=== PATIENT | female | born 1970 | race African-American/Black ===

== ENCOUNTER 2020-06-18 13:16 | Emergency (ER) | payer OTHER, SELFPAY ==
[2020-06-18] VITALS (22 sets, daily range): BP systolic 109–212; BP diastolic 81–171; PULSE 81–98; RESP 14–24; TEMP 36.4; O2SAT 95–100
--- NOTE | ~2020-06-18 | XR_ITS ---
EXAMINATION: XR chest 2V DATE: 06/18/2020 14:01 INDICATION: Chest pain. Dyspnea. TECHNIQUE: Frontal and lateral views of the chest were obtained. COMPARISON: None. FINDINGS: There is mild elevation of right hemidiaphragm. There is mild atelectasis at right lung bas e. Calcified bilateral lung nodules and calcified hilar and mediastinal lymph nodes are consistent wi th old granulomatous disease. No pleural effusion or pneumothorax. Cardiomegaly is noted. IMPRESSION: 1. Mild elevation of right hemidiaphragm with mild atelectasis at right lung base. 2. Cardiomegaly. Reviewed, dictated and finalized at location A. IMPRESSION: 1. Mild elevation of right hemidiaphragm with mild atelectasis at right lung ba se. 2. Cardiomegaly.
--- NOTE | 2020-06-18 13:36 | ECG_ITS ---
Measurements Intervals [place] Rate: 81 P: 65 [place]: 147 QRS: 3 QRSD: 97 T: 48 QT: 374 QTc: 436 Interpretive Statements SINUS RHYTHM POSSIBLE LEFT ATRIAL ENLARGEMENT POOR R WAVE PROGRESSION, ANTERIOR LEADS BORDERLINE T WAVE ABNORMALITY- ANTERIOR LEADS BASELINE WANDER- I, II BORDERLINE ECG Electronically Signed On 06-18-2020 16:32:32 CDT by Scar Palacios D.O.
[2020-06-18 13:47] LABS: Basophils Absolute Auto 0.1 K/mm3 (0.0-0.1); Basophils Percent Auto 0.8 % (0.2-1.2); Eosinophils Absolute Auto 0.2 K/mm3 (0-0.3); Eosinophils Percent Auto 1.9 % (0-4.4); Hematocrit 41.9 % (37.0-47.0); Immature Granulocyte Absolute 0.04 K/mm3 (0.00-0.031); Immature Granulocyte Percent A 0.4 % (0-0.5); Lymphocytes Absolute Auto 2.76 K/mm3 (0.9-3.2); Mean Corpuscular Hemoglobin 27.5 pg (26-34); Mean Corpuscular Volume 88.8 fl (80-100); Monocytes Absolute Auto 0.8 K/mm3 (0.1-0.6); Monocytes Percent Auto 8.8 % (2.6-8.5); Neutrophils Absolute Auto 5.1 K/mm3 (1.3-6.7); Neutrophils Percent Auto 57.1 % (45.5-73.1); Platelet Count Result 341 k/mm3 (150-375); Red Blood Count 4.72 M/mm3 (4.2-5.4); Red Cell Distribution Width 15.8 % (11.5-14.5); White Blood Count 8.9 K/mm3 (4.5-10.0)
--- NOTE | 2020-06-18 13:47 | ED.GENADULT ---
HPI - General Adult General Chief complaint: Shortness of Breath/Dyspnea Stated complaint: SOB Time Seen by Provider: 06/18/20 13:37 Source: patient History of Present Illness HPI narrative: Patient is a 50 y/o female complaining of severe SOB for 1 1/2 weeks. She states that exertion aggravates her SOB. She also has some midsternal chest pain. She has no fever or cough. Related Data Home Medications Medication Instructions Recorded Confirmed albuterol sulfate INHALATION 06/18/20 beclomethasone dipropionate [Qvar INHALATION 06/18/20 RediHaler] losartan-hydrochlorothiazide 25 - 100 tablet 06/18/20 Allergies Allergy/AdvReac Type Severity Reaction Status Date / Time No Known Allergies Allergy Verified 06/18/20 13:37 Review of Systems Constitutional: Constitutional: Denies chills, Denies fever(s), Denies headache(s) and Denies weakness Eyes: Eyes: Denies blurry vision ENT: Denies headache(s) and Denies neck pain Cardiovascular: Cardiovascular: Reports chest pain and Reports dyspnea Respiratory: Respiratory: Denies cough and Reports dyspnea Gastrointestinal: Gastrointestinal: Denies abdominal pain, Denies diarrhea, Denies nausea and Denies vomiting Genitourinary: Genitourinary: Denies hematuria and Denies dysuria Musculoskeletal: Musculoskeletal: Denies back pain and Denies neck pain Neurologic: Denies headache(s) and Denies weakness Exam Const: General: no acute distress and well developed Orientation/consciousness: oriented to person, oriented to place, oriented to time and patient oriented x3 HENMT: Head: normocephalic Ears: external ears normal General nose exam: Normal external nose present Eyes: General: appearance normal, both eyes and all related structures Conjunctivae: conjunctivae normal Neck: Neck: normal visual inspection and full ROM Chest: Chest palpation & inspection: normal inspection of the chest and no tenderness Resp: Effort & Inspection: normal respiratory effort Auscultation: clear to auscultation bilaterally Cardio: Rate: regular rate Rhythm: regular rhythm GI: GI Palp: No abdominal tenderness and Yes Soft to palpation Skin: General skin exam: normal color and turgor normal Neuro: General: oriented to person, oriented to place, oriented to time and patient oriented x3 Cognition (Neuro): normal cognition Extrem: General: normal to inspection, full ROM and no pedal edema Psych: Appearance: grossly normal Mental Status: mental status grossly normal Affect: normal affect Course Vital Signs Vital signs: Vital Signs Pulse Rate 81 06/18/20 13:32 Respiratory Rate 14 06/18/20 13:32 Pulse Oximetry 100 06/18/20 13:32 Temperature 36.4 C 06/18/20 14:00 Pulse Rate 83 06/18/20 17:47 Respiratory Rate 14 06/18/20 17:47 Blood Pressure 157/81 H 06/18/20 17:47 Pulse Oximetry 98 06/18/20 17:47 Medical Decision Making Vital Signs Vital Signs: Vital Signs Pulse Rate 81 06/18/20 13:32 Respiratory Rate 14 06/18/20 13:32 Pulse Oximetry 100 06/18/20 13:32 Temperature 36.4 C 06/18/20 14:00 Pulse Rate 83 06/18/20 17:47 Respiratory Rate 14 06/18/20 17:47 Blood Pressure 157/81 H 06/18/20 17:47 Pulse Oximetry 98 06/18/20 17:47 Lab Data Result diagrams: 06/18/20 13:39 06/18/20 13:39 Labs: Lab Results 06/18/20 06/18/20 06/18/20 Range/Units 13:39 13:39 13:39 WBC 8.9 (4.5-10.0) K/mm3 RBC 4.72 (4.2-5.4) M/mm3 Hgb 13.0 (12.0-15.0) g/dL Hct 41.9 (37.0-47.0) % MCV 88.8 (80-100) fl MCH 27.5 (26-34) pg MCHC 31.0 L (32-36) g/dl RDW 15.8 H (11.5-14.5) % Plt Count 341 (150-375) k/mm3 MPV 9.0 (7.4-10.4) fl Immature Gran % (Auto) 0.4 (0-0.5) % Neut % (Auto) 57.1 (45.5-73.1) % Lymph % (Auto) 31.0 (18.3-44.2) % Dillon % (Auto) 8.8 H (2.6-8.5) % Eos % (Auto) 1.9 (0-4.4) % Baso % (Auto) 0.8 (0.2-1.2) % Lymph #
[2020-06-18 13:58] LABS: Prothrombin Time 12.7 Seconds (11.1-14.7)
[2020-06-18 13:59] LABS: Partial Thromboplastin Time 25.8 SECONDS (22.3-36.8)
[2020-06-18 14:01] LABS: D Dimer 0.38 ug/mL (<0.48)
[2020-06-18 14:04] LABS: Anion Gap 6 mmol/L (8-16); Blood Urea Nitrogen 9 mg/dL (7-17); Calcium 9.9 mg/dL (8.4-10.2); Carbon Dioxide 29 mmol/L (22-30); Chloride 104 mmol/L (98-107); Estimated CRCL calculation 210 ml/min; Estimated Glomerular Filt Rate > 60; Glucose 94 mg/dL (65-105); Potassium 4.3 mmol/L (3.4-5.0); Sodium 139 mmol/L (137-145)
[2020-06-18 14:16] LABS: NT Pro B Type Natriuretic Pept 26 PG/ML (5-100); Troponin I < 0.012 ng/mL (0.000-0.034)
[2020-06-18] MEDS: amLODIPine BESYLATE 5 MG TABLET 10 MG PO (16:00)
[2020-06-18 17:11] LABS: Troponin I < 0.012 ng/mL (0.000-0.034)
== END 2020-06-18 18:22 | disposition home or self-care (01) ==
PROVIDERS: Emergency Provider Emergency Medicine; PCP Internal Medicine Infectious Disease
DX: R06.02 Shortness of breath (principal); I10 Essential (primary) hypertension; R07.9 Chest pain, unspecified
CPT/HCPCS: 36415; 71046; 80048; 83880; 84484; 85025; 85380; 85610; 85730; 93005; 99284; A9270

== ENCOUNTER 2024-12-18 12:01 | Inpatient (IN) | payer OTHER, SELFPAY ==
[2024-12-18] VITALS (20 sets, daily range): BP systolic 135–176; BP diastolic 72–114; PULSE 85–105; RESP 16–22; TEMP 36.4–36.6; O2SAT 78–99; BMI 74.7
--- NOTE | ~2024-12-18 | CT_ITS ---
EXAMINATION: CTA chest PE protocol DATE: 12/18/2024 23:10 INDICATION: hypoxia, elevated d dimer, hx PE TECHNIQUE: Computed tomography angiography (CTA) of the chest was performed with 100 mL Omnipaque-350 intravenous contrast timed to evaluate the pulmonary arteries. Coronal maximum intensity projection 3D-reconstructions were created by the technologist. The dose-length product (DLP) was 1227.07 mGy-cm . Automated exposure control and iterative reconstruction technique were employed. COMPARISON: X-ray chest, same date. FINDINGS: Lung parenchyma and airways: Bibasilar and dependent atelectasis. Patchy areas of groundglass opacity predominantly in the right lung, with less pronounced ground glass opacities in the left lung. Paten t airways Pleura: Unremarkable. Thoracic inlet, axillae and chest wall: Enlarged thyroid. Thoracic aorta: No significant dilation. No dissection. Mediastinum: Dilated central pulmonary arteries as can be seen with pulmonary arterial hypertension. Heart and pericardium: Cardiomegaly. Trace pericardial fluid. Coronary artery calcifications: Mild. Upper abdomen: No significant finding. Bones: No acute osseous finding. Pulmonary arteries: Study quality: Limited by quantum mottle but overall diagnostic. No pulmonary emb el detected. IMPRESSION: No CT evidence of acute pulmonary embolus. Bilateral groundglass opacities, worse in the right lung, may represent asymmetric edema or infection . Thyroid goiter. Reviewed, dictated and finalized at location K. INSPECTOR IMPRESSION: No CT evidence of acute pulmonary embolus. Bilateral groundglass opacities, worse in the right lung, may represent asymmet bogdan edema or infection. Thyroid goiter.
--- NOTE | ~2024-12-18 | XR_ITS ---
Portable chest x-ray Comparison: 12/18/2024 Clinical History: Pneumonia Findings: There is probable central pulmonary venous congestive change. Right upper lobe airspace di sease is significantly improved from prior exam. Cardiomediastinal silhouette is stable. Bones and s oft tissues are unremarkable. Impression: Central venous congestive change and probable minimal pulmonary edema. Significant improvement in rig ht upper lobe airspace disease from prior exam. Reviewed, dictated and finalized at location M. SACTIONAL ATTORNEY Impression: Central venous congestive change and probable minimal pulmonary edema. Signific ant improvement in right upper lobe airspace disease from prior exam.
--- NOTE | ~2024-12-18 | XR_ITS ---
EXAMINATION: XR chest 2V DATE: 12/18/2024 13:08 INDICATION: Chest pain and shortness of breath TECHNIQUE: frontal and lateral views of the chest were obtained. COMPARISON: Chest radiograph dated 06/18/2020 FINDINGS: Patchy airspace opacities wording throughout the right lung suspicious for pneumonia. Left lung remai ns clear. No pleural effusion or pneumothorax. Cardiomegaly. There are bridging osteophytes at multip le levels consistent with diffuse idiopathic skeletal hyperostosis (DISH). IMPRESSION: 1. Patchy airspace opacities throughout the right lung suspicious for pneumonia. 2. Cardiomegaly. Reviewed, dictated and finalized at location A. ECTOR SUBASSEMBLY IMPRESSION: 1. Patchy airspace opacities throughout the right lung suspicious for pneumonia . 2. Cardiomegaly.
--- NOTE | 2024-12-18 12:04 | ECG_ITS ---
Test Date: 2024-12-18 12:12:58 Measurements Intervals [place] Rate: 94 P: 61 [place]: 154 QRS: -9 QRSD: 92 T: 60 QT: 375 QTc: 471 Interpretive Statements SINUS RHYTHM BORDERLINE R WAVE PROGRESSION, ANTERIOR LEADS MODERATE T-WAVE ABNORMALITY, CONSIDER ANTERIOR ISCHEMIA ABNORMAL ECG No previous ECG available for comparison Electronically Signed On 12-18-2024 12:43:59 FINISH PAINTER by Scar Palacios D.O.
[2024-12-18 12:33] LABS: Basophils Absolute Auto 0.1 K/mm3 (0.0-0.1); Basophils Percent Auto 0.9 % (0.2-1.2); Eosinophils Percent Auto 0.3 % (0-4.4); Hematocrit 41.2 % (37.0-47.0); Hemoglobin 11.6 g/dL (12.0-15.0); Immature Granulocyte Absolute 0.14 K/mm3 (0.00-0.031); Immature Granulocyte Percent A 1.3 % (0-0.5); Lymphocytes Absolute Auto 2.36 K/mm3 (0.9-3.2); Lymphocytes Percent Auto 22.5 % (18.3-44.2); Mean Corpuscular HGB Conc 28.2 g/dl (32-36); Mean Corpuscular Hemoglobin 26.6 pg (26-34); Mean Corpuscular Volume 94.5 fl (80-100); Mean Platelet Volume 9.3 fl (7.4-10.4); Monocytes Percent Auto 9.1 % (2.6-8.5); Neutrophils Absolute Auto 6.9 K/mm3 (1.3-6.7); Neutrophils Percent Auto 65.9 % (45.5-73.1); Nucleated Red Blood Cells Perc 5.6 % (0.0-0.2); Platelet Count Result 356 k/mm3 (150-375); Red Blood Count 4.36 M/mm3 (4.2-5.4); Red Cell Distribution Width 17.2 % (11.5-14.5); White Blood Count 10.5 K/mm3 (4.5-10.0)
--- NOTE | 2024-12-18 12:38 | ED_ITS ---
HPI - General Adult General Chief complaint: Chest Pain Stated complaint: CP, blood in stool, SOB History of Present Illness HPI narrative: 54-year-old female present to the emergency department for evaluation for multiple complaints. Patient states that she has been having some increased shortness of breath, chest pain and has been having some blood in her stool, patient states this all started on . Patient does report a prior history of H pylori eye that was treated with antibiotics. Patient reports that she is not normally on oxygen patient is currently on 4 L of oxygen by nasal cannula. Related Data Home Medications ?Medication ?Instructions ?Recorded ?Confirmed ?Last Taken ?Type albuterol sulfate 90 mcg/actuation 3 inh inhalation Q8H PRN shortness 06/18/20 12/18/24 12/17/24 History aerosol inhaler of breath or wheezing Allergies Allergy/AdvReac Type Severity Reaction Status Date / Time No Known Allergies Allergy Verified 12/18/24 16:59 Review of Systems 2 Review of Systems: All systems reviewed & are unremarkable except as noted in HPI and below PMFSH Past Medical History Medical History (Updated 12/18/24 @ 20:28 by Yuko Michel PA-C) Pulmonary embolism H. pylori infection Chronic obstructive pulmonary disease Prediabetes Obstructive sleep apnea on CPAP Heart failure of unknown type Morbid obesity Surgical History Surgical History (Updated 12/18/24 @ 20:28 by Yuko Michel PA-C) History of eye surgery History of carpal tunnel release History of hysterectomy Social History Social History (Updated 12/18/24 @ 20:29 by Yuko Mcihel PA-C) Social History: Surrogate medical decision maker: Paulina Moulton (sibling) or her 2 children. Code status: Full code. Smoking packs per day: 0.25 Smoking cigarettes per day: 5.0 Years smoked: 25 Smoking pack-years: 6.25 Smoking status: Former smoker Tobacco type: cigarettes Alcohol intake: never Substance use: never Substance use type: does not use Do You Feel Safe in your Home?: No Lack of Transportation: No Lack of Food: Never True Current Housing: I Have Housing Concerned About Future Housing: No Difficulty Paying Gas/Electric Bills: No Difficulty Paying for Meds: No Currently Unemployed: No Education: High School Diploma/GED Difficulty w/ Childcare or Family Care: No Spiritual care concerns: No Exam 2 Narrative: APPEARANCE: Morbidly obese, short of breath HEAD: normocephalic, atraumatic. EYES: PERRLA/EOMI, conjunctivae clear. NOSE: Normal no drainage EARS:TMS clear with good light reflex. THROAT: Pharynx clear, no exudate. NECK: Supple. No adenopathy, no masses. RESPIRATORY: Airway patent, respirations nonlabored. Clear to auscultation bilaterally, no rales, rhonchi, wheezing. CARDIOVASCULAR: Regular rate and rhythm without murmurs rubs or gallops. ABDOMINAL: Soft, nontender, nondistended, normal bowel sounds MUSCULOSKELETAL: Moves all extremities. Strength/ROM intact, No edema, No calf tenderness. NEURO: Alert. Cranial nerves II through XII intact. Good gait. Good coordination SKIN: Warm, dry. Normal Color Course Vital Signs Vital signs: Vital Signs Pulse Oximetry 78 L 12/18/24 12:10 Oxygen Delivery Room Air 12/18/24 12:10 Temperature 97.6 F 12/18/24 20:00 Pulse Rate 92 12/18/24 20:21 Respiratory Rate 20 12/18/24 20:21 Blood Pressure 173/99 H 12/18/24 20:00 Pulse Oximetry 97 12/18/24 20:20 Oxygen Delivery Nasal Cannula 12/18/24 20:20 Oxygen Flow Rate 4 12/18/24 20:20 Medical Decision Making [facility] Narrative Medical decision making narrative: 54-year-old female present to the emergency department for evaluation for chest pain, shortness of breath and blood in her stool. Patient was Hemoccult positive on the digital rectal exam, stool is dark red and pasty. Patient was treated with a dose of famotidine and Protonix. GI was consulted. Patient does have a new O2 requirement but is saturating well on her 4 L in no distress. Chest x-ray was concerning for pneumonia. Patient was started on Rocephin and azithromycin IV. Case was discussed with hospitalist patient was accepted for admission. Family were updated on the results of the workup plan for admission. All questions and concerns were addressed. Differential Diagnosis Differential Diagnosis: COVID, RSV, influenza, pneumonia, upper GI bleed, lower GI bleed, anemia Vital Signs Vital Signs: Vital Signs Pulse Oximetry 78 L 12/18/24 12:10 Oxygen Delivery Room Air 12/18/24 12:10 Temperature 97.6 F 12/18/24 20:00 Pulse Rate 92 12/18/24 20:21 Respiratory Rate 20 12/18/24 20:21 Blood Pressure 173/99 H 12/18/24 20:00 Pulse Oximetry 97 12/18/24 20:20 Oxygen Delivery Nasal Cannula 12/18/24 20:20 Oxygen Flow Rate 4 12/18/24 20:20 Lab Data Lab results reviewed: Yes I reviewed the patient's lab results. 12/18/24 12:24 12/18/24 12:24 Labs: Lab Results 12/18/24 12/18/24 12/18/24 Range/Units 12:24 12:27 12:43 WBC 10.5 H (4.5-10.0) K/mm3 RBC 4.36 (4.2-5.4) M/mm3 Hgb 11.6 L (12.0-15.0) g/dL Hct 41.2 (37.0-47.0) % MCV 94.5 (80-100) fl MCH 26.6 (26-34) pg MCHC 28.2 L (32-36) g/dl RDW 17.2 H (11.5-14.5) % Plt Count 356 (150-375) k/mm3 MPV 9.3 (7.4-10.4) fl Immature Gran % (Auto) 1.3 H (0-0.5) % Neut % (Auto) 65.9 (45.5-73.1) % Lymph % (Auto) 22.5 (18.3-44.2) % Wilkinson % (Auto) 9.1 H (2.6-8.5) % Eos % (Auto) 0.3 (0-4.4) % Baso % (Auto) 0.9 (0.2-1.2) % Lymph # (Auto) 2.36 (0.9-3.2) K/mm3 Wilkinson # (Auto) 1.0 H (0.1-0.6) K/mm3 Eos # (Auto) 0.0 (0-0.3) K/mm3 Baso # (Auto) 0.1 (0.0-0.1) K/mm3 Abs Immat Gran (auto) 0.14 H (0.00-0.031) K/mm3 Absolute Neuts (auto) 6.9 H (1.3-6.7) K/mm3 Absolute Nucleated RBC 0.590 H (0.0-0.012) K/mm3 Nucleated RBC % 5.6 H (0.0-0.2) % Platelet Estimate Adequate (Adequate) Hypochromasia 2+ Stomatocytes 2+ Schistocytes None seen PT 13.3 (11.1-14.7) Seconds INR 1.0 APTT 25.7 (22.3-36.8) Seconds Methemoglobin (0-1.5) %THb Sodium 141 (137-145) mmol/L Potassium 4.4 (3.4-5.0) mmol/L Chloride 97 L (98-107) mmol/L Carbon Dioxide 39 H (22-30) mmol/L Anion Gap 5 (4-12) mmol/L BUN 18 H (7-17) mg/dL Creatinine 0.51 L (0.7-1.0) mg/dL Estim Creat Clear Calc 169 ml/min Estimated GFR > 60 (59 - ) Glucose 134 H (65-110) mg/dL Hemoglobin A1c Pending Calcium 10.2 (8.4-10.2) mg/dL Total Bilirubin 0.5 (0.2-1.3) mg/dL AST 45 H (14-36) U/L ALT 53 H (6-35) U/L Alkaline Phosphatase 110 (38-126) U/L Troponin I 0.032 (0.000-0.034) ng/mL Total Protein 8.0 (6.3-8.2) g/dL Albumin 4.1 (3.5-5.1) g/dL Lipase 25 (23-300) U/L Influenza A (RT-PCR) Negative (Negative) Influenza B (RT-PCR) Negative (Negative) RSV (RT-PCR) Negative (Negative) SARS-CoV-2 RNA (RT-PCR) Negative (Negative) Blood Type A Positive Antibody Screen Negative 12/18/24 Range/Units 13:18 WBC (4.5-10.0) K/mm3 RBC (4.2-5.4) M/mm3 Hgb (12.0-15.0) g/dL Hct (37.0-47.0) % MCV (80-100) fl MCH (26-34) pg MCHC (32-36) g/dl RDW (11.5-14.5) % Plt Count (150-375) k/mm3 MPV (7.4-10.4) fl Immature Gran % (Auto) (0-0.5) % Neut % (Auto) (45.5-73.1) % Lymph % (Auto) (18.3-44.2) % Wilkinson % (Auto) (2.6-8.5) % Eos % (Auto) (0-4.4) % Baso % (Auto) (0.2-1.2) % Lymph # (Auto) (0.9-3.2) K/mm3 Wilkinson # (Auto) (0.1-0.6) K/mm3 Eos # (Auto) (0-0.3) K/mm3 Baso # (Auto) (0.0-0.1) K/mm3 Abs Immat Gran (auto) (0.00-0.031) K/mm3 Absolute Neuts (auto) (1.3-6.7) K/mm3 Absolute Nucleated RBC (0.0-0.012) K/mm3 Nucleated RBC % (0.0-0.2) % Platelet Estimate (Adequate) Hypochromasia Stomatocytes Schistocytes PT (11.1-14.7) Seconds INR APTT (22.3-36.8) Seconds Methemoglobin 0.2 (0-1.5) %THb Sodium (137-145) mmol/L Potassium (3.4-5.0) mmol/L Chloride (98-107) mmol/L Carbon Dioxide (22-30) mmol/L Anion Gap (4-12) mmol/L BUN (7-17) mg/dL Creatinine (0.7-1.0) mg/dL Estim Creat Clear Calc ml/min Estimated GFR (59 - ) Glucose (65-110) mg/dL Hemoglobin A1c Calcium (8.4-10.2) mg/dL Total Bilirubin (0.2-1.3) mg/dL AST (14-36) U/L ALT (6-35) U/L Alkaline Phosphatase (38-126) U/L Troponin I (0.000-0.034) ng/mL Total Protein (6.3-8.2) g/dL Albumin (3.5-5.1) g/dL Lipase (23-300) U/L Influenza A (RT-PCR) (Negative) Influenza B (RT-PCR) (Negative) RSV (RT-PCR) (Negative) SARS-CoV-2 RNA (RT-PCR) (Negative) Blood Type Antibody Screen ABG Data ABG results: 12/18/24 13:18 Puncture Site Right radial ABG pH 7.364 ABG pCO2 59.0 H ABG pO2 64.1 L ABG PO2/FiO2 Ratio 1.78 ABG HCO3 32.9 H ABG O2 Saturation 91.2 L ABG O2 Content 15.5 L ABG Base Excess 6.0 A-a Gradient 124.1 Oxyhemoglobin 90.2 Carboxyhemoglobin 1.2 Reduced Hemoglobin 8.4 H Total Hemoglobin 12.2 O2 Delivery Device Nasal cannula O2 Liters/Min 4.0 FiO2 36 Imaging Data Radiologist's impression: Impressions Chest X-Ray 12/18/24 13:10 IMPRESSION: 1. Patchy airspace opacities throughout the right lung suspicious for pneumonia. 2. Cardiomegaly. Discharge Plan Discharge Clinical Impression: Chest pain, Pneumonia, GI bleed Patient Disposition: Still a Patient Condition: Serious
[2024-12-18 12:43] LABS: Prothrombin Time 13.3 Seconds (11.1-14.7)
[2024-12-18 12:44] LABS: Partial Thromboplastin Time 25.7 Seconds (22.3-36.8)
[2024-12-18 12:46] LABS: Alanine Aminotransferase 53 U/L (6-35); Albumin Level 4.1 g/dL (3.5-5.1); Alkaline Phosphatase 110 U/L (38-126); Anion Gap 5 mmol/L (4-12); Aspartate Amino Transferase 45 U/L (14-36); Bilirubin,Total 0.5 mg/dL (0.2-1.3); Blood Urea Nitrogen 18 mg/dL (7-17); Calcium 10.2 mg/dL (8.4-10.2); Carbon Dioxide 39 mmol/L (22-30); Chloride 97 mmol/L (98-107); Estimated CRCL calculation 169 ml/min; Estimated Glomerular Filt Rate > 60; Glucose 134 mg/dL (65-110); Lipase 25 U/L (23-300); Potassium 4.4 mmol/L (3.4-5.0); Sodium 141 mmol/L (137-145)
[2024-12-18 12:56] LABS: Troponin I 0.032 ng/mL (0.000-0.034)
[2024-12-18 12:57] LABS: Hypochromasia 2+; Platelet Estimate Adequate (Adequate)
[2024-12-18 12:59] LABS: Schistocytes None Seen; Stomatocytes 2+
--- NOTE | 2024-12-18 13:04 | PC.NURSE ---
Pt. to x-ray.
[2024-12-18 13:25] LABS: Influenza A QL RT-PCR Negative (Negative); Influenza B QL RT-PCR Negative (Negative); RSV RNA, RT-PCR Negative (Negative); SARS-CoV-2 RNA PCR Negative (Negative)
[2024-12-18 13:33] LABS: Alveolar/Arterial O2 Gradient 124.1 mmHg; Carboxyhemoglobin 1.2 % THb (0-2.0); Fractional Inspired Oxygen 36 %; HCO3 ABG 32.9 mEq/l (22.0-26.0); Methemoglobin ABG 0.2 %THb (0-1.5); Oxygen Content ABG 15.5 %vol (16.0-22.0); Oxygen Saturation ABG 91.2 % (95.0-100.0); Oxyhemoglobin 90.2 % THb (90.0-100.0); PO2 ABG 64.1 mmHg (80.0-100.0); PO2 FiO2 Ratio Arterial Blood 1.78 %; Reduced Hemoglobin 8.4 %THb (0-5.0); Total Hemoglobin 12.2 g/dL (12.0-18.0); pH ABG 7.364 (7.350-7.450)
[2024-12-18 13:35] LABS: Device NASAL CANNULA; Modified Allen's Test Pass; Site Drawn RIGHT RADIAL
--- NOTE | 2024-12-18 13:35 | P.HP_ITS ---
H&P: HPI History of Present Illness Date/Time: 12/18/24 13:35 Chief Complaint: Multiple complaints. Narrative: This is a very pleasant 54-year-old female with morbid obesity, chronic obstructive pulmonary disease, congestive heart failure, hypertension, obstructive sleep apnea, pulmonary embolism greater than 10 years ago, colon polyps, and H pylori infection who presented to the emergency department via EMS with multiple complaints. She has only been seen at this facility once or twice in the past and gets most of her care at [facility]. She has ongoing problems with constipation and on she felt the urge to have a bowel movement and when she went to the bathroom she had passed a pretty big amount of dark red/maroon blood admixed with clots. She had another similar bowel movement on Wednesday, yesterday, and today but Wednesday she did not have a bowel movement and did not passed any blood per rectum. She also reports nausea, mild epigastric discomfort, sinus congestion, sneezing, shortness of breath, and anterior, substernal chest discomfort which she has difficulties describing. She denies fever, sore throat, exertional chest pain, pleuritic pain, productive cough, vomiting, diarrhea, and dysuria. In the ED: Vital signs on arrival include an SpO2 of 70% on room air, temperature 97.8? F, blood pressure 169/114, pulse 93. Labs were significant for WBC count of 10.5, hemoglobin 11.6, carbon dioxide 39, BUN 18, creatinine 0.51, glucose 134, AST 45, ALT 53, troponin 0.032. She tested negative for influenza, RSV, and COVID. Chest x-ray shows patchy airspace opacities throughout the right lung suspicious for pneumonia and cardiomegaly. EKG showed sinus rhythm with borderline R-wave progression anterior leads and moderate T-wave abnormalities. She received azithromycin 500 mg, ceftriaxone 1 g, and pantoprazole 80 mg. She is being admitted in this setting for further treatment of suspected pneumonia and GI consultation as her stool was Hemoccult positive. Review of Systems Review of Systems: 12 systems were reviewed and are negativ e except for as per HPI. [facility] Past Medical History Medical History (Updated 12/18/24 @ 20:28 by Yuko Michel PA-C) Pulmonary embolism H. pylori infection Chronic obstructive pulmonary disease Prediabetes Obstructive sleep apnea on CPAP Heart failure of unknown type Morbid obesity Surgical History Surgical History (Updated 12/18/24 @ 20:28 by Yuko Michel PA-C) History of eye surgery History of carpal tunnel release History of hysterectomy Social History Social History (Updated 12/18/24 @ 20:29 by Yuko Michel PA-C) Social History: Surrogate medical decision maker: Paulina Moulton (sibling) or her 2 children. Code status: Full code. Smoking packs per day: 0.25 Smoking cigarettes per day: 5.0 Years smoked: 25 Smoking pack-years: 6.25 Smoking status: Former smoker Tobacco type: cigarettes Alcohol intake: never Substance use: never Substance use type: does not use Do You Feel Safe in your Home?: No Lack of Transportation: No Lack of Food: Never True Current Housing: I Have Housing Concerned About Future Housing: No Difficulty Paying Gas/Electric Bills: No Difficulty Paying for Meds: No Currently Unemployed: No Education: High School Diploma/GED Difficulty w/ Childcare or Family Care: No Spiritual care concerns: No Meds Home Medications and Allergies Home Medications ?Medication ?Instructions ?Recorded ?Confirmed ?Type albuterol sulfate 90 mcg/actuation 3 inh inhalation Q8H PRN shortness 06/18/20 12/18/24 History aerosol inhaler of breath or wheezing Allergies Allergy/AdvReac Type Severity Reaction Status Date / Time No Known Allergies Allergy Verified 12/18/24 16:59 Vital Signs Vital Signs - 24 hr 12/18/24 12:10 12/18/24 12:11 12/18/24 12:12 Temperature 97.8 F Pulse Rate 93 Respiratory Rate 20 Blood Pressure 169/114 H Pulse Oximetry 78 L 96 96 Oxygen Delivery Room Air Nasal Cannula Oxygen Flow Rate 4 6 12/18/24 12:18 Temperature Pulse Rate Respiratory Rate Blood Pressure Pulse Oximetry 98 Oxygen Delivery Nasal Cannula Oxygen Flow Rate 4 Exam Narrative: General: Mildly ill-appearing female sitting up in bed in no acute distress. Weight: 179.5 kg. BMI: 74.8. HEENT: PERRL, EOMI. Sclera anicteric. Oral mucosa moist. Crowded oropharynx. Neck: Supple. Exam limited due to neck circumference. No obvious JVD. Respiratory: Currently requiring 4 L nasal cannula to maintain her SpO2 in the mid to upper 90s. Respirations are nonlabored. Lung sounds are a bit coarse at the right base. Cardiovascular: Regular rate and rhythm with S1-S2. Gastrointestinal: Abdomen is soft, morbidly obese, nontender, and nondistended with positive bowel sounds. Skin: Warm and dry. No rash or lesions on limited exam. Extremities: No cyanosis, clubbing, or significant edema. Radial and pedal pulses intact. No palpable knots or cords. Negative Vera sign bilaterally. Neurological: Alert. Cranial nerves 2-12 are grossly intact. No gross focal deficits to casual conversation. Psychiatric: Pleasant and cooperative with normal mood and affect. Judgment and insight intact. She is in good spirits. H&P: Results Labs Labs: Short CBC 12/18/24 Range/Units 12:24 WBC 10.5 H (4.5-10.0) K/mm3 Hgb 11.6 L (12.0-15.0) g/dL Hct 41.2 (37.0-47.0) % Plt Count 356 (150-375) k/mm3 BMP 12/18/24 12:24 Sodium 141 Potassium 4.4 Chloride 97 L Carbon Dioxide 39 H BUN 18 H Creatinine 0.51 L Glucose 134 H Calcium 10.2 Cardiac Enzymes 12/18/24 Range/Units 12:24 Troponin I 0.032 (0.000-0.034) ng/mL Liver Function 12/18/24 Range/Units 12:24 Total Bilirubin 0.5 (0.2-1.3) mg/dL AST 45 H (14-36) U/L ALT 53 H (6-35) U/L Alkaline Phosphatase 110 (38-126) U/L Albumin 4.1 (3.5-5.1) g/dL Impressions Chest X-Ray 12/18/24 13:10 IMPRESSION: 1. Patchy airspace opacities throughout the right lung suspicious for pneumonia. 2. Cardiomegaly. Assessment and Plan Assessment and plan (1) Acute respiratory failure with hypoxia and hypercapnia: Code(s): J96.01 - Acute respiratory failure with hypoxia; J96.02 - Acute respiratory failure with hypercapnia Status: Acute (2) Pneumonia: Code(s): J18.9 - Pneumonia, unspecified organism Status: Acute (3) Chest pain: Code(s): R07.9 - Chest pain, unspecified Status: Acute (4) GI bleed: Code(s): K92.2 - Gastrointestinal hemorrhage, unspecified Status: Acute (5) Morbid obesity: Code(s): E66.01 - Morbid (severe) obesity due to excess calories Status: Acute (6) Heart failure of unknown type: Code(s): I50.9 - Heart failure, unspecified Status: Acute (7) Chronic obstructive pulmonary disease: Code(s): J44.9 - Chronic obstructive pulmonary disease, unspecified Status: Acute (8) Obstructive sleep apnea on CPAP: Code(s): G47.33 - Obstructive sleep apnea (adult) (pediatric) Status: Acute (9) Hypertension: Qualifiers: Hypertension type: unspecified Qualified Code(s): I10 - Essential (primary) hypertension Code(s): I10 - Essential (primary) hypertension Status: Inactive Plan The patient presented to the emergency department with multiple complaints including blood in stools, chest pain, cough, shortness of breath, and other symptoms as detailed in HPI. Labs, imaging, EKG, and all reports were personally reviewed. Initial troponin was negative and will be trended however her symptoms seem a bit atypical for cardiac pain. Given history of pulmonary edema and hypoxia, D-dimer has been ordered and if that is elevated a chest CTA will follow. ABG is concerning for possible chronic respiratory failure with both hypercapnia and hypoxia and she will need a home oxygen study prior to discharge. Chest x-ray shows findings of pneumonia on the right and she has been started on azithromycin and ceftriaxone. Attempt sputum for culture. Regarding the dark stools, this is likely due to either hemorrhoidal or diverticular bleeding. Records requested from prior colonoscopy which was reportedly 5 years ago or more. Hemoglobin and hematocrit will be monitored. GI consult for further recommendations. No evidence to suggest COPD exacerbation. She appears euvolemic on exam. CPAP will be provided for the patient to use while hospitalized. Blood pressures were reviewed and they have been running high. Continue to monitor closely for now and consider reinitiating antihypertensives as she is reportedly no longer taking them. Her home medications will be reviewed and resumed as appropriate. Findings and treatment plan were discussed with the patient and her daughter at bedside. Questions were solicited and answered to satisfaction. The patient's medical management will be taken over by the hospitalist team in a.m. Quality VTE Prophylaxis VTE prophylaxis: mechanical ordered If No VTE Prophylaxis Answer both mechanical and pharmacologic: Reason no pharmacologic proph: medical contraindication (hemoccult positive stool) The patient has been admitted under observation status. Hospitalist [facility] Advance Care Plan I have confirmed that the patient's Advanced Care Plan is present, code status is documented, or surrogate decision maker is listed in patient medical record.: Yes Medication Reconciliation I have utilized all available resources to obtain, update and review the patients current medications (includes all prescriptions, OTC, herbals, cannabis, and nutritional supplements).: Yes
--- NOTE | 2024-12-18 14:00 | PC.NURSE ---
This RN and Ingr[employer] geotechnician unable to collect cultures d/t pt. difficult vasculature. Per MD Quintero, if cultures have not been obtained by 1430 (30 minutes), start antibiotics without cultures.
[2024-12-18] MEDS: PANTOPRAZOLE SODIUM IV 40 MG VIAL 80 MG IV PUSH (14:06)
[2024-12-18] MEDS: FAMOTIDINE 20 MG/2 ML VIAL IV PUSH (14:06)
--- NOTE | 2024-12-18 14:15 | PC.NURSE ---
Clear liquid tray ordered for pt.
--- NOTE | 2024-12-18 14:15 | PC.NURSE ---
KIESHA Maki at bedside attempting to obtain cultures with ultrasound machine.
--- OUTSIDE RECORDS SUMMARY | 2024-12-18 14:45 | XMS_ITS | Patient Health Summary ---
Author Organization [facility] Address [address] [place] [address] Care Team Providers Care City Planning Aide Name Role Phone Dilia Yap MD Primary Care Provider Arnulfo Garcia MD Unavailable [phone] Note from [facility],non-owned Affiliates and Associated Physician Practices is amultiple site organization consisting of ambulatory clinics and hospital sitesin [place], [place], [place] and [place]. This disclosure is being madepursuant to the Care Everywhere program and may not contain all information available regarding this patient. Last updated 18.[facility] Allergies No known active allergies Medications * Be aware that medications may not be up to date on this document. Alwaysverify current medications with the patient. * albuterol HFA (PROVENTIL;VENTOLIN;PROAIR) 108 (90 BASE) MCG/ACT inhaler Inhale 2 Puffs by mouth every 6 hours as needed * beclomethasone dipropionate (QVAR) 40 MCG/ACT inhaler Inhale by mouth once daily * buPROPion (WELLBUTRIN) 75 MG tablet Take 1 tablet twice a day by oral route for 30 days. * fluconazole (DIFLUCAN) 150 MG tablet(Started 05/09/2018) * losartan - hydroCHLOROthiazide (HYZAAR) 50-12.5 MG tablet Take 1 tablet by mouth once daily * erythromycin (ROMYCIN) 5 MG/GM ophthalmic ointment(Started 07/25/2019) Instill into both eyes 4 times daily 2 refills remaining Active Problems Problem Noted Date Diagnosed Date Wound dehiscence, surgical 07/01/2018 Abnormal uterine bleeding (AUB) 06/23/2018 S/P hysterectomy 06/23/2018 Papilledema 04/07/2018 History of papilledema 04/07/2018 IIH (idiopathic intracranial hypertension) 01/24 Ptosis, bilateral 01/24/2018 Obesity (BMI 30-39.9) 01/24/2018 Optic atrophy of both eyes 01/24/2018 Absolute anemia 11/16/2017 Social History Tobacco Use Types Packs/Day Years Used Date Smoking Tobacco: Every Day Cigarettes Last attempted to quit: 11/01/2012 Smokeless Tobacco: Never Tobacco Cessation:Counseling Given: No Alcohol Use Standard Drinks/Week Comments Yes 0 (1 standard drink = 0.6 oz pure alcohol) socially maybe 3-4 times a year Sex and Gender Information Value Date Recorded Sex Assigned at Not on file Gender Identity Not on file Sexual Orientation Not on file Last Filed Vital Signs Vital Sign Reading Time Taken Comments Blood Pressure 157/90 07/25/2019 9:30 AM CDT Pulse 78 07/25/2019 9:30 AM CDT Temperature 36.9 C (98.4 F) 07/25/2019 9:21 AM CDT Respiratory Rate 20 07/25/2019 9:30 AM CDT Oxygen Saturation 98% 07/25/2019 9:30 AM CDT Inhaled Oxygen Concentration 21% 07/25/2019 6 :43 AM CDT Weight 150.7 kg (332 lb 3.2 oz) 07/25/2019 6:27 AM CDT Height 154.9 cm (5' 1 ) 07/25/2019 6:27 AM CDT Body Mass Index 62.77 07/25/2019 6:27 AM CDT Procedures * MN REPAIR BROW PTOSIS(Performed 07/25/2019) Performed for Ptosis of both eyelids * CULTURE ANAEROBE(Performed 07/05/2018) * CULTURE WOUND+GRAM STAIN(Performed 07/05/2018) * SLIDE SCAN HEMATOLOGY(Performed 07/01/2018) Performed for Draining postoperative wound, initial encounter * CBC W AUTO DIFFERENTIAL(Performed 07/01/2018) Performed for Draining postoperative wound, initial encounter * CARDIAC RHYTHM STRIP ORDER(Performed 06/28/2018) * APHERESIS/TRANSFUSION ORDER(Performed 06/28/2018) * CBC W AUTO DIFFERENTIAL(Performed 06/24/2018) Performed for Abnormal uterine bleeding (AUB), S/P hysterectomy * HOME CPAP/BIPAP FOR HOSP USE: NOCTURNAL 02(Performed 06/24/2018) * CBC W AUTO DIFFERENTIAL(Performed 06/23/2018) Performed for S/P hysterectomy * PREPARE RBC LEUKOREDUCED UNIT(Performed 06/23/2018) Performed for Abnormal uterine bleeding (AUB) * PATHOLOGY TISSUE EXAM (STL)(Performed 06/23/2018) Performed for Diagnosis unknown * TRANSFUSE RED BLOOD CELL LEUKOREDUCED UNIT(S)(Performed 06/23/2018) * ENDOTRACHEAL TUBE NOTE(Performed 06/23/2018) * TRANSFUSE RED BLOOD CELL LEUKOREDUCED UNIT(S)(Performed 06/23/2018) * HYSTERECTOMY ABDOMINAL WITH SALPINGO/OOPHORECTOMY(Performed 06/23/2018) Performed for Diagnosis unknown * HYSTERECTOMY VAGINAL (TVH)(Performed 06/23/2018) Performed for Diagnosis unknown * TYPE + SCREEN PANEL(Performed 06/23/2018) Performed for Papilledema * SLIDE SCAN HEMATOLOGY(Performed 06/23/2018) Performed for Preop examination * CBC W AUTO DIFFERENTIAL(Performed 06/23/2018) Performed for Preop examination * HOME CPAP/BIPAP FOR HOSP USE: NOCTURNAL 02(Performed 06/23/2018) * HCG URINE QUALITATIVE - POCT (IP) INTERFACED(Performed 06/23/2018) * HCG URINE QUAL POCT NOTIFICATION(Performed 06/23/2018) Performed for Papilledema * PREPARE RBC LEUKOREDUCED UNIT(Performed 06/23/2018) * BASIC METABOLIC PANEL (CALCIUM TOTAL)(Performed 06/21/2018) Performed for Pre-op testing * TYPE + SCREEN PANEL(Performed 06/21/2018) Performed for Pre-op testing * CBC W AUTO DIFFERENTIAL(Performed 06/21/2018) Performed for Pre-op testing * OPH COLOR FUNDUS PHOTOGRAPHY SLU(Performed 04/07/2018) Performed for Partial optic atrophy of both eyes * FL LUMBAR PUNCTURE(Performed 02/15/2018) Performed for IIH (idiopathic intracranial hypertension) * HCG URINE QUALITATIVE - POINT OF CARE(Performed 02/15/2018) * MRI BRAIN WWO CONTRAST(Performed 02/03/2018) * MRI ANGIO BRAIN ART WWO CONT(Performed 02/03/2018) * CBC W AUTO DIFFERENTIAL(Performed 01/26/2018) * COMPREHENSIVE METABOLIC PANEL(Performed 01/26/2018) * RBC MORPHOLOGY(Performed 01/26/2018) * FERRITIN(Performed 01/26/2018) * TRANSFERRIN(Performed 01/26/2018) * IRON BLOOD(Performed 01/26/2018) * CBC W AUTO DIFFERENTIAL(Performed 01/26/2018) * US PELVIS W TRANSVAG NON OB(Performed 12/30/2017) Performed for Uterine leiomyoma, unspecified location * CBC W AUTO DIFFERENTIAL(Performed 11/19/2017) * COPPER BLOOD(Performed 11/19/2017) * ZINC BLOOD(Performed 11/19/2017) * HEMOGLOBIN ELECTROPHORESIS(Performed 11/19/2017) * RBC MORPHOLOGY(Performed 11/19/2017) * CBC W AUTO DIFFERENTIAL(Performed 11/19/2017) * FERRITIN(Performed 11/19/2017) * TRANSFERRIN(Performed 11/19/2017) * FOLATE(Performed 11/19/2017) * VITAMIN B12(Performed 11/19/2017) * IRON BLOOD(Performed 11/19/2017) * COMPREHENSIVE METABOLIC PANEL(Performed 11/19/2017) * RETIC COUNT(Performed 11/19/2017) * PATHOLOGY TISSUE EXAM (STL)(Performed 03/26/2016) Performed for Upper abdominal pain, Nausea, Iron deficiency anemia secondary to inadequate dietary iron intake * HELICOBACTER PYLORI UREASE (STL)(Performed 03/26/2016) Performed for Upper abdominal pain, Nausea, Iron deficiency anemia secondary to inadequate dietary iron intake * COLONOSCOPY BIOPSY (ANY METHOD)(Performed 03/26/2016) Performed for Upper abdominal pain, Nausea, Iron deficiency anemia secondary to inadequate dietary iron intake * ESOPHAGOGASTRODUODENOSCOPY (EGD) BIOPSY(Performed 03/26/2016) Performed for Upper abdominal pain, Nausea, Iron deficiency anemia secondary to inadequate dietary iron intake * COLONOSCOPY SCREEN(Performed 03/26/2016) Performed for Upper abdominal pain, Nausea, Iron deficiency anemia secondary to inadequate dietary iron intake * ESOPHAGOGASTRODUODENOSCOPY (EGD) DIAGNOSTIC(Performed 03/26/2016) Performed for Upper abdominal pain, Nausea, Iron deficiency anemia secondary to inadequate dietary iron intake * EGD(Performed 03/26/2016) * ENDOSCOPY, COLON, DIAGNOSTIC(Performed 03/26/2016) * HCG URINE QUALITATIVE - POINT OF CARE(Performed 03/26/2016) * MRI PELVIS WO CONTRAST(Performed 08/02/2015) Performed for Intramural leiomyoma of uterus * GROSS + MICRO EXAM(Performed 02/29/2008) Results * (ABNORMAL) CULTURE WOUND+GRAM STAIN (07/05/2018 11:49 PM CDT) Culture Light Proteus mirabilis(A) LIZZIE 07/08/2018 8:10 AM CDT [facility] Culture Light normal skin cesia LIZZIE 07/08/2018 8:10 AM CDT [facility] Gram Stain Light White blood cells 07/08/2018 8:10 AM CDT [facility] Gram Stain Light Gram-positiv e cocci 07/08/2018 8:10 AM CDT [facility] Microbiology SPECIMEN FROM WOUND / Unknown Collection / Unknown 07/05/2018 11:49 PM CDT 07/05/2018 11:52 PM CDT Narrative Organism Antibiotic Method Susceptibility Proteus mirabilis Amikacin LIZZIE <=2 ug/mL: Susceptible Proteus mirabilis Ampicillin LIZZIE <=2 ug/mL: Susceptible Proteus mirabilis Ampicillin-sulbactam LIZZIE <=2 ug/mL: Susceptible Proteus mirabilis Cefepime LIZZIE <=1 ug/mL: Susceptible Proteus mirabilis Ceftriaxone LIZZIE <=1 ug/mL: Susceptible Proteus mirabilis Ciprofloxacin LIZZIE <=0.25 ug/mL: Susceptible Proteus mirabilis Gentamicin LIZZIE <=1 ug/mL: Susceptible Proteus mirabilis Meropenem LIZZIE <=0.25 ug/mL: Susceptible Proteus mirabilis Piperacillin-tazobactam LIZZIE <=4 ug/mL: Susceptible Proteus mirabilis Tobramycin LIZZIE <=1 ug/mL: Susceptible Proteus mirabilis Trimethoprim-sulfame thox azole LIZZIE <=20 ug/mL: Susceptible Comment: Automated methods are unable to differentiate between susceptible and intermediate results for cefazolin in Enterobacteriaceae from sources other than urine. Therefore, results are only reported when resistance is detected. If cefazolin susceptibility testing is needed but not reported, please call microbiology lab to request manual [phone]. Romy Tirado DO LAB - MICROBIOL OGY ORDERABLES [facility] [address] [place] [address], [facility] [phone] * (ABNORMAL) CULTURE ANAEROBE (07/05/2018 11:49 PM CDT) Pathologist [facility] Culture Moderate Prevotella bivia(A) LIZZIE 07/11/2018 3:01 PM CDT [facility] Comment:Beta-lactamase posit harelen Microbiology SPECIMEN FROM WOUND / Unknown Collection / Unknown 07/05/2018 11:49 PM CDT 07/05/2018 11:52 PM CDT Narrative [facility] - 07/11/2018 3:01 PM CDT Nushanika Stevensoh 07/06/2018 9:53 AM Romy Tirado DO LAB - MICROBIOL OGY ORDERABLES [facility] [address] [place] [address], [facility] [phone] * (ABNORMAL) SLIDE SCAN HEMATOLOGY (07/01/2018 2:21 PM CDT) Only the most recent of2 resultswithin the time period is included. Pathologist [facility] Platelet Estimation Normal Normal, Adequate platelets 07/01/2018 3:44 PM CDT [facility] Anisocytosis 1+(A) None 07/01/2018 3:44 PM CDT [facility] Hypochromia 2+(A) None 07/01/2018 3:44 PM CDT [facility] Polychromasia 1+(A) None 07/01/2018 3:44 PM CDT [facility] Target Cells Occasiona l(A) None 07/01/2018 3:44 PM CDT [facility] Tear Drop Cells 1+(A) None 8 3:44 PM CDT [facility] Blood BLOOD SPECIMEN / Unknown Lab Venipuncture / Unknown 07/01/2018 2:21 PM CDT 07/01/2018 2:47 PM CDT Don Arias MD LAB - HEMATOLOGY ORD ERABLES [facility] [address] [place] [address] * (ABNORMAL) CBC W AUTO DIFFERENTIAL (07/01/2018 2:21 PM CDT) Only the most recent of9 resultswithin the time period is included. WBC 10.9(H) 4.4 - 10.7 x10E9/L 07/01/2018 2:57 PM CDT [facility] WBC Corrected x10E9/L 07/01/2018 2:57 PM CDT [facility] RBC 3.67(L) 3.80 - 5.20 x10E12/L 07/01/2018 2:57 PM CDT [facility] Hemoglobin 7.4(L) 12.0 - 15.6 gm/dL 07/01/2018 2:57 PM CDT [facility] Hematocrit 26.7(L) 35.9 - 45.5 % 07/01/2018 2:57 PM CDT [facility] MCV 72.8(L) 80.7 - 98.3 fl 07/01/2018 2:57 PM CDT [facility] MCH 20.2(L) 26.7 - 34.0 pg 07/01/2018 2:57 PM CDT [facility] MCHC 27.7(L) 30.8 - 35.9 gm/dL 07/01/2018 2:57 PM CDT [facility] Platelet Count 434(H) 153 - 416 x10E9/L 07/01/2018 2:57 PM CDT [facility] RDW-CV 23.1(H) 12.1 - 14.9 % 07/01/2018 2:57 PM CDT [facility] MPV 8.7(L) 9.4 - 12.9 fl 07/01/2018 2:57 PM CDT [facility] Neutrophils % 69.7 44.0 - 73.0 % 07/01/2018 2:57 PM CDT [facility] Lymphocytes % 17.1(L) 20.0 - 43.0 % 07/01/2018 2:57 PM CDT [facility] Monocytes % 9.9 5.0 - 13.0 % 07/01/2018 2:57 PM CDT [facility] Eosinophils % 2.1 0.0 - 6.0 % 07/01/2018 2:57 PM CDT [facility] Basophils % 0.5 0.0 - 2.0 % 07/01/2018 2:57 PM CDT [facility] Immature Granulocytes 0.7 0 - 1 % 07/01/2018 2:57 PM CDT [facility] Neutrophil Absolute 7.57(H) 2.01 - 7.14 x10E9/L 07/01/2018 2:57 PM CDT [facility] Lymphocytes Absolute 1.85 1.07 - 3.94 x10E9/L 07/01/2018 2:57 PM CDT [facility] Monocytes Absolute 1.07 0.26 - 1.07 x10E9/L 07/01/2018 2:57 PM CDT [facility] Eosinophils Absolute 0.23 0 - 0.47 x10E9/L 07/01/2018 2:57 PM CDT [facility] Basophils Absolute 0.05 0 - 0.08 x10E9/L 07/01/2018 2:57 PM CDT [facility] Immature Granulocytes Absolute 0.08(H) 0.00 - 0.06 x10E9/L 07/01/2018 2:57 PM CDT [facility] nRBC Auto 0 /100 WBC 07/01/2018 2:57 PM CDT [facility] Blood BLOOD SPECIMEN / Unknown Lab Venipuncture / Unknown 07/01/2018 2:21 PM CDT 07/01/2018 2:47 PM CDT Don Arias MD LAB - HEMATOLOGY ORD ERABLES Performing Organization Address [facility]/State/[facility] Co de Phone Number [facility] [address] [phone] * CARDIAC RHYTHM STRIP ORDER (06/28/2018 10:42 AM CDT) Narrative 06/28/2018 10:42 AM CDT Ordered by an unspecified provider. Scanned Document CARDIAC SERVICES ORD ERABLES * APHERESIS/TRANSFUSION ORDER (06/28/2018 10:42 AM CDT) Narrative 06/28/2018 10:42 AM CDT Ordered by an unspecified provider. Scanned Document NURSING - VITAL SIGN S AND ASSESSMENT * PREPARE (CROSSMATCH) RBC UNIT(S), 2 Units (06/23/2018 3:00 PM CDT) Only the most recent of2 resultswithin the time period is included. Product Code [id number] [facility] Unit Donor # [id number] S [facility] ABO Donor Type A [facility] Rh Type Unit POS [facility] Unit Status Ret'd [facility] OD [facility] LAB ABO Rh Type Unit APOS [facility] Donor Unit Expiration Date [facility] Blood Type Barcode 6200 [facility] Product Code [id number] [facility] Unit Donor # [id number] S [facility] B[facility] B[facility] ABO Donor Type A [facility] Rh Type Unit POS [facility] Unit Status Ret'd [facility] OD [facility] LAB ABO Rh Type Unit APOS [facility] Donor Unit Expiration Date [facility] Blood Type Barcode [address]200 [facility] Blood Bank BLOOD SPECIMEN / Unknown 06/23/2018 3:00 PM CDT Yovana Cunningham MD LAB - BLOOD BANK ORD ERABLES [facility] [address] [phone] * GROSS + MICRO EXAM (STL) (06/23/2018 2:33 PM CDT) Only the most recent of2 resultswithin the time period is included. Case Report Surgical Pathology Report Case: [id number] Authorizing Provider: Yovana Cunningham MD Collected: 06/23/2018 02:33 PM Ordering Location: [facility] Received: 06/24/2018 05:32 AM Pathologist: Mindi Huddleston MD Specimens: A) - Cervix, cervix and uterine body B) - Uterus, UTERUS, LEFT TUBE AND OVARY 06/27/2018 3:11 PM CDT [facility] Final Diagnosis A. Cervix, abdominal hysterectomy: -- Acute and chronic cervicitis -- No evidence of dysplasia or malignancy B. 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 Specimen A, cervix and uterine body, consists of an un-oriented fragment of ectocervix measuring 2.5 x 2.5 cm attached to a lower uterine segment measuring 5 x 3.5 x 1.8 cm. The surgical margin of the cervix is inked in black. The specimen weighs 28 grams. The external surface is smooth, pink-samuel. The ectocervix is smooth, pink-samuel and glistening. No lesions are identified. Territory Sales Representative sections are submitted as A1 and A2. Specimen B, uterus, left tube, and left ovary, consists of a uterus attached to left ovary and left fallopian tube measuring 15 x 15 x 13 cm and weighing 800 grams. The external surface is smooth, pink-samuel. No lesions are identified. The uterine specimen seems to be comprised of entirely of uterust. No lower uterine segment and cervix are attached. The specimen is serially sectioned to show soft, pink-samuel tissue. Multiple leiomyoma ranging in greatest dimension from 1-4 cm are identified. No areas of necrosis or hemorrhage are seen. The ovary is serially sectioned to show soft pink-samuel tissue. A cyst measuring 4 x 1.5 x 1.5 cm is seen. It contains serous fluid. The fallopian tube is serially sectioned to show soft, pink-samuel tissue. No lesions are identified. Territory Sales Representative sections are submitted as follows: B1-B7 - endomyometrium, serosa, and leiomyoma. B8-B9 - ovary and fallopian tube. IA/kf IA/ns 06/27/2018 3:11 PM [facility] Microscopic Description Sections of the cervix show acute and chronic inflammation. There is no evidence of dysplasia or malignancy. Sections of the endometrium show proliferative phase endometrium. There is no evidence of hyperplasia, atypia, or malignancy. Sections of the myometrium show multiple leiomyomata and endometrial glands within the myometrium, consistent with adenomyosis. Sections of the serosa and left fallopian tube are unremarkable. Sections of the left ovary show a follicular cyst and increased stromal luteinized cells, consistent with stromal hyperthecosis. IA/GM/ns 06/27/2018 3:11 PM CDT [facility] Disclaimer All histochemical and/or immunohistochemical results are interpreted with controls that demonstrate appropriate staining reactions before reporting results. Note on use of immunocytochemistry reagents: This test was developed and its performance characteristic determined by [facility], Department of Laboratory Medicine. It has not been cleared or approved by the U.S. Food and Drug Administration (FDA). The FDA has determined that such clearance or approval is not necessary. The test is used for clinical purpose. It should not be regarded as investigational or for research. This laboratory is certified to perform high complexity testing. 06/27/2018 3:11 PM CDT [facility] Embedded Images 06/27/2018 3:11 PM CDT [facility] Pathology/Cytology PART OF UTERINE CERVIX / Unknown 06/23/2018 2:33 PM CDT 06/24/2018 5:32 AM CDT Miscellaneous samples (specimen) ENTIRE UTERUS / Unknown 06/23/2018 3:09 PM CDT 06/24/2018 5:32 AM CDT Yovana Cunningham MD LAB - PATHOLOGY/CYTO LOGY ORDERABLES Performing Organization Address City/State/[facility] Co de Phone Number [facility] [address] [place] [address] * TYPE + SCREEN PANEL (06/23/2018 10:25 AM CDT) Only the most recent of2 resultswithin the time period is included. ABO A 06/23/2018 11:09 AM CDT [facility] Rh Type Positive 06/23/2018 11:09 AM CDT [facility] Comment:History checked. Antibody Screen Negative 06/23/2018 11:09 AM CDT [facility] Blood Bank BLOOD SPECIMEN / Unknown Venipuncture / Unknown 06/23/2018 10:25 AM CDT 06/23/2018 10:27 AM CDT Nick Amezcua MD LAB - BLOOD BANK O DYLLAN Performing Organization Address [facility] Co de Phone Number [facility] [address] [phone] * HCG URINE QUALITATIVE - POCT (IP) INTERFACED (06/23/2018 10:08 AM CDT) HCG Qual Urine Negative Negative 06/23/2018 10:11 AM CDT [facility] Urine URINE / Unknown 06/23/2018 1 0:08 AM CDT 06/23/2018 10:11 AM CDT Yovana Cunningham MD LAB - POINT OF CARE ORDERABLES Performing Organization Address [facility] Co de Phone Number [facility] [address] [place] [address] * HCG URINE QUAL POCT NOTIFICATION (06/23/2018 10:00 AM CDT) Comment Notification Label Only - See Separate Report 06/23/2018 11:00 AM CDT [facility] Urine URINE / Unknown 06/23/2018 1 0:00 AM CDT 06/23/2018 10:00 AM CDT Nick Amezcua MD LAB - URINALYSIS O RDJOHN Performing Organization Address City/[facility] Co de Phone Number [facility] [address] [place] [address] * (ABNORMAL) BASIC METABOLIC PANEL (CALCIUM TOTAL) (06/21/2018 1:21 PM CDT) Glucose 91 74 - 106 mg/dL 06/21/2018 2:03 PM CDT [facility] Sodium 138 136 - 145 mmol/L 06/21/2018 2:03 PM CDT [facility] Potassium 3.8 3.5 - 5.1 mmol/L 06/21/2018 2:03 PM CDT [facility] Chloride 104 98 - 107 mmol/L 06/21/2018 2:03 PM CDT [facility] CO2 29 22 - 31 mmol/L 06/21/2018 2:03 PM CDT [facility] Calcium 9.8 8.5 - 10.1 mg/dL 06/21/2018 2:03 PM CDT [facility] Anion Gap 5(L) 8 - 16 mmol/L 06/21/2018 2:03 PM CDT [facility] BUN 9 7 - 21 mg/dL 06/21/2018 2:03 PM CDT [facility] Creatinine 0.64 0.50 - 1.30 mg/dL 06/21/2018 2:03 PM CDT [facility] eGFR by MDRD >60 >60 mL/min/1.7 3m2 06/21/2018 2:03 PM CDT [facility] eGFR by MDRD >60 >60 mL/min/1.7 3m2 06/21/2018 2:03 PM CDT [facility] Blood BLOOD SPECIMEN / Unknown Venipuncture / Unknown 06/21/2018 1:21 PM CDT 06/21/2018 1:27 PM CDT Nick Amezcua MD LAB - CHEMISTRY OR DERABLES Performing Organization Address City/State/[facility] Co de Phone Number [facility] [address] [phone] * OPH COLOR FUNDUS PHOTOGRAPHY SLU (04/07/2018 4:27 PM CDT) Anatomical Region Laterality Modality Other 04/07/2018 4:27 PM CDT Inés Reis MD OPHTHALMOLOGY SERVIC ES ORDERABLES * FL FLUORO LUMBAR PUNCT [[id number]] (02/15/2018 2:20 PM CDT) Anatomical Region Laterality Modality Spine Radiographic Fartun ging 02/15/2018 2:56 PM CDT Addenda Addendum by Nando Herndon MD on 02/17/2018 3:23 PM CDT ORIGINAL REPORT EXAMINATION: Diagnostic lumbar puncture (LP) under fluoroscopic guidance HISTORY: 48-year-old female with chronic headaches and a history of hypertension, concern for idiopathic intracranial hypertension. TECHNIQUE: The risks and benefits of the lumbar puncture including, but not limited to, infection, bleeding, seizure, epidural hematoma, post spinal headache, cerebrospinal fluid (CSF) leak requiring blood patch procedure, nausea, vomiting, irritation or damage to nerves causing pain or permanent injury were discussed with the patient. After alternatives were discussed and the opportunity to ask questions was provided, the patient acknowledged understanding, gave verbal and written consent, and wished to proceed. Attending physician: Dr. Valderrama was present for the naylor portions of this procedure. The L4-5 level was localized with fluoroscopy. The skin overlying this level was then sterilely prepped, draped, and infiltrated with 1% lidocaine for local anesthesia. Under intermittent fluoroscopic guidance, a 22 gauge 7 inch needle was inserted into the thecal sac at this level. Clear CSF was identified. No CSF was collected as no labs were ordered. The patient tolerated the procedure well. The patient was then transferred to the ocular care technician unit for further observation and at least 3 hours of bedrest. OPENING PRESSURE: 23 mm of Water FLUOROSCOPY TIME: 60 seconds IMPRESSION: 1. Successful lumbar puncture under fluoroscopic guidance at L4-5 with elevated intracranial pressures measuring 23 mm of Water. This report was approved by Vincent Campos on 02/15/2018 3:[address] NANDO Beckham have personally reviewed and interpreted this examination/study. This report was electronically signed by NANDO VALDERRAMA on 02/15/2018 3:25 PM . ADDENDUM #1 Addendum/impression: Correction is made to the opening pressure measurements as it should read 23 cm of water, not 23 mm of water. This report was approved by Vincent Campos on 02/17/2018 2:[address] NANDO Beckham have personally reviewed and interpreted this examination/study. This report was electronically signed by NANDO VALDERRAMA on 02/17/2018 3:20 PM . Impressions 02/15/2018 3:25 PM CDT IMPRESSION: 1. Successful lumbar puncture under fluoroscopic guidance at L4-5 with elevated intracranial pressures measuring 23 mm of Water. This report was approved by Vincent Campos on 02/15/2018 3:01 PM . I, Dr. NANDO VALDERRAMA have personally reviewed and interpreted this examination/study. This report was electronically signed by NANDO VALDERRAMA on 02/15/2018 3:25 PM . Narrative 02/15/2018 3:25 PM CDT EXAMINATION: Diagnostic lumbar puncture (LP) under fluoroscopic guidance HISTORY: 48-year-old female with chronic headaches and a history of hypertension, concern for idiopathic intracranial hypertension. TECHNIQUE: The risks and benefits of the lumbar puncture including, but not limited to, infection, bleeding, seizure, epidural hematoma, post spinal headache, cerebrospinal fluid (CSF) leak requiring blood patch procedure, nausea, vomiting, irritation or damage to nerves causing pain or permanent injury were discussed with the patient. After alternatives were discussed and the opportunity to ask questions was provided, the patient acknowledged understanding, gave verbal and written consent, and wished to proceed. Attending physician: Dr. Valderrama was present for the naylor portions of this procedure. The L4-5 level was localized with fluoroscopy. The skin overlying this level was then sterilely prepped, draped, and infiltrated with 1% lidocaine for local anesthesia. Under intermittent fluoroscopic guidance, a 22 gauge 7 inch needle was inserted into the thecal sac at this level. Clear CSF was identified. No CSF was collected as no labs were ordered. The patient tolerated the procedure well. The patient was then transferred to the ocular care technician unit for further observation and at least 3 hours of bedrest. OPENING PRESSURE: 23 mm of Water FLUOROSCOPY TIME: 60 seconds Procedure Note Nando Herndon MD - 02/15/2018 EXAMINATION: Diagnostic lumbar puncture (LP) under fluoroscopic guidance HISTORY: 48-year-old female with chronic headaches and a history of hypertension, concern for idiopathic intracranial hypertension. TECHNIQUE: The risks and benefits of the lumbar puncture including, but not limited to, infection, bleeding, seizure, epidural hematoma, post spinal headache, cerebrospinal fluid (CSF) leak requiring blood patch procedure, nausea, vomiting, irritation or damage to nerves causing pain or permanent injury were discussed with the patient. After alternatives were discussed and the opportunity to ask questions was provided, the patient acknowledged understanding, gave verbal and written consent, and wished to proceed. Attending physician: Dr. Valderrama was present for the naylor portions of this procedure. The L4-5 level was localized with fluoroscopy. The skin overlying this level was then sterilely prepped, draped, and infiltrated with 1% lidocaine for local anesthesia. Under intermittent fluoroscopicguidance, a 22 gauge 7 inch needle was inserted into the thecal sac at this level. Clear CSF was identified. No CSF was collected as no labs were ordered. The patient tolerated the procedure well. The patient was thentransferred to the ocular care technician unit for further observation and at least 3 hours of bedrest. OPENING PRESSURE: 23 mm of Water FLUOROSCOPY TIME: 60 seconds IMPRESSION: 1. Successful lumbar puncture under fluoroscopic guidance at L4-5 with elevated intracranial pressures measuring 23 mm of Water. This report was approved by Vincent Campos on 02/15/2018 3:01 PM . I, Dr. NANDO VALDERRAMA have personally reviewed and interpreted this examination/study. This report was electronically signed by NANDO VALDERRAMA on02/15/2018 3:25 PM . Inés Reis MD FLUOROSCOPY ORDERABL ES * HCG URINE QUALITATIVE - POINT OF CARE (02/15/2018 11:15 AM CDT) Only the most recent of2 resultswithin the time period is included. HCG Qual Urine Negative Negative [facility] P OCT TESTING QC Verified Yes Yes [facility] POCT TESTING Urine URINE / Unknown 02/15/2018 1 1:15 AM CDT Vincent Campos MD LAB - POINT OF CARE ORDERABLES [facility] POCT TESTING [address] [phone] * MRI BRAIN WWO CONTRAST (02/03/2018 7:27 AM CDT) Anatomical Region Laterality Modality Head Other Impressions 02/03/2018 5:42 PM CDT IMPRESSION: 1. Enlarged empty sella which may be seen in the setting of idiopathic intracranial hypertension. 2. No evidence of thrombosis or compression of the dural venous sinuses. 3. Limited angiographic examination secondary to motion does not demonstrate large aneurysm. There is suspected origin of the left posterior cerebral artery. This report was approved by Ramesh Lester M.D. on 02/03/2018 10:39 AM . I, Dr. ERLINDA MILLER have personally reviewed and interpreted this examination/study. This report was electronically signed by ERLINDA MILLER on 02/03/2018 5:42 PM . Narrative 02/03/2018 5:42 PM CDT EXAMINATION: 1. Magnetic resonance imaging (MRI) of the brain without and with contrast 2. Magnetic resonance angiography (MRA) and venography (MRV) of the head without and with contrast HISTORY: Concern for a neoplastic intracranial hypertension. TECHNIQUE: MRI of the brain was performed prior to and following the uneventful administration of 20 mL MultiHance intravenous gadolinium contrast according to standard protocol. MR arteriography of the head was performed without contrast utilizing time of flight technique. MRV of the head was performed without contrast utilizing phase contrast technique and utilizing contrast enhanced time-resolved technique. FINDINGS: No prior study is available for comparison at the time of this dictation. Brain: The examination is degraded by motion artifact. No evidence of acute or chronic hemorrhage is identified. No evidence of acute cerebral infarction is seen. The ventricles are of normal size, shape, and morphology. No mass effect or midline shift is seen. No enhancing lesions are identified. There is an enlarged and empty sella. The corpus callosum appears normal. The posterior fossa, brainstem, and craniocervical junction appear normal. The orbital contents, paranasal sinuses, and mastoids appear normal. Normal flow voids are demonstrated in the carotid arteries and basilar artery. The calvarium and visualized cervical spine appear normal. Angiographic findings: Evaluation of the posterior circulation is limited by motion artifact. The distal internal carotid arteries appear normal. The anterior and middle cerebral arteries appear normal. The distal vertebral arteries appear normal. The basilar artery and right posterior cerebral arteries appear normal. The proximal left posterior cerebral arteries not well evaluated. There may be a origin of the left posterior cerebral artery. No aneurysms, vascular occlusions, or intracranial stenoses are identified. Venographic findings: The dural sinuses appear normal without evidence of thrombosis. The internal cerebral veins, veins of Evelyne, and visible portions of the internal jugular veins appear normal without evidence of thrombosis. There is no compression of the dural venous sinuses. Procedure Note Erlinda Miller MD - 02/05/2018 EXAMINATION: 1. Magnetic resonance imaging (MRI) of the brain without and withcontrast 2. Magnetic resonance angiography (MRA) and venography (MRV) of the headwithout and with contrast HISTORY: Concern for a neoplastic intracranial hypertension. TECHNIQUE: MRI of the brain was performed prior to and following theuneventful administration of 20 mL MultiHance intravenous gadoliniumcontrast according to standard protocol. MR arteriography of the head wasperformed without contrast utilizing time of flight technique. MRV of the head was performed without contrastutilizing phase contrast technique and utilizing contrast enhancedtime-resolved technique. FINDINGS: No prior study is available for comparison at the time of thisdictation. Brain: The examination is degraded by motion artifact. No evidence of acute orchronic hemorrhage is identified. No evidence of acute cerebral infarctionis seen. The ventricles are of normal size, shape, and morphology. No masseffect or midline shift is seen. No enhancing lesions are identified. There is an enlarged and emptysella. The corpus callosum appears normal. The posterior fossa, brainstem,and craniocervical junction appear normal. The orbital contents, paranasal sinuses, and mastoids appear normal.Normal flow voids are demonstrated in the carotid arteries and basilarartery. The calvarium and visualized cervical spine appear normal. Angiographic findings: Evaluation of the posterior circulation is limited by motion artifact. The distal internal carotid arteries appear normal. The anterior andmiddle cerebral arteries appear normal. The distal vertebral arteriesappear normal. The basilar artery and right posterior cerebral arteriesappear normal. The proximal left posterior cerebral arteries not well evaluated. There may be a origin of theleft posterior cerebral artery. No aneurysms, vascular occlusions, orintracranial stenoses are identified. Venographic findings: The dural sinuses appear normal without evidence of thrombosis. Theinternal cerebral veins, veins of Evelyne, and visible portions of theinternal jugular veins appear normal without evidence of thrombosis. Thereis no compression of the dural venous sinuses. IMPRESSION IMPRESSION: 1. Enlarged empty sella which may be seen in the setting of idiopathicintracranial hypertension. 2. No evidence of thrombosis or compression of the dural venous sinuses. 3. Limited angiographic examination secondary to motion does notdemonstrate large aneurysm. There is suspected origin of the leftposterior cerebral artery. This report was approved by Ramesh Lester M.D. on 02/03/2018 10:[address] ERLINDA Beckham have personally reviewed and interpreted thisexamination/study. This report was electronically signed by ERLINDA MILLER on 02/03/2018 5:42 PM. Inés Reis MD MR ORDERABLES * MRI ANGIO BRAIN ART WWO CONT (02/03/2018 7:26 AM CDT) Anatomical Region Laterality Modality Head Other Impressions 02/03/2018 5:42 PM CDT IMPRESSION: 1. Enlarged empty sella which may be seen in the setting of idiopathic intracranial hypertension. 2. No evidence of thrombosis or compression of the dural venous sinuses. 3. Limited angiographic examination secondary to motion does not demonstrate large aneurysm. There is suspected origin of the left posterior cerebral artery. This report was approved by Ramesh Lester M.D. on 02/03/2018 10:[address] ERLINDA Beckham have personally reviewed and interpreted this examination/study. This report was electronically signed by ERLINDA MILLER on 02/03/2018 5:42 PM . Narrative 02/03/2018 5:42 PM CDT EXAMINATION: 1. Magnetic resonance imaging (MRI) of the brain without and with contrast 2. Magnetic resonance angiography (MRA) and venography (MRV) of the head without and with contrast HISTORY: Concern for a neoplastic intracranial hypertension. TECHNIQUE: MRI of the brain was performed prior to and following the uneventful administration of 20 mL MultiHance intravenous gadolinium contrast according to standard protocol. MR arteriography of the head was performed without contrast utilizing time of flight technique. MRV of the head was performed without contrast utilizing phase contrast technique and utilizing contrast enhanced time-resolved technique. FINDINGS: No prior study is available for comparison at the time of this dictation. Brain: The examination is degraded by motion artifact. No evidence of acute or chronic hemorrhage is identified. No evidence of acute cerebral infarction is seen. The ventricles are of normal size, shape, and morphology. No mass effect or midline shift is seen. No enhancing lesions are identified. There is an enlarged and empty sella. The corpus callosum appears normal. The posterior fossa, brainstem, and craniocervical junction appear normal. The orbital contents, paranasal sinuses, and mastoids appear normal. Normal flow voids are demonstrated in the carotid arteries and basilar artery. The calvarium and visualized cervical spine appear normal. Angiographic findings: Evaluation of the posterior circulation is limited by motion artifact. The distal internal carotid arteries appear normal. The anterior and middle cerebral arteries appear normal. The distal vertebral arteries appear normal. The basilar artery and right posterior cerebral arteries appear normal. The proximal left posterior cerebral arteries not well evaluated. There may be a origin of the left posterior cerebral artery. No aneurysms, vascular occlusions, or intracranial stenoses are identified. Venographic findings: The dural sinuses appear normal without evidence of thrombosis. The internal cerebral veins, veins of Evelyne, and visible portions of the internal jugular veins appear normal without evidence of thrombosis. There is no compression of the dural venous sinuses. Procedure Note Erlinda Miller MD - 02/05/2018 EXAMINATION: 1. Magnetic resonance imaging (MRI) of the brain without and withcontrast 2. Magnetic resonance angiography (MRA) and venography (MRV) of the headwithout and with contrast HISTORY: Concern for a neoplastic intracranial hypertension. TECHNIQUE: MRI of the brain was performed prior to and following theuneventful administration of 20 mL MultiHance intravenous gadoliniumcontrast according to standard protocol. MR arteriography of the head wasperformed without contrast utilizing time of flight technique. MRV of the head was performed without contrastutilizing phase contrast technique and utilizing contrast enhancedtime-resolved technique. FINDINGS: No prior study is available for comparison at the time of thisdictation. Brain: The examination is degraded by motion artifact. No evidence of acute orchronic hemorrhage is identified. No evidence of acute cerebral infarctionis seen. The ventricles are of normal size, shape, and morphology. No masseffect or midline shift is seen. No enhancing lesions are identified. There is an enlarged and emptysella. The corpus callosum appears normal. The posterior fossa, brainstem,and craniocervical junction appear normal. The orbital contents, paranasal sinuses, and mastoids appear normal.Normal flow voids are demonstrated in the carotid arteries and basilarartery. The calvarium and visualized cervical spine appear normal. Angiographic findings: Evaluation of the posterior circulation is limited by motion artifact. The distal internal carotid arteries appear normal. The anterior andmiddle cerebral arteries appear normal. The distal vertebral arteriesappear normal. The basilar artery and right posterior cerebral arteriesappear normal. The proximal left posterior cerebral arteries not well evaluated. There may be a origin of theleft posterior cerebral artery. No aneurysms, vascular occlusions, orintracranial stenoses are identified. Venographic findings: The dural sinuses appear normal without evidence of thrombosis. Theinternal cerebral veins, veins of Evelyne, and visible portions of theinternal jugular veins appear normal without evidence of thrombosis. Thereis no compression of the dural venous sinuses. IMPRESSION IMPRESSION: 1. Enlarged empty sella which may be seen in the setting of idiopathicintracranial hypertension. 2. No evidence of thrombosis or compression of the dural venous sinuses. 3. Limited angiographic examination secondary to motion does notdemonstrate large aneurysm. There is suspected origin of the leftposterior cerebral artery. This report was approved by Ramesh Lester M.D. on 02/03/2018 10:39 AM . I, Dr. ERLINDA MILLER have personally reviewed and interpreted thisexamination/study. This report was electronically signed by ERLINDA MILLER on 02/03/2018 5:42 PM. Inés Reis MD MR ORDERABLES * (ABNORMAL) RBC MORPHOLOGY (01/26/2018 9:52 AM CDT) Only the most recent of2 resultswithin the time period is included. Microcytes 3+(A) None [facility] Hypochromia 2+(A) None [facility] Ovalocytes 1+(A) None [facility] Tear Drop Cells 1+(A) None [facility] Blood specimen (specimen) BLOOD SPECIMEN / Unknown 01/26/2018 9:52 AM CDT 01/26/2018 10:02 AM CDT Jaspreet Medina MD LAB - HEMATOLOGY ORD ERABLES [address] [phone] * (ABNORMAL) COMPREHENSIVE METABOLIC PANEL (01/26/2018 9:52 AM CDT) Only the most recent of2 resultswithin the time period is included. BUN 6(L) 7 - 26 mg/dL [facility] Creatinine 0.5(L) 0.6 - 1.2 mg/dL [facility] Sodium 136 136 - 145 mmol/L [facility] Potassium 3.8 3.5 - 4.5 mmol/L [facility] Chloride 105 98 - 107 mmol/L [facility] CO2 24 22 - 29 mmol/L [facility] Glucose 86 70 - 115 mg/dL [facility] Calcium 10.1 8.4 - 10.2 mg/dL [facility] Protein Total 8.0 6.0 - 8.3 g/dL [facility] Albumin 3.4 3.4 - 5.0 g/dL [facility] Bilirubin Total 0.4 0.2 - 1.2 mg/dL [facility] Alkaline Phosphatase 89 40 - 150 Units/L [facility] ALT 14 0 - 55 Units/L [facility] AST 15 5 - 34 Units/L [facility] Anion Gap 11 8 - 18 [facility] BUN/Creatinine Ratio 12 7 - 23 [facility] Osmolality Calculated 279 270 - 300 mOsm/kg [facility] Albumin/Globulin Ratio 0.7(L) 1.1 - 2.3 [facility] eGFR >60 >60 mL/min/1.7 3 m2 [facility] Blood specimen (specimen) BLOOD SPECIMEN / Unknown 01/26/2018 9:52 AM CDT 01/26/2018 10:06 AM CDT Jaspreet Medina MD LAB - CHEMISTRY [facility] [address] [phone] * (ABNORMAL) TRANSFERRIN (01/26/2018 9:52 AM CDT) Only the most recent of2 resultswithin the time period is included. Transferrin 445(H) 174 - 382 mg/dL [facility] Transferrin Saturation % 2(L) 16 - 50 % [facility] Blood specimen (specimen) BLOOD SPECIMEN / Unknown 01/26/2018 9:52 AM CDT 01/26/2018 10:06 AM CDT Jaspreet Medina MD LAB - CHEMISTRY [facility] Performing Organization Address [facility] Co de Phone Number [address] [phone] * (ABNORMAL) IRON BLOOD (01/26/2018 9:52 AM CDT) Only the most recent of2 resultswithin the time period is included. Iron 13(L) 40 - 150 mcg/dL [facility] Blood specimen (specimen) BLOOD SPECIMEN / Unknown 01/26/2018 9:52 AM CDT 01/26/2018 10:06 AM CDT Jaspreet Medina MD LAB - CHEMISTRY [facility] Performing Organization Address [facility] [place] [address], [facility] [phone] * (ABNORMAL) FERRITIN (01/26/2018 9:52 AM CDT) Only the most recent of2 resultswithin the time period is included. Ferritin 1(L) 13 - 204 ng/mL [facility] Blood specimen (specimen) BLOOD SPECIMEN / Unknown 01/26/2018 9:52 AM CDT 01/26/2018 10:06 AM CDT Jaspreet Medina MD LAB - CHEMISTRY [facility] Performing Organization Address [facility] [place] [address], [facility] [phone] * US PELVIS WITH TRANSVAG NON OB (12/30/2017 10:11 AM [employer]) Anatomical Region Laterality Modality Pelvis Ultrasound 12/30/2017 10:1 8 AM [employer] Impressions 12/30/2017 10:24 AM [employer] 1. Enlarged multi fibroid uterus similar to 2015. 2. Normal endometrial thickness. Submucosal fibroids seen on the prior MRI are not clearly visualized on today's exam. 3. Unremarkable ovaries Narrative 12/30/2017 10:24 AM [employer] Ultrasound pelvis, transabdominal and transvaginal. DATE: 12/30/2017. INDICATION: Uterine fibroids and heavy menses. COMPARISON: Pelvic MRI from 08/02/2015 Findings: The uterus is enlarged measuring 15.1 x 11.1 x 11.2 cm and contains numerous fibroids. Fibroids are diffusely distributed throughout the parenchyma on the largest measuring 5.4 cm. Most fibroids appear intramural. The prior MRI demonstrated several submucosal fibroids which are not clearly identified on today's exam which is likely technical as fibroids produce a suboptimal sonographic window for visualizing the endometrium. The endometrium is technically difficult to visualize but the visualized portions of are normal in size measuring 2 to 3 mm. The right ovary measures 3.1 x 1.7 x 3.2 cm and is unremarkable. The left ovary measures 3.7 x 3.1 x 2.6 cm and is unremarkable. No free fluid. Procedure Note Julia Blackman MD - 12/30/2017 Ultrasound pelvis, transabdominal and transvaginal. DATE: 12/30/2017. INDICATION: Uterine fibroids and heavy menses. COMPARISON: Pelvic MRI from 08/02/2015 Findings: The uterus is enlarged measuring 15.1 x 11.1 x 11.2 cm and contains numerous fibroids. Fibroids are diffusely distributed throughout the parenchyma on the largest measuring 5.4 cm. Most fibroids appear intramural. The prior MRI demonstrated several submucosal fibroids which are not clearly identified on today's exam which is likely technical as fibroids produce a suboptimal sonographic window for visualizing the endometrium. The endometrium is technically difficult to visualize but the visualized portions of are normal in size measuring 2 to 3 mm. The right ovary measures 3.1 x 1.7 x 3.2 cm and is unremarkable. The left ovary measures 3.7 x 3.1 x 2.6 cm and is unremarkable. No free fluid. IMPRESSION 1. Enlarged multi fibroid uterus similar to 2015. 2. Normal endometrial thickness. Submucosal fibroids seen on the prior MRI are not clearly visualized on today's exam. 3. Unremarkable ovaries Moni Artis MD US ORDERABLES * ZINC BLOOD (11/19/2017 9:58 AM [employer]) Zinc Blood 76 56 - 134 ug/dL [facility] ([facility]) Comment:Detection Limit = 5 Blood specimen (specimen) BLOOD SPECIMEN / Unknown 11/19/2017 9:58 AM [employer]ILY [employer] 11/19/2017 10:27 AM [employer]ILY TE[employer]ER Narrative [facility] ([facility]) - 11/23/2017 1:06 AM [employer]ILY TE[employer]ER Performed at: [facility] [id number] Workers Compensation Manager: Chip Mott MD, Phone: [phone] Jaspreet Medina MD LAB - CHEMISTRY [facility] Performing Organization Address [facility]/ZIP Co de Phone Number [facility] ([facility]) [address] [place] [phone] [facility] * HEMOGLOBIN ELECTROPHORESIS (11/19/2017 9:58 AM MARRIAGE AND FAMILY TEACHER) Pathologist [facility] Interpretation Hemoglobin Pattern Normal Pattern Normal Pattern [facility] Comment: Hemoglobin (Hb) capillary electrophoresis shows two Hb bands with electrophoretic mobilities corresponding to HbA and HbA2. No abnormal hemoglobins detected. One or two gene deletion alpha thalassemia cannot be excluded since these conditions are not associated with abnormal findings on routine hemoglobin electrophoresis and except for mild microcytosis, are generally not associated with other hematologic abnormalities. José Miguel Segovia MD *The electrophoresis pattern and the interpretation have been reviewed and verified by the teaching physician. Hemoglobin A 98.0 97.1 - 99.1 % [facility] Hemoglobin A2 2.0 0.9 - 2.9 % [facility] Blood specimen (specimen) 11/19/2017 9:58 AM MARRIAGE AND FAMILY TEACHER 11/19/2017 10:11 AM MARRIAGE AND FAMILY TEACHER Jaspreet Medina MD LAB - CHEMISTRY BRANDON SMITH Performing Organization Address City/[facility]/ZIP Co de Phone Number [address] [phone] * (ABNORMAL) COPPER BLOOD (11/19/2017 9:58 AM MARRIAGE AND FAMILY TEACHER) Copper 167(H) 72 - 166 ug/dL [facility] ([facility]) Comment:Detection Limit = 5 Blood specimen (specimen) BLOOD SPECIMEN / Unknown 11/19/2017 9:58 AM MARRIAGE AND FAMILY TEACHER 11/19/2017 10:27 AM MARRIAGE AND FAMILY TEACHER Narrative [facility] ([facility]) - 11/23/2017 5:10 AM MARRIAGE AND FAMILY TEACHER Performed at: - Lab[address] [id number] Workers Compensation Manager: Chip Mott MD, Phone: [phone] Jaspreet Medina MD LAB - CHEMISTRY ORDRangel SMITH Performing Organization Address City/[facility]/ZIP Co de Phone Number [facility] ([facility]) [address] [phone] * RETIC COUNT (11/19/2017 9:58 AM MARRIAGE AND FAMILY TEACHER) Reticulocyte % 2.0 0.4 - 2.5 % [facility] Reticulocyte Absolute 0.09 0.02 - 0.13 10 6/uL [facility] Blood specimen (specimen) BLOOD SPECIMEN / Unknown 11/19/2017 9:58 AM MARRIAGE AND FAMILY TEACHER 11/19/2017 10:11 AM MARRIAGE AND FAMILY TEACHER Jaspreet Medina MD LAB - HEMATOLOGY ORD ERABLES Performing Organization Address [facility]/ZIP Co de Phone Number [address] [phone] * FOLATE (11/19/2017 9:58 AM MARRIAGE AND FAMILY TEACHER) Folate 7.4 7.0 - 31.4 ng/mL [facility] Blood specimen (specimen) BLOOD SPECIMEN / Unknown 11/19/2017 9:58 AM MARRIAGE AND FAMILY TEACHER 11/19/2017 10:11 AM MARRIAGE AND FAMILY TEACHER Jaspreet Medina MD LAB - CHEMISTRY ORDE SARAH Performing Organization Address City/[facility]/ZIP Co de Phone Number [address] [phone] * VITAMIN B12 (11/19/2017 9:58 AM MARRIAGE AND FAMILY TEACHER) Vitamin B12 404 213 - 816 pg/mL [facility] Blood specimen (specimen) BLOOD SPECIMEN / Unknown 11/19/2017 9:58 AM MARRIAGE AND FAMILY TEACHER 11/19/2017 10:11 AM MARRIAGE AND FAMILY TEACHER Jaspreet Medina MD LAB - CHEMISTRY BRANDON SMITH [address] [phone] * (ABNORMAL) HELICOBACTER PYLORI UREASE (STL) (03/26/2016 6:57 AM CDT) Helicobacter pylori Urease Initial Positive( A) Negative 03/26/2016 2:14 PM CDT [facility] Helicobacter pylori Urease Final Positive( A) Negative 03/26/2016 2:14 PM CDT [facility] Microbiology GASTRIC BIOPSY SPECIMEN / Unknown Collection / Unknown 03/26/2016 6:57 AM CDT 03/26/2016 2:13 PM CDT Dar Timmons MD LAB - MICROBIOLOGY ORDERABLES [facility] [address] [place] [address] * EGD (03/26/2016 6:39 AM CDT) Report Endoscopy POC _ Patient Name: Gabrielleaya Christopher Procedure Date: 03/26/2016 6:39 AM Date of : 1970 Admit Type: Outpatient Age: 46 Gender: Female Attending MD: Dar Timmons MD _ Procedure: Upper GI endoscopy Indications: Generalized abdominal pain Providers: Dar Timmons MD (Doctor), Sara Breaux RN, Tyrone Lopez, Rand Tacker Referring MD: Dilia Hawthorne MD (Referring MD) Medicines: Midazolam 5 mg IV, Meperidine 75 mg IV Complications: No immediate complications. _ Procedure: After obtaining informed consent, the endoscope was passed under direct vision. Throughout the procedure, the patient's blood pressure, pulse, and oxygen saturations were monitored continuously. The Colonoscope was introduced through the mouth, and advanced to the third part of duodenum. The upper GI endoscopy was accomplished with ease. The patient tolerated the procedure well. Impression: - Normal esophagus. - Non-bleeding erosive gastropathy. Biopsied. Not a cause of anemia. - Normal examined duodenum. Findings: The examined esophagus was normal. SC Jx at 40 cm. A single localized, 2 mm non-bleeding erosion was found in the gastric antrum. There were no stigmata of recent bleeding. Biopsies were taken with a cold forceps for Helicobacter pylori testing using CLOtest. The examined duodenum was normal. The cardia and gastric fundus were normal on retroflexion. _ Recommendation: - Discharge patient to home. - Resume previous diet. - Continue present medications. - Return to my office in 2 weeks. Procedure Code(s): --- Professional --- 21349, Esophagogastrodu odenoscopy, flexible, transoral; with biopsy, single or multiple --- Technical --- 72060, Esophagogastrodu odenoscopy, flexible, transoral; with biopsy, single or multiple Diagnosis Code(s): --- Professional --- R10.84, Generalized abdominal pain K31.9, Disease of stomach and duodenum, unspecified --- Technical --- R10.84, Generalized abdominal pain K31.9, Disease of stomach and duodenum, unspecified CPT copyright 2015 [employer]. All rights reserved. The codes documented in this report are preliminary and upon electromechanical equipment assembler review may be revised to meet current compliance requirements. Dar Timmons MD 03/26/2016 7:17:11 AM Number of Addenda: 0 Note Initiated On: 03/26/2016 6:39 AM [facility] 03/26/2016 6:39 AM CDT Dar Timmons MD GI PROCEDURE ORDERA [facility] Organization Address City/State/ZIP Co de Phone Number [facility] * ENDOSCOPY, COLON, DIAGNOSTIC (03/26/2016 6:39 AM CDT) Report Endoscopy POC _ Patient Name: Luis White Procedure Date: 03/26/2016 6:39 AM Date of : 1970 Admit Type: Outpatient Age: 46 Gender: Female Attending MD: Dar Timmons MD _ Procedure: Colonoscopy Indications: Generalized abdominal pain, Iron deficiency anemia secondary to chronic blood loss Providers: Dar Timmons MD (Doctor), Sara Breaux RN, Tyrone Lopez, Rand Tacker Referring MD: Dilia Hawthorne MD (Referring MD) Medicines: None Complications: No immediate complications. _ Procedure: After I obtained informed consent, the scope was passed under direct vision. Throughout the procedure, the patient's blood pressure, pulse, and oxygen saturations were monitored continuously. The Colonoscope was introduced through the anus and advanced to the cecum, identified by appendiceal orifice, cecal strap and ileocecal valve. The colonoscopy was performed with ease. The patient tolerated the procedure well. The quality of the bowel preparation was excellent. Impression: - Diverticulosis in the sigmoid colon. - Two 5 mm polyps in the rectum. Biopsied. Findings: Cecum, ascending colon, transverse colon, descending colon normal. A few medium-mouthed diverticula were found in the sigmoid colon. Two sessile polyps were found in the rectum. The polyps were 5 mm in size. These were biopsied (removed) with a cold forceps for histology. _ Recommendation: - Colon polyps: Await pathology results. If adenoma repeat colon 5 years otherwise screening colon 10 years. - Abdominal pain, nausea: unlikely from gastritis and not improved with Bentyl and omeprazole. Follow-up biopsies and re-assess in office. - Diverticulosis: observe. - Anemia: pt states she got anemia labs at [facility] a week ago but we don't have these results. We will get them. - Discharge patient to home (ambulatory). - Resume previous diet. - Continue present medications. - Return to my office in 2 weeks. Procedure Code(s): --- Professional --- 00972, Colonoscopy, flexible; with biopsy, single or multiple --- Technical --- 57502, Colonoscopy, flexible; with biopsy, single or multiple Diagnosis Code(s): --- Professional --- K62.1, Rectal polyp R10.84, Generalized abdominal pain D50.0, Iron deficiency anemia secondary to blood loss (chronic) K57.30, Diverticulosis of large intestine without perforation or abscess without bleeding --- Technical --- K62.1, Rectal polyp R10.84, Generalized abdominal pain D50.0, Iron deficiency anemia secondary to blood loss (chronic) K57.30, Diverticulosis of large intestine without perforation or abscess without bleeding CPT copyright 2015 [employer]. All rights reserved. The codes documented in this report are preliminary and upon electromechanical equipment assembler review may be revised to meet current compliance requirements. ___ Dar Timmons MD 03/26/2016 7:24:09 AM Number of Addenda: 0 Note Initiated On: 03/26/2016 6:39 AM [facility] 03/26/2016 6:39 AM CDT Dar Timmons MD GI PROCEDURE ORDERA DOLLY [facility] * MRI PELVIS NON CONTRAST (08/02/2015 12:29 PM CDT) Anatomical Region Laterality Modality Pelvis Magnetic Resonan ce Angiography 08/02/2015 1:10 PM CDT Impressions 08/02/2015 1:18 PM CDT Multiple uterine fibroids and 2 submucosal fibroids as described above. Narrative 08/02/2015 1:18 PM CDT Examination: MRI of the pelvis without contrast History: Uterine fibroids Findings: MRI of the pelvis was performed without intravenous contrast. No comparison MRI is available. The urinary bladder appears unremarkable and is partially decompressed. No free pelvic fluid is noted. Several colonic diverticula are present. There is a small fat-containing hernia of the lower abdominal wall. There is a small likely physiologic left adnexal cyst measuring approximately 2.2 cm. There are multiple uterine T2 hypointense masses likely representing fibroids. For reference, there is a fibroid which measures approximately 4.6 x 3.6 x 4.1 cm in the right uterus near the fundus. Anterior and adjacent to this lesion there is a 3.3 x 2.8 x 4.1 cm fibroid. There are multiple fibroids in the posterior and left aspect of the uterus as well. There is a submucosal fibroid measuring 1.3 x 1.9 x 1.1 cm along the posterior aspect of the endometrial canal. Slightly inferiorly there is another submucosal fibroid measuring 1.4 x 1.4 x 1.2 cm. There may be a small nabothian cyst on the left within the cervix. Sagittal images demonstrate disc desiccation at L4-5. Procedure Note Juan Pablo Segura MD - 08/02/2015 Examination: MRI of the pelvis without contrast History: Uterine fibroids Findings: MRI of the pelvis was performed without intravenous contrast. No comparison MRI is available. The urinary bladder appears unremarkable and is partially decompressed. No free pelvic fluid is noted. Several colonic diverticula are present. There is a small fat-containing hernia of the lower abdominal wall. There is a small likely physiologic left adnexal cyst measuring approximately 2.2 cm. There are multiple uterine T2 hypointense masses likely representing fibroids. For reference, there is a fibroid which measures approximately 4.6 x 3.6 x 4.1 cm in the right uterus near the fundus. Anterior and adjacent to this lesion there is a 3.3 x 2.8 x 4.1 cm fibroid. There are multiple fibroids in the posterior and left aspect of the uterus as well. There is a submucosal fibroid measuring 1.3 x 1.9 x 1.1 cm along the posterior aspect of the endometrial canal. Slightly inferiorly there is another submucosal fibroid measuring 1.4 x 1.4 x 1.2 cm. There may be a small nabothian cyst on the left within the cervix. Sagittal images demonstrate disc desiccation at L4-5. IMPRESSION Multiple uterine fibroids and 2 submucosal fibroids as described above. Estefani Brown METALLOGRAPHER-CONFIGURATOR MR ORDERABLE S * GROSS + MICRO EXAM (02/29/2008 7:15 AM CDT) Result CASE NUMBER [id number] Comment: ORDERING PHYSICIAN NABEEL MENDOZA SPECIMEN TYPE Prod of Conception Date 02/29/2008 Physician Autumn Mullen Gross Description The specimen is received in Formalin labeled with the patient's name, Luis White, and products of conception. It consists of a 7 x 6 x 5 cm aggregate of congested hemorrhage dark red samuel tissue mixed with blood clot and mucous. No embryonic tissue is seen on gross examination. A pharmaceutical service representative portion of the specimen is submitted in cassettes A and B. LW diaz Microscopic Exam Sections show fragments of inflamed and hemorrhagic decidual tissue. No parts or chorionic villi are seen. MC/na Diagnosis I. Uterine contents, curettage -- Decidual tissue -- No chorionic villi or parts seen MC/na University Professor na Pathologist Michael Awan M.D. [place]. 03/01/2008 1359 <1> CPT code 03383 MISCELLANEOUS SAMPLES / Unknown 02/29/2008 7:15 AM CDT 02/29/2008 10:42 AM CDT Historical Provider LAB - PATHOLOGY/C YTOLOGY ORDERABLES Care Teams City Planning Aide Relationship Specialty Start Date End Date Dilia Yap MD PCP - General Internal Medicine 06/12/15 Arnulfo Garcia MD [facility] [place] [address] [place] [address] Plastic and Reconstructive Surgery 06/20/19
--- OUTSIDE RECORDS SUMMARY | 2024-12-18 14:45 | XMS_ITS | Clinical Summary ---
Author Organization [facility] Address [address] [address] Care Team Providers Care Barrel Charrer Helper Name Role Phone Dilia Yap MD Primary Care Provider Arnulfo Garcia MD Unavailable [phone] Source Comments [facility],non-owned Affiliates and Associated Physician Practices is amultiple site organization consisting of ambulatory clinics and hospital sitesin [place], [place], [place] and [place]. This disclosure is being madepursuant to the Care Everywhere program and may not contain all information available regarding this patient. Last updated 18.[facility] Allergies No known active allergies Medications * Be aware that medications may not be up to date on this document. Alwaysverify current medications with the patient. Medication Sig Dispensed Refills Start Date End Date Status albuterol HFA (PROVENTIL;VENTOLIN;PROAIR ) 108 (90 BASE) MCG/ACT inhaler Inhale 2 Puffs by mouth every 6 hours as needed Active beclomethasone dipropionate (QVAR) 40 MCG/ACT inhaler Inhale by mouth once daily Active buPROPion (WELLBUTRIN) 75 MG tablet Take 1 tablet twice a day by oral route for 30 days. Active fluconazole (DIFLUCAN) 150 MG tablet 05/09/2018 Active losartan - hydroCHLOROthiazide (HYZAAR) 50-12.5 MG tablet Take 1 tablet by mouth once daily Active erythromycin (ROMYCIN) 5 MG/GM ophthalmic ointment Instill into both eyes 4 times daily 3.5 g 2 07/25/2019 Active Active Problems Patient Care Coordination No te Formatting of this note migh t be different from the original. [facility] [place] Problem Noted Date Diagnosed Date Wound dehiscence, surgical 07/01/2018 Abnormal uterine bleeding (AUB) 06/23/2018 S/P hysterectomy 06/23/2018 Papilledema 04/07/2018 History of papilledema 04/07/2018 IIH (idiopathic intracranial hypertension) 01/24 Ptosis, bilateral 01/24/2018 Obesity (BMI 30-39.9) 01/24/2018 Optic atrophy of both eyes 01/24/2018 Absolute anemia 11/16/2017 Family History Medical History Relation Name Comments Diabetes Father Stroke Mother Diabetes Sister Relation Name Status Comments Father Mother Sister Social History Tobacco Use Types Packs/Day Years [...] Mass Index 62.77 07/25/2019 6:27 AM CDT Plan of Treatment Health Maintenance Due Date Last Done Comments COLOGUARD (AGES 45-75) - COL ON CA SCREENING 1970 CT COLONOGRAPHY - COLON CA SCREENING 1970 FIT - COLON CA SCREENING 1970 FLEX SIG - COLON CA SCREENING 1970 LIPID TESTING 1970 MAMMOGRAM 1970 HIV SCREENING 02/11/1987 HEPATITIS C SCREENING 02/07/1990 DTAP/TDAP/TD VACCINES (1 - Tdap) 02/11/1991 HEPATITIS B VACCINE (1 of 3 - 19+ 3-dose series) 02/11/1991 PNEUMOCOCCAL VACCINE 50+ (1 of 2 - PCV) 02/11/1991 PNEUMOCOCCAL VACCINE (1 of 2 - PCV) 02/11/1991 SCREENING FOR DIABETES 06/21/2021 8, 01/26/2018, 11/19/2017 ZOSTER VACCINE (1 of 2) 02/11/2022 COVID-19 VACCINE (1 - 2023-2 5 season) 2024 INFLUENZA VACCINE (#1) 2024 DEPRESSION SCREENING 11/01/2024 COLON MONITORING 03/26/2026 03/26/2016, 03/26/2016, 03/26/2016 COLONOSCOPY - COLON CA SCREENING 03/26/2026 03/26/2016, 03/26/2016, 03/26/2016 Colorectal Cancer Screening 03/26/2026 HIB VACCINE Aged Out No longer eligi ble based on patient's age to complete this topic HPV VACCINE Aged Out No longer eligi ble based on patient's age to complete this topic MENINGOCOCCAL (Group B) VACCINE Aged Out No longer eligible b ased on patient's age to complete this topic MENINGOCOCCAL VACCINE Aged Out No jose d melany eligible based on patient's age to complete this topic Procedures Procedure Name Priority Date/Time Associated Diagnosis Comments BASIC METABOLIC PANEL (CALCIUM TOTAL) STAT 06/21/2018 1:21 PM CDT Pre-op testing ENDOSCOPY, COLON, DIAGNOSTIC Routine 03/26/2016 6:39 AM CDT from Last 3 Months or Most Recently Relevant to Health Maintenance Results * (ABNORMAL) BASIC METABOLIC PANEL (CALCIUM TOTAL) (06/21/2018 1:21 PM CDT) [facility] Glucose 91 74 - 106 mg/dL 06/21/2018 2:03 PM CDT [facility] Sodium 138 136 - 145 mmol/L 06/21/2018 2:03 PM CDT [facility] Potassium 3.8 3.5 - 5.1 mmol/L 06/21/2018 2:03 PM CDT [facility] Chloride 104 98 - 107 mmol/L 06/21/2018 2:03 PM CDT [facility] CO2 29 22 - 31 mmol/L 06/21/2018 2:03 PM CDT [facility] Calcium 9.8 8.5 - 10.1 mg/dL 06/21/2018 2:03 PM CDT [facility] Anion Gap 5(L) 8 - 16 mmol/L 06/21/2018 2:03 PM CDT [facility] BUN 9 7 - 21 mg/dL 06/21/2018 2:03 PM CDT [facility] Creatinine 0.64 0.50 - 1.30 mg/dL 06/21/2018 2:03 PM CDT [facility] eGFR by MDRD >60 >60 mL/min/1.7 3m2 06/21/2018 2:03 PM CDT [facility] eGFR by MDRD >60 >60 mL/min/1.7 3m2 06/21/2018 2:03 PM CDT [facility] Blood BLOOD SPECIMEN / Unknown Venipuncture / Unknown 06/21/2018 1:21 PM CDT 06/21/2018 1:27 PM CDT Nick Amezcua MD LAB - CHEMISTRY OR DERABLES Performing Organization Address City/State/[facility] Co de Phone Number [facility] [address] [phone] * ENDOSCOPY, COLON, DIAGNOSTIC (03/26/2016 6:39 AM CDT) Report Endoscopy POC _ Patient Name: Luis Christopher Procedure Date: 03/26/2016 6:39 AM Date of : 1970 Admit Type: Outpatient Age: 46 Gender: Female Attending MD: Dar Timmons MD _ Procedure: Colonoscopy Indications: Generalized abdominal pain, Iron deficiency anemia secondary to chronic blood loss Providers: Dar Timmons MD (Doctor), Sara Breaux, RN, Tyrone Lopez, Metal Handler Referring MD: Dilia Hawthorne MD (Referring MD) [...] pt states she got anemia labs at [facility] a week ago but we don't have these results. We will get them. - Discharge patient to home (ambulatory). - Resume previous diet. - Continue present medications. - Return to my office in 2 weeks. Procedure Code(s): --- Professional --- 40348, Colonoscopy, flexible; with biopsy, single or multiple --- Technical --- 31909, Colonoscopy, flexible; with biopsy, single or multiple [...] or abscess without bleeding CPT copyright 2015 [employer]. All rights reserved. The codes documented in this report are preliminary and upon coder operator review may be revised to meet current compliance requirements. ___ Dar Timmons MD 03/26/2016 7:24:09 AM Number of Addenda: 0 Note Initiated On: 03/26/2016 6:39 AM [facility] 03/26/2016 6:39 AM CDT Dar Timmons MD GI PROCEDURE ORDERA BLES [facility] from Last 3 Months or Most Recently Relevant to Health Maintenance Advance Directives * Full Code (Latest Code Status on File) Date Activated Date Inactivated Comments 07/01/2018 1:11 PM 07/03/2018 6:53 PM * Full Code Date Activated Date Inactivated Comments 06/23/2018 6:34 PM 06/26/2018 5:04 PM Care Teams Barrel Charrer Helper Relationship Specialty Start Date End Date Dilia Yap MD PCP - General Internal Medicine 06/12/15 Arnulfo Garcia MD [address] [place] [id number] Plastic and Reconstructive Surgery 06/20/19
--- OUTSIDE RECORDS SUMMARY | 2024-12-18 14:45 | XMS_ITS | Data Portability ---
Author Organization [facility] Serge STEVENSON Address [address] [place] [address] Care Team Providers Care Primary Care Provider Name Role Phone HILLARY BUSH [employer] Of [employer] Assessment Encounter Date Assessment Date Assessment LastModified by Organization Details LastModified Time 10/19/2023 10/19/2023 Detailed discussion, I am concerned that she may not continue to be compliant with her Metformin as she is of the opinion that it is the cause of her weight gain. Upon further review, even though the Meloxicam was just started 6 days ago, it can cause fluid retention. I will have her continue her Metformin and hold the Meloxicam while we add on Ozempic. oajao Not available 10/19/2023 13:58:55 Plan of Treatment Reminders Order Date Submit Date Provider Last Modified By Organization Details Last Modified Time Details Appointments None recorded. Lab measles + mumps + rubella virus IgG panel, QN, serum or plasma 2023 024 [facility], [address] [place] [address], [address], [place], [address], 4 11:15:03 drug screen, urine 2023 024 JAYSON TRAM, [address] [place] [address], [address], [place], [address], 4 17:09:53 aspartate aminotransf erase/supriya ne aminotransf erase, ratio, serum or plasma (OBS) 2022 023 JAYSON LEBRON, [address] [place] [address], [address], [place], [address], 3 11:13:52 potassium, serum or plasma 2022 023 JAYSON DIANA, [address], [address], [place], [address], 07:13:51 creatinine, serum or plasma 2022 023 [facility], [address], [address], [place], [address], 11:13:51 TSH + free T4, serum 2022 023 JAYSON UGALDERP, [address], [address], [place], [address], 15:09:31 uric acid, serum or plasma 2022 023 JAYSON DIANA, [address], [address], [place], [address], 3 15:09:34 CBC w/ auto diff 2022 023 JAYSON DIANA, [address], [address], [place], [address], 3 15:09:36 urinalysis, dipstick 2022 023 JAYSON UGALDERP, [address], [address], [place], [address], 3 15:09:35 lipid panel, serum 2022 023 JAYSON DIANA, [address], [address], [place], [address], 3 15:09:32 CMP, serum or plasma 2022 023 WILSON [facility], [address], [address], [place], [address], 3 15:09:33 HbA1c (hemoglobin A1c), blood 2022 023 WILSON [facility], [address], [address], [place], [address], 3 15:09:34 Referral orthopedic surgeon referral - OA of the R. knee 2022 023 [facility], [address], [place], [address], 3 00:35:43 sleep medicine referral - BAL on CPAP 2022 023 leonard Alegre MD, [address] [place], [address], 4 13:58:31 cardiologis t referral - HTN, pulmonary HTN? 2022 023 [facility], [address], [place], [address], 3 12:53:49 diabetic ophthalmolo gy referral 2022 023 leonard [facility], [address], [place], [address], 4 21:55:14 Procedures None recorded. Surgeries None recorded. Imaging XR, knee - R. knee pain 2022 023 [facility] ([facility]), [address] [place], [address], 3 12:47:30 MAMMO, screening, bilateral 2022 023 shahnaz [email or web address] [facility] ([facility]), [address], [place], [address], 4 11:43:32 Medication Orders Trulicity 1.5 mg/0.5 mL subcutaneou s pen injector 2023 024 [facility], [address] [place], [address], 4 11:09:21 Trulicity 0.75 mg/0.5 mL subcutaneou s pen injector 2023 024 [facility], [address] [place] [address], [address], 4 11:09:40 Ozempic 0.25 mg or 0.5 mg (2 mg/1.5 mL) subcutaneou s pen injector 2022 023 [facility], [address] [place] [address], [address], 4 15:30:21 atorvastati n 20 mg tablet 2022 023 [facility], [address] [place] [address], [address], 3 11:13:16 metformin ER 500 mg tablet,exte nded release 24 hr 2022 023 [facility], [address] [place] [address], [address], 3 11:24:14 terbinafine HCl 1 % topical cream 2022 023 [facility], [address] [place] [address], [address], 3 12:26:29 Tylenol Arthritis Pain 650 mg tablet,exte nded release 2022 [facility], [address] [place] [address], [address], 12:26:57 losartan 50 mg-hydrochl orothiazide 12.5 mg tablet 2022 [facility], [address] [place] [address], [address], 13:56:27 albuterol sulfate HFA 90 mcg/actuati on aerosol inhaler 2022 [facility], [address] [place] [address], [address], 12:19:00 albuterol sulfate 2.5 mg/3 mL (0.083 %) solution for nebulizatio n 2022 [facility], [address] [place] [address], [address], 12:18:59 Patient TargetsNo targets recorded. Patient Instructions Encounter Date Encounter Id Patient Instructions Last Modified By Organization Details Last Modified Time 08/06/2023 [id number] athlete's foot: care instructions oajao Not available 08/06/2023 12:26:22 sleep apnea: car e instructions oajao Not available 08/06/2023 12:19:47 body mass index: care instructions oajao Not available 08/06/2023 12:30:58 learning about healthy weight oajao Not available 08/06/2023 12:30:58 influenza (flu) vaccine: care instructions oajao Not available 08/06/2023 11:56:10 tetanus and diphtheria booster: care instructions oajao Not available 08/06/2023 11:56:10 learning about breast cancer screening oajao Not available 08/06/2023 12:00:48 type 2 diabetes: care instructions oajao Not available 08/06/2023 12:01:31 Labs Restart Losartan/HCTZ, side effects were discussed Tylenol PRN MMG Xray Sleep medicine Ophthalmology Cardiology Follow up in 3 weeks (30 minutes) oajao Not available 08/06/2023 12:27:28 Detailed visit oajao Not available 1 14:02:02 08/27/2023 [id number] knee arthritis: care instructions oajao Not available 08/27/2023 11:21:02 type 2 diabetes: care instructions oajao Not available 08/27/2023 11:11:19 Start Metformin Orthopedics Restart Atorvastatin Labs in 4 weeks Ophthalmology as referred Follow up in 5 -6 weeks oajao Not available 08/27/2023 11:19:01 10/19/2023 [id number] Correction Hold Meloxicam Continue Metformin Start Ozempic Follow up in 5 weeks oajao Not available 10/19/2023 13:53:53 12/30/2023 [id number] type 2 diabetes: care instructions oajao Not available 12/30/2023 16:04:50 Start Trulicity Follow up in 4 weeks oajao Not available 12/30/2023 19:09:06 01/31/2024 [id number] learning about tuberculosis (TB) oajao Not available 01/31/2024 11:03:27 Trulicity 1.5 mg weekly Labs Ophthalmology (Scheduled) Follow up in 4 weeks oajao Not available 01/31/2024 11:03:03 Reason for Referral Diabetic Ophthalmology Refer ral for Type 2 diabetes mellitus without complication Referring Physician: Dilia Yap, Internal Medicine, Encounter Date: 08/06/2023 Sleep Medicine Referral for Sleep apnea BAL on CPAP Referring Physician: Dilia Yap Internal Medicine, Encounter Date: 08/06/2023 [employer] Of [employer] Referral for Be nign hypertension HTN, pulmonary HTN? HTN, pulmonary HTN? Referring Physician: Dilia Yap, Internal Medicine, Encounter Date: 08/06/2023 Orthopedic Surgeon Referral for Osteoarthritis of knee OA of the R. knee OA of the R. knee Referring Physician: Dilia Yap, Internal Medicine, Encounter Date: 08/27/2023 Results Created Date Observation Date Name Description Value Unit Range Abnormal Flag Note LastModifiedBy Organization Detail LastModifiedTime 08/20/2008/21/2023 LIPID PANEL cholesterol, total 177 mg/dL 100-19 9 Not Available [address], [address], 08/21/2023 15:09:32 08/20/2008/21/2023 LIPID PANEL triglyceride s 129 mg/dL 0-149 Not Available [address], [address], 08/21/2023 15:09:32 08/20/2008/21/2023 LIPID PANEL HDL cholesterol 67 mg/dL >39 Not Available [address], [address], 08/21/2023 15:09:32 08/20/2008/21/2023 LIPID PANEL VLDL cholesterol diane 22 mg/dL 5-40 Not Available [address], [address], 08/21/2023 15:09:32 08/20/20 23 08/21/2023 LIPID PANEL LDL chol calc (nih) 88 mg/dL 0-99 Not Available [address], [address], 08/21/2023 15:09:32 08/20/2008/21/2023 COMP. METAB OLIC PANEL (14) glucose 112 mg/dL 70-99 above high normal Not Available [address], [address], 08/21/2023 15:09:33 08/20/20 23 08/21/2023 COMP. METAB OLIC PANEL (14) BUN 9 mg/dL 6-24 Not Available [address], [address], 08/21/2023 15:09:33 08/20/20 23 08/21/2023 COMP. METAB OLIC PANEL (14) creatinine 0.61 mg/dL 0.57-1 .00 Not Available [address], [address], 08/21/2023 15:09:33 08/20/20 23 08/21/2023 COMP. METAB OLIC PANEL (14) eGFR 108 mL/mi n/1.7 3 >59 Not Available [address], [address], 08/21/2023 15:09:33 08/20/20 23 08/21/2023 COMP. METAB OLIC PANEL (14) BUN/creatini ne ratio 15 9-23 Not Available [address], [address], 08/21/2023 15:09:33 08/20/20 23 08/21/2023 COMP. METAB OLIC PANEL (14) sodium 140 mmol/ L 134-14 4 Not Available [address], [address], 08/21/2023 15:09:33 08/20/20 23 08/21/2023 COMP. METAB OLIC PANEL (14) potassium 4.5 mmol/ L 3.5-5. 2 Not Available [address], [address], 08/21/2023 15:09:33 08/20/20 23 08/21/2023 COMP. METAB OLIC PANEL (14) chloride 100 mmol/ L 96-106 Not Available [address], [address], 08/21/2023 15:09:33 08/20/20 23 08/21/2023 COMP. METAB OLIC PANEL (14) carbon dioxide, total 15 mmol/ L 20-29 below low normal Not Available [address], [address], 08/21/2023 15:09:33 08/20/20 23 08/21/2023 COMP. METAB OLIC PANEL (14) calcium 10.6 mg/dL 8.7-10 .2 above high normal Not Available [address], [address], 08/21/2023 15:09:33 08/20/20 23 08/21/2023 COMP. METAB OLIC PANEL (14) protein, total 8.2 g/dL 6.0-8. 5 Not Available [address], [address], 08/21/2023 15:09:33 08/20/20 23 08/21/2023 COMP. METAB OLIC PANEL (14) albumin 4.5 g/dL 3.8-4. 9 Not Available [address], [address], 08/21/2023 15:09:33 08/20/20 23 08/21/2023 COMP. METAB OLIC PANEL (14) globulin, total 3.7 g/dL 1.5-4. 5 Not Available [address], [address], 08/21/2023 15:09:33 08/20/20 23 08/21/2023 COMP. METAB OLIC PANEL (14) A/G ratio 1.2 1.2-2. 2 Not Available [address], [address], 08/21/2023 15:09:33 08/20/20 23 08/21/2023 COMP. METAB OLIC PANEL (14) bilirubin, total 0.3 mg/dL 0.0-1. 2 Not Available [address], [address], 08/21/2023 15:09:33 08/20/20 23 08/21/2023 COMP. METAB OLIC PANEL (14) alkaline phosphatase 108 IU/L 44-121 Not Available [address], [address], 08/21/2023 15:09:33 08/20/20 23 08/21/2023 COMP. METAB OLIC PANEL (14) AST (SGOT) 22 IU/L 0-40 Not Available [address], [address], 08/21/2023 15:09:33 08/20/20 23 08/21/2023 COMP. METAB OLIC PANEL (14) ALT (SGPT) 24 IU/L 0-32 Not Available [address], [address], 08/21/2023 15:09:33 08/20/2008/21/2023 URINA LYSIS , ROUTI NE specific gravity 1.023 1.005- 1.030 Not Available [address], [address], 08/21/2023 15:09:35 08/20/2008/21/2023 URINA LYSIS , ROUTI NE pH 6.0 5.0-7. 5 Not Available [address], [address], 08/21/2023 15:09:35 08/20/2008/21/2023 URINA LYSIS , ROUTI NE urine-color YELLOW yellow Not Available [address], [address], 08/21/2023 15:09:35 08/20/2023 0808/21/2023 URINA LYSIS , ROUTI NE appearance CLEAR clear Not Available [facility] & [address], [address], 08/21/2023 15:09:35 08/20/2008/21/2023 URINA LYSIS , ROUTI NE WBC esterase NEGATI VE negati ve Not Available [address], [address], 08/21/2023 15:09:35 08/20/2008/21/2023 URINA LYSIS , ROUTI NE protein TRACE negati ve/tra ce Not Available [address], [address], 08/21/2023 15:09:35 08/20/2008/21/2023 URINA LYSIS , ROUTI NE glucose NEGATI VE negati ve Not Available [address], [address], 08/21/2023 15:09:35 08/20/2008/21/2023 URINA LYSIS , ROUTI NE ketones NEGATI VE negati ve Not Available [address], [address], 08/21/2023 15:09:35 08/20/2008/21/2023 URINA LYSIS , ROUTI NE occult blood NEGATI VE negati ve Not Available [address], [address], 08/21/2023 15:09:35 08/20/2008/21/2023 URINA LYSIS , ROUTI NE bilirubin NEGATI VE negati ve Not Available [address], [address], 08/21/2023 15:09:35 08/20/2008/21/2023 URINA LYSIS , ROUTI NE urobilinogen ,semi-qn 0.2 mg/dL 0.2-1. 0 Not Available [address], [address], 08/21/2023 15:09:35 08/20/20 23 08/21/2023 URINA LYSIS , ROUTI NE nitrite, urine NEGATI VE negati ve Not Available [address], [address], 08/21/2023 15:09:35 08/20/2008/21/2023 URINA LYSIS , ROUTI NE microscopic examination COMMEN T Micro scopi c not indic ated and not perfo rmed. Not Available [address], [address], 08/21/2023 15:09:35 08/20/20 23 08/21/2023 CBC WITH DIFFE RENTI AL/PL ATELE T WBC - x10e3 /uL [facility] was unabl e to colle ct suffi cient speci men to perfo rm the follo wing test( s), and is provi ding the patie nt with re-co llect ion instr uctio ns. Not Available [address], [address], 08/21/2023 15:09:36 08/20/20 23 08/21/2023 CBC WITH DIFFE RENTI AL/PL ATELE T RBC - Test not perfo rmed Not Available [address], [address], 08/21/2023 15:09:36 08/20/20 23 08/21/2023 CBC WITH DIFFE RENTI AL/PL ATELE T hemoglobin - Test not perfo rmed Not Available [address], [address], 08/21/2023 15:09:36 08/20/20 23 08/21/2023 CBC WITH DIFFE RENTI AL/PL ATELE T hematocrit - Test not perfo rmed Not Available [address], [address], 08/21/2023 15:09:36 08/20/20 23 08/21/2023 CBC WITH DIFFE RENTI AL/PL ATELE T platelets - Test not perfo rmed Not Available [address], [address], 08/21/2023 15:09:36 08/20/2008/21/2023 CBC WITH DIFFE RENTI AL/PL ATELE T neutrophils - Test not perfo rmed Not Available [address], [address], 08/21/2023 15:09:36 08/20/20 23 08/21/2023 CBC WITH DIFFE RENTI AL/PL ATELE T lymphs - Test not perfo rmed Not Available [address], [address], 08/21/2023 15:09:36 08/20/20 23 08/21/2023 CBC WITH DIFFE RENTI AL/PL ATELE T monocytes - Test not perfo rmed Not Available [address], [address], 08/21/2023 15:09:36 08/20/20 23 08/21/2023 CBC WITH DIFFE RENTI AL/PL ATELE T eos - Test not perfo rmed Not Available [address], [address], 08/21/2023 15:09:36 08/20/20 23 08/21/2023 CBC WITH DIFFE RENTI AL/PL ATELE T lymphs (absolute) - Test not perfo rmed Not Available [facility] [place] & [address], [address], 08/21/2023 15:09:36 08/20/2008/21/2023 CBC WITH DIFFE RENTI AL/PL ATELE T eos (absolute) - Test not perfo rmed Not Available [address], [address], 08/21/2023 15:09:36 08/20/2008/21/2023 CBC WITH DIFFE RENTI AL/PL ATELE T baso (absolute) - Test not perfo rmed Not Available [address], [address], 08/21/2023 15:09:36 08/20/2008/21/2023 HEMOG LOBIN A1C hemoglobin A1C 6.7 % 4.8-5. 6 above high normal Predi abete s: 5.7 - 6.4 Diabe ralph: >6.4 Glyce khai contr ol for adult s with diabe ralph: <7.0 Not Available [address], [address], 08/21/2023 15:09:34 08/20/20 23 08/21/2023 URIC ACID uric acid 5.2 mg/dL 3.0-7. 2 Thera peuti c targe t for gout patie nts: <6.0 Not Available [facility] [place] & [address], [address], 08/21/2023 15:09:34 08/20/2008/21/2023 DIABE RALPH PATIE NT EDUCA TION pdf . Not Available [facility] & [address], [address], 08/21/2023 15:09:33 08/20/20 23 08/21/2023 TSH+F REE T4 TSH 1.890 uIU/m L 0.450- 4.500 Not Available [address], [address], 08/21/2023 15:09:31 08/20/20 23 08/21/2023 TSH+F REE T4 T4,free(dire ct) 1.15 NG/dL 0.82-1 .77 Not Available [address], [address], 08/21/2023 15:09:31 08/20/20 23 08/21/2023 SPECI MEN STATU S REPOR T specimen status report TNP [facility] was unabl e to colle ct suffi cient speci men to perfo rm the follo wing test( s), and is provi ding the patie nt with re-co llect ion instr uctio ns. TEST: [id number] CBC With Diffe renti al/Pl atele t Not Available [address], [address], 08/21/2023 15:09:31 10/13/20 23 10/14/2023 POTAS SIUM potassium 4.8 mmol/ L 3.5-5. 2 Not Available [facility] ([facility]) [address] [place], [address], 10/14/2023 07:13:51 10/13/2010/14/2023 CREAT ININE creatinine 0.69 mg/dL 0.57-1 .00 Not Available [facility] ([facility]) [address] [place], [address], 10/14/2023 11:13:51 10/13/20 23 10/14/2023 CREAT ININE eGFR 105 mL/mi n/1.7 3 >59 Not Available [facility] ([facility]) [address] [place], [address], 10/14/2023 11:13:51 10/13/20 23 10/14/2023 ALT+A ST AST (SGOT) 21 IU/L 0-40 Not Available [facility] ([facility]) [address] [place], [address], 10/14/2023 11:13:52 10/13/20 23 10/14/2023 ALT+A ST ALT (SGPT) 19 IU/L 0-32 Not Available [facility] ([facility]) [address] [place], [address], 10/14/2023 11:13:52 12/30/19 24 12/31/2023 DRUG PROFI LE,UR ,9 DRUGS ,BUND amphetamines , urine NEGATI VE NG/mL cutoff =1000 Amphe tamin e test inclu jessenia Amphe tamin e and Metha mphet amine . Not Available [facility] ([facility]) [address] [place], [address], 12/31/2023 17:09:53 12/30/19 24 12/31/2023 DRUG PROFI LE,UR ,9 DRUGS ,BUND barbiturate NEGATI VE NG/mL cutoff =300 Not Available [facility] ([facility]) [address] [place], [address], 12/31/2023 17:09:53 12/30/19 24 12/31/2023 DRUG PROFI LE,UR ,9 DRUGS ,BUND benzodiazepi mendez NEGATI VE NG/mL cutoff =300 Not Available [facility] ([facility]) [address] [place], [address], 12/31/2023 17:09:53 12/30/19 24 12/31/2023 DRUG PROFI LE,UR ,9 DRUGS ,BUND cannabinoid NEGATI VE NG/mL cutoff =50 Not Available [facility] ([facility]) [address] [place], [address], 12/31/2023 17:09:53 12/30/19 24 12/31/2023 DRUG PROFI LE,UR ,9 DRUGS ,BUND cocaine (metab.) NEGATI VE NG/mL cutoff =300 Not Available [facility] ([facility]) [address] [place], [address], 12/31/2023 17:09:53 12/30/19 24 12/31/2023 DRUG PROFI LE,UR ,9 DRUGS ,BUND opiates NEGATI VE NG/mL cutoff =300 Opiat e test inclu jessenia Codei ne and Morph ine only. Not Available [facility] ([facility]) [address] [place], [address], 12/31/2023 17:09:53 12/30/19 24 12/31/2023 DRUG PROFI LE,UR ,9 DRUGS ,BUND phencyclidin e NEGATI VE NG/mL cutoff =25 Not Available [facility] ([facility]) [address] [place], [address], 12/31/2023 17:09:53 12/30/19 24 12/31/2023 DRUG PROFI LE,UR ,9 DRUGS ,BUND methadone screen, urine NEGATI VE NG/mL cutoff =300 Not Available [facility] ([facility]) [address] [place], [address], 12/31/2023 17:09:53 12/30/19 24 12/31/2023 DRUG PROFI LE,UR ,9 DRUGS ,BUND propoxyphene , urine NEGATI VE NG/mL cutoff =300 Not Available [facility] ([facility]) [address] [place], [address], 12/31/2023 17:09:53 01/31/20 24 02/01/2024 MEASL ES/MU MPS/R UBELL A IMMUN ITY rubella antibodies, IgG 1.97 index immune >0.99 Non-i mmune <0.90 Equiv ocal 0.90 - 0.99 Immun e >0.99 Not Available [facility] ([facility]) [address] [facility], [place], [address], 02/01/2024 11:15:03 01/31/20 24 02/01/2024 MEASL ES/MU MPS/R UBELL A IMMUN ITY measles antibodies, IgG >300.0 AU/mL immune >16.4 Negat harleen <13.5 Equiv ocal 13.5 - 16.4 Posit harleen >16.4 Prese nce of antib odies to Rubeo la is presu mptiv e evide nce of immun ity excep t when acute infec tion is suspe cted. Not Available [facility] ([facility]) [address] [facility], [place], [address], 02/01/2024 11:15:03 01/31/20 24 02/01/2024 MEASL ES/MU MPS/R UBELL A IMMUN ITY mumps abs, IgG 32.2 AU/mL immune >10.9 Negat harleen <9.0 Equiv ocal 9.0 - 10.9 Posit harleen >10.9 A posit harleen resul t gener ally indic ates past expos ure to Mumps virus or previ ous vacci natio n. Not Available [facility] ([facility]) [address] [facility], [place], [address], 02/01/2024 11:15:03 08/20/20 23 08/20/2023 XR, knee No observ ation record ed. [facility] [address], [place], [address], 09/09/2023 12:45:22 12/18/19 25 12/18/2024 XR, chest No observ ation record ed. [facility] [address], [place], [address], 12/18/2024 14:20:13 Result Notes None recorded. Problems Name Problem SNOMED Code Status Onset Date Resolution Date Notes Provider Name and Address Organization Details Recorded Time Family history of Atherosclero sis 660076085 Active 2017 Not Available [facility] 3 05:25:41 Ex-smoker 4223739 Active 2017 Not Available [facility] 3 05:25:42 Pre-surgery evaluation Active 2017 Not Available [facility] 3 05:25:41 History of total hysterectomy 817651783 Active 2018 Not Available [facility] 3 05:25:42 Body mass index 30+ - obesity 241124628 Active 2018 Not Available [facility] 3 05:25:41 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 Not Available [facility] 3 05:25:42 Primary hyperparathy roidism 54879137 Active 2019 Not Available [facility] 3 05:25:42 Type 2 diabetes mellitus without complication 778890163 Active 2020 Not Available [facility] 3 05:25:42 Immunization advised 990656575 Active 2020 Not Available [facility] 3 05:25:42 SARS-CoV-2 mRNA vaccine declined 9159091443 Active 2022 Not Available [facility] 3 05:25:41 Impaired fasting glycemia 507339378 Active Not Available [facility] 3 05:25:42 Pulmonary hypertension 03740069 Active Not Available [facility] 3 05:25:42 Congestive heart failure 46807174 Active Not Available [facility] 3 05:25:42 Morbid obesity 518712039 Active Not Available [facility] 3 05:25:41 Infective gastritis 067939619 Active Not Available [facility] 3 05:25:41 Chalazion 3824717 Active Not Available [facility] 3 05:25:41 Pulmonary embolism 92131063 Active Not Available [facility] 3 05:25:42 Ankle pain 963732869 Active Not Available [facility] 3 05:25:41 Neuropathy 297785326 Active Not Available [facility] 3 05:25:42 Uterine leiomyoma 07630853 Active Not Available [facility] 3 05:25:42 Grief finding 602828785 Active Not Available [facility] 3 05:25:41 Dyspnea 150596844 Active Not Available [facility] 3 05:25:41 Anemia 036282256 Active Not Available [facility] 3 05:25:42 Influenza 6586959 Active Not Available [facility] 3 05:25:42 Carpal tunnel syndrome 42331522 Active Not Available [facility] 3 05:25:42 Obesity 896954200 Active Not Available [facility] 3 05:25:42 Abdominal pain 68002356 Active Not Available [facility] 3 05:25:41 Benign hypertension 12161346 Active Not Available [facility] 3 05:25:41 Helicobacter -associated gastritis 51984113 Active Not Available [facility] 3 05:25:42 Asthma 206192601 Active Not Available [facility] 3 05:25:41 Sleep apnea 53913590 Active Not Available [facility] 3 05:25:42 Menorrhagia 426205729 Active Not Available [facility] 3 05:25:42 Bacterial vaginosis 416371502 Active Not Available [facility] 3 05:25:42 Problem Notes None recorded. Procedures Surgical History Date Name Laterality Status Provider Name and Address Organization Details Recorded Time 2022 Diabetic Foot Exam completed Dilia Yap MD Attn: Goran hallman,[address] [place], [address], [facility] 3 12:25:01 2017 Total hysterectomy completed Susanna Giraldo [place] - [facility] 9 14:03:47 2015 esophagogastroduodenoscopy completed Dolores Wade MD Attn: Goran hallman,[address] [place], [address], [facility] - [facility] 1 12:15:51 2015 colonoscopy completed Dilia Yap MD Attn: Goran hallman,[address] [facility], [place], [address], [place] - [facility] 1 12:16:27 2013 Endometrial Biopsy completed Alec Murray [place] - [facility] 4 11:27:25 2013 Date of Last Pap Smear completed Bianca Bustamante [place] - [facility] 6 11:48:23 Carpal tunnel surgery completed Eduardo Yap MD Attn: Goran hallman,[address] [facility], [place], [address], [place] - [facility] 0 09:48:00 repair of eyelid completed Dilia Yap MD Attn: Goran hallman,[address] [facility], [place], [address], [facility] - [facility] 0 09:48:28 Imaging Results Imaging Date Name Status LastModified by Organiz ation Details LastModified Time 08/20/2023 XR, knee completed [facility] [address] [place], [address], 09/09/2023 12:45:22 12/18/2024 XR, chest active [facility] [address], [address], 12/18/2024 14:20:13 Procedure Notes None recorded. Medical Equipment None Reported. Allergies Allergen ID Allergen Name Allergen Category Reaction Reaction Severity Criticality Documentation Date Start Date Code Code System Note Provider Name and Address Organization Details Recorded Time [id number] No known allergy (situatio n) Not available Not available Not available Not available 08/27/2023 [id number] SNOMED Not Available Not Available Not Available No known drug allergies Medications Name Sig Start Date Stop Date Status Note LastModified by Organization Details LastModified Time 8hr arthritis 650mg er tab TAKE 2 TABLETS BY MOUTH EVERY 8 HOURS NEEDED FOR 14 DAYS active Not Available Not Available No t Available Prescript ion - New 08/20 completed Prescrip tion for treatmen t of H-pylori called to Charissa (pharmac ist) at [facility]. Not Available Not Available Not Available losartan 50 mg tablet 06/12 completed Not Available Not Available Not Available celecoxib 200 mg capsule TAKE 1 CAPSULE BY MOUTH ONCE DAILY active Not Available Not Available No t Available amoxicill in 500 mg capsule TAKE 1 CAPSULE BY MOUTH EVERY 8 HOURS UNTIL GONE active Dentist Not Available Not Available No t Available furosemid e 40 mg tablet TAKE ONE TABLET BY MOUTH ONCE DAILY 08/20 completed Not Available Not Available Not Available terbinafi ne HCl 1 % topical cream APPLY TO THE AFFECTED AND SURROUND ING AREAS OF SKIN BY TOPICAL ROUTE BID for 4 weeks 2022 active Not Available Not Available Not Avai lable bupropion HCl SR 150 mg tablet,12 hr sustained -release Take 1 tablet twice a day by oral route as directed for 30 days. 06/12 completed Not Available Not Available Not Available atorvasta tin 20 mg tablet TAKE 1 TABLET BY MOUTH ONCE DAILY active Not Available Not Available No t Available clindamyc in HCl 300 mg capsule 07/05 completed Not Available Not Available Not Available albuterol sulfate 2.5 mg/3 mL (0.083 %) solution for nebulizat ion USE 1 VIAL IN NEBULIZE R EVERY 8 HOURS NEEDED FOR SHORTNES S OF BREATH active Not Available Not Available No t Available Venofer 100 mg iron/5 mL intraveno us solution 08/20 completed Not Available Not Available Not Available Vitamin C 500 mg tablet Take 1 tablet every 12 hours by oral route. 10/21 completed Not Available Not Available Not Available fluconazo le 150 mg tablet TAKE 1 TABLET BY MOUTH ONCE DAILY AT THE ONSET OF VAGINAL CANDIDAS IS 08/06 completed Not Available Not Available Not Available clarithro mycin 500 mg tablet TAKE 1 TABLET BY MOUTH TWICE DAILY FOR 7 DAYS 04/17 completed Not Available Not Available Not Available hydrocodo ne 5 mg-acetam inophen 325 mg tablet 06/03 completed Not Available Not Available Not Available meloxicam 15 mg tablet completed Not Available Not Available Not Available sucralfat e 1 gram tablet 08/20 completed Not Available Not Available Not Available naltrexon e 50 mg tablet TAKE 1/2 (ONE-LIAM F) TABLET BY MOUTH ONCE DAILY 07/12 completed Not Available Not Available Not Available metronida zole 0.75 % (37.5 mg/5 gram) vaginal gel Insert 1 applicat orful every day by vaginal route for 5 days. 08/20 completed Not Available Not Available Not Available Tubersol 5 tub. unit/0.1 mL intraderm al injection solution Inject 0.1 mL every day by intrader mal route as directed for 1 day. 01/30 completed Not Available Not Available Not Available phentermi ne 15 mg capsule Take 1 capsule every day by oral route with meals for 30 days. 07/05 completed Not Available Not Available Not Available topiramat e 25 mg tablet TAKE 1 TABLET BY MOUTH ONCE DAILY WITH MEALS FOR 30 DAYS active Not Available Not Available No t Available acetamino phen 300 mg-codein e 15 mg tablet Take 1 tablet every 8 hours by oral route as needed for 5 days. 07/05 completed Not Available Not Available Not Available metronida zole 500 mg tablet TAKE 1 TABLET BY MOUTH TWICE DAILY FOR 14 DAYS 07/24 completed Not Available Not Available Not Available acetamino phen 300 mg-codein e 30 mg tablet 08/17 completed Not Available Not Available Not Available ciproflox acin 500 mg tablet 07/05 completed Not Available Not Available Not Available tramadol 50 mg tablet Take 2 tablets every 12 hours by oral route for 30 days. 08/20 completed Not Available Not Available Not Available triamcino lone acetonide 0.1 % topical cream 07/05 completed Not Available Not Available Not Available amoxicill in 500 mg tablet Take 2 tablets every 12 hours by oral route as directed for 14 days. 03/21 completed Not Available Not Available Not Available carvedilo l 3.125 mg tablet TAKE ONE TABLET BY MOUTH TWICE DAILY 08/20 completed Not Available Not Available Not Available acetamino phen ER 650 mg tablet,ex tended release TAKE 2 TABLETS BY MOUTH EVERY 8 HOURS NEEDED FOR 14 DAYS active Not Available Not Available No t Available neomycin- bacitraci n-polymyx n 3.5 mg-400 unit-10,0 00 unit/gram eye oint APPLY A SMALL AMOUNT INTO THE CONJUNCT IVAL SAC(S) IN AFFECTED EYE(S) BY OPHTHALM IC ROUTE EVERY 12 HOURS 03/21 completed Not Available Not Available Not Available losartan 100 mg-hydroc hlorothia zide 25 mg tablet TAKE 1 2 (ONE HALF) TABLET BY MOUTH ONCE DAILY 08/27 completed On Losartan /HCTZ 50/12.5 Not Available Not Available Not Available oxycodone -acetamin ophen 5 mg-325 mg tablet 06/12 completed Not Available Not Available Not Available clindamyc in 1 % topical gel APPLY THIN LAYER TOPICALL Y TO AFFECTED TOES TWICE DAILY 07/24 completed Not Available Not Available Not Available DOK 100 mg capsule Take 1 capsule twice a day by oral route. 06/12 completed Not Available Not Available Not Available Recycled Hydro [employer] Ultra Test strips USE 1 STRIP TO CHECK GLUCOSE ONCE DAILY active Not Available Not Available No t Available amlodipin e 10 mg tablet One po daily 08/06 completed Not Available Not Available Not Available hydrocodo ne 7.5 mg-acetam inophen 325 mg tablet 01/05 completed Not Available Not Available Not Available erythromy miquel 5 mg/gram (0.5 %) eye ointment 08/17 completed Not Available Not Available Not Available ferrous sulfate 325 mg (65 mg iron) tablet TAKE ONE TABLET BY MOUTH TID 10/21 completed Not Available Not Available Not Available ranitidin e 150 mg tablet 08/20 completed Not Available Not Available Not Available Qvar 40 mcg/actua tion Metered Aerosol oral inhaler INHALE ONE PUFF TWICE DAILY DIRECTED 06/12 completed Not Available Not Available Not Available losartan 25 mg tablet Take 1 tablet every day by oral route for 90 days. 08/20 completed Not Available Not Available Not Available bupropion HCl 75 mg tablet Take 1 tablet by mouth twice daily 07/05 completed Not Available Not Available Not Available hydrochlo rothiazid e 12.5 mg capsule 06/12 completed Not Available Not Available Not Available omeprazol e 20 mg capsule,d elayed release TAKE 1 CAPSULE BY MOUTH TWICE DAILY FOR 14 DAYS 07/24 completed Not Available Not Available Not Available hydrochlo rothiazid e 25 mg tablet Take 0.5 tablet(s ) every day by oral route as directed for 90 days. 12/30 completed Not Available Not Available Not Available ibuprofen 600 mg tablet 08/06 completed Not Available Not Available Not Available polyethyl kenneth glycol 3350 17 gram/dose oral powder 06/12 completed Not Available Not Available Not Available levofloxa miquel 500 mg tablet TAKE ONE TABLET BY MOUTH TWICE DAILY FOR 5 DAYS 08/20 completed Not Available Not Available Not Available albuterol sulfate HFA 90 mcg/actua tion aerosol inhaler INHALE 2 PUFFS BY MOUTH EVERY 4 TO 6 HOURS NEEDED FOR SHORTNES S OF BREATH active Not Available Not Available No t Available losartan 50 mg-hydroc hlorothia zide 12.5 mg tablet TAKE 1 TABLET BY MOUTH ONCE DAILY DIRECTED active Not Available Not Available No t Available ketoconaz ole 2 % topical cream APPLY TOPICALL Y TO THE AFFECTED AREA BETWEEN TOES TWICE DAILY 08/06 completed Not Available Not Available Not Available losartan 100 mg tablet TAKE 1 2 (ONE HALF) TABLET BY MOUTH ONCE DAILY DIRECTED FOR 90 DAYS 12/30 completed Not Available Not Available Not Available diltiazem 60 mg tablet TAKE ONE TABLET BY MOUTH TWICE DAILY 08/20 completed Not Available Not Available Not Available metformin ER 500 mg tablet,ex tended release 24 hr TAKE 1 TABLET BY MOUTH ONCE DAILY DIRECTED active Not Available Not Available No t Available dicyclomi ne 10 mg capsule 08/20 completed Not Available Not Available Not Available metoclopr amide 10 mg tablet 08/20 completed Not Available Not Available Not Available amoxicill in 875 mg-potass ium clavulana te 125 mg tablet 10/21 completed Not Available Not Available Not Available amoxicill in 500 mg-potass ium clavulana te 125 mg tablet 08/06 completed Not Available Not Available Not Available erythromy miquel with ethanol 2 % topical gel APPLY IN BETWEEN THE AFFECTED TOES TWICE DAILY 08/06 completed Not Available Not Available Not Available Asmanex Twisthale r 220 mcg/actua tion(60 doses) breath activated inhalr Inhale 1 puff twice a day by inhalati on route as directed for 90 days. 02/25 completed Not Available Not Available Not Available Symbicort 160 mcg-4.5 mcg/actua tion HFA aerosol inhaler INHALE 2 PUFFS BY MOUTH TWICE DAILY DIRECTED 08/06 completed Not Available Not Available Not Available Symbicort 80 mcg-4.5 mcg/actua tion HFA aerosol inhaler Inhale two puffs BID 04/10 completed Not Available Not Available Not Available omeprazol e 20 mg tablet,de layed release Take 1 tablet twice a day by oral route for 7 days. 2014 active Not Available Not Available Not Avai lable Asmanex Twisthale r 110 mcg/actua tion(30 doses) breath activated inhalr INHALE 1 PUFFS BY MOUTH TWICE DAILY DIRECTED FOR 30 DAYS 02/25 completed Not Available Not Available Not Available cholecalc iferol (vitamin D3) 50 mcg (2,000 unit) tablet TAKE 1 TABLET BY MOUTH ONCE DAILY AROUND THE CLOCK 08/06 completed Not Available Not Available Not Available Flovent Diskus 100 mcg/actua tion powder for inhalatio n INHALE 1 PUFF BY MOUTH TWICE DAILY DIRECTED FOR 30 DAYS 04/17 completed Not Available Not Available Not Available Vitamin D3 50 mcg (2,000 unit) capsule Take 1 capsule by mouth once daily 07/24 completed Not Available Not Available Not Available Aerospan 80 mcg/actua tion HFA aerosol inhaler 2 puffs inhaled twice a day 03/21 completed Not Available Not Available Not Available doxycycli ne hyclate 150 mg tablet 07/24 completed Not Available Not Available Not Available Trulicity 1.5 mg/0.5 mL subcutane ous pen injector INJECT 1.5 MG UNDER THE SKIN EVERY WEEK active Not Available Not Available No t Available Trulicity 0.75 mg/0.5 mL subcutane ous pen injector INJECT 0.75 MG SUBCUTAN EOUSLY EVERY WEEK DIRECTED 01/30 completed Increase d to 1.5 mg Not Available Not Available Not Available Qvar RediHaler 40 mcg/actua tion HFA breath activated aerosol INHALE 1 PUFF TWICE DAILY 07/05 completed Not Available Not Available Not Available Ozempic 0.25 mg or 0.5 mg (2 mg/1.5 mL) subcutane ous pen injector completed Not Available Not Available Not Available OneTouch Ultra Blue Test Strip 08/06 completed Not Available Not Available Not Available OneTouch Ultra2 Meter 08/06 completed Not Available Not Available Not Available OneTouch Delica Plus Lancet 33 gauge USE 1 TO CHECK GLUCOSE ONCE DAILY active Not Available Not Available No t Available Ozempic 0.25 mg or 0.5 mg (2 mg/3 mL) subcutane ous pen injector Inject by subcutan eous route for 56 days. completed Not Available Not Available Not Available Vitals Date Recorded Body weight Body mass index (BMI) Body height Oxygen saturation Oxygen saturation in Arterial blood by Pulse oximetry Heart rate Respiratory rate Systolic blood pressure Diastolic blood pressure Provider Name and Address Organization Details Last Updated DateTime 3 799472. 57 g 72.1 kg/m2 154.94 cm 97 % 97 % 78 /min 20 /min 146 mm[Hg] 96 mm[Hg] Gwendolyn Steven [place] - [facility] 3 11:55:18 Date Recorded Body height Body mass index (BMI) Body weight Respiratory rate Heart rate Oxygen saturation Oxygen saturation in Arterial blood by Pulse oximetry Systolic blood pressure Diastolic blood pressure Provider Name and Address Organization Details Last Updated DateTime 3 154.94 cm 71.4 kg/m2 064718. 92 g 20 /min 82 /min 98 % 98 % 130 mm[Hg] 84 mm[Hg] Gwendolyn Steven [place] - [facility] 3 10:51:08 Date Recorded Body height Body mass index (BMI) Body weight Heart rate Oxygen saturation Oxygen saturation in Arterial blood by Pulse oximetry Systolic blood pressure Diastolic blood pressure Provider Name and Address Organization Details Last Updated DateTime 3 154.94 cm 74.4 kg/m2 570496. 39 g 82 /min 99 % 99 % 146 mm[Hg] 80 mm[Hg] Gwendolyn Steven [place] - [facility] 3 13:03:12 Date Recorded Body height Body mass index (BMI) Body weight Heart rate Oxygen saturation Oxygen saturation in Arterial blood by Pulse oximetry Respiratory rate Body temperature Systolic blood pressure Diastolic blood pressure Provider Name and Address Organization Details Last Updated DateTime 4 154.94 cm 74.1 kg/m2 312726. 21 g 80 /min 97 % 97 % 18 /min 98.3 [degF] 140 mm[Hg] 80 mm[Hg] Gwendolyn Steven [place] - [facility] 4 15:33:41 Date Recorded Body height Body mass index (BMI) Body weight Heart rate Oxygen saturation Oxygen saturation in Arterial blood by Pulse oximetry Respiratory rate Systolic blood pressure Diastolic blood pressure Provider Name and Address Organization Details Last Updated DateTime 4 154.94 cm 73.7 kg/m2 820098. 46 g 88 /min 97 % 97 % 2 /min 134 mm[Hg] 80 mm[Hg] Gwendolyn Steven [place] - [facility] 4 09:59:34 Social History Question Answer Notes LastModified by Organizat ion Details LastModified Time Tobacco Smoking Status Former Smoker Stopped 2019 Dilia Yap MD Attn: Accounting,[address] [place], [address], [facility] - [facility] 08/06/2023 12:07:23 Do You Have An Advance Directive? Yes Information not available 10/24/2014 What Is Your Level Of Alcohol Consumption? Occasional Information not available 10/24/2014 How Many Years Have You Consumed Alcohol? 21 Information not available 08/06/2023 Are You Blind Or Do You Have Difficulty Seeing? No Information not available 12/23/2020 Is Blood Transfusion Acceptable In An Emergency? Yes Information not available 10/24/2014 What Is Your Level Of Caffeine Consumption? Heavy Information not available 10/24/2014 How Much Tobacco Do You Chew? None Information not available 10/24/2014 Have You Been To An Area Known To Be High Risk For COVID-19? Yes Information not available 02/13/2021 Are You Currently Employed? No Information not available 10/24/2014 Are You Deaf Or Do You Have Serious Difficulty Hearing? No Information not available 12/23/2020 What Type Of Diet Are You Following? REGULAR Information not available 10/24/2014 Do You Or Have You Ever Used E-cigarettes Or Vape? Never Used Electronic Cigarettes Information not available 06/12/2019 Education 11 Information no t available 10/24/2014 Are There Any Guns Present In Your Home? No Information not available 12/23/2020 Live Alone Or With Others? With Others Information not available 10/24/2014 What Was The Date Of Your Most Recent Tobacco Screening? 01/31/2024 Information not available 01/31/2024 How Many Children Do You Have? 2 Information not available 10/24/2014 What Is Your Current Pack Years? 20-29packyears Information not available 08/06/2023 Performs Monthly Self-breast Exam? No Information not available 10/24/2014 Do You Use Protection During Sex? No Information not available 10/24/2014 What Is Your Relationship Status? Single Information not available 10/24/2014 Do You Use Your Seat Belt Or Car Seat Routinely? Yes Information not available 12/23/2020 Seat Belts Used Routinely Yes Information not available 10/24/2014 Are You Sexually Active? Yes Information not available 10/24/2014 Do You Have Smoke And Carbon Monoxide Detectors In Your Home? Yes Information not available 12/23/2020 At What Age Did You Start Smoking Tobacco? 28 Information not available 10/24/2014 Do You Or Have You Ever Used Smokeless Tobacco? Never Used Smokeless Tobacco Information not available 06/12/2019 How Much Tobacco Do You Smoke? No Information not available 10/24/2014 General Stress Level High Information not available 10/24/2014 Do You Use Any Illicit Or Recreational Drugs? No Information not available 08/06/2023 Do You Use Sunscreen Routinely? No Information not available 10/24/2014 Has Tobacco Cessation Counseling Been Provided? Yes Information not available 08/06/2023 On What Date Was Tobacco Cessation Counseling Provided? 08/06/2023 Information not available 08/06/2023 How Many Years Have You Smoked Tobacco? 18 Information not available 10/24/2014 Do You Or Have You Ever Used Any Other Forms Of Tobacco Or Nicotine? No Information not available 08/06/2023 Sex: Unknown Functional Status Question Answer Note LastModified by Organizat ion Details LastModified Time Are you able to care for yourself? Yes Information not available 12/23/2020 What is your exercise level? Occasional Information not available 10/24/2014 Mental Status None recorded. Family History Relationship Description Onset Age of this Age Resolved Age Notes LastModified by Organization Details LastModified Time Mother History of hypertension 62 STROKE [email or web address] Not available 12:39:42 Father Myocardial infarction 63 [email or web address] Not available 04/16 12:39:42 Son History of hypertension [email or web address] Not available 12:39:42 Medical History Condition Response Heart Problems N Other Y High Blood Pressure Y Breast Cancer N Thyroid Problems N Kidney or Bladder Problems N Lung Disease N Depression N Blood Clots N GI Problems Y Acne N Eating Disorder N Breast Problem N Anemia Y Anesthesia Complications N Headaches/Migraines N Anxiety Disorder N Ovarian Cancer N Diabetes N Muscle, Joint, or Bone Problems N Obesity Y Blood Transfusions N Arthritis N Seizures/Epilepsy N Polyps N Infertility N Acid Reflux (GERD) N Cancer N Stroke N Abuse/Domestic Violence N Asthma N Endometriosis N Sleep Apnea Y High Cholesterol N GERD/Reflux Y Hepatitis N Heart Disease Y Fibromyalgia N Pre-Eclampsia N Hypertension N Osteoporosis N Kidney Disease N Gynecological History Statement/Question Response Abnormal Pap N Flow Heavy Date of LMP STIs/STDs N HPV Vaccine N Duration of Flow (days) 5 Age at Menarche 14 Current Control Method None Age at First Child 23 Frequency of Cycle (Q days) 28 Sexually Active? Y Menses Monthly Y Date of Last Pap Smear 10/24/2014 Sexual Problems? N LMP Approximate Desired Control Method Unknown Obstetrics History GPAL:G 9 P 2 0 7 2 Type Value Multiple Births 0 Full Term 2 Induced 0 Spontaneous 7 Premature 0 Living 2 Ectopics 0 Total 9 Immunizations Vaccine Type Date Status Note Provider Nam e and Address Organization Details Recorded Time Influenza, split virus, quadrivalent, preservative 0 completed Not Available [facility] 08/24/2023 05:25:43 Influenza, split virus, quadrivalent, preservative 7 completed Not Available [facility] 11/18/2019 02:42:30 Influenza, split virus, trivalent, preservative 5 completed Not Available [facility] 11/18/2019 02:43:08 pneumococcal polysaccharide PPV23 5 completed Not Available [facility] 11/18/2019 02:29:46 Influenza, split virus, quadrivalent, preservative 9 completed Not Available [facility] 11/18/2019 02:38:14 Tdap 3 completed Dilia Yap MD Attn: Accounting,[address] [place], [address], [facility] - [facility] 08/06/2023 13:56:27 Influenza, split virus, quadrivalent, PF 3 completed Dilia Yap MD Attn: Accounting,[address] [place], [address], [facility] - [facility] 08/06/2023 13:56:27 Influenza, split virus, trivalent, preservative 5 completed Not Available [facility] 11/18/2019 02:40:54 Tdap 3 completed Not Available [facility] 08/24/2023 05:25:43 Past Encounters Encounter ID Performer Location Encounter Start Date Encounter Closed Date Diagnosis/Indication Diagnosis SNOMED-CT Code Diagnosis ICD10 Code Diagnosis Note [id number] KIESHA Mejia (ASSESSOR) [address] [place] [phone] 10/24/2014 09:52:37 10/24/2014 11:51:15 Gynecologic examination 36185129 History of abnormal uterine bleeding [id number] January KEIRA Gibson (Adult Med) [address] [place] [address] 01/15/2015 11:56:49 01/15/2015 13:14:05 Impaired fasting glycemia [id number] Pulmonary hypertension 28447120 She has an admission with respirator y failure that required intubation in 01/2014, she is now off oxygen and follows up with the pulmonolog ist, Dr. Johnson Congestive heart failure 27704399 She needs an appointmen t with the cardiologi st, Flu vaccine and Pneumovax today Morbid obesity 211637955 She asked about gastric bypass and I think she is an ideal candidate, she has gained another 16lbs since her last visit 06/27/2014. She has tried a no carbohydra te diet, I have suggested that although she has decreased her intake of carbonated beverages, she really should discontinu e this I will also have her seen by a marine extension agent as well Infective gastritis [id number] This appears recurrent, she was previously treated 06/27/2014, her H pylori breath test is once again positive, I will treat her again. She has a history of Cholelithi asis on US 05/25/2014, however her previous HIDA scan done 06/06/2014 was normal. There is also a previous history of Choledocho lithiasis for which an ERCP was attempted at [facility] in April 2009 Chalazion [id number] Conser vati ve Pulmonary embolism [id number] Prior history of a PE in a setting of a previous Ankle pain 019207680 General ex amination of patient 472347395 MMG as previously ordered by Dr. Murray, with regards to her applicatio n for disability and the denials, I have explained to her that my only role is to send her records. Neuropathy [id number] Res ults of UE NCS needed [id number] Grey (ASSESSOR) [address] [place] [phone] 02/27/2015 09:53:25 02/27/2015 12:07:29 [id number] Grey (ASSESSOR) [address] [place] [phone] 04/01/2015 14:29:59 04/01/2015 17:28:47 History of abnormal uterine bleeding [id number] Uterine leiomyoma 56013971 Morbid obesity 001935214 Congestive heart failure 13892973 Pulmonary embolism 01411575 Pulmonary hypertension 59204761 [id number] Grey (Adult Med) [address] [place] [phone] 05/07/2015 11:34:58 05/07/2015 12:44:17 Pulmonary embolism 39685156 Prior history of a PE in a setting of a previous Infective gastritis 760797401 This is recurrent, she was previously treated 06/27/2014, her H pylori breath test was positive, I tried to treat her on the last visit. She has a history of Cholelithi asis on US, 05/25/2014, however her previous HIDA scan done 06/06/2014 was normal. There is also a previous history of Choledocho lithiasis for which an ERCP was attempted at [facility] in April 2009 She states that she never received the scripts on her last visit, I will rewrite them again. Hand written script for sequential therapy Congestive heart failure [id number] She follows up with the cardiologi st, Dr. Mazariegos Uterine leiomyoma 12095394 A hysterecto my is planned Pulmonary hypertension 03355681 She has an admission with respirator y failure that required intubation in 01/2014, she is now off oxygen and follows up with the pulmonolog ist, Dr. 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 I have suggested that although she has decreased her intake of carbonated beverages, she really should discontinu e this I will also have her seen by a marine extension agent as well. She states that she has completed the referral form and her daughter brought it back, we will check with the referral nurse. 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 She has a history of Cholelithi asis on US, 05/25/2014, however her previous HIDA scan done 06/06/2014 was normal. There is also a previous history of Choledocho lithiasis for which an ERCP was attempted at [facility] in April 2009 She states that she never received the scripts on her last visit, I will rewrite them again. Hand written script for sequential therapy Arnulfo [id number] Conser vati ve management has failed Screening mammography [id number] Director Business Travel evaluation was done, it appears that a AURELIANO is planned Dyspnea 216120185 Impaired f asting glycemia 314036847 Labs as previously ordered [id number] MD Grey Bell (Adult Med) [address] [place] [address] 08/29/2015 09:33:32 08/29/2015 13:00:50 Anemia 551796953 D64.9 Infective gastritis 2356 60228 A09 This is recurrent, she was previously treated 06/27/2014, her H pylori breath test was positive, I tried to treat her on the last visit. She has a history of Cholelithi asis on US, 05/25/2014, however her previous HIDA scan done 06/06/2014 was normal. 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 Menstrual Date Menses Monthly On Bcp Conception Prior Menses Frequency Hcg Plus Date Menarche Onset Age Delivery Information Delivery Date Delivery Type Labor Anesthesia Weeks Gestation Incision Type Labor Labor Length Hrs Delivered By Post Complications Tubal Sterilization Discharge Date Comments 1 None Discharge Information Feeding Method Contraceptive Method Maternal HG B and HCT Levels Ob Episode Information Episode Created Date Number of Fetuses Patient Bloodtype Patient rh Status Prepregnancy Weight lbs Domestic Partner Domestic Partner Phone Father Name World Language Teacher Status 08/20/20 17 1 CLOSED Fetus Data First Name Last Name Admitted to NICU Weight (g) Sex Living Outcome Pediatric Complications Fetus ID Race Codes Race Delivery Type 3231.84 3 M Full Term [id number] Vaginal Walker Calculation Initial Walker Date Initial Exam Date Initial Exam Provider Initial Ultrasound Date Last Menstrual Period Date Ultra Sound Weeks Gestation 0 Eighteen To Twenty Week Walker Update Ultra Sound Date Fundal Height At Umbil Quickening Date Ultra Sound Latest Weeks Gestation Final Walker Confirmed By Final Walker Confirmed Date Final Walker Date Ultra Sound Latest Days Gestation 0 0 Menstrual History Last Menstrual Date Menses Monthly On Bcp Conception Prior Menses Frequency Hcg Plus Date Menarche Onset Age Delivery Information Delivery Date Delivery Type Labor Anesthesia Weeks Gestation Incision Type Labor Labor Length Hrs Delivered By Post Complications Tubal Sterilization Discharge Date Comments 4 None 42 Discharge Information Feeding Method Contraceptive Method Maternal HG B and HCT Levels
--- OUTSIDE RECORDS SUMMARY | 2024-12-18 14:45 | XMS_ITS | Data Portability ---
Author Organization [place] [facility], Main Office Address [address] [place] [address] Care Team Providers Care Web Production Assistant Name Role Phone DILIA LEMUS Primary Care Provider [phone] DILIA LEMUS Referring Provider Assessment Encounter Date Assessment Date Assessment LastModified by Organization Details LastModified Time 10/13/2023 10/13/2023 53-year-old femshanna suárez presents for evaluation of her right knee. She reports no acute injury, but says it started about a year ago and has been getting progressively worse. It is worse with activities and walking, she can only walk minimal distances before her knee bothers her. She has been taking Tylenol Arthritis, but otherwise has not had any treatment. Review of systems per patient questionnaire. She does have a history of CHF, COPD, and BMI 71.2. Physical exam: Antalgic gait favoring the right side. She has truncal obesity and less soft tissue envelope around the knee. Range of motion 0-130, pain at terminal flexion. She does have crepitus with range of motion. Stable ligaments. X-rays of the knee were reviewed, demonstrating [id number] arthritis with large osteophytes, all 3 compartments She has knee osteoarthritis. We will begin with a course of conservative management including meloxicam and physical therapy. She can also use Voltaren gel. We discussed that she is not a surgical candidate given her weight in addition to her other comorbidities, and that she should follow-up with her PCP to figure out a plan for weight loss. She may follow up in 2-3 months after a course of treatment. At that point, we may consider a cortisone injection. She is in agreement with the plan. Not available 10/14/2023 00:29:38 11/30/2023 11/30/2023 Assessment: Very severe OSAHS, AHI = 134 Plan: The following were reviewed and explained to the patient: primary care/referral note PFT 09/12/20 nl FEV1/FVC, FEV1 0.96 L (45%), BD 30 mL = 3%, TLC 3.26 L (73%), RV 1.98 L (128%), DLCO 44%, DLCO/VA 91% [facility] split night sleep study 05/20/14 AHI = 134, ResMed medium AirFit N10 nasal mask @ 16 cmH2O [facility] titration sleep study 05/03/18 sleep onset = 4.5 minutes, REM onset = 70 minutes, Respironics medium DreamWear nasal mask @ 16 cmH2O PAP compliance downloaded and interpreted x 20 minutes. Data reviewed and explained to the patient. Average apnea/hypopnea index (AHI) is 5.8. Patient used PAP > 4 hours 100% of the time. PAP is set at 12-20 cmH2O. PAP will be reset at 13-19 cmH2O. Oxygen supplementation: none Patient is benefiting from PAP therapy. Encouraged patient to maintain PAP use more than 70% of the time. Statement of PAP use and benefits will be sent to the home care store. Educated the patient on problems and solutions associated with positive airway pressure (PAP) use. Difficulty tolerating pressure, mask leaks, intolerance of interface, nasal congestion, claustrophobic response, dry mouth, and unintentional mask removal during sleep were covered. Patient's mask leaks air. We will ensure the mask is situated properly. Patient can wear protective eye covering during sleep, and the mask can be resized. Dry mouth is a normal occurrence for people who just start out on PAP therapy because they are not used to air blowing in to the throat to hold open. Dry mouth is exacerbated for people who wear nasal PAP mask and whose jaw drops open during sleep. Not only does this create a much less efficient therapy because of leakage, it also causes dry mouth. There are a couple solutions to help prevent this type of problem. A simple solution would be to wear a chinstrap which essentially holds the jaw in place. A second solution would be a switch to a full face mask which covers both the nose and mouth. Although this is another easy solution, using a full face mask for some could seem claustrophobic or confining. There is no silver bullet solution as no single mask is right for everybody. Sometimes it takes a bit of experimentation to find a PAP mask which best meets the patient's needs as well as fits comfortably. Another tactic is to use a humidifier on your PAP machine. Most new PAP machines have integrated humidifiers. Humidification is naylor when dealing with symptoms of dry mouth because the humidifier can supply both warm and room temperate air. Even a small amount of humidity in the airflow will help nasal passages to stay hydrated. If a person is using both a full face mask and a PAP machine with a heated humidifier and is still experiencing dry mouth, an ill-fitted PAP mask might be causing the problem. Leakage can be caused by a mask that is to large or small, the wrong style mask, the cushion is degraded or simply because the mask's straps aren't adjusted correctly. If leakage occurs, dry air from the room can leak in while humidification escapes. The result is reduced humidification within the circuit and resulting in dry throat and mouth. Finally, beyond factors involving the PAP machine and mask, dry mouth can also be caused or worsened by dehydration. The general recommendation to during eight 8 oz. glasses of water a day might be too little for many people. When people drink large amounts of coffee or other caffeine beverages, or sweat a lot during the day, making sure to rehydrate is an important part of PAP therapy. Provided the patient with a list of local home care stores where positive airway pressure (PAP) units, accoutrement, and services are available. Home care store selection is based on patient's insurance carrier. Patient will setup an appointment with [facility] for supplies and pressure adjustments. A major predictor of success with use of PAP is follow-up with both the respiratory supplier and the treating physician. The respiratory supplier optimally will follow-up within two weeks after starting use while the treating physician optimally will follow-up within 90 days after starting therapy to assess adherence and effectiveness of treatment. The download results can show the treating physician information about adherence to treatment, residual AHI while on treatment and presence of large mask leakage. This information is especially helpful if the patient has residual sleepiness despite treatment. General information on sleep disordered breathing, evaluation of sleep disordered breathing, treatment with PAP therapy, and living with PAP therapy were covered. We discussed with the patient the impact of weight on: Sleep disordered breathing DM Hypertension CHF Right knee OA We discussed with the patient the benefit of PAP therapy on: Sleep disordered breathing DM Hypertension CHF Educated the patient on sleep hygiene measures. Relaxing rituals to rest easy, understanding foods with positive and negative impact on sleep, creating a peaceful sleep environment, timing of exercise, using herbal sleep aids, and practicing sleep-friendly meditation were covered. To determine how much sleep is needed, the patient will assess where she falls on the spectrum, examine what lifestyle factors such as work schedules and stress are affecting the quality and quantity of sleep. In general, adults need 7-9 hours of sleep. Educated the patient regarding foods that promote sleep. These include but are not limited to cherries, bananas, toast, oatmeal, and warm milk. Educated the patient regarding foods and drinks to avoid before bedtime. These include but are not limited to aged cheese, chocolate, spicy foods, tomato-based sauces, soy, ginseng tea and processed meat. Advocated influenza vaccination annually and pneumonia vaccination KASI. Advocated weight loss through diet and exercise. Patient's ideal body weight according to height and gender is up to 115 lbs. Encouraged patient to adjust caloric intake to maintain/achieve ideal body weight, emphasizing on fruits, vegetables, whole grains, and fat-free or low-fat products. These include lean meats, poultry, fish, beans, eggs, and nuts and foods that are low in saturated fats, trans-fats, cholesterol, salt (sodium), and glycemic index. Stressed the importance of regular exercise up to the patient's capacity limits. In this case, we recommend regular (4 x a week or more) walking or other light activity. Patient to monitor BP daily and bring records to PCP for further management. Follow-up: 1 year, November 2024 [email or web address] Not available 11/30/2023 12:49:48 01/12/2024 01/12/2024 53-year-old jennifer suárez presents for follow-up of her right knee. She has guyk-ft-kolp osteoarthritis, with a BMI of 74. She has seen her primary care doctor and is working on weight loss with injections. She has been taking meloxicam which is helping, but she wants something else. We ordered physical therapy for her but she has not started that because nobody contact her to schedule. She currently reports 10/10 pain. She is tenderness palpation mediolateral joint line. Antalgic gait. BMI of 74.1 We discussed that she needs to continue working on weight loss. We will continue conservative management. We will switch her to Celebrex and reorder her physical therapy. She also inquired about a cortisone injection, and we proceeded with that today. She tolerated well. We will leave follow up open ended, she may call with any questions or concerns. . We discussed that we can repeat the cortisone injections every few months, but the ultimate treatment would be a knee replacement, which she would need to lose a significant amount weight to be eligible for. Not available 01/12/2024 12:19:36 12/11/2024 12/11/2024 Assessment: Very severe OSAHS, AHI = 134 Plan: The following were reviewed and explained to the patient: PFT 09/12/20 nl FEV1/FVC, FEV1 0.96 L (45%), BD 30 mL = 3%, TLC 3.26 L (73%), RV 1.98 L (128%), DLCO 44%, DLCO/VA 91% [facility] split night sleep study 05/20/14 AHI = 134, ResMed medium AirFit N10 nasal mask @ 16 cmH2O [facility] titration sleep study 05/03/18 sleep onset = 4.5 minutes, REM onset = 70 minutes, Respironics medium DreamWear nasal mask @ 16 cmH2O PAP compliance downloaded and interpreted x 20 minutes. Data reviewed and explained to the patient. Average apnea/hypopnea index (AHI) is 4.5. Patient used PAP > 4 hours 100% of the time. PAP is set at 13-19 cmH2O. PAP will be reset at 14-18 cmH2O. Oxygen supplementation: none Keep ramp start at Keep ramp duration at Keep EPR transit clerk. Keep humidifier level at Keep tube temperature at Patient is benefiting from PAP therapy. Encouraged patient to maintain PAP use more than 70% of the time. Statement of PAP use and benefits will be sent to the home care store. New ResMed Air Sense 11 auto set unit with heated humidifier, supplies and [id number]-haps full face mask @ 14-18 cmH2O ordered. Further adjustment will be based on clinical response. Educated the patient on problems and solutions associated with positive airway pressure (PAP) use. Difficulty tolerating pressure, mask leaks, intolerance of interface, nasal congestion, claustrophobic response, dry mouth, and unintentional mask removal during sleep were covered. Patient's mask leaks air. We will ensure the mask is situated properly. Patient can wear protective eye covering during sleep, and the mask can be resized. Dry mouth is a normal occurrence for people who just start out on PAP therapy because they are not used to air blowing in to the throat to hold open. Dry mouth is exacerbated for people who wear nasal PAP mask and whose jaw drops open during sleep. Not only does this create a much less efficient therapy because of leakage, it also causes dry mouth. There are a couple solutions to help prevent this type of problem. A simple solution would be to wear a chinstrap which essentially holds the jaw in place. A second solution would be a switch to a full face mask which covers both the nose and mouth. Although this is another easy solution, using a full face mask for some could seem claustrophobic or confining. There is no silver bullet solution as no single mask is right for everybody. Sometimes it takes a bit of experimentation to find a PAP mask which best meets the patient's needs as well as fits comfortably. Another tactic is to use a humidifier on your PAP machine. Most new PAP machines have integrated humidifiers. Humidification is naylor when dealing with symptoms of dry mouth because the humidifier can supply both warm and room temperate air. Even a small amount of humidity in the airflow will help nasal passages to stay hydrated. If a person is using both a full face mask and a PAP machine with a heated humidifier and is still experiencing dry mouth, an ill-fitted PAP mask might be causing the problem. Leakage can be caused by a mask that is to large or small, the wrong style mask, the cushion is degraded or simply because the mask's straps aren't adjusted correctly. If leakage occurs, dry air from the room can leak in while humidification escapes. The result is reduced humidification within the circuit and resulting in dry throat and mouth. Finally, beyond factors involving the PAP machine and mask, dry mouth can also be caused or worsened by dehydration. The general recommendation to during eight 8 oz. glasses of water a day might be too little for many people. When people drink large amounts of coffee or other caffeine beverages, or sweat a lot during the day, making sure to rehydrate is an important part of PAP therapy. Provided the patient with a list of local home care stores where positive airway pressure (PAP) units, accoutrement, and services are available. Home care store selection is based on patient's insurance carrier. Patient will setup an appointment with [facility] for supplies and pressure adjustments. A major predictor of success with use of PAP is follow-up with both the respiratory supplier and the treating physician. The respiratory supplier optimally will follow-up within two weeks after starting use while the treating physician optimally will follow-up within 90 days after starting therapy to assess adherence and effectiveness of treatment. The download results can show the treating physician information about adherence to treatment, residual AHI while on treatment and presence of large mask leakage. This information is especially helpful if the patient has residual sleepiness despite treatment. General information on sleep disordered breathing, evaluation of sleep disordered breathing, treatment with PAP therapy, and living with PAP therapy were covered. We discussed with the patient the impact of weight on: Sleep disordered breathing DM Hypertension CHF Right knee OA We discussed with the patient the benefit of PAP therapy on: Sleep disordered breathing DM Hypertension CHF Educated the patient on sleep hygiene measures. Relaxing rituals to rest easy, understanding foods with positive and negative impact on sleep, creating a peaceful sleep environment, timing of exercise, using herbal sleep aids, and practicing sleep-friendly meditation were covered. To determine how much sleep is needed, the patient will assess where she falls on the spectrum, examine what lifestyle factors such as work schedules and stress are affecting the quality and quantity of sleep. In general, adults need 7-9 hours of sleep. Educated the patient regarding foods that promote sleep. These include but are not limited to cherries, bananas, toast, oatmeal, and warm milk. Educated the patient regarding foods and drinks to avoid before bedtime. These include but are not limited to aged cheese, chocolate, spicy foods, tomato-based sauces, soy, ginseng tea and processed meat. Advocated influenza vaccination annually and pneumonia vaccination KASI. Advocated weight loss through diet and exercise. Patient's ideal body weight according to height and gender is up to 115 lbs. Encouraged patient to adjust caloric intake to maintain/achieve ideal body weight, emphasizing on fruits, vegetables, whole grains, and fat-free or low-fat products. These include lean meats, poultry, fish, beans, eggs, and nuts and foods that are low in saturated fats, trans-fats, cholesterol, salt (sodium), and glycemic index. Stressed the importance of regular exercise up to the patient's capacity limits. In this case, we recommend regular (4 x a week or more) walking or other light activity. Patient to monitor BP daily and bring records to PCP for further management. Follow-up: 3 months, March 2025 [facility] Not available 12/11/2024 12:37:01 Plan of Treatment Reminders Order Date Submit Date Provider Last Modified By Organization Details Last Modified Time Details Appointments Any 30 2024 11:00A Jane Alegre MD Not available Not available Not available Lab None recorded. Referral physical therapist referral - [facility] [address] [facility] [place], [address] [place] [address], [id number], 01/12/2024 16:24:42 physical therapist referral - [facility] [address] [facility] [place], [address] [place] [address], [id number], 10/13/2023 21:03:12 Procedures injection /aspirati on joint/bur sa (PROC) - in office procedure , administe red by provider 2023 024 [email or web address] In-Office Order, Internal Use Only DO Not Attach Compendium DO Not Attach Compendium, Do Not Delete/merge, [id number] 01/12/2024 12:05:58 Surgeries None recorded. Imaging None recorded. Medication Orders Celebrex 200 mg capsule 2023 024 [facility], [address] [place], [address], 12/11/2024 12:22:21 Kenalog 10 mg/mL suspensio n for injection 2023 024 [email or web address] [facility], [address] [place], [address], 11/07/2024 16:27:46 Marcaine (PF) 0.5 % (5 mg/mL) injection solution [address] [facility] [address] [facility], [address] [place] [address], [id number], 11/07/2024 16:27:49 Mobic 15 mg tablet [address] [facility] [address] [facility], [address] [place] [address], [id number], 11/07/2024 16:28:03 Patient TargetsNo targets recorded. Patient InstructionsNo instructions recorded. Reason for Referral Physical Therapist Referral for Pain of left knee joint [facility] Referring Physician: Jorge Nolasco, Orthopedic Surgery, Encounter Date: 10/13/2023 Physical Therapist Referral for Pain of right knee joint [facility] Referring Physician: Jorge Nolasco, Orthopedic Surgery, Encounter Date: 01/12/2024 Results Created Date Observation Date Name Description Value Unit Range Abnormal Flag Note LastModifiedBy Organization Detail LastModifiedTime 07/01/20 21 05/03/2018 CPAP titra tion study * No observ ation record ed. [id number] Not Available 12/30/2022 02:46:47 02/13/20 22 09/12/2020 compl ete PFT w/ post [facility] hodil ator leanna metry * No observ ation record ed. [id number] [facility] ([facility] [address] [place], [address], 12/30/2022 02:46:47 08/30/20 23 08/20/2023 XR, knee, 3 view No observ ation record ed. [email or web address] Not Available 08/03 12:24:39 12/07/19 24 05/20/2014 polys omnog mane, split night No observ ation record ed. BARCODE Not Available 2023 14:28:15 Result Notes None recorded. 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 457885292 Active 2019 Not Available [facility] 3 02:39:48 Body mass index 40+ - severely obese 047531132 Active 2017 Not Available [facility] 3 02:39:48 Chronic heart failure 93880783 Active 2017 Not Available [facility] 3 02:39:48 Pulmonary embolism 06507765 Active 2017 Not Available [facility] 3 02:39:49 Obstructive sleep apnea syndrome 52701058 Active 2017 Not Available [facility] 3 02:39:49 Notes:Medical History: Early REM onset Obesity with very severe OSAHS, AHI = 134, 05/20/14, on autoCPAP c/o [employer] T2DM Hypertension EF 60% CHF Left P.E. 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 Procedures Surgical History Date Name Laterality Status Provider Name and Address Organization Details Recorded Time 01/12/20 24 Ortho - Cortisone Injection completed Jorge Nolasco MD [address] [place] [address], [id number], [employer] 01/12/2024 12:19:48 Hysterectomy completed GUNJAN Stevens [employer] 10/13/2023 11:56:18 Carpal tunnel completed GUNJAN Stevens [employer] 10/13/2023 11:56:32 strabismus surgery completed Koki Garcia MA [employer] 11/30/2023 12:06:29 Imaging Results Imaging Date Name Status LastModified by Organization Details LastModified Time 09/12/2020 complete PFT w/ post bronchodilator spirometry* completed [id number] [facility] (Imaging) [address], [place], [address], 12/30/2022 02:46:47 05/03/2018 CPAP titration study* completed [id number] Information not available 12/30/2022 02:46:47 08/20/2023 XR, knee, 3 view completed [email or web address] Informa tion not available 08/30/2023 12:24:39 05/20/2014 polysomnogram, split night completed [facility] Information not available 12/07/2023 14:28:15 Procedure Notes None recorded. Medical Equipment None Reported. Allergies No known drug allergies Medications Name Sig Start Date Stop Date Status Note LastModified by Organization Details LastModified Time 8hr arthritis 650mg er tab TAKE 2 TABLETS BY MOUTH EVERY 8 HOURS NEEDED FOR 14 DAYS 11/30 completed Not Available Not Available Not Available losartan 50 mg tablet 12/20 completed Not Available Not Available Not Available celecoxib 200 mg capsule TAKE 1 CAPSULE BY MOUTH ONCE DAILY 12/11 completed Not Available Not Available Not Available amoxicillin 500 mg capsule 11/07 completed Not Available Not Available Not Available furosemide 40 mg tablet 03/29 completed Not Available Not Available Not Available terbinafine HCl 1 % topical cream APPLY TO THE AFFECTED AND SURROUNDI NG AREAS OF SKIN TWICE DAILY 01/10 completed Not Available Not Available Not Available bupropion HCl SR 150 mg tablet,12 hr sustained-r elease 01/10 completed Not Available Not Available Not Available fluticasone 250 mcg-salmete rol 50 mcg/dose blistr powdr for inhalation INHALE 1 PUFF TWICE DAILY DIRECTED 09/06 completed Not Available Not Available Not Available atorvastati n 20 mg tablet TAKE 1 TABLET BY MOUTH ONCE DAILY 09/06 completed Not Available Not Available Not Available clindamycin HCl 300 mg capsule Take 1 capsule every 8 hours by oral route with meals for 7 days. active Not Available Not Available No t Available albuterol sulfate 2.5 mg/3 mL (0.083 %) solution for nebulizatio n USE 1 VIAL IN NEBULIZER EVERY 8 HOURS NEEDED FOR SHORTNESS OF BREATH active Not Available Not Available No t Available Venofer 100 mg iron/5 mL intravenous solution 03/29 completed Not Available Not Available Not Available fluconazole 150 mg tablet TAKE 1 TABLET X1DOSE MAY TAKE ADDITONAL DOSE IN 7 DAYS IF STILL HAVING SYMPTOMS 12/04 completed Not Available Not Available Not Available clarithromy miquel 500 mg tablet TAKE 1 TABLET BY MOUTH TWICE DAILY FOR 7 DAYS 03/19 completed Not Available Not Available Not Available hydrocodone 5 mg-acetamin ophen 325 mg tablet 03/29 completed Not Available Not Available Not Available meloxicam 15 mg tablet Take 1 tablet every day by oral route. 11/07 completed Not Available Not Available Not Available naltrexone 50 mg tablet 01/10 completed Not Available Not Available Not Available topiramate 25 mg tablet TAKE 1 TABLET BY MOUTH ONCE DAILY WITH MEALS FOR 30 DAYS active Not Available Not Available No t Available acetaminoph en 300 mg-codeine 15 mg tablet 01/10 completed Not Available Not Available Not Available metronidazo le 500 mg tablet TAKE 1 TABLET BY MOUTH TWICE DAILY 09/06 completed Not Available Not Available Not Available acetaminoph en 300 mg-codeine 30 mg tablet 01/10 completed Not Available Not Available Not Available ciprofloxac in 500 mg tablet Take 1 tablet every 12 hours by oral route with meals for 7 days. active Not Available Not Available No t Available triamcinolo ne acetonide 0.1 % topical cream apply to right 4th interspac e daily active Not Available Not Available No t Available carvedilol 3.125 mg tablet 03/29 completed Not Available Not Available Not Available acetaminoph en ER 650 mg tablet,exte nded release TAKE 2 TABLETS BY MOUTH EVERY 8 HOURS NEEDED FOR 14 DAYS 11/07 completed Not Available Not Available Not Available neomycin-ba citracin-po lymyxn 3.5 mg-400 unit-10,000 unit/gram eye oint 03/29 completed Not Available Not Available Not Available losartan 100 mg-hydrochl orothiazide 25 mg tablet TAKE 1 2 (ONE HALF) TABLET BY MOUTH ONCE DAILY 09/06 completed Not Available Not Available Not Available oxycodone-a cetaminophe n 5 mg-325 mg tablet TK 1 T PO Q 4 H PRN P. 12/20 completed Not Available Not Available Not Available clindamycin 1 % topical gel APPLY THIN LAYER TOPICALLY TO AFFECTED TOES TWICE DAILY 09/06 completed Not Available Not Available Not Available DOK 100 mg capsule 12/20 completed Not Available Not Available Not Available OneTouch Ultra Test strips USE 1 STRIP TO CHECK GLUCOSE ONCE DAILY 11/07 completed Not Available Not Available Not Available Kenalog 10 mg/mL suspension for injection IN OFFICE 11/07 completed [facility] [place]: [phone] Not Available Not Available Not Available amlodipine 10 mg tablet TAKE 1 TABLET BY MOUTH ONCE DAILY 09/06 completed Not Available Not Available Not Available hydrocodone 7.5 mg-acetamin ophen 325 mg tablet 03/29 completed Not Available Not Available Not Available erythromyci n 5 mg/gram (0.5 %) eye ointment active Not Available Not Available Not Available ferrous sulfate 325 mg (65 mg iron) tablet 03/29 completed Not Available Not Available Not Available Qvar 40 mcg/actuati on Metered Aerosol oral inhaler 01/10 completed Not Available Not Available Not Available losartan 25 mg tablet 03/29 completed Not Available Not Available Not Available bupropion HCl 75 mg tablet TAKE 1 TABLET BY MOUTH TWICE DAILY active Not Available Not Available No t Available hydrochloro thiazide 12.5 mg capsule 12/20 completed Not Available Not Available Not Available omeprazole 20 mg capsule,del ayed release TAKE 1 CAPSULE BY MOUTH EVERY 12 HOURS FOR 7 DAYS 09/06 completed Not Available Not Available Not Available hydrochloro thiazide 25 mg tablet TAKE 1 2 (ONE HALF) TABLET BY MOUTH ONCE DAILY DIRECTED 09/06 completed Not Available Not Available Not Available ibuprofen 600 mg tablet 01/10 completed Not Available Not Available Not Available polyethylen e glycol 3350 17 gram/dose oral powder 12/20 completed Not Available Not Available Not Available albuterol sulfate HFA 90 mcg/actuati on aerosol inhaler INHALE 2 PUFFS BY MOUTH EVERY 4 TO 6 HOURS NEEDED FOR SHORTNESS OF BREATH 12/11 completed Not Available Not Available Not Available losartan 50 mg-hydrochl orothiazide 12.5 mg tablet TAKE 1 TABLET BY MOUTH ONCE DAILY DIRECTED FOR 90 DAYS 12/11 completed Not Available Not Available Not Available ketoconazol e 2 % topical cream APPLY TO THE Affected area in between toes BY TOPICAL ROUTE twice DAILY 09/06 completed Not Available Not Available Not Available losartan 100 mg tablet TAKE 1 2 (ONE HALF) TABLET BY MOUTH ONCE DAILY DIRECTED FOR 90 DAYS active Not Available Not Available No t Available diltiazem 60 mg tablet 03/29 completed Not Available Not Available Not Available metformin ER 500 mg tablet,exte nded release 24 hr TAKE 1 TABLET BY MOUTH ONCE DAILY DIRECTED 12/11 completed Not Available Not Available Not Available doxycycline hyclate 100 mg tablet TAKE 1 TABLET BY MOUTH TWICE DAILY FOR 7 DAYS 12/04 completed Not Available Not Available Not Available dicyclomine 10 mg capsule 03/29 completed Not Available Not Available Not Available amoxicillin 875 mg-potassiu m clavulanate 125 mg tablet 03/29 completed Not Available Not Available Not Available erythromyci n with ethanol 2 % topical gel APPLY IN BETWEEN THE AFFECTED TOES TWICE DAILY 09/06 completed Not Available Not Available Not Available Marcaine (PF) 0.5 % (5 mg/mL) injection solution IN OFFICE 11/07 completed Not Available Not Available Not Available Asmanex Twisthaler 220 mcg/actuati on(60 doses) breath activated inhalr 12/13 completed Not Available Not Available Not Available Symbicort 160 mcg-4.5 mcg/actuati on HFA aerosol inhaler INHALE 2 PUFFS BY MOUTH TWICE DAILY DIRECTED 09/06 completed Not Available Not Available Not Available Symbicort 80 mcg-4.5 mcg/actuati on HFA aerosol inhaler 03/29 completed Not Available Not Available Not Available cholecalcif cori (vitamin D3) 50 mcg (2,000 unit) capsule TAKE 1 CAPSULE BY MOUTH ONCE DAILY 09/06 completed Not Available Not Available Not Available Vitamin D3 50 mcg (2,000 unit) tablet TAKE 1 TABLET BY MOUTH ONCE DAILY AROUND THE CLOCK 09/06 completed Not Available Not Available Not Available Flovent Diskus 100 mcg/actuati on powder for inhalation INHALE 1 PUFF BY MOUTH TWICE DAILY DIRECTED FOR 30 DAYS 09/06 completed Not Available Not Available Not Available Naftin 2 % topical gel apply in between toes daily 09/06 completed Not Available Not Available Not Available doxycycline hyclate 150 mg tablet 09/06 completed Not Available Not Available Not Available Trulicity 1.5 mg/0.5 mL subcutaneou s pen injector INJECT 1.5 MG UNDER THE SKIN EVERY WEEK 12/11 completed Not Available Not Available Not Available Trulicity 0.75 mg/0.5 mL subcutaneou s pen injector INJECT 0.75 MG SUBCUTANE OUSLY EVERY WEEK DIRECTED 12/04 completed Not Available Not Available Not Available Qvar RediHaler 40 mcg/actuati on HFA breath activated aerosol INHALE 1 PUFF TWICE DAILY active Not Available Not Available No t Available [employer] Ultra Blue Test Strip 09/06 completed Not Available Not Available Not Available OneTouch Ultra2 Meter 09/06 completed Not Available Not Available Not Available OneTouch Delica Plus Lancet 33 gauge USE 1 TO CHECK GLUCOSE ONCE DAILY 09/06 completed Not Available Not Available Not Available Vitals Date Recorded Body height Body mass index (BMI) Body weight Provider Name and Address Organization Details Last Updated DateTime 10/13/2023 154.94 cm 71.2 kg/m2 264488.32 g GUNJAN Stevens [facility] [employer] 10/13/2023 11:54:09 Date Recorded Body height Body mass index (BMI) Body weight Body temperature Heart rate Systolic blood pressure Diastolic blood pressure Provider Name and Address Organization Details Last Updated DateTime 154.94 cm 74.6 kg/m2 373301. 99 g 97.6 [degF] 73 /min 138 mm[Hg] 86 mm[Hg] Koki Garcia MA [facility] [employer] [facility] 4 12:10:35 Date Recorded Oxygen saturation Oxygen saturation in Arterial blood by Pulse oximetry Heart rate Respiratory rate Provider Name and Address Organization Details Last Updated DateTime 11/30/2023 95 % 95 % 73 /min 15 /min Sharath Alegre MD [address] [place] [address], [place], [address], [facility] [employer] 12:13:10 Date Recorded Body height Body mass index (BMI) Body weight Pain severity - 0-10 verbal numeric rating [Score] - Reported Provider Name and Address Organization Details Last Updated DateTime 01/12/2024 154.94 cm 74.1 kg/m2 677850.21 g [address] [employer] 01/12/2024 11:03:57 Date Recorded Body height Body mass index (BMI) Body weight Body temperature Heart rate Systolic blood pressure Diastolic blood pressure Provider Name and Address Organization Details Last Updated DateTime 154.94 cm 73.7 kg/m2 251316. 02 g 98.1 [degF] 81 /min 136 mm[Hg] 88 mm[Hg] Koki Garcia MA [employer] 12:26:26 Date Recorded Oxygen saturation Oxygen saturation in Arterial blood by Pulse oximetry Heart rate Respiratory rate Provider Name and Address Organization Details Last Updated DateTime 12/11/2024 96 % 96 % 81 /min 15 /min Sharath Alegre MD [address] [facility], [facility] [address], [place], [address], [employer] 12:25:27 Social History Question Answer Notes LastModified by Organizat ion Details LastModified Time Tobacco Smoking Status Former Smoker quit 2019 Not Available [facility] 12/30/2022 02:33:48 What Is Your Level Of Alcohol Consumption? Occasional [id number] Information not available 12/30/2022 What Is Your Level Of Caffeine Consumption? Moderate Information not available 12/11/2024 How Much Tobacco Do You Chew? None [id number] Information not available 12/30/2022 In The 14 Days Before Symptom Onset, Have You Had Close Contact With A Laboratory-confir med COVID-19 While That Case Was Ill? No [id number] Information not available 12/30/2022 In The 14 Days Before Symptom Onset, Have You Had Close Contact With A Person Who Is Under Investigation For COVID-19 While That Person Was Ill? No [id number] Information not available 12/30/2022 Are You Currently Employed? Yes Information not available 11/30/2023 What Type Of Diet Are You Following? REGULAR Information not available 11/30/2023 Which Illicit Or Recreational Drugs Have You Used? None [id number] Information not available 12/30/2022 Do You Or Have You Ever Used E-cigarettes Or Vape? Never Used Electronic Cigarettes [id number] Information not available 12/30/2022 Do You Have An Electrostatic Air Filter? 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 No Information not available 11/30/2023 Do You Have Moisture Problems In Your Home? No Information not available 11/30/2023 What Was The Date Of Your Most Recent Tobacco Screening? 12/11/2024 Information not available 12/11/2024 Do You Have Any Pets? No Information not available 11/30/2023 Do You Use Your Seat Belt Or Car Seat Routinely? Yes Information not available 11/30/2023 Do You Have Smoke And Carbon Monoxide Detectors In Your Home? Yes Information not available 11/30/2023 At What Age Did You Start Smoking Tobacco? 21 [id number] Information not available 12/30/2022 Are You Passively Exposed To Smoke? No Information no t available 11/30/2023 Do You Or Have You Ever Used Smokeless Tobacco? Never Used Smokeless Tobacco [id number] Information not available 12/30/2022 How Much Tobacco Do You Smoke? No Information not available 12/11/2024 Do You Feel Stressed (tense, Restless, Nervous, Or Anxious, Or Unable To Sleep At Night)? [id number] Information not available 11/30/2023 Do You Use Any Illicit Or Recreational Drugs? No Information not available 12/11/2024 Do You Use Sunscreen Routinely? No Information not available 11/30/2023 How Many Years Have You Smoked Tobacco? 30 [id number] Information not available 12/30/2022 Have You Recently Traveled Abroad? No Information not available 11/30/2023 Do You Have Any Dietary Restrictions? No Information not available 11/30/2023 Sex: Unknown Functional Status Question Answer Note LastModified by Organization D etails LastModified Time What is your exercise level? None Information not available 11/30/2023 Mental Status None recorded. Family History Relationship Description Onset Age of this Age Resolved Age Notes LastModified by Organization Details LastModified Time Mother Family history of stroke [email or web address] Not available 2022 11:55:05 Sister Hypertensive disorder [email or web address] Not available 2022 11:55:20 Notes:plastic anemia Medical History Condition Response MRSA N SLEEP APNEA Y ALLERGIES/HAYFEVER N LUNG DISEASE/DISORDER N INSOMNIA N RADIATION / CHEMOTHERAPY N COPD Y HIGH CHOLESTEROL / HYPERLIPIDEMIA Y HYPERTHYROIDISM N BLOOD DISEASES N EAR OR HEARING PROBLEMS N HYPOTHYROIDISM N DEPRESSION (INCLUDING POST ) N HAVE YOU BEEN HOSPITALIZED OR SEEN IN [facility] ER IN THE PAST YEAR ? Y STROKE/TIA N ULCERS N OBESITY Y ANEURYSM N HISTORY WITH COMPLICATIONS WITH ANESTHES IA ? N ARTHRITIS Y NO SIGNIFICANT PAST MEDICAL HISTORY N USE OF BLOOD THINNERS N DIABETES, TYPE Y PARATHYROID DISEASE N ENT N SEASONAL ALLERGIES N HEARTBURN / REFLUX N BLOOD CLOTS Y HEPATITIS / LIVER DISEASE N SLEEP DISORDER N HEADACHES/MIGRAINES N SEIZURES/EPILEPSY N CHF N PACEMAKER N DIZZINESS Y HEART DISEASE/HEART PROBLEMS N AIDS/HIV N FRACTURES N HYPERTENSION Y CANCER: SPECIFY N [place]'S N BLOOD TRANSFUSION Y ANESTHESIA COMPLICATIONS N ANEMIA/BLOOD DISORDER Y CHRONIC EAR INFECTIONS N TUBERCULOSIS N Gynecological HistoryNo gynecological history recorded. Obstetrics History GPAL:G 0 P 0 0 0 0 Past Encounters Encounter ID Performer Location Encounter Start Date Encounter Closed Date Diagnosis/Indication Diagnosis SNOMED-CT Code Diagnosis ICD10 Code Diagnosis Note [id number] [facility] [place] [address] [place] [address] 2021 00:00:00 2021 16:17:07 [id number] [facility] [place] [address] [place] [address] 03/11/2021 00:00:00 03/11/2021 15:00:00 [id number] [facility] [place] [address] [place] [address] 03/19/2021 00:00:00 03/19/2021 12:26:15 [id number] [facility] [place] [address] [place] [address] 04/23/2021 00:00:00 04/28/2021 07:14:43 [id number] [facility] [place] [address] [place] [address] 05/22/2021 00:00:00 05/22/2021 15:47:21 [id number] [facility] [place] [address] [place] [address] 07/21/2021 00:00:00 07/22/2021 10:36:13 [id number] Jorge Nolasco MD [facility] [place] [address] [place] [address] 10/13/2023 11:37:34 10/13/2023 12:10:52 Pain of left knee joint 8945018017 42855 M25.458 [id number] Sharath Alegre MD [facility] [address] [address] 11/30/2023 10:52:13 12/02/2023 15:23:19 Obstructive sleep apnea syndrome 48684225 G47.33 [id number] Jorge Nolasco MD [facility] [place] [address] [place] [address] 01/12/2024 11:01:20 01/12/2024 12:31:56 Pain of right knee joint 2540559245 96551 M25.737 [id number] [facility] [address] [address] 12/11/2024 11:54:48 12/11/2024 13:54:43 Obstructive sleep apnea syndrome 12957868 G47.33 Health Concerns Section Related Observation LastModified by Organization Detai ls LastModified Time None Recorded Concern Status LastModified by Organization Details LastModified Time None Recorded Advance Directives Directive None Recorded Payers Encounter Date Sequence Insurance Name Policy Number Policy Steele Covered Member ID Steele Member ID Guarantor Name 10/13/2023 1 [facility] (MEDICAID HMO) [id number] Luis Zheng Christopher [id number] [facility] Marce Christopher 11/30/2023 1 [facility] (MEDICAID HMO) [id number] Luis L Christopher [id number] Luis L Christopher 01/12/2024 1 [facility] (MEDICAID HMO) [id number] Luis L Christopher [id number] Luis L Christopher 12/11/2024 1 [facility] (MEDICAID HMO) [id number] Luis L Christopher [id number] Luis L Christopher Notes Date Note Type Note Provider Name and Address Organization Details Recorded Time 11/30/2023 text/html Primary care/Ref erring provider: Dilia Lemus MD At home since 05/22/21, the patient uses a [employer] AirSense 10 autoset unit with heated humidification. The patient does not need the ramp to start low and go up slowly on the pressure anymore. There is some xerostomia in a.m. There is no hose/mask condensation with water. The patient wears a [employer] [id number]-[id number] full face mask without chin strap. There is no claustrophobia, no nostril/nose bridge irritation, no facial rash, no facial numbness, no nosebleeding. The patient feels more refreshed upon waking and daytime alertness is improved. Energy levels are sustained for the remainder of the day. At home, the patient sleeps from 11 pm to 7 am and wakes up without an alarm. Snoring: heavy, since . Snorting: no Choking: no Coughing: yes Gasping: yes Gagging: yes Sighing: yes Witnessed apnea: yes Twitching or jerking of leg(s), arm(s), body, head: no Teeth grinding: no Teeth clenching: no Sleeptalking: yes Sleepwalking: no Sleep crying: no Bedwetting: no Tongue/lip/gum/cheek biting: no Sleeping with open mouth: yes Sleep paralysis: no Hypnagogic hallucinations: no Hypnopompic hallucinations: no Vivid dreams: no Difficulty with sleep onset: no Difficulty with sleep maintenance: yes Sleep interruptions: nocturia x 5 Patient wakes up with: fatigue, xerostomia, headaches Daytime cataplexy: no Morning hypersomnolence: no Afternoon hypersomnolence: no Caffeine sources in diet: soda 3 cans per day, chocolate 1 candy bar per season Associated medical and psychiatric conditions: Congestive heart failure: yes Coronary artery disease: no Myocardial infarction: no Hypertension: yes Stroke: no Bronchial asthma: no Chronic obstructive pulmonary disease: no Depression: no Bipolar disorder: no Anxiety: no Panic disorder: no Posttraumatic stress disorder: no Attention deficit and hyperactivity disorder: no Obsessive Compulsive disorder: no Schizophrenia: no Schizoaffective disorder: no Personality disorder: no Chronic analgesic use: no Chronic sedative/hypnotic use: no EPWORTH SLEEPINESS SCALE (ESS) CHANCE OF DOZING SCORE 0 = would never doze 1 = slight chance of dozing 2 = moderate chance of dozing 3 = high chance of dozing SITUATION AND CHANCE OF DOZING Sitting and reading - 0 Watching television - 0 Sitting inactive in a public place (e.g. a theater or meeting) - 0 As a passenger in a car for an hour without a break - 0 Lying down to rest in the afternoon when circumstances permit - 1 Sitting and talking to someone - 0 Sitting quietly after lunch without alcohol - 0 In a car, while stopped for a few minutes in the traffic - 0 TOTAL SCORE 1 Subjectively, patient has a slight chance of dozing. Sharath Alegre MD [address] [place] [address], [phone], [facility] [employer] 11/30/2023 12:49:57 12/11/2024 text/html Primary care/Ref erring provider: Dilia Lemus MD CC: My CPAP broke in 08/2024. At home since 11/30/23, the patient uses a [employer]Med AirSense 10 autoset unit with heated humidification. The patient does not need the ramp to start low and go up slowly on the pressure anymore. There is some xerostomia in a.m. There is no hose/mask condensation with water.The patient wears a [employer] cogr-[id number]-rmab full face mask without chin strap. There is no claustrophobia, no nostril/nose bridge irritation, no facial rash, no facial numbness, no nosebleeding. CPAP stopped working late August,. The patient feels less refreshed upon waking and daytime alertness is not as improved. Energy levels are sustained for the remainder of the day. At home, the patient sleeps from 11 pm to 7 am and wakes up without an alarm. Snoring: heavy, since .Snorting: noChoking: noCoughing: yesGasping: yesGagging: yesSighing: yesWitnessed apnea: yesTwitching or jerking of leg(s), arm(s), body, head: noTeeth grinding: noTeeth clenching: noSleeptalking: yesSleepwalking: noSleep crying: noBedwetting: noTongue/lip/gum/cheek biting: noSleeping with open mouth: yesSleep paralysis: noHypnagogic hallucinations: noHypnopompic hallucinations: noVivid dreams: noDifficulty with sleep onset: noDifficulty with sleep maintenance: yesSleep interruptions: nocturia x 5Patient wakes up with: fatigue, xerostomia, headachesDaytime cataplexy: noMorning hypersomnolence: noAfternoon hypersomnolence: noCaffeine sources in diet: soda 3 cans per day, chocolate 1 candy bar per season Associated medical and psychiatric conditions:Congestive heart failure: yesCoronary artery disease: noMyocardial infarction: noHypertension: yesStroke: noBronchial asthma: noChronic obstructive pulmonary disease: noDepression: noBipolar disorder: noAnxiety: noPanic disorder: noPosttraumatic stress disorder: noAttention deficit and hyperactivity disorder: noObsessive Compulsive disorder: noSchizophrenia: noSchizoaffective disorder: noPersonality disorder: noChronic analgesic use: noChronic sedative/hypnotic use: no EPWORTH SLEEPINESS SCALE (ESS) CHANCE OF DOZING SCORE0 = would never doze1 = slight chance of dozing2 = moderate chance of dozing3 = high chance of dozing SITUATION AND CHANCE OF DOZINGSitting and reading - 3Watching television - 3Sitting inactive in a public place (e.g. a theater or meeting) - 3As a passenger in a car for an hour without a break - 1Lying down to rest in the afternoon when circumstances permit - 3Sitting and talking to someone - 1Sitting quietly after lunch without alcohol - 3In a car, while stopped for a few minutes in the traffic - 3TOTAL SCORE 20Subjectively, patient has a high chance of dozing. Sharath Alegre MD [address] [place] [address], [place], [address], [facility] 12/11/2024 12:37:07 OBGyn Episode No OBEpisode recorded.
--- OUTSIDE RECORDS SUMMARY | 2024-12-18 14:45 | XMS_ITS | Referral Summary ---
Author Organization [facility] Address [address] [place] [address] Care Team Providers Care Vocational Nurse Name Role Phone Dilia Yap MD Primary Care Provider Arnulfo Garcia MD Unavailable [phone] Source Comments [facility],non-owned Affiliates and Associated Physician Practices is amultiple site organization consisting of ambulatory clinics and hospital sitesin [place], [place], [place] and [place]. This disclosure is being madepursuant to the Care Everywhere program and may not contain all information available regarding this patient. Last updated 18.[facility] Allergies No known active allergies Medications * [...] migh t be different from the original. [facility] 12/2017 Problem Noted Date Diagnosed Date Wound [...] Mass Index 62.77 07/25/2019 6:27 AM CDT Functional Status Functional Status Response Date of Assess ment Is person deaf or have serious hearing difficult y? No 07/25/2019 Is person blind or have serious difficulty seein g? No 07/25/2019 Does person have serious dif ficulty walking/climbing stairs? No 07/25/2019 Does person have difficulty dressing/bathing? No 07/25/2019 Does person have difficulty doing errands alone? No 07/25/2019 Cognitive Status Response Date of Assessm ent Does person have difficulty concentrating/remembering/making decisions? No 07/25/2019 Plan of Treatment Not on file Procedures Procedure Name Priority Date/Time Associated Diagnosis Comments BASIC METABOLIC PANEL (CALCIUM TOTAL) STAT 06/21/2018 1:21 PM CDT Pre-op testing ENDOSCOPY, COLON, DIAGNOSTIC Routine 03/26/2016 6:39 AM CDT from Last 3 Months or Most Recently Relevant to Health Maintenance Results * (ABNORMAL) BASIC METABOLIC PANEL (CALCIUM TOTAL) (06/21/2018 1:21 PM CDT) Glucose 91 74 - 106 mg/dL 06/21/2018 2:03 PM CDT [facility] Sodium 138 136 - 145 mmol/L 06/21/2018 2:03 PM CDT [facility] Potassium 3.8 3.5 - 5.1 mmol/L 06/21/2018 2:03 PM CDT [facility] Chloride 104 98 - 107 mmol/L 06/21/2018 2:03 PM CDT [facility] CO2 29 22 - 31 mmol/L 06/21/2018 2:03 PM CDT [facility] Calcium 9.8 8.5 - 10.1 mg/dL 06/21/2018 2:03 PM CDT [facility] Anion Gap 5(L) 8 - 16 mmol/L 06/21/2018 2:03 PM CDT [facility] BUN 9 7 - 21 mg/dL 06/21/2018 2:03 PM CDT [facility] Creatinine 0.64 0.50 - 1.30 mg/dL 06/21/2018 2:03 PM CDT [facility] eGFR by MDRD >60 >60 mL/min/1.7 3m2 06/21/2018 2:03 PM CDT [facility] eGFR by MDRD >60 >60 mL/min/1.7 3m2 06/21/2018 2:03 PM CDT [facility] Blood BLOOD SPECIMEN / Unknown Venipuncture / Unknown 06/21/2018 1:21 PM CDT 06/21/2018 1:27 PM CDT Nick Amezcua MD LAB - CHEMISTRY OR DERABLES [facility] [address] [place] [address] * ENDOSCOPY, COLON, DIAGNOSTIC (03/26/2016 6:39 AM CDT) Report Endoscopy POC _ Patient Name: Luis Wolfeage Procedure Date: 03/26/2016 6:39 AM Date of : 1970 Admit Type: Outpatient Age: 46 Gender: Female Attending MD: Dar Timmons MD _ Procedure: Colonoscopy Indications: Generalized abdominal pain, Iron deficiency anemia secondary to chronic blood loss Providers: Dar Timmons MD (Doctor), Sara Breaux, RN, Tyrone Lopez, Welder Apprentice Arc Referring MD: Dilia Hawthorne MD (Referring MD) [...] pt states she got anemia labs at [facility] a week ago but we don't have these results. We will get them. - Discharge patient to home (ambulatory). - Resume previous diet. - Continue present medications. - Return to my office in 2 weeks. Procedure Code(s): --- Professional --- 75313, Colonoscopy, flexible; with biopsy, single or multiple --- Technical --- 64173, Colonoscopy, flexible; with biopsy, single or multiple [...] or abscess without bleeding CPT copyright 2015 [employer]. All rights reserved. The codes documented in this report are preliminary and upon executive communications manager review may be revised to meet current compliance requirements. ___ Dar Timmons MD 03/26/2016 7:24:09 AM Number of Addenda: 0 Note Initiated On: 03/26/2016 6:39 AM [facility] 03/26/2016 6:39 AM CDT Dar Timmons MD GI PROCEDURE ORDERA BLES [facility] from Last 3 Months or Most Recently Relevant to Health Maintenance Advance Directives * Full Code (Latest Code Status on File) Date Activated Date Inactivated Comments 07/01/2018 1:11 PM 07/03/2018 6:53 PM * Full Code Date Activated Date Inactivated Comments 06/23/2018 6:34 PM 06/26/2018 5:04 PM Care Teams Vocational Nurse Relationship Specialty Start Date End Date Dilia Yap MD PCP - General Internal Medicine 06/12/15 Arnulfo Garcia MD [id number] [facility] [address] [place] [address] Plastic and Reconstructive Surgery 06/20/19
[2024-12-18] MEDS: ALBUTEROL SULFATE NEB 2.5 MG/3 ML INH INHALATION ×2 (15:31→20:10)
[2024-12-18 15:48] LABS: Troponin I 0.034 ng/mL (0.000-0.034)
--- NOTE | 2024-12-18 15:52 | PC.NURSE ---
Lost IV access. KIESHA Maki to bedside to attempt ultrasound IV placement. Unable to start antibiotic until we regain IV access. Hospitalist and GI MD at bedside speaking with pt.
--- NOTE | 2024-12-18 16:17 | PC.NURSE ---
Report called to IMU. Pt. will go to IMU once new IV is placed.
--- NOTE | 2024-12-18 16:54 | P.CONGI_ITS ---
Assessment and Plan Assessment and plan (1) GI bleed: Code(s): K92.2 - Gastrointestinal hemorrhage, unspecified Status: Acute Assessment and Plan: This patient presents with decompensated COPD and CHF, likely secondary to community-acquired pneumonia. A low-grade, non-hemodynamically significant GI bleed, likely of lower origin, is also noted. The patient reports a history of colonic polyps discovered during a colonoscopy at [facility] approximately five years ago. While a colonoscopy is warranted to further evaluate the GI bleed, it is not currently urgent. Due to the patient's respiratory instability and morbid obesity, she is not a candidate for deep sedation at this time. Once her cardiopulmonary status is stabilized, the colonoscopy can be scheduled. Even with stabilization, colonoscopy may require endotracheal intubation due to the anticipated risk of severe ventilatory and oxygenation complications. Plan - Continue current management - Suggest cardiac evaluation (Echocardiogram) - Will continue to follow GI Consult Note Consult date/time: 12/18/24 16:54 HPI: Luis White is a 54 year old female with COPD, HTN, CHF who presented to the emergency department via EMS with multiple complaints. Her symptoms started last and include left lower quadrant discomfort associated with the passage of marroon stools once or twice daily, not associated with hematemesis, pre syncopal symptoms or tachycardia. There is radiographic evidence of right sided pneumonia and is currently being admitted for the treatment of pneumonia and the evaluation of this possible GI bleeding. A rectal exam performed by ER MD corroborated presence of gross blood. Review of Systems 2 Review of Systems: All systems reviewed & are unremarkable except as noted in HPI and below PMFSH Past Medical History Medical History (Updated 12/18/24 @ 14:44 by Yuko Michel PA-C) Morbid obesity Meds Home Medications and Allergies Home Medications ?Medication ?Instructions ?Recorded ?Confirmed ?Type albuterol sulfate 90 mcg/actuation 3 inh inhalation Q8H PRN shortness 06/18/20 12/18/24 History aerosol inhaler of breath or wheezing Allergies Allergy/AdvReac Type Severity Reaction Status Date / Time No Known Allergies Allergy Verified 12/18/24 16:59 Vital Signs Vital Signs - 24 hr 12/18/24 12:10 12/18/24 12:11 12/18/24 12:12 Temperature 97.8 F Pulse Rate 93 Respiratory Rate 20 Blood Pressure 169/114 H Pulse Oximetry 78 L 96 96 Oxygen Delivery Room Air Nasal Cannula Oxygen Flow Rate 4 6 12/18/24 12:18 12/18/24 13:30 12/18/24 15:34 Temperature Pulse Rate 85 Respiratory Rate 16 Blood Pressure 135/72 Pulse Oximetry 98 95 92 Oxygen Delivery Nasal Cannula Nasal Cannula Oxygen Flow Rate 4 4 12/18/24 15:34 12/18/24 15:38 12/18/24 16:00 Temperature Pulse Rate 88 93 87 Respiratory Rate 20 20 18 Blood Pressure 176/92 H Pulse Oximetry 99 Oxygen Delivery Oxygen Flow Rate 12/18/24 16:25 Temperature Pulse Rate Respiratory Rate Blood Pressure Pulse Oximetry 93 Oxygen Delivery Nasal Cannula Oxygen Flow Rate 4 Exam 2 Narrative: Morbidly obese, moderately distressed, with an O2 nasal cannula. Abdomen: Difficult to assess due to extreme morbid obesity. Rectal exam: Deferred. Results Labs 12/18/24 12:24 12/18/24 12:24 Labs: Short CBC 12/18/24 Range/Units 12:24 WBC 10.5 H (4.5-10.0) K/mm3 Hgb 11.6 L (12.0-15.0) g/dL Hct 41.2 (37.0-47.0) % Plt Count 356 (150-375) k/mm3 BMP 12/18/24 12:24 Sodium 141 Potassium 4.4 Chloride 97 L Carbon Dioxide 39 H BUN 18 H Creatinine 0.51 L Glucose 134 H Calcium 10.2 Cardiac Enzymes 12/18/24 12/18/24 Range/Units 12:24 15:20 Troponin I 0.032 0.034 (0.000-0.034) ng/mL Liver Function 12/18/24 Range/Units 12:24 Total Bilirubin 0.5 (0.2-1.3) mg/dL AST 45 H (14-36) U/L ALT 53 H (6-35) U/L Alkaline Phosphatase 110 (38-126) U/L Albumin 4.1 (3.5-5.1) g/dL
--- NOTE | 2024-12-18 16:57 | ADMGEN ---
This patient, Luis White, was admitted to IMU Room 202-. Patient/family oriented to hospital policies and general routines including ID bracelet, bed and alarms, visiting hours, pain management, procedures, bathroom and other care routines, personal items, smoking policy, room service/diet, and visiting hours. Information on how to activate the Rapid Response Team has been discussed. Patient/Family are encouraged to report perceived risks to care and to ask questions if they do not understand what they are told or what they should do.
[2024-12-18] MEDS: AZITHROMYCIN 500 MG/NS 250 ML 500 MG/250 ML BAG 250 MG IVPB (17:04)
--- OUTSIDE RECORDS SUMMARY | 2024-12-18 18:20 | XMS_ITS | Clinical Summary ---
Author Organization [facility] Address [address] [address] Care Team Providers Care Back Strip Machine Operator Name Role Phone Dilia Yap MD Primary Care Provider Arnulfo Garcia MD Unavailable [phone] Source Comments [facility],non-owned Affiliates and Associated Physician Practices is amultiple site organization consisting of ambulatory clinics and hospital sitesin [place], [place], [place] and [place]. This disclosure is being madepursuant to the Care Everywhere program and may not contain all information available regarding this patient. Last updated 18.[facility] Allergies No known active allergies Medications [...] migh t be different from the original. [facility] 12/2017 Problem Noted Date Diagnosed Date Wound [...] PANEL (CALCIUM TOTAL) (06/21/2018 1:21 PM CDT) [facility] Glucose 91 74 - 106 mg/dL 06/21/2018 2:03 PM CDT [facility] Sodium 138 136 - 145 mmol/L 06/21/2018 2:03 PM CDT [facility] Potassium 3.8 3.5 - 5.1 mmol/L 06/21/2018 2:03 PM CDT [facility] Chloride 104 98 - 107 mmol/L 06/21/2018 2:03 PM CDT [facility] CO2 29 22 - 31 mmol/L 06/21/2018 2:03 PM CDT [facility] Calcium 9.8 8.5 - 10.1 mg/dL 06/21/2018 2:03 PM CDT [facility] Anion Gap 5(L) 8 - 16 mmol/L 06/21/2018 2:03 PM CDT [facility] BUN 9 7 - 21 mg/dL 06/21/2018 2:03 PM CDT [facility] Creatinine 0.64 0.50 - 1.30 mg/dL 06/21/2018 2:03 PM CDT [facility] eGFR by MDRD >60 >60 mL/min/1.7 3m2 06/21/2018 2:03 PM CDT [facility] eGFR by MDRD >60 >60 mL/min/1.7 3m2 06/21/2018 2:03 PM CDT [facility] Blood BLOOD SPECIMEN / Unknown Venipuncture / Unknown 06/21/2018 1:21 PM CDT 06/21/2018 1:27 PM CDT Nick Amezcua MD LAB - CHEMISTRY OR DERABLES Performing Organization Address City/State/[facility] Co de Phone Number [facility] [address] [phone] * ENDOSCOPY, COLON, DIAGNOSTIC (03/26/2016 6:39 AM CDT) Report Endoscopy POC _ Patient Name: Luis Christopher Procedure Date: 03/26/2016 6:39 AM Date of : 1970 Admit Type: Outpatient Age: 46 Gender: Female Attending MD: Dar Timmons MD _ Procedure: Colonoscopy Indications: Generalized abdominal pain, Iron deficiency anemia secondary to chronic blood loss Providers: Dar Timmons MD (Doctor), Sara Breaux, RN, Tyrone Lopez, Superintendent Meter Tests Referring MD: Dilia Hawthorne MD (Referring MD) [...] pt states she got anemia labs at [facility] a week ago but we don't have these results. We will get them. - Discharge patient to home (ambulatory). - Resume previous diet. - Continue present medications. - Return to my office in 2 weeks. Procedure Code(s): --- Professional --- 99491, Colonoscopy, flexible; with biopsy, single or multiple --- Technical --- 28918, Colonoscopy, flexible; with biopsy, single or multiple [...] or abscess without bleeding CPT copyright 2015 [employer]. All rights reserved. The codes documented in this report are preliminary and upon assembly stock supervisor review may be revised to meet current compliance requirements. ___ Dar Timmons MD 03/26/2016 7:24:09 AM Number of Addenda: 0 Note Initiated On: 03/26/2016 6:39 AM [facility] 03/26/2016 6:39 AM CDT Dar Timmons MD GI PROCEDURE ORDERA BLES [facility] from Last 3 Months or Most Recently Relevant to Health Maintenance Advance Directives * Full Code (Latest Code Status on File) Date Activated Date Inactivated Comments 07/01/2018 1:11 PM 07/03/2018 6:53 PM * Full Code Date Activated Date Inactivated Comments 06/23/2018 6:34 PM 06/26/2018 5:04 PM Care Teams Back Strip Machine Operator Relationship Specialty Start Date End Date Dilia Yap MD PCP - General Internal Medicine 06/12/15 Arnulfo Garcia MD [address] [place] [id number] Plastic and Reconstructive Surgery 06/20/19
--- OUTSIDE RECORDS SUMMARY | 2024-12-18 18:20 | XMS_ITS | Referral Summary ---
Author Organization [facility] Address [address] [place] [address] Care Team Providers Care Sock Ironer Name Role Phone Dilia Yap MD Primary Care Provider Arnulfo Garcia MD Unavailable Source Comments [facility],non-owned Affiliates and Associated Physician Practices is amultiple site organization consisting of ambulatory clinics and hospital sitesin [place], [place], [place] and [place]. This disclosure is being madepursuant to the Care Everywhere program and may not contain all information available regarding this patient. Last updated 18.[facility] Allergies No known active allergies Medications * [...] migh t be different from the original. [facility] 12/2017 Problem Noted Date Diagnosed Date [...] - 106 mg/dL 06/21/2018 2:[address] [facility] Sodium 138 136 - 145 mmol/L 06/21/2018 2:[address] [facility] Potassium 3.8 3.5 - 5.1 mmol/L 06/21/2018 2:[address] [facility] Chloride 104 98 - 107 mmol/L 06/21/2018 2:[address] [facility] CO2 29 22 - 31 mmol/L 06/21/2018 2:[address] [facility] Calcium 9.8 8.5 - 10.1 mg/dL 06/21/2018 2:[address] [facility] Anion Gap 5(L) 8 - 16 mmol/L 06/21/2018 2:[address] [facility] BUN 9 7 - 21 mg/dL 06/21/2018 2:[address] [facility] Creatinine 0.64 0.50 - 1.30 mg/dL 06/21/2018 2:[address] [facility] eGFR by MDRD >60 >60 mL/min/1.7 3m2 06/21/2018 2:[address] [facility] eGFR by MDRD >60 >60 mL/min/1.7 3m2 06/21/2018 2:[address] [facility] Blood BLOOD SPECIMEN / Unknown Venipuncture / Unknown 06/21/2018 1:21 PM CDT 06/21/2018 1:27 PM CDT Nick Amezcua MD LAB - CHEMISTRY OR DERABLES [facility] [address] [place] [address] * ENDOSCOPY, COLON, DIAGNOSTIC (03/26/2016 6:39 AM CDT) Report Endoscopy POC _ Patient Name: Luis Wolfeage Procedure Date: 03/26/2016 6:39 AM Date of : 1970 Admit Type: Outpatient Age: 46 Gender: Female Attending MD: Dar Timmons MD _ Procedure: Colonoscopy Indications: Generalized abdominal pain, Iron deficiency anemia secondary to chronic blood loss Providers: Dar Timmons MD (Doctor), Sara Breaux, RN, Tyrone Lopez, Video Game Programmer Referring MD: Dilia Hawthorne MD (Referring MD) [...] pt states she got anemia labs at [facility] a week ago but we don't have these results. We will get them. - Discharge patient to home (ambulatory). - Resume previous diet. - Continue present medications. - Return to my office in 2 weeks. Procedure Code(s): --- Professional --- 49008, Colonoscopy, flexible; with biopsy, single or multiple --- Technical --- 76023, Colonoscopy, flexible; with biopsy, single or multiple [...] or abscess without bleeding CPT copyright 2015 [employer]. All rights reserved. The codes documented in this report are preliminary and upon soldering machine setter review may be revised to meet current compliance requirements. ___ Dar Timmons MD 03/26/2016 7:24:09 AM Number of Addenda: 0 Note Initiated On: 03/26/2016 6:[address] [facility] 03/26/2016 6:39 AM CDT Dar Timmons MD GI PROCEDURE ORDERA BLES [facility] from Last 3 Months or Most Recently Relevant to Health Maintenance Advance Directives * Full Code (Latest Code Status on File) Date Activated Date Inactivated Comments 07/01/2018 1:11 PM 07/03/2018 6:53 PM * Full Code Date Activated Date Inactivated Comments 06/23/2018 6:34 PM 06/26/2018 5:04 PM Care Teams Sock Ironer Relationship Specialty Start Date End Date Dilia Yap MD PCP - General Internal Medicine 06/12/15 Arnulfo Garcia MD [address] [place] [address] Plastic and Reconstructive Surgery 06/20/19
--- OUTSIDE RECORDS SUMMARY | 2024-12-18 18:20 | XMS_ITS | Patient Health Summary ---
Author Organization [facility] Address [address] [place] [address] Care Team Providers Care Residential Property Consultant Name Role Phone Dilia Yap MD Primary Care Provider Arnulfo Garcia MD Unavailable [phone] Note from [facility],non-owned Affiliates and Associated Physician Practices is amultiple site organization consisting of ambulatory clinics and hospital sitesin [place], [place], [place] and [place]. This disclosure is being madepursuant to the Care Everywhere program and may not contain all information available regarding this patient. Last updated 18.[facility] Allergies No known active allergies [...] 62.77 07/25/2019 6:27 AM CDT Procedures * [place] REPAIR BROW PTOSIS(Performed 07/25/2019) Performed for Ptosis [...] Proteus mirabilis(A) LIZZIE 07/08/2018 8:10 AM CDT [facility] Culture Light normal skin cesia LIZZIE 07/08/2018 8:10 AM CDT [facility] Gram Stain Light White blood cells 07/08/2018 8:10 AM CDT [facility] Gram Stain Light Gram-positiv e cocci 07/08/2018 8:10 AM CDT [facility] Microbiology SPECIMEN FROM WOUND / Unknown [...] please call microbiology lab to request manual [phone]. Romy Tirado DO LAB - MICROBIOL OGY ORDERABLES [facility] [address] [place] [address], [facility] [phone] * (ABNORMAL) CULTURE ANAEROBE (07/05/2018 11:49 PM CDT) Pathologist [facility] Culture Moderate Prevotella bivia(A) LIZZIE 07/11/2018 3:01 PM CDT [facility] Comment:Beta-lactamase posit harleen Microbiology SPECIMEN FROM WOUND / Unknown Collection / Unknown 07/05/2018 11:49 PM CDT 07/05/2018 11:52 PM CDT Narrative [facility] - 07/11/2018 3:01 PM CDT Nushanika Stevensoh 07/06/2018 9:53 AM Romy Tirado DO LAB - MICROBIOL OGY ORDERABLES [facility] [address] [place] [address], [facility] [phone] * (ABNORMAL) SLIDE SCAN HEMATOLOGY (07/01/2018 2:21 PM CDT) Only the most recent of2 resultswithin the time period is included. Pathologist [facility] Platelet Estimation Normal Normal, Adequate platelets 07/01/2018 3:44 PM CDT [facility] Anisocytosis 1+(A) None 07/01/2018 3:44 PM CDT [facility] Hypochromia 2+(A) None 07/01/2018 3:44 PM CDT [facility] Polychromasia 1+(A) None 07/01/2018 3:44 PM CDT [facility] Target Cells Occasiona l(A) None 07/01/2018 3:44 PM CDT [facility] Tear Drop Cells 1+(A) None 8 3:44 PM CDT [facility] Blood BLOOD SPECIMEN / Unknown Lab Venipuncture / Unknown 07/01/2018 2:21 PM CDT 07/01/2018 2:47 PM CDT Don Arias MD LAB - HEMATOLOGY ORD ERABLES [facility] [address] [place] [address] * (ABNORMAL) CBC W AUTO DIFFERENTIAL (07/01/2018 2:21 PM CDT) Only the most recent of9 resultswithin the time period is included. WBC 10.9(H) 4.4 - 10.7 x10E9/L 07/01/2018 2:57 PM CDT [facility] WBC Corrected x10E9/L 07/01/2018 2:57 PM CDT [facility] RBC 3.67(L) 3.80 - 5.20 x10E12/L 07/01/2018 2:57 PM CDT [facility] Hemoglobin 7.4(L) 12.0 - 15.6 gm/dL 07/01/2018 2:57 PM CDT [facility] Hematocrit 26.7(L) 35.9 - 45.5 % 07/01/2018 2:57 PM CDT [facility] MCV 72.8(L) 80.7 - 98.3 fl 07/01/2018 2:57 PM CDT [facility] MCH 20.2(L) 26.7 - 34.0 pg 07/01/2018 2:57 PM CDT [facility] MCHC 27.7(L) 30.8 - 35.9 gm/dL 07/01/2018 2:57 PM CDT [facility] Platelet Count 434(H) 153 - 416 x10E9/L 07/01/2018 2:57 PM CDT [facility] RDW-CV 23.1(H) 12.1 - 14.9 % 07/01/2018 2:57 PM CDT [facility] MPV 8.7(L) 9.4 - 12.9 fl 07/01/2018 2:57 PM CDT [facility] Neutrophils % 69.7 44.0 - 73.0 % 07/01/2018 2:57 PM CDT [facility] Lymphocytes % 17.1(L) 20.0 - 43.0 % 07/01/2018 2:57 PM CDT [facility] Monocytes % 9.9 5.0 - 13.0 % 07/01/2018 2:57 PM CDT [facility] Eosinophils % 2.1 0.0 - 6.0 % 07/01/2018 2:57 PM CDT [facility] Basophils % 0.5 0.0 - 2.0 % 07/01/2018 2:57 PM CDT [facility] Immature Granulocytes 0.7 0 - 1 % 07/01/2018 2:57 PM CDT [facility] Neutrophil Absolute 7.57(H) 2.01 - 7.14 x10E9/L 07/01/2018 2:57 PM CDT [facility] Lymphocytes Absolute 1.85 1.07 - 3.94 x10E9/L 07/01/2018 2:57 PM CDT [facility] Monocytes Absolute 1.07 0.26 - 1.07 x10E9/L 07/01/2018 2:57 PM CDT [facility] Eosinophils Absolute 0.23 0 - 0.47 x10E9/L 07/01/2018 2:57 PM CDT [facility] Basophils Absolute 0.05 0 - 0.08 x10E9/L 07/01/2018 2:57 PM CDT [facility] Immature Granulocytes Absolute 0.08(H) 0.00 - 0.06 x10E9/L 07/01/2018 2:57 PM CDT [facility] nRBC Auto 0 /100 WBC 07/01/2018 2:57 PM CDT [facility] Blood BLOOD SPECIMEN / Unknown Lab Venipuncture / Unknown 07/01/2018 2:21 PM CDT 07/01/2018 2:47 PM CDT Don Arias MD LAB - HEMATOLOGY ORD ERABLES Performing Organization Address [facility]/State/[facility] Co de Phone Number [facility] [address] [phone] * CARDIAC RHYTHM STRIP ORDER (06/28/2018 10:42 [...] the time period is included. Product Code [id number] [facility] Unit Donor # [id number] S [facility] ABO Donor Type A [facility] Rh Type Unit POS [facility] Unit Status Ret'd [facility] B[facility] OD [facility] LAB ABO Rh Type Unit APOS [facility] Donor Unit Expiration Date [facility] Blood Type Barcode 6200 [facility] Product Code [id number] [facility] Unit Donor # [id number] S [facility] B[facility] B[facility] ABO Donor Type A [facility] Rh Type Unit POS [facility] Unit Status Ret'd [facility] OD [facility]ANK LAB ABO Rh Type Unit APOS [facility] Donor Unit Expiration Date [facility] Blood Type Barcode 6200 [facility] Blood Bank BLOOD SPECIMEN / Unknown 06/23/2018 3:00 PM CDT Yovana Cunningham MD LAB - BLOOD BANK ORD ERABLES [facility] [address] [phone] * GROSS + MICRO EXAM (STL) (06/23/2018 2:33 PM CDT) Only the most recent of2 resultswithin the time period is included. Case Report Surgical Pathology Report Case: [id number] Authorizing Provider: Yovana Cunningham MD Collected: 06/23/2018 02:33 PM Ordering Location: [facility] Received: 06/24/2018 05:32 AM Pathologist: Mindi Huddleston MD Specimens: A) - Cervix, cervix and uterine body B) - Uterus, UTERUS, LEFT TUBE AND OVARY 06/27/2018 3:11 PM CDT [facility] Final Diagnosis A. Cervix, [...] no pathologic diagnosis IA/LESTER/dejan 06/27/2018 3:11 PM [facility] Gross Description The specimen is received [...] pink-samuel and glistening. No lesions are identified. Repairer Cylinder Heads sections are submitted as A1 and A2. [...] soft, pink-samuel tissue. No lesions are identified. Repairer Cylinder Heads sections are submitted as follows: B1-B7 - endomyometrium, serosa, and leiomyoma. B8-B9 - ovary and fallopian tube. IA/kf IA/ns 06/27/2018 3:11 PM [facility] Microscopic Description Sections of the cervix [...] stromal hyperthecosis. IA/GM/ns 06/27/2018 3:11 PM CDT [facility] Disclaimer All histochemical and/or immunohistochemical results are interpreted with controls that demonstrate appropriate staining reactions before reporting results. Note on use of immunocytochemistry reagents: This test was developed and its performance characteristic determined by [facility], Department of Laboratory Medicine. It has not been cleared or approved by the U.S. Food and Drug Administration (FDA). The FDA has determined that such clearance or approval is not necessary. The test is used for clinical purpose. It should not be regarded as investigational or for research. This laboratory is certified to perform high complexity testing. 06/27/2018 3:11 PM CDT [facility] Embedded Images 06/27/2018 3:11 PM CDT [facility] Pathology/Cytology PART OF UTERINE CERVIX / Unknown 06/23/2018 2:33 PM CDT 06/24/2018 5:32 AM CDT Miscellaneous samples (specimen) ENTIRE UTERUS / Unknown 06/23/2018 3:09 PM CDT 06/24/2018 5:32 AM CDT Yovana Cunningham MD LAB - PATHOLOGY/CYTO LOGY ORDERABLES Performing Organization Address City/State/[facility] Co de Phone Number [facility] [address] [place] [address] * TYPE + SCREEN PANEL (06/23/2018 10:25 AM CDT) Only the most recent of2 resultswithin the time period is included. ABO A 06/23/2018 11:09 AM CDT [facility] Rh Type Positive 06/23/2018 11:09 AM CDT [facility] Comment:History checked. Antibody Screen Negative 06/23/2018 11:09 AM CDT [facility] Blood Bank BLOOD SPECIMEN / Unknown Venipuncture / Unknown 06/23/2018 10:25 AM CDT 06/23/2018 10:27 AM CDT Nick Amezcua MD LAB - BLOOD BANK O DYLLAN Performing Organization Address [facility] Co de Phone Number [facility] [address] [phone] * HCG URINE QUALITATIVE - POCT (IP) INTERFACED (06/23/2018 10:08 AM CDT) HCG Qual Urine Negative Negative 06/23/2018 10:11 AM CDT [facility] Urine URINE / Unknown 06/23/2018 1 0:08 AM CDT 06/23/2018 10:11 AM CDT Yovana Cunningham MD LAB - POINT OF CARE ORDERABLES Performing Organization Address [facility] Co de Phone Number [facility] [address] [place] [address] * HCG URINE QUAL POCT NOTIFICATION (06/23/2018 10:00 AM CDT) Comment Notification Label Only - See Separate Report 06/23/2018 11:00 AM CDT [facility] Urine URINE / Unknown 06/23/2018 1 0:00 AM CDT 06/23/2018 10:00 AM CDT Nick Amezcua MD LAB - URINALYSIS O RDOJHN Performing Organization Address City/[facility] Co de Phone Number [facility] [address] [place] [address] * (ABNORMAL) BASIC METABOLIC PANEL (CALCIUM TOTAL) (06/21/2018 1:21 PM CDT) Glucose 91 74 - 106 mg/dL 06/21/2018 2:03 PM CDT [facility] Sodium 138 136 - 145 mmol/L 06/21/2018 2:03 PM CDT [facility] Potassium 3.8 3.5 - 5.1 mmol/L 06/21/2018 2:03 PM CDT [facility] Chloride 104 98 - 107 mmol/L 06/21/2018 2:03 PM CDT [facility] CO2 29 22 - 31 mmol/L 06/21/2018 2:03 PM CDT [facility] Calcium 9.8 8.5 - 10.1 mg/dL 06/21/2018 2:03 PM CDT [facility] Anion Gap 5(L) 8 - 16 mmol/L 06/21/2018 2:03 PM CDT [facility] BUN 9 7 - 21 mg/dL 06/21/2018 2:03 PM CDT [facility] Creatinine 0.64 0.50 - 1.30 mg/dL 06/21/2018 2:03 PM CDT [facility] eGFR by MDRD >60 >60 mL/min/1.7 3m2 06/21/2018 2:03 PM CDT [facility] eGFR by MDRD >60 >60 mL/min/1.7 3m2 06/21/2018 2:03 PM CDT [facility] Blood BLOOD SPECIMEN / Unknown Venipuncture / Unknown 06/21/2018 1:21 PM CDT 06/21/2018 1:27 PM CDT Nick Amezcua MD LAB - CHEMISTRY OR DERABLES Performing Organization Address City/State/[facility] Co de Phone Number [facility] [address] [phone] * OPH COLOR FUNDUS PHOTOGRAPHY SLU (04/07/2018 4:27 PM CDT) Anatomical Region Laterality Modality Other 04/07/2018 4:27 PM CDT Inés Reis MD OPHTHALMOLOGY SERVIC ES ORDERABLES * FL FLUORO LUMBAR PUNCT [[id number]] (02/15/2018 2:20 PM CDT) Anatomical Region Laterality [...] The patient was then transferred to the housekeeper child care unit for further observation and at least [...] The patient was then transferred to the housekeeper child care unit for further observation and at least [...] well. The patient was thentransferred to the housekeeper child care unit for further observation and at least 3 hours of bedrest. OPENING PRESSURE: 23 mm of Water FLUOROSCOPY TIME: 60 seconds IMPRESSION: 1. Successful lumbar puncture under fluoroscopic guidance at L4-5 with elevated intracranial pressures measuring 23 mm of Water. This report was approved by Vincent Campos on 02/15/2018 3:01 PM . I, Dr. NANOD VALDERRAMA have personally reviewed and interpreted this [...] MD LAB - POINT OF CARE ORDERABLES [facility] POCT TESTING [address] [phone] * MRI BRAIN WWO CONTRAST (02/03/2018 7:27 [...] the dural venous sinuses. Procedure Note Erlinda Milelr MD - 02/05/2018 EXAMINATION: 1. Magnetic resonance [...] time period is included. Microcytes 3+(A) None [facility] Hypochromia 2+(A) None [facility] Ovalocytes 1+(A) None [facility] Tear Drop Cells 1+(A) None [facility] Blood specimen (specimen) BLOOD SPECIMEN / Unknown 01/26/2018 9:52 AM CDT 01/26/2018 10:02 AM CDT Jaspreet Medina MD LAB - HEMATOLOGY ORD ERABLES [address] [phone] * (ABNORMAL) COMPREHENSIVE METABOLIC PANEL (01/26/2018 9:52 AM CDT) Only the most recent of2 resultswithin the time period is included. BUN 6(L) 7 - 26 mg/dL [facility] Creatinine 0.5(L) 0.6 - 1.2 mg/dL [facility] Sodium 136 136 - 145 mmol/L [facility] Potassium 3.8 3.5 - 4.5 mmol/L [facility] Chloride 105 98 - 107 mmol/L [facility] CO2 24 22 - 29 mmol/L [facility] Glucose 86 70 - 115 mg/dL [facility] Calcium 10.1 8.4 - 10.2 mg/dL [facility] Protein Total 8.0 6.0 - 8.3 g/dL [facility] Albumin 3.4 3.4 - 5.0 g/dL [facility] Bilirubin Total 0.4 0.2 - 1.2 mg/dL [facility] Alkaline Phosphatase 89 40 - 150 Units/L [facility] ALT 14 0 - 55 Units/L [facility] AST 15 5 - 34 Units/L [facility] Anion Gap 11 8 - 18 [facility] BUN/Creatinine Ratio 12 7 - 23 [facility] Osmolality Calculated 279 270 - 300 mOsm/kg [facility] Albumin/Globulin Ratio 0.7(L) 1.1 - 2.3 [facility] eGFR >60 >60 mL/min/1.7 3 m2 [facility] Blood specimen (specimen) BLOOD SPECIMEN / Unknown 01/26/2018 9:52 AM CDT 01/26/2018 10:06 AM CDT Jaspreet Medina MD LAB - CHEMISTRY [facility] [address] [phone] * (ABNORMAL) TRANSFERRIN (01/26/2018 9:52 AM CDT) Only the most recent of2 resultswithin the time period is included. Transferrin 445(H) 174 - 382 mg/dL [facility] Transferrin Saturation % 2(L) 16 - 50 % [facility] Blood specimen (specimen) BLOOD SPECIMEN / Unknown 01/26/2018 9:52 AM CDT 01/26/2018 10:06 AM CDT Jaspreet Medina MD LAB - CHEMISTRY [facility] Performing Organization Address [facility] Co de Phone Number [address] [phone] * (ABNORMAL) IRON BLOOD (01/26/2018 9:52 AM CDT) Only the most recent of2 resultswithin the time period is included. Iron 13(L) 40 - 150 mcg/dL [facility] Blood specimen (specimen) BLOOD SPECIMEN / Unknown 01/26/2018 9:52 AM CDT 01/26/2018 10:06 AM CDT Jaspreet Medina MD LAB - CHEMISTRY [facility] Performing Organization Address [facility] [place] [address], [facility] [phone] * (ABNORMAL) FERRITIN (01/26/2018 9:52 AM CDT) Only the most recent of2 resultswithin the time period is included. Ferritin 1(L) 13 - 204 ng/mL [facility] Blood specimen (specimen) BLOOD SPECIMEN / Unknown 01/26/2018 9:52 AM CDT 01/26/2018 10:06 AM CDT Jaspreet Medina MD LAB - CHEMISTRY [facility] SM[facility] Performing Organization Address [facility] [place] [address], [facility] [phone] * US PELVIS WITH TRANSVAG NON OB (12/30/2017 10:11 AM [facility]) Anatomical Region Laterality Modality Pelvis Ultrasound 12/30/2017 10:1 8 AM [facility] Impressions 12/30/2017 10:24 AM [facility] 1. Enlarged multi fibroid uterus similar to 2015. 2. Normal endometrial thickness. Submucosal fibroids seen on the prior MRI are not clearly visualized on today's exam. 3. Unremarkable ovaries Narrative 12/30/2017 10:24 AM [facility] Ultrasound pelvis, transabdominal and transvaginal. DATE: 12/30/2017. [...] ORDERABLES * ZINC BLOOD (11/19/2017 9:58 AM [facility]) Zinc Blood 76 56 - 134 ug/dL [facility] ([facility]) Comment:Detection Limit = 5 Blood specimen (specimen) BLOOD SPECIMEN / Unknown 11/19/2017 9:58 AM [facility] 11/19/2017 10:27 AM [facility] Narrative [facility] ([facility]) - 11/23/2017 1:06 AM [facility] I[facility] Performed at: Lab[address] [id number] Receptionist Scheduler: Chip Mott MD, Phone: [phone] Jaspreet Medina MD LAB - CHEMISTRY [facility] Performing Organization Address [facility]/ZIP Co de Phone Number [facility] ([facility]) [address] [place] [phone] * HEMOGLOBIN ELECTROPHORESIS (11/19/2017 9:58 AM [facility]) Pathologist [facility] Interpretation Hemoglobin Pattern Normal Pattern Normal Pattern [facility] Comment: Hemoglobin (Hb) capillary electrophoresis shows two [...] Hemoglobin A 98.0 97.1 - 99.1 % [facility] Hemoglobin A2 2.0 0.9 - 2.9 % [facility] Blood specimen (specimen) 11/19/2017 9:58 AM [facility] 11/19/2017 10:11 AM [facility] ICT Jaspreet Medina MD LAB - CHEMISTRY [facility] Performing Organization Address City/[facility]/ZIP Co de Phone Number [address] [phone] * (ABNORMAL) COPPER BLOOD (11/19/2017 9:58 AM [facility] OF I[facility]) Copper 167(H) 72 - 166 ug/dL [facility] ([facility]) Comment:Detection Limit = 5 Blood specimen (specimen) BLOOD SPECIMEN / Unknown 11/19/2017 9:58 AM [facility] 11/19/2017 10:27 AM [facility] Narrative [facility] ([facility]) - 11/23/2017 5:10 AM [facility] OF ICT Performed at: - [facility] [id number] Receptionist Scheduler: Chip Mott MD, Phone: [phone] Jaspreet Medina MD LAB - CHEMISTRY ORDRangel SMITH Performing Organization Address City/[facility]/ZIP Co de Phone Number [facility] ([facility]) [address] [phone] * RETIC COUNT (11/19/2017 9:58 AM [facility] I[facility]) Reticulocyte % 2.0 0.4 - 2.5 % [facility] Reticulocyte Absolute 0.09 0.02 - 0.13 10 6/uL [facility] Blood specimen (specimen) BLOOD SPECIMEN / Unknown 11/19/2017 9:58 AM [facility] 11/19/2017 10:11 AM [facility] I[facility] Jaspreet Medina MD LAB - HEMATOLOGY ORD ERABLES Performing Organization Address [facility]/ZIP Co de Phone Number [address] [phone] * FOLATE (11/19/2017 9:58 AM [facility] I[facility]) Folate 7.4 7.0 - 31.4 ng/mL [facility] Blood specimen (specimen) BLOOD SPECIMEN / Unknown 11/19/2017 9:58 AM [facility] 11/19/2017 10:11 AM HEAD OF ICT Jaspreet Medina MD LAB - CHEMISTRY ORDE SARAH Performing Organization Address City/[facility]/ZIP Co de Phone Number [address] [phone] * VITAMIN B12 (11/19/2017 9:58 AM HEAD [facility] I[facility]) Vitamin B12 404 213 - 816 pg/mL [facility] Blood specimen (specimen) BLOOD SPECIMEN / Unknown 11/19/2017 9:58 AM [facility] 11/19/2017 10:11 AM [facility] ICT Jaspreet Medina MD LAB - CHEMISTRY [facility] [address] [phone] * (ABNORMAL) HELICOBACTER PYLORI UREASE (STL) (03/26/2016 6:57 AM CDT) Helicobacter pylori Urease Initial Positive( A) Negative 03/26/2016 2:14 PM CDT [facility] Helicobacter pylori Urease Final Positive( A) Negative 03/26/2016 2:14 PM CDT [facility] Microbiology GASTRIC BIOPSY SPECIMEN / Unknown Collection / Unknown 03/26/2016 6:57 AM CDT 03/26/2016 2:13 PM CDT Dar Timmons MD LAB - MICROBIOLOGY ORDERABLES [facility] [address] [place] [address] * EGD (03/26/2016 6:39 AM CDT) Report Endoscopy POC _ Patient Name: Gabrielleaya Christopher Procedure Date: 03/26/2016 6:39 AM Date of : 1970 Admit Type: Outpatient Age: 46 Gender: Female Attending MD: Dar Timmons MD _ Procedure: Upper GI endoscopy Indications: Generalized abdominal pain Providers: Dar Timmons MD (Doctor), Sara Breaux RN, Tyrone Lopez, Pockets And Pieces Necktie Operator Referring MD: Dliia Hawthorne MD (Referring MD) Medicines: Midazolam 5 [...] 2 weeks. Procedure Code(s): --- Professional --- 85934, Esophagogastrodu odenoscopy, flexible, transoral; with biopsy, single or multiple --- Technical --- 73688, Esophagogastrodu odenoscopy, flexible, transoral; with biopsy, single or multiple Diagnosis Code(s): --- Professional --- R10.84, Generalized abdominal pain K31.9, Disease of stomach and duodenum, unspecified --- Technical --- R10.84, Generalized abdominal pain K31.9, Disease of stomach and duodenum, unspecified CPT copyright 2015 [employer]. All rights reserved. The codes documented in this report are preliminary and upon singeing torch operator review may be revised to meet current compliance requirements. Dar Timmons MD 03/26/2016 7:17:11 AM Number of Addenda: 0 Note Initiated On: 03/26/2016 6:39 AM [facility] 03/26/2016 6:39 AM CDT Dar Timmons MD GI PROCEDURE ORDERA [facility] Organization Address City/State/ZIP Co de Phone Number [facility] * ENDOSCOPY, COLON, DIAGNOSTIC [...] MD (Doctor), Sara Breaux RN, Tyrone Lopez, Pockets And Pieces Necktie Operator Referring MD: Dilia Hawthorne MD (Referring MD) [...] 2 weeks. Procedure Code(s): --- Professional --- 76763, Colonoscopy, flexible; with biopsy, single or multiple --- Technical --- 98726, Colonoscopy, flexible; with biopsy, single or multiple [...] or abscess without bleeding CPT copyright 2015 [employer]. All rights reserved. The codes documented in this report are preliminary and upon singeing torch operator review may be revised to meet current compliance requirements. ___ Dar Timmons MD 03/26/2016 7:24:09 AM Number of Addenda: 0 Note Initiated On: 03/26/2016 6:39 AM [facility] 03/26/2016 6:39 AM CDT Dar Timmons MD GI PROCEDURE ORDERA DOLLY [facility] * MRI PELVIS NON [...] submucosal fibroids as described above. Estefani Brown STRUCTURAL FITTER-CREDIT RISK ANALYTICS MANAGER MR ORDERABLE S * GROSS + MICRO [...] tissue is seen on gross examination. A screening representative portion of the specimen is submitted in cassettes A and B. LW diaz Microscopic Exam Sections show fragments of inflamed and hemorrhagic decidual tissue. No parts or chorionic villi are seen. MC/na Diagnosis I. Uterine contents, curettage -- Decidual tissue -- No chorionic villi or parts seen MC/na Newspaper Correspondent na Pathologist Michael Awan M.D. [place]. 03/01/2008 1359 <1> CPT code 83755 MISCELLANEOUS SAMPLES / Unknown 02/29/2008 7:15 AM CDT 02/29/2008 10:42 AM CDT Historical Provider LAB - PATHOLOGY/C YTOLOGY ORDERABLES Care Teams Residential Property Consultant Relationship Specialty Start Date End Date Dilia Yap MD PCP - General Internal Medicine 06/12/15 Arnulfo Garcia MD [facility] [place] [address] Plastic and Reconstructive Surgery 06/20/19
[2024-12-18 18:42] LABS: Troponin I 0.024 ng/mL (0.000-0.034)
[2024-12-18 18:55] LABS: D Dimer 0.87 ug/mL (<0.48)
[2024-12-18 18:57] LABS: Cholesterol 161 mg/dL (0-200); HDL Direct 56 mg/dL; Triglycerides 134 mg/dL (<150)
[2024-12-18 19:08] LABS: LDL Cholesterol Direct 67 mg/dL
[2024-12-18] MEDS: guaiFENesin 12 HR 600 MG TABCR 1200 MG PO (21:00)
[2024-12-18 21:16] LABS: Glucose Point of Care 134 mg/dl (65-105)
[2024-12-18 21:21] LABS: Fractional Inspired Oxygen 44 %; HCO3 VBG 37.7 mEq/l (24.0-30.0); PO2 VBG 47.5 mmHg (35.0-45.0); pH VBG 7.279 (7.300-7.400)
[2024-12-18 21:22] LABS: Device NASAL CANNULA; PCO2 VBG 82.3 mmHg (42.0-48.0)
[2024-12-18 21:30] LABS: Hemoglobin A1C 7.1 % (<5.7)
[2024-12-18 21:31] LABS: Hematocrit 38.7 % (37.0-47.0); Hemoglobin 11.1 g/dL (12.0-15.0)
[2024-12-18 23:23] LABS: MRSA (PCR) NOT DETECTED (NOT DETECTE)
[2024-12-18 23:30] LABS: Fractional Inspired Oxygen 36 %; PO2 VBG 63.1 mmHg (35.0-45.0); pH VBG 7.301 (7.300-7.400)
[2024-12-18 23:32] LABS: Device NON-INVASIVE VENT; Non-Invasive Expiratory Pressure 6 CMH2O; Non-Invasive Inspiratory Pressure 14 CMH2O; Non-Invasive Vent Rate 22 /MIN; PCO2 VBG 76.8 mmHg (42.0-48.0)
[2024-12-19] VITALS (26 sets, daily range): BP systolic 118–154; BP diastolic 73–93; PULSE 24–103; RESP 13–85; TEMP 36.4–37.2; O2SAT 92–100
[2024-12-19] MEDS: ALBUTEROL SULFATE NEB 2.5 MG/3 ML INH INHALATION ×4 (02:45→19:49)
[2024-12-19 04:56] LABS: Fractional Inspired Oxygen 36 %; HCO3 VBG 39.2 mEq/l (24.0-30.0); pH VBG 7.258 (7.300-7.400)
[2024-12-19 04:59] LABS: Device NON-INVASIVE VENT; Non-Invasive Expiratory Pressure 10 CMH2O; Non-Invasive Inspiratory Pressure 22 CMH2O; Non-Invasive Vent Rate 4 /MIN; PCO2 VBG 89.7 mmHg (42.0-48.0)
[2024-12-19 05:20] LABS: Basophils Absolute Auto 0.1 K/mm3 (0.0-0.1); Eosinophils Absolute Auto 0.1 K/mm3 (0-0.3); Eosinophils Percent Auto 1.4 % (0-4.4); Hematocrit 39.1 % (37.0-47.0); Immature Granulocyte Absolute 0.14 K/mm3 (0.00-0.031); Immature Granulocyte Percent A 1.6 % (0-0.5); Lymphocytes Absolute Auto 2.22 K/mm3 (0.9-3.2); Lymphocytes Percent Auto 25.7 % (18.3-44.2); Mean Corpuscular HGB Conc 28.1 g/dl (32-36); Mean Corpuscular Hemoglobin 26.8 pg (26-34); Mean Corpuscular Volume 95.1 fl (80-100); Mean Platelet Volume 9.2 fl (7.4-10.4); Monocytes Absolute Auto 0.8 K/mm3 (0.1-0.6); Monocytes Percent Auto 8.7 % (2.6-8.5); Neutrophils Absolute Auto 5.3 K/mm3 (1.3-6.7); Neutrophils Percent Auto 61.6 % (45.5-73.1); Nucleated Red Blood Cells Perc 3.5 % (0.0-0.2); Platelet Count Result 313 k/mm3 (150-375); Red Blood Count 4.11 M/mm3 (4.2-5.4); Red Cell Distribution Width 17.2 % (11.5-14.5); White Blood Count 8.6 K/mm3 (4.5-10.0)
[2024-12-19 05:38] LABS: Alanine Aminotransferase 55 U/L (6-35); Albumin Level 3.7 g/dL (3.5-5.1); Alkaline Phosphatase 106 U/L (38-126); Anion Gap 5 mmol/L (4-12); Aspartate Amino Transferase 37 U/L (14-36); Bilirubin,Total 0.8 mg/dL (0.2-1.3); Blood Urea Nitrogen 14 mg/dL (7-17); Calcium 9.8 mg/dL (8.4-10.2); Carbon Dioxide 39 mmol/L (22-30); Chloride 96 mmol/L (98-107); Estimated CRCL calculation 171 ml/min; Estimated Glomerular Filt Rate > 60; Glucose 140 mg/dL (65-110); NT Pro B Type Natriuretic Pept 1550 pg/mL (19.9-100); Potassium 4.6 mmol/L (3.4-5.0); Sodium 140 mmol/L (137-145)
[2024-12-19 06:26] LABS: Anisocytosis 1+; Platelet Estimate Adequate (Adequate)
[2024-12-19 06:27] LABS: Hypochromasia 1+; Schistocytes None Seen; Stomatocytes 1+
--- NOTE | 2024-12-19 06:34 | PCRCNOTE ---
Patient anxious and did not want RT drawing arterial blood gas on 12/18/24 at 2030. NAKUL Michel put VBG order in.
--- NOTE | 2024-12-19 06:36 | PM.EVENT ---
Event Note Event Note Event Note: 12/19/2024 at 05:30 Respiratory therapy came to discuss patient's VBG results. Patient is morbidly obese with BMI of 74 and is supposed be on CPAP at home. She did not know her home settings. She had some code chronic hypercarbic respiratory failure on initial ABG. She refused any further ABGs but did agree to be ABGs. VBG is have subsequently been obtained. Despite changes in BiPAP settings throughout the night patient was seeming more somnolent and repeat the ABGs demonstrate pH of 7.258 pCO2 of 89 and PO2 of 28. The patient's settings at that time were 22/10 without a backup rate. Respiratory therapy had made adjustments in for the most part the [place] [id number] while awake but when she would fall asleep was only pulling tidal volumes of 250-350. Patient was trialed on AVAPS as well. However was not pulling adequate tidal volumes on AVAPS either. I went down to evaluate the patient patient did not have much in the way of air movement. The patient was initially somnolent and we had difficulty awaking the patient. After the patient was awake she did answer all orientation questions appropriately. I did discuss her respiratory status and the risks and benefits of intubation with the patient. Patient adamantly refused intubation still is a full code. We made additional changes of the patient's BiPAP changing her settings to 26/12 and increasing her backup rate to 18. Pulmonology is consulted. Will await further recommendations. 35 minute spent in critical care activities Due to a high probability of clinically significant, life threatening deterioration, the patient required my highest level of preparedness to intervene emergently and I personally spent this critical care time directly and personally managing the patient. This critical care time included obtaining a history; examining the patient; pulse oximetry; ordering and review of studies; arranging urgent treatment with development of a management plan; evaluation of patient's response to treatment; frequent reassessment; and discussions with other providers. It was exclusive of separately billable procedures and treating other patients and teaching time. Please see Assessment and Plan section and the rest of the note for further information on patient assessment and treatment.
--- NOTE | 2024-12-19 07:33 | PC.NURSE ---
Briseyda (sister) [phone] Dalia (daughter) [phone] Paola (Aunt) [phone] Paulina (sister) [phone]
[2024-12-19 07:48] LABS: Alveolar/Arterial O2 Gradient 61.7 mmHg; Base Excess ABG 7.3 mEq/l (+/-2.0); Fractional Inspired Oxygen 32 %; HCO3 ABG 34.6 mEq/l (22.0-26.0); Oxygen Content ABG 15.6 %vol (16.0-22.0); Oxygen Saturation ABG 96.5 % (95.0-100.0); Oxyhemoglobin 96.4 % THb (90.0-100.0); PO2 ABG 92.1 mmHg (80.0-100.0); PO2 FiO2 Ratio Arterial Blood 2.88 %; Total Hemoglobin 11.4 g/dL (12.0-18.0); pH ABG 7.354 (7.350-7.450)
[2024-12-19 07:49] LABS: Glucose Point of Care 122 mg/dl (65-105)
[2024-12-19 07:52] LABS: Device BIPAP; Modified Allen's Test Pass; PCO2 ABG 63.6 mmHg (35.0-45.0); Site Drawn LEFT RADIAL
[2024-12-19 07:53] LABS: Expiratory Pressure 12 cmH2O; Inspiratory Pressure 26 cmH2O
--- NOTE | 2024-12-19 09:39 | WPDGIPROGNO ---
Progress Note: A&P Assessment and Plan (1) GI bleed: Code(s): K92.2 - Gastrointestinal hemorrhage, unspecified Status: Acute Assessment and Plan: The patient's primary concern at this time is severe respiratory distress from pneumonia + COPD exacerbation and possible contribution of CHF. Apparently GI bleeding appears to have resolved spontaneously, but obtaining records from her relatively recent prior colonoscopy is important. If those records document diverticulosis without other significant lesions, (or only small polyps), another colonoscopy may not be necessary, as most diverticular bleeds are self-limiting. A cardiology consultation is also critical to assess her current ejection fraction. Given her unstable respiratory status, plans for a colonoscopy are deferred for now. We will continue to monitor her condition. Plan - Plese obtain record from previous colonoscopy - Cardiology consult Time Spent With Patient Time with patient: 15 - 25 minutes Subjective Date/time seen: 12/19/24 09:39 Interval history: The patient is suffering at decompensation from a respiratory standpoint. She is currently on CPAP machine and experiencing shortness of breath. She states she had no further GI bleeding episodes. Exam Narrative: Unable to cooperate with abdominal examination due to current use of CPAP mask and sitting upright. Objective Data Vital Signs Vital Signs: Vital Signs - 24 hr 12/18/24 12:10 12/18/24 12:11 12/18/24 12:12 Temperature 97.8 F Pulse Rate 93 Respiratory Rate 20 Blood Pressure 169/114 H Pulse Oximetry 78 L 96 96 Oxygen Delivery Room Air Nasal Cannula Oxygen Flow Rate 4 6 Fraction of Inspired Oxygen 12/18/24 12:18 12/18/24 13:30 12/18/24 15:34 Temperature Pulse Rate 85 Respiratory Rate 16 Blood Pressure 135/72 Pulse Oximetry 98 95 92 Oxygen Delivery Nasal Cannula Nasal Cannula Oxygen Flow Rate 4 4 Fraction of Inspired Oxygen 12/18/24 15:34 12/18/24 15:38 12/18/24 16:00 Temperature Pulse Rate 88 93 87 Respiratory Rate 20 20 18 Blood Pressure 176/92 H Pulse Oximetry 99 Oxygen Delivery Oxygen Flow Rate Fraction of Inspired Oxygen 12/18/24 16:25 12/18/24 16:30 12/18/24 16:36 Temperature Pulse Rate 97 Respiratory Rate Blood Pressure Pulse Oximetry 93 93 Oxygen Delivery Nasal Cannula Nasal Cannula Oxygen Flow Rate 4 4 Fraction of Inspired Oxygen 12/18/24 18:00 12/18/24 20:00 12/18/24 20:00 Temperature 97.6 F Pulse Rate 105 H 87 Respiratory Rate 18 Blood Pressure 173/99 H Pulse Oximetry 93 95 Oxygen Delivery Nasal Cannula Oxygen Flow Rate 4 Fraction of Inspired Oxygen 12/18/24 20:00 12/18/24 20:11 12/18/24 20:20 Temperature Pulse Rate 95 92 Respiratory Rate 20 Blood Pressure Pulse Oximetry 97 Oxygen Delivery Nasal Cannula Oxygen Flow Rate 4 Fraction of Inspired Oxygen 12/18/24 20:21 12/18/24 21:31 12/18/24 22:00 Temperature Pulse Rate 92 88 87 Respiratory Rate 20 22 H Blood Pressure Pulse Oximetry 96 Oxygen Delivery BiPAP Oxygen Flow Rate Fraction of Inspired Oxygen 12/18/24 23:00 12/18/24 23:40 12/19/24 00:00 Temperature 97.5 F L Pulse Rate 89 24 L Respiratory Rate 22 H 22 H 85 H Blood Pressure 154/93 H Pulse Oximetry 95 95 97 Oxygen Delivery BiPAP BiPAP Oxygen Flow Rate Fraction of Inspired Oxygen 12/19/24 00:00 12/19/24 00:00 12/19/24 01:00 Temperature Pulse Rate 90 Respiratory Rate 16 Blood Pressure Pulse Oximetry 97 94 Oxygen Delivery BiPAP BiPAP Oxygen Flow Rate Fraction of Inspired Oxygen 36 12/19/24 02:00 12/19/24 02:28 12/19/24 02:30 Temperature Pulse Rate 84 84 Respiratory Rate 13 20 Blood Pressure Pulse Oximetry 92 Oxygen Delivery BiPAP Oxygen Flow Rate Fraction of Inspired Oxygen 12/19/24 02:40 12/19/24 03:30 12/19/24 04:00 Temperature Pulse Rate 84 Respiratory Rate 20 Blood Pressure Pulse Oximetry 97 95 Oxygen Delivery BiPAP BiPAP Oxygen Flow Rate Fraction of Inspired Oxygen 36 12/19/24 04:00 12/19/24 04:00 12/19/24 06:00 Temperature 97.6 F Pulse Rate 103 H 78 76 Respiratory Rate 20 Blood Pressure 147/87 H Pulse Oximetry 99 Oxygen Delivery Oxygen Flow Rate Fraction of Inspired Oxygen 12/19/24 06:14 12/19/24 07:45 12/19/24 07:45 Temperature Pulse Rate 77 Respiratory Rate 18 22 H 22 H Blood Pressure Pulse Oximetry 95 92 92 Oxygen Delivery BiPAP BiPAP BiPAP Oxygen Flow Rate Fraction of Inspired Oxygen 32 12/19/24 07:45 12/19/24 08:00 12/19/24 08:07 Temperature 98.5 F Pulse Rate 77 69 Respiratory Rate 22 H 18 Blood Pressure 150/73 H Pulse Oximetry 100 Oxygen Delivery BiPAP Oxygen Flow Rate Fraction of Inspired Oxygen Intake/Output Intake/Output: Intake & Output 12/16/24 12/17/24 12/18/24 12/19/24 23:59 23:59 23:59 23:59 Intake Total 600 640 Output Total 500 250 Balance 100 390 Meds/Results Medications: Active Medications Generic Name Dose Route Start Last Admin Trade Name Freq PRN Reason Stop Dose Admin Acetaminophen 650 mg 12/18/24 20:36 Acetaminophen 325 Mg Tablet PO Q6H PRN Mild Pain (1-3) or Fever Albuterol 2.5 mg 12/18/24 14:00 12/19/24 07:42 Albuterol Sulfate Neb 2.5 Mg/3 Ml Inh INHALATION 2.5 mg Q6HRT ELIAS Administration Dextrose 12.5 gm 12/18/24 20:36 Dextrose 50% 25 Gm/50 Ml Syringe IV PUSH PRN PRN Hypoglycemia Protocol Glucagon 1 mg 12/18/24 20:36 Glucagon For Inj 1 Mg Vial IM PRN PRN Hypoglycemia Protocol Glucose 15 gm 12/18/24 20:36 Glucose Oral Gel 15 Gm Of Glucse In 37.5 Gm Tube PO PRN PRN Hypoglycemia Protocol Guaifenesin 1,200 mg 12/18/24 21:00 12/18/24 21:00 Guaifenesin 12 Hr 600 Mg Tabcr PO 1,200 mg Q12HR ELIAS Administration Ceftriaxone Sodium 1 gm in 50 mls @ 100 mls/hr 12/19/24 12:00 Rocephin 1 Gm/Ns 50 Ml IVPB Q24H ELIAS Azithromycin 500 mg in 250 mls @ 250 mls/hr 12/19/24 17:00 Zithromax IVPB Q24H ELIAS Dextrose 1,000 mls @ 100 mls/hr 12/18/24 20:36 Dextrose 5% 1,000 Ml IVPB PRN PRN Hypoglycemia Protocol Insulin Aspart 3 - 6 units 12/19/24 08:00 Insulin Aspart (*Bkc) 100 Units/Ml SUB-Q TIDWM ELIAS Protocol Insulin Aspart 1 - 3 units 12/18/24 21:00 12/18/24 21:20 Insulin Aspart (*Bkc) 100 Units/Ml SUB-Q Not Given HS [facility] Protocol Perflutren Lipid Microsphere 0 ml 12/18/24 20:36 Perflutren Lipid Microspheres 1.5 Ml Vial Diluted To 10 Ml Total Volume IV PUSH 12/21/24 20:37 ONCE PRN adequate visualization Protocol Radiology Results: ITS Impressions Chest X-Ray 12/18/24 13:10 IMPRESSION: 1. Patchy airspace opacities throughout the right lung suspicious for pneumonia. 2. Cardiomegaly. Chest CTA 12/18/24 23:11 IMPRESSION: No CT evidence of acute pulmonary embolus. Bilateral groundglass opacities, worse in the right lung, may represent asymmetric edema or infection. Thyroid goiter. Labs Labs: Laboratory Results - last 24 hr 12/18/24 12/18/24 12/18/24 12:24 12:27 12:43 WBC 10.5 H RBC 4.36 Hgb 11.6 L Hct 41.2 MCV 94.5 MCH 26.6 MCHC 28.2 L RDW 17.2 H Plt Count 356 MPV 9.3 Immature Gran % (Auto) 1.3 H Neut % (Auto) 65.9 Lymph % (Auto) 22.5 Wirt % (Auto) 9.1 H Eos % (Auto) 0.3 Baso % (Auto) 0.9 Lymph # (Auto) 2.36 Wirt # (Auto) 1.0 H Eos # (Auto) 0.0 Baso # (Auto) 0.1 Abs Immat Gran (auto) 0.14 H Absolute Neuts (auto) 6.9 H Absolute Nucleated RBC 0.590 H Nucleated RBC % 5.6 H Platelet Estimate Adequate Hypochromasia 2+ Anisocytosis Stomatocytes 2+ Schistocytes None seen PT 13.3 INR 1.0 APTT 25.7 D-Dimer Puncture Site ABG pH ABG pCO2 ABG pO2 ABG PO2/FiO2 Ratio ABG HCO3 ABG O2 Saturation ABG O2 Content ABG Base Excess VBG pH VBG pCO2 VBG pO2 VBG HCO3 A-a Gradient Oxyhemoglobin Carboxyhemoglobin Methemoglobin Reduced Hemoglobin Total Hemoglobin O2 Delivery Device O2 Liters/Min Vent Rate FiO2 Expiratory Pressure Inspiratory Pressure Sodium 141 Potassium 4.4 Chloride 97 L Carbon Dioxide 39 H Anion Gap 5 BUN 18 H Creatinine 0.51 L Estim Creat Clear Calc 169 Estimated GFR > 60 Glucose 134 H POC Capillary Glucose Hemoglobin A1c 7.1 H Calcium 10.2 Magnesium Total Bilirubin 0.5 AST 45 H ALT 53 H Alkaline Phosphatase 110 Troponin I 0.032 NT-Pro-B Natriuret Pep Total Protein 8.0 Albumin 4.1 Triglycerides Cholesterol LDL Cholesterol Direct HDL Direct Lipase 25 Nasal MRSA (PCR) Influenza A (RT-PCR) Negative Influenza B (RT-PCR) Negative RSV (RT-PCR) Negative SARS-CoV-2 RNA (RT-PCR) Negative Blood Type A Positive Antibody Screen Negative 12/18/24 12/18/24 12/18/24 13:18 15:20 18:09 WBC RBC Hgb Hct MCV MCH MCHC RDW Plt Count MPV Immature Gran % (Auto) Neut % (Auto) Lymph % (Auto) Wirt % (Auto) Eos % (Auto) Baso % (Auto) Lymph # (Auto) Wirt # (Auto) Eos # (Auto) Baso # (Auto) Abs Immat Gran (auto) Absolute Neuts (auto) Absolute Nucleated RBC Nucleated RBC % Platelet Estimate Hypochromasia Anisocytosis Stomatocytes Schistocytes PT INR APTT D-Dimer 0.87 H Puncture Site Right radial ABG pH 7.364 ABG pCO2 59.0 H ABG pO2 64.1 L ABG PO2/FiO2 Ratio 1.78 ABG HCO3 32.9 H ABG O2 Saturation 91.2 L ABG O2 Content 15.5 L ABG Base Excess 6.0 VBG pH VBG pCO2 VBG pO2 VBG HCO3 A-a Gradient 124.1 Oxyhemoglobin 90.2 Carboxyhemoglobin 1.2 Methemoglobin 0.2 Reduced Hemoglobin 8.4 H Total Hemoglobin 12.2 O2 Delivery Device Nasal cannula O2 Liters/Min 4.0 Vent Rate FiO2 36 Expiratory Pressure Inspiratory Pressure Sodium Potassium Chloride Carbon Dioxide Anion Gap BUN Creatinine Estim Creat Clear Calc Estimated GFR Glucose POC Capillary Glucose Hemoglobin A1c Calcium Magnesium Total Bilirubin AST ALT Alkaline Phosphatase Troponin I 0.034 0.024 D NT-Pro-B Natriuret Pep Total Protein Albumin Triglycerides 134 Cholesterol 161 LDL Cholesterol Direct 67 HDL Direct 56 Lipase Nasal MRSA (PCR) Influenza A (RT-PCR) Influenza B (RT-PCR) RSV (RT-PCR) SARS-CoV-2 RNA (RT-PCR) Blood Type Antibody Screen 12/18/24 12/18/24 12/18/24 21:11 21:16 21:17 WBC RBC Hgb 11.1 L Hct 38.7 MCV MCH MCHC RDW Plt Count MPV Immature Gran % (Auto) Neut % (Auto) Lymph % (Auto) Wirt % (Auto) Eos % (Auto) Baso % (Auto) Lymph # (Auto) Wirt # (Auto) Eos # (Auto) Baso # (Auto) Abs Immat Gran (auto) Absolute Neuts (auto) Absolute Nucleated RBC Nucleated RBC % Platelet Estimate Hypochromasia Anisocytosis Stomatocytes Schistocytes PT INR APTT D-Dimer Puncture Site ABG pH ABG pCO2 ABG pO2 ABG PO2/FiO2 Ratio ABG HCO3 ABG O2 Saturation ABG O2 Content ABG Base Excess VBG pH 7.279 L VBG pCO2 82.3 H* VBG pO2 47.5 H VBG HCO3 37.7 H A-a Gradient Oxyhemoglobin Carboxyhemoglobin Methemoglobin Reduced Hemoglobin Total Hemoglobin O2 Delivery Device Nasal cannula O2 Liters/Min 6.0 Vent Rate FiO2 44 Expiratory Pressure Inspiratory Pressure Sodium Potassium Chloride Carbon Dioxide Anion Gap BUN Creatinine Estim Creat Clear Calc Estimated GFR Glucose POC Capillary Glucose 134 H Hemoglobin A1c Calcium Magnesium Total Bilirubin AST ALT Alkaline Phosphatase Troponin I NT-Pro-B Natriuret Pep Total Protein Albumin Triglycerides Cholesterol LDL Cholesterol Direct HDL Direct Lipase Nasal MRSA (PCR) Influenza A (RT-PCR) Influenza B (RT-PCR) RSV (RT-PCR) SARS-CoV-2 RNA (RT-PCR) Blood Type Antibody Screen 12/18/24 12/18/24 12/19/24 21:44 23:22 04:44 WBC 8.6 RBC 4.11 L Hgb 11.0 L Hct 39.1 MCV 95.1 MCH 26.8 MCHC 28.1 L RDW 17.2 H Plt Count 313 MPV 9.2 Immature Gran % (Auto) 1.6 H Neut % (Auto) 61.6 Lymph % (Auto) 25.7 Wirt % (Auto) 8.7 H Eos % (Auto) 1.4 Baso % (Auto) 1.0 Lymph # (Auto) 2.22 Wirt # (Auto) 0.8 H Eos # (Auto) 0.1 Baso # (Auto) 0.1 Abs Immat Gran (auto) 0.14 H Absolute Neuts (auto) 5.3 Absolute Nucleated RBC 0.300 H Nucleated RBC % 3.5 H Platelet Estimate Adequate Hypochromasia 1+ Anisocytosis 1+ Stomatocytes 1+ Schistocytes None seen PT INR APTT D-Dimer Puncture Site ABG pH ABG pCO2 ABG pO2 ABG PO2/FiO2 Ratio ABG HCO3 ABG O2 Saturation ABG O2 Content ABG Base Excess VBG pH 7.301 VBG pCO2 76.8 H* VBG pO2 63.1 H VBG HCO3 37.0 H A-a Gradient Oxyhemoglobin Carboxyhemoglobin Methemoglobin Reduced Hemoglobin Total Hemoglobin O2 Delivery Device Non-invasive vent O2 Liters/Min Not Reportable Vent Rate 22 FiO2 36 Expiratory Pressure 6 Inspiratory Pressure 14 Sodium 140 Potassium 4.6 Chloride 96 L Carbon Dioxide 39 H Anion Gap 5 BUN 14 Creatinine 0.51 L Estim Creat Clear Calc 171 Estimated GFR > 60 Glucose 140 H POC Capillary Glucose Hemoglobin A1c Calcium 9.8 Magnesium 2.0 Total Bilirubin 0.8 AST 37 H ALT 55 H Alkaline Phosphatase 106 Troponin I NT-Pro-B Natriuret Pep 1550 H Total Protein 8.0 Albumin 3.7 Triglycerides Cholesterol LDL Cholesterol Direct HDL Direct Lipase Nasal MRSA (PCR) Not detected Influenza A (RT-PCR) Influenza B (RT-PCR) RSV (RT-PCR) SARS-CoV-2 RNA (RT-PCR) Blood Type Antibody Screen 12/19/24 12/19/24 12/19/24 04:52 07:36 07:42 WBC RBC Hgb Hct MCV MCH MCHC RDW Plt Count MPV Immature Gran % (Auto) Neut % (Auto) Lymph % (Auto) Wirt % (Auto) Eos % (Auto) Baso % (Auto) Lymph # (Auto) Wirt # (Auto) Eos # (Auto) Baso # (Auto) Abs Immat Gran (auto) Absolute Neuts (auto) Absolute Nucleated RBC Nucleated RBC % Platelet Estimate Hypochromasia Anisocytosis Stomatocytes Schistocytes PT INR APTT D-Dimer Puncture Site Left radial ABG pH 7.354 ABG pCO2 63.6 H* ABG pO2 92.1 ABG PO2/FiO2 Ratio 2.88 ABG HCO3 34.6 H ABG O2 Saturation 96.5 ABG O2 Content 15.6 L ABG Base Excess 7.3 VBG pH 7.258 L VBG pCO2 89.7 H* VBG pO2 28.0 L VBG HCO3 39.2 H A-a Gradient 61.7 Oxyhemoglobin 96.4 Carboxyhemoglobin Methemoglobin Reduced Hemoglobin Total Hemoglobin 11.4 L O2 Delivery Device Non-invasive vent Bipap O2 Liters/Min Not Reportable Not Reportable Vent Rate 4 FiO2 36 32 Expiratory Pressure 10 12 Inspiratory Pressure 22 26 Sodium Potassium Chloride Carbon Dioxide Anion Gap BUN Creatinine Estim Creat Clear Calc Estimated GFR Glucose POC Capillary Glucose 122 H Hemoglobin A1c Calcium Magnesium Total Bilirubin AST ALT Alkaline Phosphatase Troponin I NT-Pro-B Natriuret Pep Total Protein Albumin Triglycerides Cholesterol LDL Cholesterol Direct HDL Direct Lipase Nasal MRSA (PCR) Influenza A (RT-PCR) Influenza B (RT-PCR) RSV (RT-PCR) SARS-CoV-2 RNA (RT-PCR) Blood Type Antibody Screen
--- NOTE | 2024-12-19 09:59 | ECG_ITS ---
Test Date: 2024-12-19 10:10:15 Measurements Intervals [place] Rate: 74 P: 68 [place]: 142 QRS: -11 QRSD: 107 T: 34 QT: 428 QTc: 477 Interpretive Statements SINUS RHYTHM DELAYED PRECORDIAL R/S TRANSITION MODERATE T-WAVE ABNORMALITY, CONSIDER ANTERIOR ISCHEMIA ABNORMAL ECG Compared to ECG 12/18/2024 12:12:58 No significant changes Electronically Signed On 12-19-2024 10:37:27 [employer]OVE [employer] by Scar Palacios D.O.
[2024-12-19] MEDS: guaiFENesin 12 HR 600 MG TABCR 1200 MG PO ×2 (10:21→20:19)
[2024-12-19] MEDS: PERFLUTREN LIPID MICROSPHERES 1.5 ML VIAL DILUTED TO 10 ML TOTAL VOLUME IV PUSH (10:45)
--- OUTSIDE RECORDS SUMMARY | 2024-12-19 10:47 | XMS_ITS | Clinical Summary ---
Author Organization [facility] Address [address] [address] Care Team Providers Care Pit Worker Power Shovel Name Role Phone Dilia Yap MD Primary Care Provider Arnulfo Garcia MD Unavailable [phone] Source Comments [facility],non-owned Affiliates and Associated Physician Practices is amultiple site organization consisting of ambulatory clinics and hospital sitesin [place], [place], [place] and [place]. This disclosure is being madepursuant to the Care Everywhere program and may not contain all information available regarding this patient. Last updated 18.[facility] Allergies No known active allergies Medications * [...] migh t be different from the original. [facility] 12/2017 Problem Noted Date Diagnosed Date Wound [...] PANEL (CALCIUM TOTAL) (06/21/2018 1:21 PM CDT) [facility] Glucose 91 74 - 106 mg/dL 06/21/2018 2:03 PM CDT [facility] Sodium 138 136 - 145 mmol/L 06/21/2018 2:03 PM CDT [facility] Potassium 3.8 3.5 - 5.1 mmol/L 06/21/2018 2:03 PM CDT [facility] Chloride 104 98 - 107 mmol/L 06/21/2018 2:03 PM CDT [facility] CO2 29 22 - 31 mmol/L 06/21/2018 2:03 PM CDT [facility] Calcium 9.8 8.5 - 10.1 mg/dL 06/21/2018 2:03 PM CDT [facility] Anion Gap 5(L) 8 - 16 mmol/L 06/21/2018 2:03 PM CDT [facility] BUN 9 7 - 21 mg/dL 06/21/2018 2:03 PM CDT [facility] Creatinine 0.64 0.50 - 1.30 mg/dL 06/21/2018 2:03 PM CDT [facility] eGFR by MDRD >60 >60 mL/min/1.7 3m2 06/21/2018 2:03 PM CDT [facility] eGFR by MDRD >60 >60 mL/min/1.7 3m2 06/21/2018 2:03 PM CDT [facility] Blood BLOOD SPECIMEN / Unknown Venipuncture / Unknown 06/21/2018 1:21 PM CDT 06/21/2018 1:27 PM CDT Nick Amezcua MD LAB - CHEMISTRY OR DERABLES Performing Organization Address City/State/[facility] Co de Phone Number [facility] [address] [phone] * ENDOSCOPY, COLON, DIAGNOSTIC (03/26/2016 6:39 AM CDT) Report Endoscopy POC _ Patient Name: Luis Christopher Procedure Date: 03/26/2016 6:39 AM Date of : 1970 Admit Type: Outpatient Age: 46 Gender: Female Attending MD: Dar Timmons MD _ Procedure: Colonoscopy Indications: Generalized abdominal pain, Iron deficiency anemia secondary to chronic blood loss Providers: Dar Timmons MD (Doctor), Sara Breaux, RN, Tyrone Lopez, Tape Coater Referring MD: Dilia Hawthorne MD (Referring MD) [...] pt states she got anemia labs at [facility] a week ago but we don't have these results. We will get them. - Discharge patient to home (ambulatory). - Resume previous diet. - Continue present medications. - Return to my office in 2 weeks. Procedure Code(s): --- Professional --- 96154, Colonoscopy, flexible; with biopsy, single or multiple --- Technical --- 05766, Colonoscopy, flexible; with biopsy, single or multiple [...] or abscess without bleeding CPT copyright 2015 [employer]. All rights reserved. The codes documented in this report are preliminary and upon manager advanced review may be revised to meet current compliance requirements. ___ Dar Timmons MD 03/26/2016 7:24:09 AM Number of Addenda: 0 Note Initiated On: 03/26/2016 6:39 AM [facility] 03/26/2016 6:39 AM CDT Dar Timmons MD GI PROCEDURE ORDERA BLES [facility] from Last 3 Months or Most Recently Relevant to Health Maintenance Advance Directives * Full Code (Latest Code Status on File) Date Activated Date Inactivated Comments 07/01/2018 1:11 PM 07/03/2018 6:53 PM * Full Code Date Activated Date Inactivated Comments 06/23/2018 6:34 PM 06/26/2018 5:04 PM Care Teams Pit Worker Power Shovel Relationship Specialty Start Date End Date Dilia Yap MD PCP - General Internal Medicine 06/12/15 Arnulfo Garcia MD [address] [place] [id number] Plastic and Reconstructive Surgery 06/20/19
--- OUTSIDE RECORDS SUMMARY | 2024-12-19 10:47 | XMS_ITS | Referral Summary ---
Author Organization [facility] Address [address] [place] [address] Care Team Providers Care Hide And Skin Fleshing Machine Operator Name Role Phone Dilia Yap MD Primary Care Provider Arnulfo Garcia MD Unavailable [phone] Source Comments [facility],non-owned Affiliates and Associated Physician Practices is amultiple site organization consisting of ambulatory clinics and hospital sitesin [place], [place], [place] and [place]. This disclosure is being madepursuant to the Care Everywhere program and may not contain all information available regarding this patient. Last updated 18.[facility] Allergies No known active allergies Medications [...] migh t be different from the original. [facility] 12/2017 Problem Noted Date Diagnosed Date [...] - 106 mg/dL 06/21/2018 2:03 PM CDT [facility] Sodium 138 136 - 145 mmol/L 06/21/2018 2:03 PM CDT [facility] Potassium 3.8 3.5 - 5.1 mmol/L 06/21/2018 2:03 PM CDT [facility] Chloride 104 98 - 107 mmol/L 06/21/2018 2:03 PM CDT [facility] CO2 29 22 - 31 mmol/L 06/21/2018 2:03 PM CDT [facility] Calcium 9.8 8.5 - 10.1 mg/dL 06/21/2018 2:03 PM CDT [facility] Anion Gap 5(L) 8 - 16 mmol/L 06/21/2018 2:03 PM CDT [facility] BUN 9 7 - 21 mg/dL 06/21/2018 2:03 PM CDT [facility] Creatinine 0.64 0.50 - 1.30 mg/dL 06/21/2018 2:03 PM CDT [facility] eGFR by MDRD >60 >60 mL/min/1.7 3m2 06/21/2018 2:03 PM CDT [facility] eGFR by MDRD >60 >60 mL/min/1.7 3m2 06/21/2018 2:03 PM CDT [facility] Blood BLOOD SPECIMEN / Unknown Venipuncture / Unknown 06/21/2018 1:21 PM CDT 06/21/2018 1:27 PM CDT Nick Amezcua MD LAB - CHEMISTRY OR DERABLES [facility] [address] [place] [address] * ENDOSCOPY, COLON, DIAGNOSTIC (03/26/2016 6:39 AM CDT) Report Endoscopy POC _ Patient Name: Luis Wolfeage Procedure Date: 03/26/2016 6:39 AM Date of : 1970 Admit Type: Outpatient Age: 46 Gender: Female Attending MD: Dar Timmons MD _ Procedure: Colonoscopy Indications: Generalized abdominal pain, Iron deficiency anemia secondary to chronic blood loss Providers: Dar Timmons MD (Doctor), Sara Breaux, RN, Tyrone Lopez, Cotton Feeder Referring MD: Dilia Hawthorne MD (Referring MD) [...] pt states she got anemia labs at [facility] a week ago but we don't have these results. We will get them. - Discharge patient to home (ambulatory). - Resume previous diet. - Continue present medications. - Return to my office in 2 weeks. Procedure Code(s): --- Professional --- 38580, Colonoscopy, flexible; with biopsy, single or multiple --- Technical --- 99254, Colonoscopy, flexible; with biopsy, single or multiple [...] or abscess without bleeding CPT copyright 2015 [employer]. All rights reserved. The codes documented in this report are preliminary and upon it web development consultant review may be revised to meet current compliance requirements. ___ Dar Timmons MD 03/26/2016 7:24:09 AM Number of Addenda: 0 Note Initiated On: 03/26/2016 6:39 AM [facility] 03/26/2016 6:39 AM CDT Dar Timmons MD GI PROCEDURE ORDERA BLES [facility] from Last 3 Months or Most Recently Relevant to Health Maintenance Advance Directives * Full Code (Latest Code Status on File) Date Activated Date Inactivated Comments 07/01/2018 1:11 PM 07/03/2018 6:53 PM * Full Code Date Activated Date Inactivated Comments 06/23/2018 6:34 PM 06/26/2018 5:04 PM Care Teams Hide And Skin Fleshing Machine Operator Relationship Specialty Start Date End Date Dilia Yap MD PCP - General Internal Medicine 06/12/15 Arnulfo Garcia MD [address] [place] [address] Plastic and Reconstructive Surgery 06/20/19
--- OUTSIDE RECORDS SUMMARY | 2024-12-19 10:47 | XMS_ITS | Patient Health Summary ---
Author Organization [facility] Address [address] [place] [address] Care Team Providers Care Store Sales Consultant Name Role Phone Dilia Yap MD Primary Care Provider Arnulfo Garcia MD Unavailable Note from [facility],non-owned Affiliates and Associated Physician Practices is amultiple site organization consisting of ambulatory clinics and hospital sitesin [place], [place], [place] and [place]. This disclosure is being madepursuant to the Care Everywhere program and may not contain all information available regarding this patient. Last updated 18.[facility] Allergies No known active allergies Medications * [...] 62.77 07/25/2019 6:27 AM CDT Procedures * AK REPAIR BROW PTOSIS(Performed 07/25/2019) Performed for Ptosis [...] Proteus mirabilis(A) LIZZIE 07/08/2018 8:10 AM CDT [facility] MICROBIOLOGY Culture Light normal skin cesia LIZZIE 07/08/2018 8:10 AM CDT [facility] MICROBIOLOGY Gram Stain Light White blood cells 07/08/2018 8:10 AM CDT [facility] MICROBIOLOGY Gram Stain Light Gram-positiv e cocci 07/08/2018 8:10 AM CDT [facility] MICROBIOLOGY Microbiology SPECIMEN FROM WOUND / [...] please call microbiology lab to request manual [phone]. Romy Tirado DO LAB - MICROBIOL OGY ORDERABLES [facility] MICROBIOLOGY [address] [place] [address], [facility] [phone] * (ABNORMAL) CULTURE ANAEROBE (07/05/2018 11:49 PM CDT) Pathologist [facility] Culture Moderate Prevotella bivia(A) LIZZIE 07/11/2018 3:01 PM CDT [facility] MICROBIOLOGY Comment:Beta-lactamase posit harleen Microbiology SPECIMEN FROM WOUND / Unknown Collection / Unknown 07/05/2018 11:49 PM CDT 07/05/2018 11:52 PM CDT Narrative [facility] MICROBIOLOGY - 07/11/2018 3:01 PM CDT Nushanika Stevensoh 07/06/2018 9:53 AM Romy Tirado DO LAB - MICROBIOL OGY ORDERABLES [facility] MICROBIOLOGY [address] [place] [address], [facility] [phone] * (ABNORMAL) SLIDE SCAN HEMATOLOGY (07/01/2018 2:21 PM CDT) Only the most recent of2 resultswithin the time period is included. Pathologist [facility] Platelet Estimation Normal Normal, Adequate platelets 07/01/2018 3:44 PM CDT [facility] Anisocytosis 1+(A) None 07/01/2018 3:44 PM CDT [facility] Hypochromia 2+(A) None 07/01/2018 3:44 PM CDT [facility] Polychromasia 1+(A) None 07/01/2018 3:44 PM CDT [facility] Target Cells Occasiona l(A) None 07/01/2018 3:44 PM CDT [facility] Tear Drop Cells 1+(A) None 8 3:44 PM CDT [facility] Blood BLOOD SPECIMEN / Unknown Lab Venipuncture / Unknown 07/01/2018 2:21 PM CDT 07/01/2018 2:47 PM CDT Don Arias MD LAB - HEMATOLOGY ORD ERABLES [facility] [address] [place] [address] * (ABNORMAL) CBC W AUTO DIFFERENTIAL (07/01/2018 2:21 PM CDT) Only the most recent of9 resultswithin the time period is included. WBC 10.9(H) 4.4 - 10.7 x10E9/L 07/01/2018 2:57 PM CDT [facility] WBC Corrected x10E9/L 07/01/2018 2:57 PM CDT [facility] RBC 3.67(L) 3.80 - 5.20 x10E12/L 07/01/2018 2:57 PM CDT [facility] Hemoglobin 7.4(L) 12.0 - 15.6 gm/dL 07/01/2018 2:57 PM CDT [facility] Hematocrit 26.7(L) 35.9 - 45.5 % 07/01/2018 2:57 PM CDT [facility] MCV 72.8(L) 80.7 - 98.3 fl 07/01/2018 2:57 PM CDT [facility] MCH 20.2(L) 26.7 - 34.0 pg 07/01/2018 2:57 PM CDT [facility] MCHC 27.7(L) 30.8 - 35.9 gm/dL 07/01/2018 2:57 PM CDT [facility] Platelet Count 434(H) 153 - 416 x10E9/L 07/01/2018 2:57 PM CDT [facility] RDW-CV 23.1(H) 12.1 - 14.9 % 07/01/2018 2:57 PM CDT [facility] MPV 8.7(L) 9.4 - 12.9 fl 07/01/2018 2:57 PM CDT [facility] Neutrophils % 69.7 44.0 - 73.0 % 07/01/2018 2:57 PM CDT [facility] Lymphocytes % 17.1(L) 20.0 - 43.0 % 07/01/2018 2:57 PM CDT [facility] Monocytes % 9.9 5.0 - 13.0 % 07/01/2018 2:57 PM CDT [facility] Eosinophils % 2.1 0.0 - 6.0 % 07/01/2018 2:57 PM CDT [facility] Basophils % 0.5 0.0 - 2.0 % 07/01/2018 2:57 PM CDT [facility] Immature Granulocytes 0.7 0 - 1 % 07/01/2018 2:57 PM CDT [facility] Neutrophil Absolute 7.57(H) 2.01 - 7.14 x10E9/L 07/01/2018 2:57 PM CDT [facility] Lymphocytes Absolute 1.85 1.07 - 3.94 x10E9/L 07/01/2018 2:57 PM CDT [facility] Monocytes Absolute 1.07 0.26 - 1.07 x10E9/L 07/01/2018 2:57 PM CDT [facility] Eosinophils Absolute 0.23 0 - 0.47 x10E9/L 07/01/2018 2:57 PM CDT [facility] Basophils Absolute 0.05 0 - 0.08 x10E9/L 07/01/2018 2:57 PM CDT [facility] Immature Granulocytes Absolute 0.08(H) 0.00 - 0.06 x10E9/L 07/01/2018 2:57 PM CDT [facility] nRBC Auto 0 /100 WBC 07/01/2018 2:57 PM CDT [facility] Blood BLOOD SPECIMEN / Unknown Lab Venipuncture / Unknown 07/01/2018 2:21 PM CDT 07/01/2018 2:47 PM CDT Don Arias MD LAB - HEMATOLOGY ORD ERABLES Performing Organization Address [facility]/State/[facility] Co de Phone Number [facility] [address] [phone] * CARDIAC RHYTHM STRIP ORDER (06/28/2018 10:42 [...] the time period is included. Product Code [id number] [facility] Unit Donor # [id number] S [facility] BLOOD [facility] LAB ABO Donor Type A [facility] Rh Type Unit POS [facility] Unit Status Ret'd [facility] BLO OD BANK LAB ABO Rh Type Unit APOS [facility] Donor Unit Expiration Date [facility] Blood Type Barcode 6200 [facility] Product Code [id number] [facility] LAB Unit Donor # [id number] S [facility] BLOOD BANK LAB ABO Donor Type A [facility] Rh Type Unit POS [facility] Unit Status Ret'd [facility] BLO OD BANK LAB ABO Rh Type Unit APOS [facility] Donor Unit Expiration Date [facility] Blood Type Barcode 6200 [facility] Blood Bank BLOOD SPECIMEN / Unknown 06/23/2018 3:00 PM CDT Yovana Cunningham MD LAB - BLOOD BANK ORD ERABLES [facility] [address] [phone] * GROSS + MICRO EXAM (STL) (06/23/2018 2:33 PM CDT) Only the most recent of2 resultswithin the time period is included. Case Report Surgical Pathology Report Case: [id number] Authorizing Provider: Yovana Cunningham MD Collected: 06/23/2018 02:33 PM Ordering Location: [facility] Received: 06/24/2018 05:32 AM Pathologist: Mindi Huddleston MD Specimens: A) - Cervix, cervix and uterine body B) - Uterus, UTERUS, LEFT TUBE AND OVARY 06/27/2018 3:11 PM CDT [facility] Final Diagnosis A. Cervix, [...] no pathologic diagnosis IA/LESTER/dejan 06/27/2018 3:11 PM [facility] Gross Description The specimen is [...] pink-samuel and glistening. No lesions are identified. [employer] sections are submitted as A1 and A2. [...] soft, pink-samuel tissue. No lesions are identified. Pre [employer] Special Education Teacher sections are submitted as follows: B1-B7 - endomyometrium, serosa, and leiomyoma. B8-B9 - ovary and fallopian tube. IA/kf IA/ns 06/27/2018 3:11 PM [facility] Microscopic Description Sections of the [...] stromal hyperthecosis. IA/GM/ns 06/27/2018 3:11 PM CDT [facility] Disclaimer All histochemical and/or immunohistochemical results are interpreted with controls that demonstrate appropriate staining reactions before reporting results. Note on use of immunocytochemistry reagents: This test was developed and its performance characteristic determined by [facility], Department of Laboratory Medicine. It has not been cleared or approved by the U.S. Food and Drug Administration (FDA). The FDA has determined that such clearance or approval is not necessary. The test is used for clinical purpose. It should not be regarded as investigational or for research. This laboratory is certified to perform high complexity testing. 06/27/2018 3:11 PM CDT [facility] Embedded Images 06/27/2018 3:11 PM CDT [facility] Pathology/Cytology PART OF UTERINE CERVIX / Unknown 06/23/2018 2:33 PM CDT 06/24/2018 5:32 AM CDT Miscellaneous samples (specimen) ENTIRE UTERUS / Unknown 06/23/2018 3:09 PM CDT 06/24/2018 5:32 AM CDT Yovana Cunningham MD LAB - PATHOLOGY/CYTO LOGY ORDERABLES Performing Organization Address City/State/[facility] Co de Phone Number [facility] [address] [place] [address] * TYPE + SCREEN PANEL (06/23/2018 10:25 AM CDT) Only the most recent of2 resultswithin the time period is included. ABO A 06/23/2018 11:09 AM CDT [facility] Rh Type Positive 06/23/2018 11:09 AM CDT [facility] Comment:History checked. Antibody Screen Negative 06/23/2018 11:09 AM CDT [facility] Blood Bank BLOOD SPECIMEN / Unknown Venipuncture / Unknown 06/23/2018 10:25 AM CDT 06/23/2018 10:27 AM CDT Nick Amezcua MD LAB - BLOOD BANK O DYLLAN Performing Organization Address [facility] Co de Phone Number [facility] [address] [phone] * HCG URINE QUALITATIVE - POCT (IP) INTERFACED (06/23/2018 10:08 AM CDT) HCG Qual Urine Negative Negative 06/23/2018 10:11 AM CDT [facility] Urine URINE / Unknown 06/23/2018 1 0:08 AM CDT 06/23/2018 10:11 AM CDT Yovana Cunningham MD LAB - POINT OF CARE ORDERABLES Performing Organization Address [facility] Co de Phone Number [facility] [address] [place] [address] * HCG URINE QUAL POCT NOTIFICATION (06/23/2018 10:00 AM CDT) Comment Notification Label Only - See Separate Report 06/23/2018 11:00 AM CDT [facility] Urine URINE / Unknown 06/23/2018 1 0:00 AM CDT 06/23/2018 10:00 AM CDT Nick Amezcua MD LAB - URINALYSIS O RDJOHN Performing Organization Address City/[facility] Co de Phone Number [facility] [address] [place] [address] * (ABNORMAL) BASIC METABOLIC PANEL (CALCIUM TOTAL) (06/21/2018 1:21 PM CDT) Glucose 91 74 - 106 mg/dL 06/21/2018 2:03 PM CDT [facility] Sodium 138 136 - 145 mmol/L 06/21/2018 2:03 PM CDT [facility] Potassium 3.8 3.5 - 5.1 mmol/L 06/21/2018 2:03 PM CDT [facility] Chloride 104 98 - 107 mmol/L 06/21/2018 2:03 PM CDT [facility] CO2 29 22 - 31 mmol/L 06/21/2018 2:03 PM CDT [facility] Calcium 9.8 8.5 - 10.1 mg/dL 06/21/2018 2:03 PM CDT [facility] Anion Gap 5(L) 8 - 16 mmol/L 06/21/2018 2:03 PM CDT [facility] BUN 9 7 - 21 mg/dL 06/21/2018 2:03 PM CDT [facility] Creatinine 0.64 0.50 - 1.30 mg/dL 06/21/2018 2:03 PM CDT [facility] eGFR by MDRD >60 >60 mL/min/1.7 3m2 06/21/2018 2:03 PM CDT [facility] eGFR by MDRD >60 >60 mL/min/1.7 3m2 06/21/2018 2:03 PM CDT [facility] Blood BLOOD SPECIMEN / Unknown Venipuncture / Unknown 06/21/2018 1:21 PM CDT 06/21/2018 1:27 PM CDT Nick Amezcua MD LAB - CHEMISTRY OR DERABLES Performing Organization Address City/State/[facility] Co de Phone Number [facility] [address] [phone] * OPH COLOR FUNDUS PHOTOGRAPHY SLU (04/07/2018 4:27 PM CDT) Anatomical Region Laterality Modality Other 04/07/2018 4:27 PM CDT Inés Reis MD OPHTHALMOLOGY SERVIC ES ORDERABLES * FL FLUORO LUMBAR PUNCT [[id number]] (02/15/2018 2:20 PM CDT) Anatomical Region Laterality [...] The patient was then transferred to the healthcare representative unit for further observation and at least [...] The patient was then transferred to the healthcare representative unit for further observation and at least [...] well. The patient was thentransferred to the healthcare representative unit for further observation and at least [...] LAB - POINT OF CARE ORDERABLES [facility] POCT TESTING [address] [phone] * MRI BRAIN WWO CONTRAST (02/03/2018 7:27 [...] time period is included. Microcytes 3+(A) None [facility] Hypochromia 2+(A) None [facility] Ovalocytes 1+(A) None [facility] Tear Drop Cells 1+(A) None [facility] Blood specimen (specimen) BLOOD SPECIMEN / Unknown 01/26/2018 9:52 AM CDT 01/26/2018 10:02 AM CDT Jaspreet Medina MD LAB - HEMATOLOGY ORD ERABLES [address] [phone] * (ABNORMAL) COMPREHENSIVE METABOLIC PANEL (01/26/2018 9:52 AM CDT) Only the most recent of2 resultswithin the time period is included. BUN 6(L) 7 - 26 mg/dL [facility] Creatinine 0.5(L) 0.6 - 1.2 mg/dL [facility] Sodium 136 136 - 145 mmol/L [facility] Potassium 3.8 3.5 - 4.5 mmol/L [facility] Chloride 105 98 - 107 mmol/L [facility] CO2 24 22 - 29 mmol/L [facility] Glucose 86 70 - 115 mg/dL [facility] Calcium 10.1 8.4 - 10.2 mg/dL [facility] Protein Total 8.0 6.0 - 8.3 g/dL [facility] Albumin 3.4 3.4 - 5.0 g/dL [facility] Bilirubin Total 0.4 0.2 - 1.2 mg/dL [facility] Alkaline Phosphatase 89 40 - 150 Units/L [facility] ALT 14 0 - 55 Units/L [facility] AST 15 5 - 34 Units/L [facility] Anion Gap 11 8 - 18 [facility] BUN/Creatinine Ratio 12 7 - 23 [facility] Osmolality Calculated 279 270 - 300 mOsm/kg [facility] Albumin/Globulin Ratio 0.7(L) 1.1 - 2.3 [facility] eGFR >60 >60 mL/min/1.7 3 m2 [facility] Blood specimen (specimen) BLOOD SPECIMEN / Unknown 01/26/2018 9:52 AM CDT 01/26/2018 10:06 AM CDT Jaspreet Medina MD LAB - CHEMISTRY BRANDON SM[facility] [address] [phone] * (ABNORMAL) TRANSFERRIN (01/26/2018 9:52 AM CDT) Only the most recent of2 resultswithin the time period is included. Transferrin 445(H) 174 - 382 mg/dL [facility] Transferrin Saturation % 2(L) 16 - 50 % [facility] Blood specimen (specimen) BLOOD SPECIMEN / Unknown 01/26/2018 9:52 AM CDT 01/26/2018 10:06 AM CDT Jaspreet Medina MD LAB - CHEMISTRY BR[facility]ON SMITH Performing Organization Address [facility] Co de Phone Number [address] [phone] * (ABNORMAL) IRON BLOOD (01/26/2018 9:52 AM CDT) Only the most recent of2 resultswithin the time period is included. Iron 13(L) 40 - 150 mcg/dL [facility] Blood specimen (specimen) BLOOD SPECIMEN / Unknown 01/26/2018 9:52 AM CDT 01/26/2018 10:06 AM CDT Jaspreet Medina MD LAB - CHEMISTRY BRANDON SMITH Performing Organization Address [facility] [place] [address], [facility] [phone] * (ABNORMAL) FERRITIN (01/26/2018 9:52 AM CDT) Only the most recent of2 resultswithin the time period is included. Ferritin 1(L) 13 - 204 ng/mL [facility] Blood specimen (specimen) BLOOD SPECIMEN / Unknown 01/26/2018 9:52 AM CDT 01/26/2018 10:06 AM CDT Jaspreet Medina MD LAB - CHEMISTRY BRANDON SMITH Performing Organization Address [facility] [place] [address], [facility] [phone] * US PELVIS WITH TRANSVAG NON OB (12/30/2017 10:11 AM CHIEF LENDING OFFICER) Anatomical Region Laterality Modality Pelvis Ultrasound 12/30/2017 10:1 8 AM CHIEF LENDING OFFICER Impressions 12/30/2017 10:24 AM CHIEF LENDING OFFICER 1. Enlarged multi fibroid uterus similar to 2015. 2. Normal endometrial thickness. Submucosal fibroids seen on the prior MRI are not clearly visualized on today's exam. 3. Unremarkable ovaries Narrative 12/30/2017 10:24 AM CHIEF LENDING OFFICER Ultrasound pelvis, transabdominal and transvaginal. DATE: 12/30/2017. [...] ORDERABLES * ZINC BLOOD (11/19/2017 9:58 AM CHIEF LENDING OFFICER) Zinc Blood 76 56 - 134 ug/dL [facility] ([facility]) Comment:Detection Limit = 5 Blood specimen (specimen) BLOOD SPECIMEN / Unknown 11/19/2017 9:58 AM CHIEF LENDING OFFICER 11/19/2017 10:27 AM CHIEF LENDING OFFICER Narrative [facility] ([facility]) - 11/23/2017 1:06 AM CHIEF LENDING OFFICER Performed at: Lab[address] [id number] Livestock Farmworker: Chip Mott MD, Phone: [phone] Jaspreet Medina MD LAB - CHEMISTRY BRANDON SMITH Performing Organization Address [facility]/ZIP Co de Phone Number [facility] ([facility]) [address] [place] [address] * HEMOGLOBIN ELECTROPHORESIS (11/19/2017 9:58 AM CHIEF LENDING OFFICER) Pathologist [facility] Interpretation Hemoglobin Pattern Normal Pattern Normal Pattern [facility] Comment: Hemoglobin (Hb) capillary electrophoresis shows [...] A 98.0 97.1 - 99.1 % [facility] Hemoglobin A2 2.0 0.9 - 2.9 % [facility] Blood specimen (specimen) 11/19/2017 9:58 AM CHIEF LENDING OFFICER 11/19/2017 10:11 AM CHIEF LENDING OFFICER Jaspreet Medina MD LAB - CHEMISTRY BRANDON SMITH Performing Organization Address City/[facility]/ZIP Co de Phone Number [address] [phone] * (ABNORMAL) COPPER BLOOD (11/19/2017 9:58 AM CHIEF LENDING OFFICER) Copper 167(H) 72 - 166 ug/dL [facility] ([facility]) Comment:Detection Limit = 5 Blood specimen (specimen) BLOOD SPECIMEN / Unknown 11/19/2017 9:58 AM CHIEF LENDING OFFICER 11/19/2017 10:27 AM CHIEF LENDING OFFICER Narrative [facility] ([facility]) - 11/23/2017 5:10 AM CHIEF LENDING OFFICER Performed at: - [address] [id number] Livestock Farmworker: Chip Mott MD, Phone: [phone] Jaspreet Medina MD LAB - CHEMISTRY ORDRangel SMITH Performing Organization Address City/[facility]/ZIP Co de Phone Number [facility] ([facility]) [address] [phone] * RETIC COUNT (11/19/2017 9:58 AM CHIEF LENDING OFFICER) Reticulocyte % 2.0 0.4 - 2.5 % [facility] Reticulocyte Absolute 0.09 0.02 - 0.13 10 6/uL [facility] Blood specimen (specimen) BLOOD SPECIMEN / Unknown 11/19/2017 9:58 AM CHIEF LENDING OFFICER 11/19/2017 10:11 AM CHIEF LENDING OFFICER Jaspreet Medina MD LAB - HEMATOLOGY ORD ERABLES Performing Organization Address [facility]/ZIP Co de Phone Number [address] [phone] * FOLATE (11/19/2017 9:58 AM CHIEF LENDING OFFICER) Folate 7.4 7.0 - 31.4 ng/mL [facility] Blood specimen (specimen) BLOOD SPECIMEN / Unknown 11/19/2017 9:58 AM CHIEF LENDING OFFICER 11/19/2017 10:11 AM CHIEF LENDING OFFICER Jaspreet Medina MD LAB - CHEMISTRY ORDE SARAH Performing Organization Address City/[facility]/ZIP Co de Phone Number [address] [phone] * VITAMIN B12 (11/19/2017 9:58 AM CHIEF LENDING OFFICER) Vitamin B12 404 213 - 816 pg/mL [facility] Blood specimen (specimen) BLOOD SPECIMEN / Unknown 11/19/2017 9:58 AM CHIEF LENDING OFFICER 11/19/2017 10:11 AM CHIEF LENDING OFFICER Jaspreet Medina MD LAB - CHEMISTRY BR[facility]ON SMITH [address] [phone] * (ABNORMAL) HELICOBACTER PYLORI UREASE (STL) (03/26/2016 6:57 AM CDT) Helicobacter pylori Urease Initial Positive( A) Negative 03/26/2016 2:14 PM CDT [facility] Helicobacter pylori Urease Final Positive( A) Negative 03/26/2016 2:14 PM CDT [facility] Microbiology GASTRIC BIOPSY SPECIMEN / Unknown Collection / Unknown 03/26/2016 6:57 AM CDT 03/26/2016 2:13 PM CDT Dar Timmons MD LAB - MICROBIOLOGY ORDERABLES [facility] [address] [place] [address] * EGD (03/26/2016 6:39 AM CDT) Report Endoscopy POC _ Patient Name: Gabrielleaya Christopher Procedure Date: 03/26/2016 6:39 AM Date of : 1970 Admit Type: Outpatient Age: 46 Gender: Female Attending MD: Dar Timmons MD _ Procedure: Upper GI endoscopy Indications: Generalized abdominal pain Providers: Dar Timmons MD (Doctor), Sara Breaux RN, Tyrone Lopez, Project Management Advisor Referring MD: Dilia Hawthorne MD (Referring MD) [...] 2 weeks. Procedure Code(s): --- Professional --- 27348, Esophagogastrodu odenoscopy, flexible, transoral; with biopsy, single or multiple --- Technical --- 68281, Esophagogastrodu odenoscopy, flexible, transoral; with biopsy, single or multiple Diagnosis Code(s): --- Professional --- R10.84, Generalized abdominal pain K31.9, Disease of stomach and duodenum, unspecified --- Technical --- R10.84, Generalized abdominal pain K31.9, Disease of stomach and duodenum, unspecified CPT copyright 2015 [employer]. All rights reserved. The codes documented in this report are preliminary and upon terrazzo layer helper review may be revised to meet current compliance requirements. Dar Timmons MD 03/26/2016 7:17:11 AM Number of Addenda: 0 Note Initiated On: 03/26/2016 6:39 AM [facility] ENDOSCOPY 03/26/2016 6:39 AM CDT Dar Timmons MD GI PROCEDURE ORDERA [facility] Organization Address City/State/ZIP Co de Phone Number [facility] ENDOSCOPY * ENDOSCOPY, COLON, DIAGNOSTIC [...] MD (Doctor), Sara Breaux RN, Tyrone Lopez, Project Management Advisor Referring MD: Dilia Hawthorne MD (Referring MD) [...] pt states she got anemia labs at [facility] a week ago but we don't have these results. We will get them. - Discharge patient to home (ambulatory). - Resume previous diet. - Continue present medications. - Return to my office in 2 weeks. Procedure Code(s): --- Professional --- 13631, Colonoscopy, flexible; with biopsy, single or multiple --- Technical --- 77881, Colonoscopy, flexible; with biopsy, single or multiple [...] or abscess without bleeding CPT copyright 2015 [employer]. All rights reserved. The codes documented in this report are preliminary and upon terrazzo layer helper review may be revised to meet current compliance requirements. ___ Dar Timmons MD 03/26/2016 7:24:09 AM Number of Addenda: 0 Note Initiated On: 03/26/2016 6:39 AM [facility] 03/26/2016 6:39 AM CDT Dar Timmons MD GI PROCEDURE ORDERA [facility] ENDOSCOPY * MRI PELVIS NON [...] submucosal fibroids as described above. Estefani Brown WEB CONSULTANT-SENIOR DATA QUALITY ANALYST MR ORDERABLE S * GROSS + MICRO EXAM (02/29/2008 7:15 AM CDT) Result CASE NUMBER [id number] Comment: ORDERING PHYSICIAN NAEBEL MENDOZA SPECIMEN TYPE Prod of Conception Date 02/29/2008 Physician Autumn Mullen Gross Description The specimen is received in Formalin labeled with the patient's name, Luis White, and products of conception. It consists of a 7 x 6 x 5 cm aggregate of congested hemorrhage dark red samuel tissue mixed with blood clot and mucous. No embryonic tissue is seen on gross examination. A desk representative portion of the specimen is submitted in cassettes A and B. LW diaz Microscopic Exam Sections show fragments of inflamed and hemorrhagic decidual tissue. No parts or chorionic villi are seen. MC/na Diagnosis I. Uterine contents, curettage -- Decidual tissue -- No chorionic villi or parts seen MC/na Sterile Supply Technician na Pathologist Michael Awan M.D. [place]. 03/01/2008 1359 <1> CPT code 83331 MISCELLANEOUS SAMPLES / Unknown 02/29/2008 7:15 AM CDT 02/29/2008 10:42 AM CDT Historical Provider LAB - PATHOLOGY/C YTOLOGY ORDERABLES Care Teams Store Sales Consultant Relationship Specialty Start Date End Date Dilia Yap MD PCP - General Internal Medicine 06/12/[address] MD [facility] [facility] [place] [address] Plastic and Reconstructive Surgery 06/20/19
[2024-12-19 10:49] LABS: Troponin I < 0.012 ng/mL (0.000-0.034)
--- NOTE | 2024-12-19 10:57 | P.CONCA_ITS ---
Assessment and Plan Assessment and plan (1) Chest pain: Code(s): R07.9 - Chest pain, unspecified Status: Acute Assessment and Plan: Atypical chest pain which resolved with positional change. EKG was obtained which did not show any acute ischemic changes. Troponin level was sampled and is negative. Will follow-up on results of echocardiogram; if normal systolic function and no evidence of wall motion abnormalities, do not anticipate any further cardiac workup in this regard. (2) Heart failure of unknown type: Code(s): I50.9 - Heart failure, unspecified Status: Acute Assessment and Plan: Difficult to assess her volume status because of her body habitus. Will follow- up on results of echocardiogram and adjust medical therapy as indicated. (3) GI bleed: Code(s): K92.2 - Gastrointestinal hemorrhage, unspecified Status: Acute Assessment and Plan: GI consult, no current plans for colonoscopy. (4) Acute respiratory failure with hypoxia and hypercapnia: Code(s): J96.01 - Acute respiratory failure with hypoxia; J96.02 - Acute respiratory failure with hypercapnia Status: Acute Assessment and Plan: On BiPAP. Management per hospitalist. History of Present Illness History of Present Illness Consult date/time: 12/19/24 10:57 Requesting physician: Noemi Rogers MD Consult reason: chest pain Reason For Visit: Chest Pain, pneumonia, GI Bleed Narrative: Luis White is a 54 year old female with history of congestive heart failure (follows at [facility]), chronic obstructive pulmonary disease, obstructive sleep apnea, and morbid obesity with a BMI of 75. This is a patient who presented to the hospital with complaints of constipation and melenic stools, nausea, epigastric discomfort. Cardiology is consulted because of chest pain. While the patient was having an echocardiogram performed she developed sharp, substernal chest pain. She rates the pain at a 10/10 in intensity. She was lying down to have echocardiogram performed and when she was sat up the pain resolved. Patient states she is unable to lay flat at home, therefore she has never experienced this pain prior. At the time of my evaluation she is free from any chest discomfort. Review of Systems 2 Review of Systems: All systems reviewed & are unremarkable except as noted in HPI and below PMFSH Past Medical History Medical History Pulmonary embolism H. pylori infection Chronic obstructive pulmonary disease Prediabetes Obstructive sleep apnea on CPAP Heart failure of unknown type Morbid obesity Surgical History Surgical History History of eye surgery History of carpal tunnel release History of hysterectomy Social History Social History Social History: Surrogate medical decision maker: Paulina Moulton (sibling) or her 2 children. Code status: Full code. Smoking packs per day: 0.25 Smoking cigarettes per day: 5.0 Years smoked: 25 Smoking pack-years: 6.25 Smoking status: Former smoker Tobacco type: cigarettes Alcohol intake: never Substance use: never Substance use type: does not use Do You Feel Safe in your Home?: No Lack of Transportation: No Lack of Food: Never True Current Housing: I Have Housing Concerned About Future Housing: No Difficulty Paying Gas/Electric Bills: No Difficulty Paying for Meds: No Currently Unemployed: No Education: High School Diploma/GED Difficulty w/ Childcare or Family Care: No Spiritual care concerns: No Meds Home Medications and Allergies Home Medications ?Medication ?Instructions ?Recorded ?Confirmed ?Type albuterol sulfate 90 mcg/actuation 3 inh inhalation Q8H PRN shortness 06/18/20 12/18/24 History aerosol inhaler of breath or wheezing Allergies Allergy/AdvReac Type Severity Reaction Status Date / Time No Known Allergies Allergy Verified 12/18/24 16:59 Vital Signs Vital Signs - 24 hr 12/18/24 12:10 12/18/24 12:11 12/18/24 12:12 Temperature 36.6 C Pulse Rate 93 Respiratory Rate 20 Blood Pressure 169/114 H Pulse Oximetry 78 L 96 96 Oxygen Delivery Room Air Nasal Cannula Oxygen Flow Rate 4 6 Fraction of Inspired Oxygen 12/18/24 12:18 12/18/24 13:30 12/18/24 15:34 Temperature Pulse Rate 85 Respiratory Rate 16 Blood Pressure 135/72 Pulse Oximetry 98 95 92 Oxygen Delivery Nasal Cannula Nasal Cannula Oxygen Flow Rate 4 4 Fraction of Inspired Oxygen 12/18/24 15:34 12/18/24 15:38 12/18/24 16:00 Temperature Pulse Rate 88 93 87 Respiratory Rate 20 20 18 Blood Pressure 176/92 H Pulse Oximetry 99 Oxygen Delivery Oxygen Flow Rate Fraction of Inspired Oxygen 12/18/24 16:25 12/18/24 16:30 12/18/24 16:36 Temperature Pulse Rate 97 Respiratory Rate Blood Pressure Pulse Oximetry 93 93 Oxygen Delivery Nasal Cannula Nasal Cannula Oxygen Flow Rate 4 4 Fraction of Inspired Oxygen 12/18/24 18:00 12/18/24 20:00 12/18/24 20:00 Temperature 36.4 C Pulse Rate 105 H 87 Respiratory Rate 18 Blood Pressure 173/99 H Pulse Oximetry 93 95 Oxygen Delivery Nasal Cannula Oxygen Flow Rate 4 Fraction of Inspired Oxygen 12/18/24 20:00 12/18/24 20:11 12/18/24 20:20 Temperature Pulse Rate 95 92 Respiratory Rate 20 Blood Pressure Pulse Oximetry 97 Oxygen Delivery Nasal Cannula Oxygen Flow Rate 4 Fraction of Inspired Oxygen 12/18/24 20:21 12/18/24 21:31 12/18/24 22:00 Temperature Pulse Rate 92 88 87 Respiratory Rate 20 22 H Blood Pressure Pulse Oximetry 96 Oxygen Delivery BiPAP Oxygen Flow Rate Fraction of Inspired Oxygen 12/18/24 23:00 12/18/24 23:40 12/19/24 00:00 Temperature 36.4 C L Pulse Rate 89 24 L Respiratory Rate 22 H 22 H 85 H Blood Pressure 154/93 H Pulse Oximetry 95 95 97 Oxygen Delivery BiPAP BiPAP Oxygen Flow Rate Fraction of Inspired Oxygen 12/19/24 00:00 12/19/24 00:00 12/19/24 01:00 Temperature Pulse Rate 90 Respiratory Rate 16 Blood Pressure Pulse Oximetry 97 94 Oxygen Delivery BiPAP BiPAP Oxygen Flow Rate Fraction of Inspired Oxygen 36 12/19/24 02:00 12/19/24 02:28 12/19/24 02:30 Temperature Pulse Rate 84 84 Respiratory Rate 13 20 Blood Pressure Pulse Oximetry 92 Oxygen Delivery BiPAP Oxygen Flow Rate Fraction of Inspired Oxygen 12/19/24 02:40 12/19/24 03:30 12/19/24 04:00 Temperature Pulse Rate 84 Respiratory Rate 20 Blood Pressure Pulse Oximetry 97 95 Oxygen Delivery BiPAP BiPAP Oxygen Flow Rate Fraction of Inspired Oxygen 36 12/19/24 04:00 12/19/24 04:00 12/19/24 06:00 Temperature 36.4 C Pulse Rate 103 H 78 76 Respiratory Rate 20 Blood Pressure 147/87 H Pulse Oximetry 99 Oxygen Delivery Oxygen Flow Rate Fraction of Inspired Oxygen 12/19/24 06:14 12/19/24 07:45 12/19/24 07:45 Temperature Pulse Rate 77 Respiratory Rate 18 22 H 22 H Blood Pressure Pulse Oximetry 95 92 92 Oxygen Delivery BiPAP BiPAP BiPAP Oxygen Flow Rate Fraction of Inspired Oxygen 32 12/19/24 07:45 12/19/24 08:00 12/19/24 08:07 Temperature 36.9 C Pulse Rate 77 69 Respiratory Rate 22 H 18 Blood Pressure 150/73 H Pulse Oximetry 100 Oxygen Delivery BiPAP Oxygen Flow Rate Fraction of Inspired Oxygen Exam 2 Const: General: comfortable, no acute distress, alert and awake O rientation/consciousness: patient oriented x3 Other: Morbidly obese HENMT: Head: normal to inspection Eyes: General: appearance normal, both eyes and all related structures P upils: Equal, round and reactive pupils present Neck: Neck: normal visual inspection and supple Carotids: normal carotid upstroke Resp: Effort & Inspection: abnormal respiratory effort (on BipAP) A uscultation: diminished lung sounds Cardio: Rate: regular rate Rhythm: regular rhythm Heart sounds: S1 normal heart sound present and S2 normal heart sound present GI: Auscultation: normal bowel sounds Skin: General skin exam: normal color Neuro: General: patient oriented x3 Cranial nerves: Yes Equal, round and reactive pupils present Extrem: General: normal to inspection Psych: Appearance: grossly normal Mental Status: mental status grossly normal Results Labs and Meds 12/19/24 04:44 12/19/24 04:44 Lab results: Cardiac Enzymes 12/18/24 12/18/24 12/18/24 Range/Units 12:24 15:20 18:09 AST 45 H (14-36) U/L Troponin I 0.032 0.034 0.024 D (0.000-0.034) ng/mL 12/19/24 12/19/24 Range/Units 04:44 10:15 AST 37 H (14-36) U/L Troponin I < 0.012 (0.000-0.034) ng/mL Coagulation 12/18/24 Range/Units 12:24 PT 13.3 (11.1-14.7) Seconds APTT 25.7 (22.3-36.8) Seconds Lipids 12/18/24 Range/Units 18:09 Triglycerides 134 (<150) mg/dL Cholesterol 161 (0-200) mg/dL CBC 12/18/24 12/18/24 12/19/24 Range/Units 12:24 21:16 04:44 WBC 10.5 H 8.6 (4.5-10.0) K/mm3 RBC 4.36 4.11 L (4.2-5.4) M/mm3 Hgb 11.6 L 11.1 L 11.0 L (12.0-15.0) g/dL Hct 41.2 38.7 39.1 (37.0-47.0) % Plt Count 356 313 (150-375) k/mm3 Lymph # (Auto) 2.36 2.22 (0.9-3.2) K/mm3 [place] # (Auto) 1.0 H 0.8 H (0.1-0.6) K/mm3 Eos # (Auto) 0.0 0.1 (0-0.3) K/mm3 Baso # (Auto) 0.1 0.1 (0.0-0.1) K/mm3 Comprehensive Metabolic Panel 12/18/24 12/19/24 Range/Units 12:24 04:44 Sodium 141 140 (137-145) mmol/L Potassium 4.4 4.6 (3.4-5.0) mmol/L Chloride 97 L 96 L (98-107) mmol/L Carbon Dioxide 39 H 39 H (22-30) mmol/L BUN 18 H 14 (7-17) mg/dL Creatinine 0.51 L 0.51 L (0.7-1.0) mg/dL Glucose 134 H 140 H (65-110) mg/dL Calcium 10.2 9.8 (8.4-10.2) mg/dL AST 45 H 37 H (14-36) U/L ALT 53 H 55 H (6-35) U/L Alkaline Phosphatase 110 106 (38-126) U/L Total Protein 8.0 8.0 (6.3-8.2) g/dL Albumin 4.1 3.7 (3.5-5.1) g/dL Intake and Output 12/18/24 12/19/24 12/19/24 23:59 07:59 15:59 Intake Total 600 640 Output Total 500 250 Balance 100 390 Intake: Oral 600 640 Output: Urine 500 250 Other: # Unmeasured Voids 2 Number of Bowel Movements Today 1 Patient Weight 12/19/24 23:59 Weight 179.8 kg
--- NOTE | 2024-12-19 11:30 | P.CONPL_ITS ---
Assessment and Plan Assessment and plan (1) Pneumonia: Code(s): J18.9 - Pneumonia, unspecified organism Status: Acute (2) Acute respiratory failure with hypoxia and hypercapnia: Code(s): J96.01 - Acute respiratory failure with hypoxia; J96.02 - Acute respiratory failure with hypercapnia Status: Acute Assessment and Plan: This 54-year-old female with morbid obesity and obstructive sleep apnea, who uses CPAP at home, presented with a recent upper respiratory infection and melanotic stools. Upon admission, diagnostic testing revealed bilateral pneumonia, and during her hospitalization, she was diagnosed with acute on chronic hypercapnic respiratory failure, for which she has been receiving BiPAP support. This morning's arterial blood gases indicated improvement in her hypercapnic respiratory failure. Given that the patient was fully awake, alert, and cooperative, BiPAP pressures were adjusted, with follow-up arterial blood gases planned. The current antibiotic regimen for community-acquired pneumonia is appropriate. It is noteworthy that the patient reported symptoms of an upper respiratory infection more than a week ago, and she has tested negative for all viruses, including a negative MRSA PCR. Plan: Continue the current antibiotic regimen. Repeat arterial blood gases this afternoon. The patient cannot receive DVT prophylaxis due to the GI bleed; I recommend using SCDs on the lower extremities. I will continue to follow the patient along with you. (3) Obstructive sleep apnea on CPAP: Code(s): G47.33 - Obstructive sleep apnea (adult) (pediatric) Status: Acute (4) Chronic obstructive pulmonary disease: Code(s): J44.9 - Chronic obstructive pulmonary disease, unspecified Status: Acute (5) Heart failure of unknown type: Code(s): I50.9 - Heart failure, unspecified Status: Acute (6) Morbid obesity: Code(s): E66.01 - Morbid (severe) obesity due to excess calories Status: Acute (7) GI bleed: Code(s): K92.2 - Gastrointestinal hemorrhage, unspecified Status: Acute History of Present Illness History of Present Illness Consult date: 12/19/24 Chief complaint: Chest Pain, pneumonia, GI Bleed Narrative: This 54-year-old female with history of morbid obesity, obstructive sleep apnea on CPAP congestive heart failure hypertension and remote pulmonary embolism presented to the emergency room complaining of a melanotic stools. She also complained of nausea mild epigastric discomfort and shortness of breath and some substernal chest discomfort. She had no fever chills pleuritic pain cough vomiting or diarrhea. A chest x-ray in the emergency room showed bilateral pulmonary infiltrates consistent with a possible pneumonia. In addition he was found to have a a Hemoccult positive. The patient was hospitalized for further workup and treatment. She was started on ceftriaxone and Zithromax for community-acquired pneumonia. While in the hospital she was found to be somnolent and arterial blood gases showed acute on chronic hypercapnic respiratory acidosis. The patient was placed on BiPAP support with arterial blood gases this morning showing significant improvement. Currently the patient is fully awake while receiving BiPAP support upon questioning she stated that approximately 1 week ago had symptoms suggestive of upper respiratory infection with runny nose and coughing. She has a history of COPD and has been using nebulized short-acting bronchodilator at home approximately every other day. She receives care for lung disease at [facility]. She has had history of sleep apnea with the last sleep study done many years ago. The patient stated she uses CPAP at night and sleeps well on CPAP. She has no morning somnolence. She mentioned that she uses a CPAP pressure with a range of 13-20 cm. Review of Systems 2 Review of Systems: All systems reviewed & are unremarkable except as noted in HPI and below (HPI and below) PMFSH Past Medical History Medical History Pulmonary embolism H. pylori infection Chronic obstructive pulmonary disease Prediabetes Obstructive sleep apnea on CPAP Heart failure of unknown type Morbid obesity Surgical History Surgical History History of eye surgery History of carpal tunnel release History of hysterectomy Social History Social History Social History: Surrogate medical decision maker: Paulina Moulton (sibling) or her 2 children. Code status: Full code. Smoking packs per day: 0.25 Smoking cigarettes per day: 5.0 Years smoked: 25 Smoking pack-years: 6.25 Smoking status: Former smoker Tobacco type: cigarettes Alcohol intake: never Substance use: never Substance use type: does not use Do You Feel Safe in your Home?: No Lack of Transportation: No Lack of Food: Never True Current Housing: I Have Housing Concerned About Future Housing: No Difficulty Paying Gas/Electric Bills: No Difficulty Paying for Meds: No Currently Unemployed: No Education: High School Diploma/GED Difficulty w/ Childcare or Family Care: No Spiritual care concerns: No Meds Home Medications and Allergies Home Medications ?Medication ?Instructions ?Recorded ?Confirmed ?Type albuterol sulfate 90 mcg/actuation 3 inh inhalation Q8H PRN shortness 06/18/20 12/18/24 History aerosol inhaler of breath or wheezing Allergies Allergy/AdvReac Type Severity Reaction Status Date / Time No Known Allergies Allergy Verified 12/18/24 16:59 Vital Signs Vital Signs - 24 hr 12/18/24 12:10 12/18/24 12:11 12/18/24 12:12 Temperature 36.6 C Pulse Rate 93 Respiratory Rate 20 Blood Pressure 169/114 H Pulse Oximetry 78 L 96 96 Oxygen Delivery Room Air Nasal Cannula Oxygen Flow Rate 4 6 Fraction of Inspired Oxygen 12/18/24 12:18 12/18/24 13:30 12/18/24 15:34 Temperature Pulse Rate 85 Respiratory Rate 16 Blood Pressure 135/72 Pulse Oximetry 98 95 92 Oxygen Delivery Nasal Cannula Nasal Cannula Oxygen Flow Rate 4 4 Fraction of Inspired Oxygen 12/18/24 15:34 12/18/24 15:38 12/18/24 16:00 Temperature Pulse Rate 88 93 87 Respiratory Rate 20 20 18 Blood Pressure 176/92 H Pulse Oximetry 99 Oxygen Delivery Oxygen Flow Rate Fraction of Inspired Oxygen 12/18/24 16:25 12/18/24 16:30 12/18/24 16:36 Temperature Pulse Rate 97 Respiratory Rate Blood Pressure Pulse Oximetry 93 93 Oxygen Delivery Nasal Cannula Nasal Cannula Oxygen Flow Rate 4 4 Fraction of Inspired Oxygen 12/18/24 18:00 12/18/24 20:00 12/18/24 20:00 Temperature 36.4 C Pulse Rate 105 H 87 Respiratory Rate 18 Blood Pressure 173/99 H Pulse Oximetry 93 95 Oxygen Delivery Nasal Cannula Oxygen Flow Rate 4 Fraction of Inspired Oxygen 12/18/24 20:00 12/18/24 20:11 12/18/24 20:20 Temperature Pulse Rate 95 92 Respiratory Rate 20 Blood Pressure Pulse Oximetry 97 Oxygen Delivery Nasal Cannula Oxygen Flow Rate 4 Fraction of Inspired Oxygen 12/18/24 20:21 12/18/24 21:31 12/18/24 22:00 Temperature Pulse Rate 92 88 87 Respiratory Rate 20 22 H Blood Pressure Pulse Oximetry 96 Oxygen Delivery BiPAP Oxygen Flow Rate Fraction of Inspired Oxygen 12/18/24 23:00 12/18/24 23:40 12/19/24 00:00 Temperature 36.4 C L Pulse Rate 89 24 L Respiratory Rate 22 H 22 H 85 H Blood Pressure 154/93 H Pulse Oximetry 95 95 97 Oxygen Delivery BiPAP BiPAP Oxygen Flow Rate Fraction of Inspired Oxygen 12/19/24 00:00 12/19/24 00:00 12/19/24 01:00 Temperature Pulse Rate 90 Respiratory Rate 16 Blood Pressure Pulse Oximetry 97 94 Oxygen Delivery BiPAP BiPAP Oxygen Flow Rate Fraction of Inspired Oxygen 36 12/19/24 02:00 12/19/24 02:28 12/19/24 02:30 Temperature Pulse Rate 84 84 Respiratory Rate 13 20 Blood Pressure Pulse Oximetry 92 Oxygen Delivery BiPAP Oxygen Flow Rate Fraction of Inspired Oxygen 12/19/24 02:40 12/19/24 03:30 12/19/24 04:00 Temperature Pulse Rate 84 Respiratory Rate 20 Blood Pressure Pulse Oximetry 97 95 Oxygen Delivery BiPAP BiPAP Oxygen Flow Rate Fraction of Inspired Oxygen 36 12/19/24 04:00 12/19/24 04:00 12/19/24 06:00 Temperature 36.4 C Pulse Rate 103 H 78 76 Respiratory Rate 20 Blood Pressure 147/87 H Pulse Oximetry 99 Oxygen Delivery Oxygen Flow Rate Fraction of Inspired Oxygen 12/19/24 06:14 12/19/24 07:45 12/19/24 07:45 Temperature Pulse Rate 77 Respiratory Rate 18 22 H 22 H Blood Pressure Pulse Oximetry 95 92 92 Oxygen Delivery BiPAP BiPAP BiPAP Oxygen Flow Rate Fraction of Inspired Oxygen 32 12/19/24 07:45 12/19/24 08:00 12/19/24 08:07 Temperature 36.9 C Pulse Rate 77 69 Respiratory Rate 22 H 18 Blood Pressure 150/73 H Pulse Oximetry 100 Oxygen Delivery BiPAP Oxygen Flow Rate Fraction of Inspired Oxygen 12/19/24 11:16 Temperature Pulse Rate Respiratory Rate 21 H Blood Pressure Pulse Oximetry 100 Oxygen Delivery BiPAP Oxygen Flow Rate Fraction of Inspired Oxygen Exam 2 Narrative: GENERAL APPEARANCE: Well developed, morbidly obese alert and cooperative, and appears to be in in mild respiratory distress while on BiPAP support SKIN: Inspection of the skin reveals no rashes, ulcerations or petechiae. HEENT: Sclerae anicteric and conjunctivae pink and moist. Extraocular movements were intact and pupils were equal. NECK: Supple. There was no thyroid enlargement, and no tenderness, or masses were felt. LUNGS: Clear breath sounds anteriorly no wheezing CARDIAC: Distant heart sounds ABDOMEN: Soft and nontender.There was no organomegaly. LYMPH NODES: No lymphadenopathy was appreciated in the neck. EXTREMITIES: No clubbing or edema. NEUROLOGIC: Alert and oriented x 3. Normal affect. Results Laboratory Findings 12/19/24 04:44 12/19/24 04:44 ABG, PT/INR, D-dimer: ABG ABG pH 7.354 (7.350-7.450) 12/19/24 07:36 ABG pCO2 63.6 mmHg (35.0-45.0) H* 12/19/24 07:36 ABG pO2 92.1 mmHg (80.0-100.0) 12/19/24 07:36 ABG O2 Saturation 96.5 % (95.0-100.0) 12/19/24 07:36 PT/INR, D-dimer PT 13.3 Seconds (11.1-14.7) 12/18/24 12:24 INR 1.0 12/18/24 12:24 D-Dimer 0.87 ug/mL (<0.48) H 12/18/24 18:09 Abnormal lab findings: Abnormal Labs 12/18/24 12/18/24 12/18/24 12:24 13:18 18:09 WBC 10.5 H RBC Hgb 11.6 L MCHC 28.2 L RDW 17.2 H Immature Gran % (Auto) 1.3 H [place]att % (Auto) 9.1 H [place] # (Auto) 1.0 H Abs Immat Gran (auto) 0.14 H Absolute Neuts (auto) 6.9 H Absolute Nucleated RBC 0.590 H Nucleated RBC % 5.6 H D-Dimer 0.87 H ABG pCO2 59.0 H ABG pO2 64.1 L ABG HCO3 32.9 H ABG O2 Saturation 91.2 L ABG O2 Content 15.5 L VBG pH VBG pCO2 VBG pO2 VBG HCO3 Reduced Hemoglobin 8.4 H Total Hemoglobin Chloride 97 L Carbon Dioxide 39 H BUN 18 H Creatinine 0.51 L Glucose 134 H POC Capillary Glucose Hemoglobin A1c 7.1 H AST 45 H ALT 53 H NT-Pro-B Natriuret Pep 12/18/24 12/18/24 12/18/24 21:11 21:16 21:17 WBC RBC Hgb 11.1 L MCHC RDW Immature Gran % (Auto) [place] % (Auto) [place] # (Auto) Abs Immat Gran (auto) Absolute Neuts (auto) Absolute Nucleated RBC Nucleated RBC % D-Dimer ABG pCO2 ABG pO2 ABG HCO3 ABG O2 Saturation ABG O2 Content VBG pH 7.279 L VBG pCO2 82.3 H* VBG pO2 47.5 H VBG HCO3 37.7 H Reduced Hemoglobin Total Hemoglobin Chloride Carbon Dioxide BUN Creatinine Glucose POC Capillary Glucose 134 H Hemoglobin A1c AST ALT NT-Pro-B Natriuret Pep 12/18/24 12/19/24 12/19/24 23:22 04:44 04:52 WBC RBC 4.11 L Hgb 11.0 L MCHC 28.1 L RDW 17.2 H Immature Gran % (Auto) 1.6 H Piatt % (Auto) 8.7 H [place] # (Auto) 0.8 H Abs Immat Gran (auto) 0.14 H Absolute Neuts (auto) Absolute Nucleated RBC 0.300 H Nucleated RBC % 3.5 H D-Dimer ABG pCO2 ABG pO2 ABG HCO3 ABG O2 Saturation ABG O2 Content VBG pH 7.258 L VBG pCO2 76.8 H* 89.7 H* VBG pO2 63.1 H 28.0 L VBG HCO3 37.0 H 39.2 H Reduced Hemoglobin Total Hemoglobin Chloride 96 L Carbon Dioxide 39 H BUN Creatinine 0.51 L Glucose 140 H POC Capillary Glucose Hemoglobin A1c AST 37 H ALT 55 H NT-Pro-B Natriuret Pep 1550 H 12/19/24 12/19/24 07:36 07:42 WBC RBC Hgb MCHC RDW Immature Gran % (Auto) [place] % (Auto) [place] # (Auto) Abs Immat Gran (auto) Absolute Neuts (auto) Absolute Nucleated RBC Nucleated RBC % D-Dimer ABG pCO2 63.6 H* ABG pO2 ABG HCO3 34.6 H ABG O2 Saturation ABG O2 Content 15.6 L VBG pH VBG pCO2 VBG pO2 VBG HCO3 Reduced Hemoglobin Total Hemoglobin 11.4 L Chloride Carbon Dioxide BUN Creatinine Glucose POC Capillary Glucose 122 H Hemoglobin A1c AST ALT NT-Pro-B Natriuret Pep
[2024-12-19 12:06] LABS: Glucose Point of Care 114 mg/dl (65-105)
--- NOTE | 2024-12-19 12:57 | IVDEFINITY ---
Prior to administration of IV Definity the patient was educated on the risks and benefits of the imaging enhancing agent including potential adverse side effects. The patient verbalized understanding. Allergies were verified. No exclusion criteria were identified and at least one of the following inclusion criteria were met: 1) physician request, 2) patient technically difficult to image (per the [place] [employer] guidelines of two or more segments not discernable within the apical view), or 3) questionable left ventricular function. ?
--- NOTE | 2024-12-19 15:46 | PC.NURSE ---
At approximately 1000am this RN recieved a call from the body technician stating that the patient and family would like to see me. This RN entered the patients room to find her in distress stating that she is having chest pain . The patient was lying back at an approximate 30 degree angle, on her left side. She described the pain as a shooting pain in the middle of her chest. The electrical power station technician said that she was moaning during the testing procedure, and that she asked her if she was in pain and that she initially responded I am ok . She then continued to moan out and the electrical power station technician asked her again Are you sure that you are ok, is there something hurting or something I can do for you ? The floor technician stated that the patient then said I am having chest pain . This RN got current vital signs, called the MD and reported symptoms. The patient requested to sit up higher in the bed and as soon as she sat up she said that the Pain is gone . Orders received by the MD to get EKG, and Troponin levels STAT. Both of these interventions were completed and the EKG was taken to the MD to be read. Cardiology was consulted at this time.
[2024-12-19 16:16] LABS: Glucose Point of Care 95 mg/dl (65-105)
--- NOTE | 2024-12-19 16:38 | PM.IMPN ---
Progress Note: A&P Assessment and Plan (1) Acute respiratory failure with hypoxia and hypercapnia: Code(s): J96.01 - Acute respiratory failure with hypoxia; J96.02 - Acute respiratory failure with hypercapnia Status: Acute (2) Pneumonia: Code(s): J18.9 - Pneumonia, unspecified organism Status: Acute (3) Chest pain: Code(s): R07.9 - Chest pain, unspecified Status: Acute (4) GI bleed: Code(s): K92.2 - Gastrointestinal hemorrhage, unspecified Status: Acute (5) Morbid obesity: Code(s): E66.01 - Morbid (severe) obesity due to excess calories Status: Acute (6) Heart failure of unknown type: Code(s): I50.9 - Heart failure, unspecified Status: Acute (7) Chronic obstructive pulmonary disease: Code(s): J44.9 - Chronic obstructive pulmonary disease, unspecified Status: Acute (8) Obstructive sleep apnea on CPAP: Code(s): G47.33 - Obstructive sleep apnea (adult) (pediatric) Status: Acute (9) Hypertension: Qualifiers: Hypertension type: unspecified Qualified Code(s): I10 - Essential (primary) hypertension Code(s): I10 - Essential (primary) hypertension Status: Inactive Plan Pneumonia CT chest showed bilateral groundglass opacities Blood culture, MRSA negative Rocephin and Azithromycin monitor Acute hypoxemic hypercapnic resp failure OHS, BAL and pneumonia Continue BiPAP Pulmonology following titrate BiPAP OHS continue BiPAP and monitor Chest pain no Acute changes on EKG ECHo and troponin, pending cardiology noted no further workup if ECHO is normal Gi bleed patient presented with blood in stool Gi following and awaiting stabilization of resp status for endoscopy CHF continue recs per cardiology HTn titrate home meds with clinical course hx of PE more than [address] negative for PE DVT prophylaxis on SCDs, no Ac due to Gi bleed Subjective Date/time seen: 12/19/24 16:38 Interval history: Complained of chest pain this morning cardiology was consulted currently on BiPAP Review of Systems Review of Systems: 12 systems were reviewed and are negative except for as per HPI. Exam Narrative: General: Mildly ill-appearing female sitting up in bed in no acute distress. Weight: 179.5 kg. BMI: 74.8. HEENT: PERRL, EOMI. Sclera anicteric. Oral mucosa moist. Crowded oropharynx. Neck: Supple. Exam limited due to neck circumference. No obvious JVD. Respiratory: Currently requiring 4 L nasal cannula to maintain her SpO2 in the mid to upper 90s. Respirations are nonlabored. Lung sounds are a bit coarse at the right base. Cardiovascular: Regular rate and rhythm with S1-S2. Gastrointestinal: Abdomen is soft, morbidly obese, nontender, and nondistended with positive bowel sounds. Skin: Warm and dry. No rash or lesions on limited exam. Extremities: No cyanosis, clubbing, or significant edema. Radial and pedal pulses intact. No palpable knots or cords. Negative Vera sign bilaterally. Neurological: Alert. Cranial nerves 2-12 are grossly intact. No gross focal deficits to casual conversation. Psychiatric: Pleasant and cooperative with normal mood and affect. Judgment and insight intact. She is in good spirits. Objective Data Vital Signs Vital Signs: Vital Signs - 24 hr 12/18/24 18:00 12/18/24 20:00 12/18/24 20:00 Temperature 97.6 F Pulse Rate 105 H 87 Respiratory Rate 18 Blood Pressure 173/99 H Pulse Oximetry 93 95 Oxygen Delivery Nasal Cannula Oxygen Flow Rate 4 Fraction of Inspired Oxygen 12/18/24 20:00 12/18/24 20:11 12/18/24 20:20 Temperature Pulse Rate 95 92 Respiratory Rate 20 Blood Pressure Pulse Oximetry 97 Oxygen Delivery Nasal Cannula Oxygen Flow Rate 4 Fraction of Inspired Oxygen 12/18/24 20:21 12/18/24 21:31 12/18/24 22:00 Temperature Pulse Rate 92 88 87 Respiratory Rate 20 22 H Blood Pressure Pulse Oximetry 96 Oxygen Delivery BiPAP Oxygen Flow Rate Fraction of Inspired Oxygen 12/18/24 23:00 12/18/24 23:40 12/19/24 00:00 Temperature 97.5 F L Pulse Rate 89 24 L Respiratory Rate 22 H 22 H 85 H Blood Pressure 154/93 H Pulse Oximetry 95 95 97 Oxygen Delivery BiPAP BiPAP Oxygen Flow Rate Fraction of Inspired Oxygen 12/19/24 00:00 12/19/24 00:00 12/19/24 01:00 Temperature Pulse Rate 90 Respiratory Rate 16 Blood Pressure Pulse Oximetry 97 94 Oxygen Delivery BiPAP BiPAP Oxygen Flow Rate Fraction of Inspired Oxygen 36 12/19/24 02:00 12/19/24 02:28 12/19/24 02:30 Temperature Pulse Rate 84 84 Respiratory Rate 13 20 Blood Pressure Pulse Oximetry 92 Oxygen Delivery BiPAP Oxygen Flow Rate Fraction of Inspired Oxygen 12/19/24 02:40 12/19/24 03:30 12/19/24 04:00 Temperature Pulse Rate 84 Respiratory Rate 20 Blood Pressure Pulse Oximetry 97 95 Oxygen Delivery BiPAP BiPAP Oxygen Flow Rate Fraction of Inspired Oxygen 36 12/19/24 04:00 12/19/24 04:00 12/19/24 06:00 Temperature 97.6 F Pulse Rate 103 H 78 76 Respiratory Rate 20 Blood Pressure 147/87 H Pulse Oximetry 99 Oxygen Delivery Oxygen Flow Rate Fraction of Inspired Oxygen 12/19/24 06:14 12/19/24 07:45 12/19/24 07:45 Temperature Pulse Rate 77 Respiratory Rate 18 22 H 22 H Blood Pressure Pulse Oximetry 95 92 92 Oxygen Delivery BiPAP BiPAP BiPAP Oxygen Flow Rate Fraction of Inspired Oxygen 32 12/19/24 07:45 12/19/24 08:00 12/19/24 08:00 Temperature 98.5 F Pulse Rate 77 69 67 Respiratory Rate 22 H 18 22 H Blood Pressure 150/73 H Pulse Oximetry 100 99 Oxygen Delivery BiPAP Oxygen Flow Rate Fraction of Inspired Oxygen 32 12/19/24 08:00 12/19/24 08:07 12/19/24 10:00 Temperature Pulse Rate 72 72 Respiratory Rate Blood Pressure Pulse Oximetry Oxygen Delivery BiPAP Oxygen Flow Rate Fraction of Inspired Oxygen 12/19/24 11:16 12/19/24 11:52 12/19/24 12:00 Temperature 99 F Pulse Rate 71 67 Respiratory Rate 21 H 19 22 H Blood Pressure 118/91 H Pulse Oximetry 100 100 99 Oxygen Delivery BiPAP BiPAP Oxygen Flow Rate Fraction of Inspired Oxygen 32 12/19/24 12:00 12/19/24 14:00 12/19/24 14:12 Temperature Pulse Rate 82 81 67 Respiratory Rate 22 H Blood Pressure Pulse Oximetry Oxygen Delivery Oxygen Flow Rate Fraction of Inspired Oxygen 12/19/24 14:15 12/19/24 15:30 Temperature 98.6 F Pulse Rate 74 Respiratory Rate 22 H 18 Blood Pressure 151/79 H Pulse Oximetry 99 96 Oxygen Delivery BiPAP Oxygen Flow Rate Fraction of Inspired Oxygen Intake/Output Intake/Output: Intake & Output 02/12/17/24 12/18/24 12/19/24 23:59 23:59 23:59 23:59 Intake Total 600 880 Output Total 500 250 Balance 100 630 Meds/Results Medications: Active Medications Generic Name Dose Route Start Last Admin Trade Name Freq PRN Reason Stop Dose Admin Acetaminophen 650 mg 12/18/24 20:36 Acetaminophen 325 Mg Tablet PO Q6H PRN Mild Pain (1-3) or Fever Albuterol 2.5 mg 12/18/24 14:00 12/19/24 14:10 Albuterol Sulfate Neb 2.5 Mg/3 Ml Inh INHALATION 2.5 mg Q6HRT ELIAS Administration Dextrose 12.5 gm 12/18/24 20:36 Dextrose 50% 25 Gm/50 Ml Syringe IV PUSH PRN PRN Hypoglycemia Protocol Glucagon 1 mg 12/18/24 20:36 Glucagon For Inj 1 Mg Vial IM PRN PRN Hypoglycemia Protocol Glucose 15 gm 12/18/24 20:36 Glucose Oral Gel 15 Gm Of Glucse In 37.5 Gm Tube PO PRN PRN Hypoglycemia Protocol Guaifenesin 1,200 mg 12/18/24 21:00 12/19/24 10:21 Guaifenesin 12 Hr 600 Mg Tabcr PO 1,200 mg Q12HR ELIAS Administration Ceftriaxone Sodium 1 gm in 50 mls @ 100 mls/hr 12/19/24 12:00 12/19/24 12:43 Rocephin 1 Gm/Ns 50 Ml IVPB 100 mls/hr Q24H ELIAS Administration Azithromycin 500 mg in 250 mls @ 250 mls/hr 12/19/24 17:00 Zithromax IVPB Q24H ELIAS Dextrose 1,000 mls @ 100 mls/hr 12/18/24 20:36 Dextrose 5% 1,000 Ml IVPB PRN PRN Hypoglycemia Protocol Insulin Aspart 3 - 6 units 12/19/24 08:00 12/19/24 12:00 Insulin Aspart (*Bkc) 100 Units/Ml SUB-Q Not Given TIDWM ELIAS Protocol Insulin Aspart 1 - 3 units 12/18/24 21:00 12/18/24 21:20 Insulin Aspart (*Bkc) 100 Units/Ml SUB-Q Not Given HS ELIAS Protocol Radiology Results: ITS Impressions Chest X-Ray 12/18/24 13:10 IMPRESSION: 1. Patchy airspace opacities throughout the right lung suspicious for pneumonia. 2. Cardiomegaly. Chest CTA 12/18/24 23:11 IMPRESSION: No CT evidence of acute pulmonary embolus. Bilateral groundglass opacities, worse in the right lung, may represent asymmetric edema or infection. Thyroid goiter. Labs Labs: Laboratory Results - last 24 hr 12/18/24 12/18/24 12/18/24 12:24 18:09 21:11 WBC RBC Hgb Hct MCV MCH MCHC RDW Plt Count MPV Immature Gran % (Auto) Neut % (Auto) Lymph % (Auto) [place] % (Auto) Eos % (Auto) Baso % (Auto) Lymph # (Auto) [place] # (Auto) Eos # (Auto) Baso # (Auto) Abs Immat Gran (auto) Absolute Neuts (auto) Absolute Nucleated RBC Nucleated RBC % Platelet Estimate Hypochromasia Anisocytosis Stomatocytes Schistocytes D-Dimer 0.87 H Puncture Site ABG pH ABG pCO2 ABG pO2 ABG PO2/FiO2 Ratio ABG HCO3 ABG O2 Saturation ABG O2 Content ABG Base Excess VBG pH VBG pCO2 VBG pO2 VBG HCO3 A-a Gradient Oxyhemoglobin Total Hemoglobin O2 Delivery Device O2 Liters/Min Vent Rate FiO2 Expiratory Pressure Inspiratory Pressure Sodium Potassium Chloride Carbon Dioxide Anion Gap BUN Creatinine Estim Creat Clear Calc Estimated GFR Glucose POC Capillary Glucose 134 H Hemoglobin A1c 7.1 H Calcium Magnesium Total Bilirubin AST ALT Alkaline Phosphatase Troponin I 0.024 D NT-Pro-B Natriuret Pep Total Protein Albumin Triglycerides 134 Cholesterol 161 LDL Cholesterol Direct 67 HDL Direct 56 Nasal MRSA (PCR) 12/18/24 12/18/24 12/18/24 21:16 21:17 21:44 WBC RBC Hgb 11.1 L Hct 38.7 MCV MCH MCHC RDW Plt Count MPV Immature Gran % (Auto) Neut % (Auto) Lymph % (Auto) [place] % (Auto) Eos % (Auto) Baso % (Auto) Lymph # (Auto) [place] # (Auto) Eos # (Auto) Baso # (Auto) Abs Immat Gran (auto) Absolute Neuts (auto) Absolute Nucleated RBC Nucleated RBC % Platelet Estimate Hypochromasia Anisocytosis Stomatocytes Schistocytes D-Dimer Puncture Site ABG pH ABG pCO2 ABG pO2 ABG PO2/FiO2 Ratio ABG HCO3 ABG O2 Saturation ABG O2 Content ABG Base Excess VBG pH 7.279 L VBG pCO2 82.3 H* VBG pO2 47.5 H VBG HCO3 37.7 H A-a Gradient Oxyhemoglobin Total Hemoglobin O2 Delivery Device Nasal cannula O2 Liters/Min 6.0 Vent Rate FiO2 44 Expiratory Pressure Inspiratory Pressure Sodium Potassium Chloride Carbon Dioxide Anion Gap BUN Creatinine Estim Creat Clear Calc Estimated GFR Glucose POC Capillary Glucose Hemoglobin A1c Calcium Magnesium Total Bilirubin AST ALT Alkaline Phosphatase Troponin I NT-Pro-B Natriuret Pep Total Protein Albumin Triglycerides Cholesterol LDL Cholesterol Direct HDL Direct Nasal MRSA (PCR) Not detected 12/18/24 12/19/24 12/19/24 23:22 04:44 04:52 WBC 8.6 RBC 4.11 L Hgb 11.0 L Hct 39.1 MCV 95.1 MCH 26.8 MCHC 28.1 L RDW 17.2 H Plt Count 313 MPV 9.2 Immature Gran % (Auto) 1.6 H Neut % (Auto) 61.6 Lymph % (Auto) 25.7 [place] % (Auto) 8.7 H Eos % (Auto) 1.4 Baso % (Auto) 1.0 Lymph # (Auto) 2.22 [place] # (Auto) 0.8 H Eos # (Auto) 0.1 Baso # (Auto) 0.1 Abs Immat Gran (auto) 0.14 H Absolute Neuts (auto) 5.3 Absolute Nucleated RBC 0.300 H Nucleated RBC % 3.5 H Platelet Estimate Adequate Hypochromasia 1+ Anisocytosis 1+ Stomatocytes 1+ Schistocytes None seen D-Dimer Puncture Site ABG pH ABG pCO2 ABG pO2 ABG PO2/FiO2 Ratio ABG HCO3 ABG O2 Saturation ABG O2 Content ABG Base Excess VBG pH 7.301 7.258 L VBG pCO2 76.8 H* 89.7 H* VBG pO2 63.1 H 28.0 L VBG HCO3 37.0 H 39.2 H A-a Gradient Oxyhemoglobin Total Hemoglobin O2 Delivery Device Non-invasive vent Non-invasive vent O2 Liters/Min Not Reportable Not Reportable Vent Rate 22 4 FiO2 36 36 Expiratory Pressure 6 10 Inspiratory Pressure 14 22 Sodium 140 Potassium 4.6 Chloride 96 L Carbon Dioxide 39 H Anion Gap 5 BUN 14 Creatinine 0.51 L Estim Creat Clear Calc 171 Estimated GFR > 60 Glucose 140 H POC Capillary Glucose Hemoglobin A1c Calcium 9.8 Magnesium 2.0 Total Bilirubin 0.8 AST 37 H ALT 55 H Alkaline Phosphatase 106 Troponin I NT-Pro-B Natriuret Pep 1550 H Total Protein 8.0 Albumin 3.7 Triglycerides Cholesterol LDL Cholesterol Direct HDL Direct Nasal MRSA (PCR) 12/19/24 12/19/24 12/19/24 07:36 07:42 10:15 WBC RBC Hgb Hct MCV MCH MCHC RDW Plt Count MPV Immature Gran % (Auto) Neut % (Auto) Lymph % (Auto) [place] % (Auto) Eos % (Auto) Baso % (Auto) Lymph # (Auto) [place] # (Auto) Eos # (Auto) Baso # (Auto) Abs Immat Gran (auto) Absolute Neuts (auto) Absolute Nucleated RBC Nucleated RBC % Platelet Estimate Hypochromasia Anisocytosis Stomatocytes Schistocytes D-Dimer Puncture Site Left radial ABG pH 7.354 ABG pCO2 63.6 H* ABG pO2 92.1 ABG PO2/FiO2 Ratio 2.88 ABG HCO3 34.6 H ABG O2 Saturation 96.5 ABG O2 Content 15.6 L ABG Base Excess 7.3 VBG pH VBG pCO2 VBG pO2 VBG HCO3 A-a Gradient 61.7 Oxyhemoglobin 96.4 Total Hemoglobin 11.4 L O2 Delivery Device Bipap O2 Liters/Min Not Reportable Vent Rate FiO2 32 Expiratory Pressure 12 Inspiratory Pressure 26 Sodium Potassium Chloride Carbon Dioxide Anion Gap BUN Creatinine Estim Creat Clear Calc Estimated GFR Glucose POC Capillary Glucose 122 H Hemoglobin A1c Calcium Magnesium Total Bilirubin AST ALT Alkaline Phosphatase Troponin I < 0.012 NT-Pro-B Natriuret Pep Total Protein Albumin Triglycerides Cholesterol LDL Cholesterol Direct HDL Direct Nasal MRSA (PCR) 12/19/24 12/19/24 11:44 15:30 WBC RBC Hgb Hct MCV MCH MCHC RDW Plt Count MPV Immature Gran % (Auto) Neut % (Auto) Lymph % (Auto) [place] % (Auto) Eos % (Auto) Baso % (Auto) Lymph # (Auto) [place] # (Auto) Eos # (Auto) Baso # (Auto) Abs Immat Gran (auto) Absolute Neuts (auto) Absolute Nucleated RBC Nucleated RBC % Platelet Estimate Hypochromasia Anisocytosis Stomatocytes Schistocytes D-Dimer Puncture Site ABG pH ABG pCO2 ABG pO2 ABG PO2/FiO2 Ratio ABG HCO3 ABG O2 Saturation ABG O2 Content ABG Base Excess VBG pH VBG pCO2 VBG pO2 VBG HCO3 A-a Gradient Oxyhemoglobin Total Hemoglobin O2 Delivery Device O2 Liters/Min Vent Rate FiO2 Expiratory Pressure Inspiratory Pressure Sodium Potassium Chloride Carbon Dioxide Anion Gap BUN Creatinine Estim Creat Clear Calc Estimated GFR Glucose POC Capillary Glucose 114 H 95 Hemoglobin A1c Calcium Magnesium Total Bilirubin AST ALT Alkaline Phosphatase Troponin I NT-Pro-B Natriuret Pep Total Protein Albumin Triglycerides Cholesterol LDL Cholesterol Direct HDL Direct Nasal MRSA (PCR) Quality VTE Prophylaxis VTE prophylaxis: mechanical ordered
[2024-12-19] MEDS: AZITHROMYCIN 500 MG/NS 250 ML 500 MG/250 ML BAG 250 MG IVPB (18:23)
[2024-12-19 20:03] LABS: Glucose Point of Care 161 mg/dl (65-105)
--- NOTE | 2024-12-19 20:37 | ECHO_ITS ---
Patient Info Name: Luis Wolfeage Age: 54 years : 1970 Gender: Female Ht: 61 in Wt: 395 lbs BSA: 2.92 m2 HR: 103 bpm BP: 147 / 87 mmHg Heart Rhythm: Sinus Rhythm Technical Quality: Poor Exam Date: 12/19/2024 9:20 AM Exam Location: Echo Lab Patient Status: Inpatient Admit Date: 12/19/2024 Staff Ordering Physician: Yuko Michel PA-C [employer] Grower: Belkis Freeman RDCS Attending Provider: David Encinas MD Referring Physician: Anand PEREZ; Exam Type: CA echo dop color flow w con Study Info Indications - CHEST PAIN - CHF Complete two-dimensional, color flow and Doppler transthoracic echocardiogram is performed with contrast to opacify the left ventricle and to improve the deliniation of the left ventricle endocardial borders. Contrast/Agitated Saline Contrast/Ag. Saline: Definity Amount: 2.00 ml Existing IV Access: Yes Reason for Poor Study: patient body habitus Summary 1. Technically difficult study with limited views. 2. Left ventricular chamber dimension is normal. 3. Left ventricular systolic function is normal, estimated at 65-70%. 4. There is mildly increased left ventricular wall thickness. 5. The left ventricular diastolic function is grade I diastolic dysfunction. 6. No significant valvular disease noted. Left Ventricle Left ventricular chamber dimension is normal. Left ventricular systolic function is normal, estimated at 65-70%. There is mildly increased left ventricular wall thickness. The left ventricular diastolic function is grade I diastolic dysfunction. Right Ventricle Right ventricular chamber dimension is not well visualized. Left Atria Left atrial chamber dimension is mildly enlarged. Right Atria Right atrial chamber dimension is not well visualized. Atrial Septum Intact interatrial septum visualized by color flow imaging. Aortic Valve The aortic valve is not well visualized. There is no aortic valve regurgitation. Pulmonic Valve The pulmonic valve is not well visualized. Mitral Valve There is trace mitral valve regurgitation. Tricuspid Valve There is trace tricuspid valve regurgitation. Pericardium/Pleural There is no pericardial effusion. Inferior Vena Cava Inferior vena cava is not well visualized. Aorta The aortic root size at the sinus of Valsalva is normal. Left Ventricular Outflow Tract Name Value Normal LVOT 2D LVOT Diameter 1.73 cm LVOT Doppler LVOT Peak Gradient 8 mmHg LVOT Mean Gradient 2 mmHg LVOT VTI 20.36 cm LVOT VTI/AV VTI Ratio 0.89 LVOT Stroke Volume 48.10 ml LVOT CO 3.46 l/min LVOT CI 1.19 L/min/m2 Pulmonic Valve Name Value Normal RVOT Doppler RVOT Peak Gradient 2 mmHg PV Doppler PV Peak Gradient 2 mmHg Mitral Valve Name Value Normal MV Doppler MV Decel [place] 307.09 cm/s2 MV PHT 0 s MV Area (PHT) 3.91 cm2 4.00-5.00 MV Diastolic Function MV E Peak Velocity 59.52 cm/s MV A Peak Velocity 60.96 cm/s MV E/A 0.98 MV Decel Time 0 s MV Annular TDI MV E/e' (Septal) 13.59 <=8.00 MV E/e' (Lateral) 9.07 <=8.00 MV E/e' (Average) 11.33 Aorta Name Value Normal Ascending Aorta Ao Root Diameter (MM) 3.35 cm Ao Root Diam Index (MM) 1.15 cm/m2 Aortic Valve Name Value Normal AV Doppler AV Peak Velocity 157.56 cm/s AV Peak Gradient 10 mmHg AV Mean Gradient 4 mmHg AV VTI 22.78 cm AV Area (Cont Eq VTI) 2.11 cm2 >=3.00 AV Area (Cont Eq Leo) 1.36 cm2 AV Regurgitation 2D LVOT Area 2.36 cm2 Ventricles Name Value Normal LV Dimensions 2D/MM IVS Diastolic Thickness (2D) 1.22 cm 0.60-1.00 LVID Diastole (2D) 5.11 cm 3.80-5.20 LVIW Diastolic Thickness (2D) 1.45 cm 0.60-0.90 LVID Systole (2D) 2.92 cm 2.20-3.50 LVOT Diameter 1.73 cm LV Mass (2D Cubed) 280.80 g 67.00-162.00 LV Mass Index (2D Cubed) 0.01 g/cm2 0.00-0.01 Relative Wall Thickness (2D) 0.57 LV Fractional Shortening/Ejection Fraction 2D/MM LV Fractional Shortening (2D) 43 % 27-45 LV EF (2D Teicholz) 74 % 54-74 Atria Name Value Normal LA Dimensions LA Dimension (MM) 3.39 cm 2.70-3.80 Report Signatures
--- NOTE | 2024-12-19 23:32 | ECG_ITS ---
Test Date: 2024-12-19 23:34:47 Measurements Intervals [place] Rate: 69 P: 66 RI: 149 QRS: -11 QRSD: 98 T: 21 QT: 482 QTc: 518 Interpretive Statements SINUS RHYTHM POOR R WAVE PROGRESSION MODERATE T-WAVE ABNORMALITY, CONSIDER ANTEROLATERAL ISCHEMIA ABNORMAL ECG Compared to ECG 12/19/2024 10:10:15 POSSIBLE ISCHEMIA NOW MORE PRONOUNCED Electronically Signed On 12-20-2024 08:20:51 [employer] by Scar Palacios D.O.
[2024-12-20] VITALS (25 sets, daily range): BP systolic 129–140; BP diastolic 55–76; PULSE 64–92; RESP 18–24; TEMP 36.5–37; O2SAT 95–100
[2024-12-20 00:27] LABS: Troponin I < 0.012 ng/mL (0.000-0.034)
[2024-12-20] MEDS: ALBUTEROL SULFATE NEB 2.5 MG/3 ML INH INHALATION ×4 (01:50→20:49)
[2024-12-20 05:25] LABS: Basophils Absolute Auto 0.1 K/mm3 (0.0-0.1); Basophils Percent Auto 0.8 % (0.2-1.2); Eosinophils Absolute Auto 0.2 K/mm3 (0-0.3); Eosinophils Percent Auto 2.7 % (0-4.4); Hematocrit 36.3 % (37.0-47.0); Hemoglobin 10.5 g/dL (12.0-15.0); Immature Granulocyte Absolute 0.07 K/mm3 (0.00-0.031); Immature Granulocyte Percent A 0.9 % (0-0.5); Lymphocytes Absolute Auto 2.22 K/mm3 (0.9-3.2); Lymphocytes Percent Auto 28.1 % (18.3-44.2); Mean Corpuscular HGB Conc 28.9 g/dl (32-36); Mean Corpuscular Hemoglobin 26.4 pg (26-34); Mean Corpuscular Volume 91.4 fl (80-100); Mean Platelet Volume 8.8 fl (7.4-10.4); Monocytes Absolute Auto 0.7 K/mm3 (0.1-0.6); Monocytes Percent Auto 9.4 % (2.6-8.5); Neutrophils Absolute Auto 4.6 K/mm3 (1.3-6.7); Neutrophils Percent Auto 58.1 % (45.5-73.1); Nucleated Red Blood Cells Perc 0.9 % (0.0-0.2); Platelet Count Result 271 k/mm3 (150-375); Red Blood Count 3.97 M/mm3 (4.2-5.4); Red Cell Distribution Width 16.9 % (11.5-14.5); White Blood Count 7.9 K/mm3 (4.5-10.0)
[2024-12-20 05:49] LABS: Platelet Estimate Adequate (Adequate)
[2024-12-20 05:50] LABS: Anisocytosis 1+; Schistocytes None Seen
[2024-12-20 05:52] LABS: Alanine Aminotransferase 52 U/L (6-35); Albumin Level 3.5 g/dL (3.5-5.1); Alkaline Phosphatase 101 U/L (38-126); Anion Gap 4 mmol/L (4-12); Aspartate Amino Transferase 33 U/L (14-36); Bilirubin,Total 0.8 mg/dL (0.2-1.3); Blood Urea Nitrogen 13 mg/dL (7-17); Calcium 9.7 mg/dL (8.4-10.2); Carbon Dioxide 38 mmol/L (22-30); Chloride 97 mmol/L (98-107); Estimated CRCL calculation 174 ml/min; Estimated Glomerular Filt Rate > 60; Glucose 109 mg/dL (65-110); Potassium 4.3 mmol/L (3.4-5.0); Sodium 139 mmol/L (137-145)
[2024-12-20 05:53] LABS: Band Neutrophils Percent 0 % (0-6)
[2024-12-20 07:20] LABS: Glucose Point of Care 110 mg/dl (65-105)
--- NOTE | 2024-12-20 07:24 | WPDGIPROGNO ---
Progress Note: A&P Assessment and Plan (1) GI bleed: Code(s): K92.2 - Gastrointestinal hemorrhage, unspecified Status: Acute Assessment and Plan: The patient presented with a recent, self-limited lower GI bleed, which is currently resolved. I discussed the importance of obtaining her prior colonoscopy report from [facility] to avoid an unnecessary repeat procedure. Review of this report is crucial to confirm the prior colonoscopy was complete, visualized the cecum, and demonstrated a clean colon. While the patient reports a history of polyps, their size and significance require further evaluation via the report. Although the bleeding is likely diverticular and self-limiting, her current respiratory status precludes a colonoscopy with sedation at this time. Time Spent With Patient Time with patient: less than 15 minutes Subjective Date/time seen: 12/20/24 07:24 Interval history: The patient had brown stools earlier this morning. No further evidence of GI bleeding. Exam Narrative: Patient wearing a CPAP mask and sitting upright. Unable to examine the abdomen. Not acutely distressed. Objective Data Vital Signs Vital Signs: Vital Signs - 24 hr 12/19/24 07:45 12/19/24 07:45 12/19/24 07:45 Temperature Pulse Rate 77 77 Respiratory Rate 22 H 22 H 22 H Blood Pressure Pulse Oximetry 92 92 Oxygen Delivery BiPAP BiPAP Fraction of Inspired Oxygen 12/19/24 08:00 12/19/24 08:00 12/19/24 08:00 Temperature 98.5 F Pulse Rate 69 67 72 Respiratory Rate 18 22 H Blood Pressure 150/73 H Pulse Oximetry 100 99 Oxygen Delivery BiPAP Fraction of Inspired Oxygen 12/19/24 08:07 12/19/24 10:00 12/19/24 11:16 Temperature Pulse Rate 72 Respiratory Rate 21 H Blood Pressure Pulse Oximetry 100 Oxygen Delivery BiPAP BiPAP Fraction of Inspired Oxygen 12/19/24 11:52 12/19/24 12:00 12/19/24 12:00 Temperature 99 F Pulse Rate 71 67 82 Respiratory Rate 19 22 H Blood Pressure 118/91 H Pulse Oximetry 100 99 Oxygen Delivery BiPAP Fraction of Inspired Oxygen 32 12/19/24 14:00 12/19/24 14:12 12/19/24 14:15 Temperature Pulse Rate 81 67 Respiratory Rate 22 H 22 H Blood Pressure Pulse Oximetry 99 Oxygen Delivery BiPAP Fraction of Inspired Oxygen 12/19/24 15:30 12/19/24 19:52 12/19/24 19:52 Temperature 98.6 F Pulse Rate 74 81 81 Respiratory Rate 18 23 H 23 H Blood Pressure 151/79 H Pulse Oximetry 96 99 99 Oxygen Delivery BiPAP BiPAP Fraction of Inspired Oxygen 32 12/19/24 19:52 12/19/24 20:00 12/19/24 20:00 Temperature Pulse Rate 81 84 Respiratory Rate 23 H Blood Pressure Pulse Oximetry 100 Oxygen Delivery BiPAP Fraction of Inspired Oxygen 32 12/19/24 20:31 12/19/24 20:43 12/19/24 22:00 Temperature 98.6 F Pulse Rate 79 76 73 Respiratory Rate 24 H 23 H Blood Pressure 146/73 H Pulse Oximetry 99 Oxygen Delivery Fraction of Inspired Oxygen 12/19/24 23:50 12/19/24 23:50 12/20/24 00:00 Temperature 98.6 F Pulse Rate 72 67 Respiratory Rate 26 H 20 Blood Pressure 147/88 H Pulse Oximetry 97 99 98 Oxygen Delivery BiPAP BiPAP Fraction of Inspired Oxygen 32 12/20/24 00:00 12/20/24 01:55 12/20/24 01:55 Temperature Pulse Rate 86 66 66 Respiratory Rate 20 20 Blood Pressure Pulse Oximetry 100 Oxygen Delivery BiPAP Fraction of Inspired Oxygen 12/20/24 02:00 12/20/24 02:32 12/20/24 04:00 Temperature Pulse Rate 72 92 Respiratory Rate 23 H Blood Pressure Pulse Oximetry 96 Oxygen Delivery BiPAP Fraction of Inspired Oxygen 32 12/20/24 04:00 12/20/24 04:32 12/20/24 06:00 Temperature 98.4 F Pulse Rate 69 74 65 Respiratory Rate 24 H Blood Pressure 134/76 Pulse Oximetry 96 Oxygen Delivery Fraction of Inspired Oxygen Intake/Output Intake/Output: Intake & Output 12/17/24 12/18/24 12/19/24 12/20/24 23:59 23:59 23:59 23:59 Intake Total 600 1250 500 Output Total 500 875 600 Balance 100 375 -100 Meds/Results Medications: Active Medications Generic Name Dose Route Start Last Admin Trade Name Freq PRN Reason Stop Dose Admin Acetaminophen 650 mg 12/18/24 20:36 Acetaminophen 325 Mg Tablet PO Q6H PRN Mild Pain (1-3) or Fever Albuterol 2.5 mg 12/18/24 14:00 12/20/24 01:50 Albuterol Sulfate Neb 2.5 Mg/3 Ml Inh INHALATION 2.5 mg Q6HRT ELIAS Administration Dextrose 12.5 gm 12/18/24 20:36 Dextrose 50% 25 Gm/50 Ml Syringe IV PUSH PRN PRN Hypoglycemia Protocol Glucagon 1 mg 12/18/24 20:36 Glucagon For Inj 1 Mg Vial IM PRN PRN Hypoglycemia Protocol Glucose 15 gm 12/18/24 20:36 Glucose Oral Gel 15 Gm Of Glucse In 37.5 Gm Tube PO PRN PRN Hypoglycemia Protocol Guaifenesin 1,200 mg 12/18/24 21:00 12/19/24 20:19 Guaifenesin 12 Hr 600 Mg Tabcr PO 1,200 mg Q12HR ELIAS Administration Ceftriaxone Sodium 1 gm in 50 mls @ 100 mls/hr 12/19/24 12:00 12/19/24 12:43 Rocephin 1 Gm/Ns 50 Ml IVPB 100 mls/hr Q24H ELIAS Administration Azithromycin 500 mg in 250 mls @ 250 mls/hr 12/19/24 17:00 12/19/24 19:23 Zithromax IVPB Infused Q24H ELIAS Infusion Dextrose 1,000 mls @ 100 mls/hr 12/18/24 20:36 Dextrose 5% 1,000 Ml IVPB PRN PRN Hypoglycemia Protocol Insulin Aspart 3 - 6 units 12/19/24 08:00 12/19/24 18:22 Insulin Aspart (*Bkc) 100 Units/Ml SUB-Q Not Given TIDWM ELIAS Protocol Insulin Aspart 1 - 3 units 12/18/24 21:00 12/19/24 20:28 Insulin Aspart (*Bkc) 100 Units/Ml SUB-Q Not Given HS ELIAS Protocol Radiology Results: ITS Impressions Chest X-Ray 12/18/24 13:10 IMPRESSION: 1. Patchy airspace opacities throughout the right lung suspicious for pneumonia. 2. Cardiomegaly. Chest CTA 12/18/24 23:11 IMPRESSION: No CT evidence of acute pulmonary embolus. Bilateral groundglass opacities, worse in the right lung, may represent asymmetric edema or infection. Thyroid goiter. Labs Labs: Laboratory Results - last 24 hr 12/19/24 12/19/24 12/19/24 07:36 07:42 10:15 WBC RBC Hgb Hct MCV MCH MCHC RDW Plt Count MPV Immature Gran % (Auto) Neut % (Auto) Lymph % (Auto) [place] % (Auto) Eos % (Auto) Baso % (Auto) Lymph # (Auto) [place] # (Auto) Eos # (Auto) Baso # (Auto) Abs Immat Gran (auto) Absolute Neuts (auto) Absolute Nucleated RBC Band Neutrophils % Nucleated RBC % Platelet Estimate Anisocytosis Schistocytes Puncture Site Left radial ABG pH 7.354 ABG pCO2 63.6 H* ABG pO2 92.1 ABG PO2/FiO2 Ratio 2.88 ABG HCO3 34.6 H ABG O2 Saturation 96.5 ABG O2 Content 15.6 L ABG Base Excess 7.3 A-a Gradient 61.7 Oxyhemoglobin 96.4 Total Hemoglobin 11.4 L O2 Delivery Device Bipap O2 Liters/Min Not Reportable FiO2 32 Expiratory Pressure 12 Inspiratory Pressure 26 Sodium Potassium Chloride Carbon Dioxide Anion Gap BUN Creatinine Estim Creat Clear Calc Estimated GFR Glucose POC Capillary Glucose 122 H Lactic Acid Calcium Magnesium Total Bilirubin AST ALT Alkaline Phosphatase Troponin I < 0.012 Total Protein Albumin 12/19/24 12/19/24 12/19/24 11:44 15:30 20:00 WBC RBC Hgb Hct MCV MCH MCHC RDW Plt Count MPV Immature Gran % (Auto) Neut % (Auto) Lymph % (Auto) [place] % (Auto) Eos % (Auto) Baso % (Auto) Lymph # (Auto) [place] # (Auto) Eos # (Auto) Baso # (Auto) Abs Immat Gran (auto) Absolute Neuts (auto) Absolute Nucleated RBC Band Neutrophils % Nucleated RBC % Platelet Estimate Anisocytosis Schistocytes Puncture Site ABG pH ABG pCO2 ABG pO2 ABG PO2/FiO2 Ratio ABG HCO3 ABG O2 Saturation ABG O2 Content ABG Base Excess A-a Gradient Oxyhemoglobin Total Hemoglobin O2 Delivery Device O2 Liters/Min FiO2 Expiratory Pressure Inspiratory Pressure Sodium Potassium Chloride Carbon Dioxide Anion Gap BUN Creatinine Estim Creat Clear Calc Estimated GFR Glucose POC Capillary Glucose 114 H 95 161 H Lactic Acid Calcium Magnesium Total Bilirubin AST ALT Alkaline Phosphatase Troponin I Total Protein Albumin 12/19/24 12/20/24 12/20/24 23:47 05:18 07:13 WBC 7.9 RBC 3.97 L Hgb 10.5 L Hct 36.3 L MCV 91.4 MCH 26.4 MCHC 28.9 L RDW 16.9 H Plt Count 271 MPV 8.8 Immature Gran % (Auto) 0.9 H Neut % (Auto) 58.1 Lymph % (Auto) 28.1 [place] % (Auto) 9.4 H Eos % (Auto) 2.7 Baso % (Auto) 0.8 Lymph # (Auto) 2.22 [place] # (Auto) 0.7 H Eos # (Auto) 0.2 Baso # (Auto) 0.1 Abs Immat Gran (auto) 0.07 H Absolute Neuts (auto) 4.6 Absolute Nucleated RBC 0.070 H Band Neutrophils % 0 Nucleated RBC % 0.9 H Platelet Estimate Adequate Anisocytosis 1+ Schistocytes None seen Puncture Site ABG pH ABG pCO2 ABG pO2 ABG PO2/FiO2 Ratio ABG HCO3 ABG O2 Saturation ABG O2 Content ABG Base Excess A-a Gradient Oxyhemoglobin Total Hemoglobin O2 Delivery Device O2 Liters/Min FiO2 Expiratory Pressure Inspiratory Pressure Sodium 139 Potassium 4.3 Chloride 97 L Carbon Dioxide 38 H Anion Gap 4 BUN 13 Creatinine 0.50 L Estim Creat Clear Calc 174 Estimated GFR > 60 Glucose 109 POC Capillary Glucose 110 H Lactic Acid 1.0 Calcium 9.7 Magnesium 2.0 Total Bilirubin 0.8 AST 33 ALT 52 H Alkaline Phosphatase 101 Troponin I < 0.012 Total Protein 7.0 Albumin 3.5
--- NOTE | 2024-12-20 09:28 | P.PNPL_ITS ---
Progress Note: A&P Assessment and Plan (1) Pneumonia: Code(s): J18.9 - Pneumonia, unspecified organism Status: Acute (2) Acute respiratory failure with hypoxia and hypercapnia: Code(s): J96.01 - Acute respiratory failure with hypoxia; J96.02 - Acute respiratory failure with hypercapnia Status: Acute Assessment and Plan: This 54-year-old female with morbid obesity and obstructive sleep apnea, who uses CPAP at home, presented with a recent upper respiratory infection and melanotic stools. Upon admission, diagnostic testing revealed bilateral pneumonia, and during her hospitalization, she was diagnosed with acute on chronic hypercapnic respiratory failure, for which she has been receiving BiPAP support. Last arterial blood gases done yesterday morning showed significant improvement of the respiratory acidosis. Patient used BiPAP support as night and is currently on nasal cannula. She remains fully awake and cooperative. Plan: Continue with the current antibiotic regimen. The patient will use BiPAP support at night and as needed during the day. Generic BiPAP pressures will be utilized moving forward, as the patient's hypercapnia has significantly improved. A repeat chest X-ray is scheduled for tomorrow morning. Due to a gastrointestinal bleed, the patient has not been receiving DVT prophylaxis. Given her morbid obesity, she is at high risk for a thromboembolic event. The patient reported having a pulmonary embolism approximately 10 years ago during , which was treated with subcutaneous heparin. If cleared by the GI team, she should be started on Lovenox 40 mg subcutaneously twice daily for DVT prophylaxis. If subcutaneous heparin cannot be initiated, I recommend using sequential compression devices (SCDs). (3) Obstructive sleep apnea on CPAP: Code(s): G47.33 - Obstructive sleep apnea (adult) (pediatric) Status: Acute (4) Chronic obstructive pulmonary disease: Code(s): J44.9 - Chronic obstructive pulmonary disease, unspecified Status: Acute (5) Morbid obesity: Code(s): E66.01 - Morbid (severe) obesity due to excess calories Status: Acute (6) GI bleed: Code(s): K92.2 - Gastrointestinal hemorrhage, unspecified Status: Acute Subjective Date/time seen: 12/20/24 09:28 Interval history: Patient stated is doing better. Except for mild coughing she has no other respiratory symptoms. Currently on nasal cannula, fully awake and cooperative. She has no wheezing fever chills or significant shortness of breath. No more melena. Review of Systems Review of Systems: All systems reviewed & are unremarkable except as noted in HPI and below (HPI and below) Exam Narrative: GENERAL APPEARANCE: Well developed, morbidly obese alert and cooperative, and appears to be in in mild respiratory distress while on BiPAP support SKIN: Inspection of the skin reveals no rashes, ulcerations or petechiae. HEENT: Sclerae anicteric and conjunctivae pink and moist. Extraocular movements were intact and pupils were equal. NECK: Supple. There was no thyroid enlargement, and no tenderness, or masses were felt. LUNGS: Clear breath sounds anteriorly no wheezing CARDIAC: Distant heart sounds ABDOMEN: Soft and nontender.There was no organomegaly. LYMPH NODES: No lymphadenopathy was appreciated in the neck. EXTREMITIES: No clubbing or edema. NEUROLOGIC: Alert and oriented x 3. Normal affect. Objective Data Vital Signs Vital Signs: Vital Signs - 24 hr 12/19/24 10:00 12/19/24 11:16 12/19/24 11:52 Temperature 37.2 C Pulse Rate 72 71 Respiratory Rate 21 H 19 Blood Pressure 118/91 H Pulse Oximetry 100 100 Oxygen Delivery BiPAP Oxygen Flow Rate Fraction of Inspired Oxygen 12/19/24 12:00 12/19/24 12:00 12/19/24 14:00 Temperature Pulse Rate 67 82 81 Respiratory Rate 22 H Blood Pressure Pulse Oximetry 99 Oxygen Delivery BiPAP Oxygen Flow Rate Fraction of Inspired Oxygen 12/19/24 14:12 12/19/24 14:15 12/19/24 15:30 Temperature 37.0 C Pulse Rate 67 74 Respiratory Rate 22 H 22 H 18 Blood Pressure 151/79 H Pulse Oximetry 99 96 Oxygen Delivery BiPAP Oxygen Flow Rate Fraction of Inspired Oxygen 12/19/24 19:52 12/19/24 19:52 12/19/24 19:52 Temperature Pulse Rate 81 81 81 Respiratory Rate 23 H 23 H 23 H Blood Pressure Pulse Oximetry 99 99 Oxygen Delivery BiPAP BiPAP Oxygen Flow Rate Fraction of Inspired Oxygen 32 12/19/24 20:00 12/19/24 20:00 12/19/24 20:31 Temperature 37.0 C Pulse Rate 84 79 Respiratory Rate 24 H Blood Pressure 146/73 H Pulse Oximetry 100 99 Oxygen Delivery BiPAP Oxygen Flow Rate Fraction of Inspired Oxygen 12/19/24 20:43 12/19/24 22:00 12/19/24 23:50 Temperature 37.0 C Pulse Rate 76 73 72 Respiratory Rate 23 H 26 H Blood Pressure 147/88 H Pulse Oximetry 97 Oxygen Delivery Oxygen Flow Rate Fraction of Inspired Oxygen 12/19/24 23:50 12/20/24 00:00 12/20/24 00:00 Temperature Pulse Rate 67 86 Respiratory Rate 20 Blood Pressure Pulse Oximetry 99 98 Oxygen Delivery BiPAP BiPAP Oxygen Flow Rate Fraction of Inspired Oxygen 12/20/24 01:55 12/20/24 01:55 12/20/24 02:00 Temperature Pulse Rate 66 66 72 Respiratory Rate 20 20 Blood Pressure Pulse Oximetry 100 Oxygen Delivery BiPAP Oxygen Flow Rate Fraction of Inspired Oxygen 12/20/24 02:32 12/20/24 04:00 12/20/24 04:00 Temperature Pulse Rate 92 69 Respiratory Rate 23 H Blood Pressure Pulse Oximetry 96 Oxygen Delivery BiPAP Oxygen Flow Rate Fraction of Inspired Oxygen 12/20/24 04:32 12/20/24 06:00 12/20/24 07:46 Temperature 36.9 C 37.0 C Pulse Rate 74 65 81 Respiratory Rate 24 H 23 H Blood Pressure 134/76 129/57 L Pulse Oximetry 96 100 Oxygen Delivery Oxygen Flow Rate Fraction of Inspired Oxygen 12/20/24 07:56 12/20/24 08:05 12/20/24 08:06 Temperature Pulse Rate 64 84 Respiratory Rate 20 20 Blood Pressure Pulse Oximetry 96 Oxygen Delivery Nasal Cannula Oxygen Flow Rate 4 Fraction of Inspired Oxygen Intake/Output Intake/Output: Intake & Output 12/17/24 12/18/24 12/19/24 12/20/24 23:59 23:59 23:59 23:59 Intake Total 600 1250 1213 Output Total 500 875 600 Balance 100 375 613 Meds/Results Medications: Active Medications Generic Name Dose Route Start Last Admin Trade Name Freq PRN Reason Stop Dose Admin Acetaminophen 650 mg 12/18/24 20:36 Acetaminophen 325 Mg Tablet PO Q6H PRN Mild Pain (1-3) or Fever Albuterol 2.5 mg 12/18/24 14:00 12/20/24 07:55 Albuterol Sulfate Neb 2.5 Mg/3 Ml Inh INHALATION 2.5 mg Q6HRT ELIAS Administration Dextrose 12.5 gm 12/18/24 20:36 Dextrose 50% 25 Gm/50 Ml Syringe IV PUSH PRN PRN Hypoglycemia Protocol Glucagon 1 mg 12/18/24 20:36 Glucagon For Inj 1 Mg Vial IM PRN PRN Hypoglycemia Protocol Glucose 15 gm 12/18/24 20:36 Glucose Oral Gel 15 Gm Of Glucse In 37.5 Gm Tube PO PRN PRN Hypoglycemia Protocol Guaifenesin 1,200 mg 12/18/24 21:00 12/19/24 20:19 Guaifenesin 12 Hr 600 Mg Tabcr PO 1,200 mg Q12HR ELIAS Administration Ceftriaxone Sodium 1 gm in 50 mls @ 100 mls/hr 12/19/24 12:00 12/19/24 12:43 Rocephin 1 Gm/Ns 50 Ml IVPB 100 mls/hr Q24H ELIAS Administration Azithromycin 500 mg in 250 mls @ 250 mls/hr 12/19/24 17:00 12/19/24 19:23 Zithromax IVPB Infused Q24H ELIAS Infusion Dextrose 1,000 mls @ 100 mls/hr 12/18/24 20:36 Dextrose 5% 1,000 Ml IVPB PRN PRN Hypoglycemia Protocol Insulin Aspart 3 - 6 units 12/19/24 08:00 12/19/24 18:22 Insulin Aspart (*Bkc) 100 Units/Ml SUB-Q Not Given TIDWM ELIAS Protocol Insulin Aspart 1 - 3 units 12/18/24 21:00 12/19/24 20:28 Insulin Aspart (*Bkc) 100 Units/Ml SUB-Q Not Given HS ELIAS Protocol Radiology Results: ITS Impressions Chest X-Ray 12/18/24 13:10 IMPRESSION: 1. Patchy airspace opacities throughout the right lung suspicious for pneumonia. 2. Cardiomegaly. Chest CTA 12/18/24 23:11 IMPRESSION: No CT evidence of acute pulmonary embolus. Bilateral groundglass opacities, worse in the right lung, may represent asymmetric edema or infection. Thyroid goiter. Labs Labs: Laboratory Results - last 24 hr 12/19/24 12/19/24 12/19/24 10:15 11:44 15:30 WBC RBC Hgb Hct MCV MCH MCHC RDW Plt Count MPV Immature Gran % (Auto) Neut % (Auto) Lymph % (Auto) [place] % (Auto) Eos % (Auto) Baso % (Auto) Lymph # (Auto) [place] # (Auto) Eos # (Auto) Baso # (Auto) Abs Immat Gran (auto) Absolute Neuts (auto) Absolute Nucleated RBC Band Neutrophils % Nucleated RBC % Platelet Estimate Anisocytosis Schistocytes Sodium Potassium Chloride Carbon Dioxide Anion Gap BUN Creatinine Estim Creat Clear Calc Estimated GFR Glucose POC Capillary Glucose 114 H 95 Lactic Acid Calcium Magnesium Total Bilirubin AST ALT Alkaline Phosphatase Troponin I < 0.012 Total Protein Albumin 12/19/24 12/19/24 12/20/24 20:00 23:47 05:18 WBC 7.9 RBC 3.97 L Hgb 10.5 L Hct 36.3 L MCV 91.4 MCH 26.4 MCHC 28.9 L RDW 16.9 H Plt Count 271 MPV 8.8 Immature Gran % (Auto) 0.9 H Neut % (Auto) 58.1 Lymph % (Auto) 28.1 [place] % (Auto) 9.4 H Eos % (Auto) 2.7 Baso % (Auto) 0.8 Lymph # (Auto) 2.22 [place] # (Auto) 0.7 H Eos # (Auto) 0.2 Baso # (Auto) 0.1 Abs Immat Gran (auto) 0.07 H Absolute Neuts (auto) 4.6 Absolute Nucleated RBC 0.070 H Band Neutrophils % 0 Nucleated RBC % 0.9 H Platelet Estimate Adequate Anisocytosis 1+ Schistocytes None seen Sodium 139 Potassium 4.3 Chloride 97 L Carbon Dioxide 38 H Anion Gap 4 BUN 13 Creatinine 0.50 L Estim Creat Clear Calc 174 Estimated GFR > 60 Glucose 109 POC Capillary Glucose 161 H Lactic Acid 1.0 Calcium 9.7 Magnesium 2.0 Total Bilirubin 0.8 AST 33 ALT 52 H Alkaline Phosphatase 101 Troponin I < 0.012 Total Protein 7.0 Albumin 3.5 12/20/24 07:13 WBC RBC Hgb Hct MCV MCH MCHC RDW Plt Count MPV Immature Gran % (Auto) Neut % (Auto) Lymph % (Auto) [place] % (Auto) Eos % (Auto) Baso % (Auto) Lymph # (Auto) [place] # (Auto) Eos # (Auto) Baso # (Auto) Abs Immat Gran (auto) Absolute Neuts (auto) Absolute Nucleated RBC Band Neutrophils % Nucleated RBC % Platelet Estimate Anisocytosis Schistocytes Sodium Potassium Chloride Carbon Dioxide Anion Gap BUN Creatinine Estim Creat Clear Calc Estimated GFR Glucose POC Capillary Glucose 110 H Lactic Acid Calcium Magnesium Total Bilirubin AST ALT Alkaline Phosphatase Troponin I Total Protein Albumin
[2024-12-20] MEDS: guaiFENesin 12 HR 600 MG TABCR 1200 MG PO ×2 (09:50→20:19)
[2024-12-20 11:20] LABS: Glucose Point of Care 105 mg/dl (65-105)
--- NOTE | 2024-12-20 14:57 | PM.PNCARD ---
Progress Note: A&P Assessment and Plan (1) Chest pain: Code(s): R07.9 - Chest pain, unspecified Status: Acute Plan 1. Atypical chest pain 2. Pneumonia 3. Acute on chronic hypercapnic respiratory failure 3. History of cardiomyopathy. LVEF is preserved 4. GI bleed, self-limited and resolved now. 5. Morbid obesity with BMI of 75 6. Obstructive sleep apnea PLAN: -Her chest pain is quite atypical and somewhat reproducible as well. However, EKG yesterday evening shows more pronounced T-wave inversions in the anterolateral leads compared to previous ones this hospitalization. An EKG in our system from 2019 read as borderline T-wave abnormality in the anterior leads, however, I am not able to view the EKG itself. Therefore, unclear if these T-wave abnormalities are new or old. Patient reports she was supposed to have a stress test in August (follows with [facility]) but missed her appointment. Therefore, although chest pain is atypical, given her EKG findings, will obtain Lexiscan tomorrow. NPO at midnight. Subjective Date/time seen: 12/20/24 14:57 Interval history: Reason for visit: Chest pain HPI: Luis White is a 54 year old female with history of congestive heart failure (follows at [place]), chronic obstructive pulmonary disease, obstructive sleep apnea, and morbid obesity with a BMI of 75. This is a patient who presented to the hospital with complaints of constipation and melenic stools, nausea, epigastric discomfort. Cardiology is consulted because of chest pain. While the patient was having an echocardiogram performed she developed sharp, substernal chest pain. She rates the pain at a 10/10 in intensity. She was lying down to have echocardiogram performed and when she was sat up the pain resolved. Patient states she is unable to lay flat at home, therefore she has never experienced this pain prior. At the time of my evaluation she is free from any chest discomfort. Date of service 12/21: Reports intermittent chest pain that is positional. Some is reproducible. Tele stable. Review of Systems Review of Systems: All systems reviewed & are unremarkable except as noted in HPI and below (HPI) Exam Const: General: no acute distress HENMT: Mouth: Yes moist mucous membranes Eyes: General: appearance normal, both eyes and all related structures Sclera: sclerae normal Resp: Effort & Inspection: normal respiratory effort Cardio: Rate: regular rate Rhythm: regular rhythm Neuro: Speech: normal speech Psych: Mental Status: mental status grossly normal Affect: normal affect Objective Data Vital Signs Vital Signs: Vital Signs - 24 hr 12/19/24 15:30 12/19/24 19:52 12/19/24 19:52 Temperature 37.0 C Pulse Rate 74 81 81 Respiratory Rate 18 23 H 23 H Blood Pressure 151/79 H Pulse Oximetry 96 99 99 Oxygen Delivery BiPAP BiPAP Oxygen Flow Rate Fraction of Inspired Oxygen 32 12/19/24 19:52 12/19/24 20:00 12/19/24 20:00 Temperature Pulse Rate 81 84 Respiratory Rate 23 H Blood Pressure Pulse Oximetry 100 Oxygen Delivery BiPAP Oxygen Flow Rate Fraction of Inspired Oxygen 32 12/19/24 20:31 12/19/24 20:43 12/19/24 22:00 Temperature 37.0 C Pulse Rate 79 76 73 Respiratory Rate 24 H 23 H Blood Pressure 146/73 H Pulse Oximetry 99 Oxygen Delivery Oxygen Flow Rate Fraction of Inspired Oxygen 12/19/24 23:50 12/19/24 23:50 12/20/24 00:00 Temperature 37.0 C Pulse Rate 72 67 Respiratory Rate 26 H 20 Blood Pressure 147/88 H Pulse Oximetry 97 99 98 Oxygen Delivery BiPAP BiPAP Oxygen Flow Rate Fraction of Inspired Oxygen 32 12/20/24 00:00 12/20/24 01:55 12/20/24 01:55 Temperature Pulse Rate 86 66 66 Respiratory Rate 20 20 Blood Pressure Pulse Oximetry 100 Oxygen Delivery BiPAP Oxygen Flow Rate Fraction of Inspired Oxygen 12/20/24 02:00 12/20/24 02:32 12/20/24 04:00 Temperature Pulse Rate 72 92 Respiratory Rate 23 H Blood Pressure Pulse Oximetry 96 Oxygen Delivery BiPAP Oxygen Flow Rate Fraction of Inspired Oxygen 32 12/20/24 04:00 12/20/24 04:32 12/20/24 06:00 Temperature 36.9 C Pulse Rate 69 74 65 Respiratory Rate 24 H Blood Pressure 134/76 Pulse Oximetry 96 Oxygen Delivery Oxygen Flow Rate Fraction of Inspired Oxygen 12/20/24 07:46 12/20/24 07:56 12/20/24 08:00 Temperature 37.0 C Pulse Rate 81 64 Respiratory Rate 23 H 20 Blood Pressure 129/57 L Pulse Oximetry 100 97 Oxygen Delivery Nasal Cannula Oxygen Flow Rate 4 Fraction of Inspired Oxygen 12/20/24 08:05 12/20/24 08:06 12/20/24 11:29 Temperature 36.7 C Pulse Rate 84 73 Respiratory Rate 20 20 Blood Pressure 140/70 Pulse Oximetry 96 97 Oxygen Delivery Nasal Cannula Oxygen Flow Rate 4 Fraction of Inspired Oxygen 12/20/24 12:00 12/20/24 13:38 12/20/24 13:50 Temperature Pulse Rate 68 84 Respiratory Rate 20 20 Blood Pressure Pulse Oximetry 97 Oxygen Delivery Nasal Cannula Oxygen Flow Rate 4 Fraction of Inspired Oxygen Intake/Output Intake/Output: Intake & Output 12/17/24 12/18/24 12/19/24 12/20/24 23:59 23:59 23:59 23:59 Intake Total 600 1300 1213 Output Total 500 875 600 Balance 100 425 613 Meds/Results Medications: Active Medications Generic Name Dose Route Start Last Admin Trade Name Freq PRN Reason Stop Dose Admin Acetaminophen 650 mg 12/18/24 20:36 Acetaminophen 325 Mg Tablet PO Q6H PRN Mild Pain (1-3) or Fever Albuterol 2.5 mg 12/18/24 14:00 12/20/24 13:36 Albuterol Sulfate Neb 2.5 Mg/3 Ml Inh INHALATION 2.5 mg Q6HRT ELIAS Administration Dextrose 12.5 gm 12/18/24 20:36 Dextrose 50% 25 Gm/50 Ml Syringe IV PUSH PRN PRN Hypoglycemia Protocol Glucagon 1 mg 12/18/24 20:36 Glucagon For Inj 1 Mg Vial IM PRN PRN Hypoglycemia Protocol Glucose 15 gm 12/18/24 20:36 Glucose Oral Gel 15 Gm Of Glucse In 37.5 Gm Tube PO PRN PRN Hypoglycemia Protocol Guaifenesin 1,200 mg 12/18/24 21:00 12/20/24 09:50 Guaifenesin 12 Hr 600 Mg Tabcr PO 1,200 mg Q12HR ELIAS Administration Ceftriaxone Sodium 1 gm in 50 mls @ 100 mls/hr 12/19/24 12:00 12/20/24 12:44 Rocephin 1 Gm/Ns 50 Ml IVPB 100 mls/hr Q24H ELIAS Administration Azithromycin 500 mg in 250 mls @ 250 mls/hr 12/19/24 17:00 12/19/24 19:23 Zithromax IVPB Infused Q24H ELIAS Infusion Dextrose 1,000 mls @ 100 mls/hr 12/18/24 20:36 Dextrose 5% 1,000 Ml IVPB PRN PRN Hypoglycemia Protocol Insulin Aspart 3 - 6 units 12/19/24 08:00 12/20/24 11:31 Insulin Aspart (*Bkc) 100 Units/Ml SUB-Q Not Given TIDWM ELIAS Protocol Insulin Aspart 1 - 3 units 12/18/24 21:00 12/19/24 20:28 Insulin Aspart (*Bkc) 100 Units/Ml SUB-Q Not Given HS ELIAS Protocol Radiology Results: ITS Impressions Chest X-Ray 12/18/24 13:10 IMPRESSION: 1. Patchy airspace opacities throughout the right lung suspicious for pneumonia. 2. Cardiomegaly. Chest CTA 12/18/24 23:11 IMPRESSION: No CT evidence of acute pulmonary embolus. Bilateral groundglass opacities, worse in the right lung, may represent asymmetric edema or infection. Thyroid goiter. Labs Labs: Laboratory Results - last 24 hr 12/19/24 12/19/24 12/19/24 15:30 20:00 23:47 WBC RBC Hgb Hct MCV MCH MCHC RDW Plt Count MPV Immature Gran % (Auto) Neut % (Auto) Lymph % (Auto) [place] % (Auto) Eos % (Auto) Baso % (Auto) Lymph # (Auto) [place] # (Auto) Eos # (Auto) Baso # (Auto) Abs Immat Gran (auto) Absolute Neuts (auto) Absolute Nucleated RBC Band Neutrophils % Nucleated RBC % Platelet Estimate Anisocytosis Schistocytes Sodium Potassium Chloride Carbon Dioxide Anion Gap BUN Creatinine Estim Creat Clear Calc Estimated GFR Glucose POC Capillary Glucose 95 161 H Lactic Acid Calcium Magnesium Total Bilirubin AST ALT Alkaline Phosphatase Troponin I < 0.012 Total Protein Albumin 12/20/24 12/20/24 12/20/24 05:18 07:13 11:10 WBC 7.9 RBC 3.97 L Hgb 10.5 L Hct 36.3 L MCV 91.4 MCH 26.4 MCHC 28.9 L RDW 16.9 H Plt Count 271 MPV 8.8 Immature Gran % (Auto) 0.9 H Neut % (Auto) 58.1 Lymph % (Auto) 28.1 [place] % (Auto) 9.4 H Eos % (Auto) 2.7 Baso % (Auto) 0.8 Lymph # (Auto) 2.22 [place] # (Auto) 0.7 H Eos # (Auto) 0.2 Baso # (Auto) 0.1 Abs Immat Gran (auto) 0.07 H Absolute Neuts (auto) 4.6 Absolute Nucleated RBC 0.070 H Band Neutrophils % 0 Nucleated RBC % 0.9 H Platelet Estimate Adequate Anisocytosis 1+ Schistocytes None seen Sodium 139 Potassium 4.3 Chloride 97 L Carbon Dioxide 38 H Anion Gap 4 BUN 13 Creatinine 0.50 L Estim Creat Clear Calc 174 Estimated GFR > 60 Glucose 109 POC Capillary Glucose 110 H 105 Lactic Acid 1.0 Calcium 9.7 Magnesium 2.0 Total Bilirubin 0.8 AST 33 ALT 52 H Alkaline Phosphatase 101 Troponin I Total Protein 7.0 Albumin 3.5
[2024-12-20] MEDS: FLUCONAZOLE 150 MG TABLET PO (15:52)
--- NOTE | 2024-12-20 16:24 | PM.IMPN ---
Progress Note: A&P Assessment and Plan (1) Acute respiratory failure with hypoxia and hypercapnia: Code(s): J96.01 - Acute respiratory failure with hypoxia; J96.02 - Acute respiratory failure with hypercapnia Status: Acute (2) Pneumonia: Code(s): J18.9 - Pneumonia, unspecified organism Status: Acute (3) Chest pain: Code(s): R07.9 - Chest pain, unspecified Status: Acute (4) GI bleed: Code(s): K92.2 - Gastrointestinal hemorrhage, unspecified Status: Acute (5) Morbid obesity: Code(s): E66.01 - Morbid (severe) obesity due to excess calories Status: Acute (6) Heart failure of unknown type: Code(s): I50.9 - Heart failure, unspecified Status: Acute (7) Chronic obstructive pulmonary disease: Code(s): J44.9 - Chronic obstructive pulmonary disease, unspecified Status: Acute (8) Obstructive sleep apnea on CPAP: Code(s): G47.33 - Obstructive sleep apnea (adult) (pediatric) Status: Acute (9) Hypertension: Qualifiers: Hypertension type: unspecified Qualified Code(s): I10 - Essential (primary) hypertension Code(s): I10 - Essential (primary) hypertension Status: Inactive Plan Pneumonia CT chest showed bilateral groundglass opacities Blood culture, MRSA negative Rocephin and Azithromycin monitor Acute hypoxemic hypercapnic resp failure OHS, BAL and pneumonia S/p BiPAP, on 4 liters oxygen Pulmonology following Contineu nigghtime BiPAP OHS continue BiPAP nighttime and monitor Chest pain no Acute changes on EKG ECHo showed Grade I diastolic dysfunction For lexiscan stress test tomorrow Gi bleed patient presented with blood in stool Gi following and awaiting conclusion cardiac workup for endoscopy CHF continue recs per cardiology HTn titrate home meds with clinical course hx of PE more than [address] negative for PE DVT prophylaxis on SCDs, no Ac due to Gi bleed Subjective Date/time seen: 12/20/24 16:24 Interval history: Much improved and patient on 4 liters oxygen Lexiscan tomorrow per cardiology Review of Systems Review of Systems: 12 systems were reviewed and are negative except for as per HPI. Exam Narrative: General: Mildly ill-appearing female sitting up in bed in no acute distress. Weight: 179.5 kg. BMI: 74.8. HEENT: PERRL, EOMI. Sclera anicteric. Oral mucosa moist. Crowded oropharynx. Neck: Supple. Exam limited due to neck circumference. No obvious JVD. Respiratory: Currently requiring 4 L nasal cannula to maintain her SpO2 in the mid to upper 90s. Respirations are nonlabored. Lung sounds are a bit coarse at the right base. Cardiovascular: Regular rate and rhythm with S1-S2. Gastrointestinal: Abdomen is soft, morbidly obese, nontender, and nondistended with positive bowel sounds. Skin: Warm and dry. No rash or lesions on limited exam. Extremities: No cyanosis, clubbing, or significant edema. Radial and pedal pulses intact. No palpable knots or cords. Negative Vera sign bilaterally. Neurological: Alert. Cranial nerves 2-12 are grossly intact. No gross focal deficits to casual conversation. Psychiatric: Pleasant and cooperative with normal mood and affect. Judgment and insight intact. She is in good spirits. Objective Data Vital Signs Vital Signs: Vital Signs - 24 hr 12/19/24 19:52 12/19/24 19:52 12/19/24 19:52 Temperature Pulse Rate 81 81 81 Respiratory Rate 23 H 23 H 23 H Blood Pressure Pulse Oximetry 99 99 Oxygen Delivery BiPAP BiPAP Oxygen Flow Rate Fraction of Inspired Oxygen 32 12/19/24 20:00 12/19/24 20:00 12/19/24 20:31 Temperature 98.6 F Pulse Rate 84 79 Respiratory Rate 24 H Blood Pressure 146/73 H Pulse Oximetry 100 99 Oxygen Delivery BiPAP Oxygen Flow Rate Fraction of Inspired Oxygen 32 12/19/24 20:43 12/19/24 22:00 12/19/24 23:50 Temperature 98.6 F Pulse Rate 76 73 72 Respiratory Rate 23 H 26 H Blood Pressure 147/88 H Pulse Oximetry 97 Oxygen Delivery Oxygen Flow Rate Fraction of Inspired Oxygen 12/19/24 23:50 12/20/24 00:00 12/20/24 00:00 Temperature Pulse Rate 67 86 Respiratory Rate 20 Blood Pressure Pulse Oximetry 99 98 Oxygen Delivery BiPAP BiPAP Oxygen Flow Rate Fraction of Inspired Oxygen 32 12/20/24 01:55 12/20/24 01:55 12/20/24 02:00 Temperature Pulse Rate 66 66 72 Respiratory Rate 20 20 Blood Pressure Pulse Oximetry 100 Oxygen Delivery BiPAP Oxygen Flow Rate Fraction of Inspired Oxygen 12/20/24 02:32 12/20/24 04:00 12/20/24 04:00 Temperature Pulse Rate 92 69 Respiratory Rate 23 H Blood Pressure Pulse Oximetry 96 Oxygen Delivery BiPAP Oxygen Flow Rate Fraction of Inspired Oxygen 32 12/20/24 04:32 12/20/24 06:00 12/20/24 07:46 Temperature 98.4 F 98.6 F Pulse Rate 74 65 81 Respiratory Rate 24 H 23 H Blood Pressure 134/76 129/57 L Pulse Oximetry 96 100 Oxygen Delivery Oxygen Flow Rate Fraction of Inspired Oxygen 12/20/24 07:56 12/20/24 08:00 12/20/24 08:00 Temperature Pulse Rate 64 77 Respiratory Rate 20 Blood Pressure Pulse Oximetry 97 Oxygen Delivery Nasal Cannula Oxygen Flow Rate 4 Fraction of Inspired Oxygen 12/20/24 08:05 12/20/24 08:06 12/20/24 10:00 Temperature Pulse Rate 84 80 Respiratory Rate 20 Blood Pressure Pulse Oximetry 96 Oxygen Delivery Nasal Cannula Oxygen Flow Rate 4 Fraction of Inspired Oxygen 12/20/24 11:29 12/20/24 12:00 12/20/24 12:00 Temperature 98.1 F Pulse Rate 73 78 Respiratory Rate 20 Blood Pressure 140/70 Pulse Oximetry 97 97 Oxygen Delivery Nasal Cannula Oxygen Flow Rate 4 Fraction of Inspired Oxygen 12/20/24 13:38 12/20/24 13:50 12/20/24 14:00 Temperature Pulse Rate 68 84 81 Respiratory Rate 20 20 Blood Pressure Pulse Oximetry Oxygen Delivery Oxygen Flow Rate Fraction of Inspired Oxygen 12/20/24 15:54 Temperature 97.7 F Pulse Rate 78 Respiratory Rate 22 H Blood Pressure 140/55 L Pulse Oximetry 96 Oxygen Delivery Oxygen Flow Rate Fraction of Inspired Oxygen Intake/Output Intake/Output: Intake & Output 12/17/24 12/18/24 12/19/24 12/20/24 23:59 23:59 23:59 23:59 Intake Total 600 1300 1213 Output Total 517 996 2639 Balance 100 425 -87 Meds/Results Medications: Active Medications Generic Name Dose Route Start Last Admin Trade Name Freq PRN Reason Stop Dose Admin Acetaminophen 650 mg 12/18/24 20:36 Acetaminophen 325 Mg Tablet PO Q6H PRN Mild Pain (1-3) or Fever Albuterol 2.5 mg 12/18/24 14:00 12/20/24 13:36 Albuterol Sulfate Neb 2.5 Mg/3 Ml Inh INHALATION 2.5 mg Q6HRT ELIAS Administration Dextrose 12.5 gm 12/18/24 20:36 Dextrose 50% 25 Gm/50 Ml Syringe IV PUSH PRN PRN Hypoglycemia Protocol Glucagon 1 mg 12/18/24 20:36 Glucagon For Inj 1 Mg Vial IM PRN PRN Hypoglycemia Protocol Glucose 15 gm 12/18/24 20:36 Glucose Oral Gel 15 Gm Of Glucse In 37.5 Gm Tube PO PRN PRN Hypoglycemia Protocol Guaifenesin 1,200 mg 12/18/24 21:00 12/20/24 09:50 Guaifenesin 12 Hr 600 Mg Tabcr PO 1,200 mg Q12HR ELIAS Administration Ceftriaxone Sodium 1 gm in 50 mls @ 100 mls/hr 12/19/24 12:00 12/20/24 12:44 Rocephin 1 Gm/Ns 50 Ml IVPB 100 mls/hr Q24H ELIAS Administration Azithromycin 500 mg in 250 mls @ 250 mls/hr 12/19/24 17:00 12/19/24 19:23 Zithromax IVPB Infused Q24H ELIAS Infusion Dextrose 1,000 mls @ 100 mls/hr 12/18/24 20:36 Dextrose 5% 1,000 Ml IVPB PRN PRN Hypoglycemia Protocol Insulin Aspart 3 - 6 units 12/19/24 08:00 12/20/24 11:31 Insulin Aspart (*Bkc) 100 Units/Ml SUB-Q Not Given TIDWM ELIAS Protocol Insulin Aspart 1 - 3 units 12/18/24 21:00 12/19/24 20:28 Insulin Aspart (*Bkc) 100 Units/Ml SUB-Q Not Given HS ELAIS Protocol Radiology Results: ITS Impressions Chest X-Ray 12/18/24 13:10 IMPRESSION: 1. Patchy airspace opacities throughout the right lung suspicious for pneumonia. 2. Cardiomegaly. Chest CTA 12/18/24 23:11 IMPRESSION: No CT evidence of acute pulmonary embolus. Bilateral groundglass opacities, worse in the right lung, may represent asymmetric edema or infection. Thyroid goiter. Labs Labs: Laboratory Results - last 24 hr 12/19/24 12/19/24 12/20/24 20:00 23:47 05:18 WBC 7.9 RBC 3.97 L Hgb 10.5 L Hct 36.3 L MCV 91.4 MCH 26.4 MCHC 28.9 L RDW 16.9 H Plt Count 271 MPV 8.8 Immature Gran % (Auto) 0.9 H Neut % (Auto) 58.1 Lymph % (Auto) 28.1 [place] % (Auto) 9.4 H Eos % (Auto) 2.7 Baso % (Auto) 0.8 Lymph # (Auto) 2.22 [place] # (Auto) 0.7 H Eos # (Auto) 0.2 Baso # (Auto) 0.1 Abs Immat Gran (auto) 0.07 H Absolute Neuts (auto) 4.6 Absolute Nucleated RBC 0.070 H Band Neutrophils % 0 Nucleated RBC % 0.9 H Platelet Estimate Adequate Anisocytosis 1+ Schistocytes None seen Sodium 139 Potassium 4.3 Chloride 97 L Carbon Dioxide 38 H Anion Gap 4 BUN 13 Creatinine 0.50 L Estim Creat Clear Calc 174 Estimated GFR > 60 Glucose 109 POC Capillary Glucose 161 H Lactic Acid 1.0 Calcium 9.7 Magnesium 2.0 Total Bilirubin 0.8 AST 33 ALT 52 H Alkaline Phosphatase 101 Troponin I < 0.012 Total Protein 7.0 Albumin 3.5 12/20/24 12/20/24 07:13 11:10 WBC RBC Hgb Hct MCV MCH MCHC RDW Plt Count MPV Immature Gran % (Auto) Neut % (Auto) Lymph % (Auto) [place] % (Auto) Eos % (Auto) Baso % (Auto) Lymph # (Auto) [place] # (Auto) Eos # (Auto) Baso # (Auto) Abs Immat Gran (auto) Absolute Neuts (auto) Absolute Nucleated RBC Band Neutrophils % Nucleated RBC % Platelet Estimate Anisocytosis Schistocytes Sodium Potassium Chloride Carbon Dioxide Anion Gap BUN Creatinine Estim Creat Clear Calc Estimated GFR Glucose POC Capillary Glucose 110 H 105 Lactic Acid Calcium Magnesium Total Bilirubin AST ALT Alkaline Phosphatase Troponin I Total Protein Albumin Quality VTE Prophylaxis VTE prophylaxis: mechanical ordered
[2024-12-20 16:29] LABS: Glucose Point of Care 136 mg/dl (65-105)
[2024-12-20] MEDS: AZITHROMYCIN 500 MG/NS 250 ML 500 MG/250 ML BAG 250 MG IVPB (17:13)
[2024-12-20 20:37] LABS: Glucose Point of Care 156 mg/dl (65-105)
[2024-12-21] VITALS (23 sets, daily range): BP systolic 132–170; BP diastolic 58–89; PULSE 66–106; RESP 16–24; TEMP 36.4–36.9; O2SAT 98–100
[2024-12-21] MEDS: ALBUTEROL SULFATE NEB 2.5 MG/3 ML INH INHALATION ×4 (02:11→20:43)
[2024-12-21 05:20] LABS: Basophils Absolute Auto 0.1 K/mm3 (0.0-0.1); Basophils Percent Auto 0.8 % (0.2-1.2); Eosinophils Absolute Auto 0.2 K/mm3 (0-0.3); Eosinophils Percent Auto 2.5 % (0-4.4); Hematocrit 33.9 % (37.0-47.0); Hemoglobin 9.9 g/dL (12.0-15.0); Immature Granulocyte Absolute 0.04 K/mm3 (0.00-0.031); Immature Granulocyte Percent A 0.5 % (0-0.5); Lymphocytes Absolute Auto 2.13 K/mm3 (0.9-3.2); Lymphocytes Percent Auto 26.7 % (18.3-44.2); Mean Corpuscular HGB Conc 29.2 g/dl (32-36); Mean Corpuscular Hemoglobin 26.7 pg (26-34); Mean Corpuscular Volume 91.4 fl (80-100); Mean Platelet Volume 9.1 fl (7.4-10.4); Monocytes Absolute Auto 0.8 K/mm3 (0.1-0.6); Monocytes Percent Auto 9.4 % (2.6-8.5); Neutrophils Absolute Auto 4.8 K/mm3 (1.3-6.7); Neutrophils Percent Auto 60.1 % (45.5-73.1); Nucleated Red Blood Cells Perc 0.4 % (0.0-0.2); Platelet Count Result 281 k/mm3 (150-375); Red Blood Count 3.71 M/mm3 (4.2-5.4); Red Cell Distribution Width 17.1 % (11.5-14.5)
[2024-12-21 05:40] LABS: Lactic Acid Reflex 0.7 mmol/L (0.7-2.0)
[2024-12-21 05:43] LABS: Alanine Aminotransferase 42 U/L (6-35); Albumin Level 3.3 g/dL (3.5-5.1); Alkaline Phosphatase 109 U/L (38-126); Anion Gap 5 mmol/L (4-12); Aspartate Amino Transferase 23 U/L (14-36); Bilirubin,Total 0.9 mg/dL (0.2-1.3); Blood Urea Nitrogen 9 mg/dL (7-17); Calcium 9.8 mg/dL (8.4-10.2); Carbon Dioxide 36 mmol/L (22-30); Chloride 98 mmol/L (98-107); Estimated CRCL calculation 199 ml/min; Estimated Glomerular Filt Rate > 60; Glucose 119 mg/dL (65-110); Magnesium 2.1 mg/dL (1.6-2.3); Potassium 4.2 mmol/L (3.4-5.0); Sodium 139 mmol/L (137-145)
[2024-12-21 05:46] LABS: Hypochromasia 1+; Platelet Estimate Adequate (Adequate); Stomatocytes 1+
[2024-12-21 05:47] LABS: Polychromasia 1+; Schistocytes None Seen
[2024-12-21] MEDS: MICONAZOLE NITRATE 2% VAGINAL CREAM 45 GM TUBE 1 APPFUL VAGINAL (06:01)
--- NOTE | 2024-12-21 07:18 | P.PNGI_ITS ---
Progress Note: A&P Assessment and Plan (1) GI bleed: Code(s): K92.2 - Gastrointestinal hemorrhage, unspecified Status: Acute Assessment and Plan: The patient recently experienced a self-limited lower gastrointestinal bleed with no evidence of current active bleeding. The most likely etiology is diverticular disease. We are awaiting the colonoscopy report from [facility]. She is undergoing a nuclear medicine cardiac stress test today to evaluate recent EKG changes and chest pain noted during echocardiography. A colonoscopy will be indicated only if active bleeding recurs; otherwise, continu ed observation is recommended. Time Spent With Patient Time with patient: less than 15 minutes Subjective Date/time seen: 12/21/24 07:18 Interval history: No chest pain or shortness of breath during the night. Last bowel movement yesterday brown Color, no signs of bleeding. Exam Narrative: unchanged from previous. Objective Data Vital Signs Vital Signs: Vital Signs - 24 hr 12/20/24 07:46 12/20/24 07:56 12/20/24 08:00 Temperature 98.6 F Pulse Rate 81 64 Respiratory Rate 23 H 20 Blood Pressure 129/57 L Pulse Oximetry 100 97 Oxygen Delivery Nasal Cannula Oxygen Flow Rate 4 Fraction of Inspired Oxygen 12/20/24 08:00 12/20/24 08:05 12/20/24 08:06 Temperature Pulse Rate 77 84 Respiratory Rate 20 Blood Pressure Pulse Oximetry 96 Oxygen Delivery Nasal Cannula Oxygen Flow Rate 4 Fraction of Inspired Oxygen 12/20/24 10:00 12/20/24 11:29 12/20/24 12:00 Temperature 98.1 F Pulse Rate 80 73 Respiratory Rate 20 Blood Pressure 140/70 Pulse Oximetry 97 97 Oxygen Delivery Nasal Cannula Oxygen Flow Rate 4 Fraction of Inspired Oxygen 12/20/24 12:00 12/20/24 13:38 12/20/24 13:50 Temperature Pulse Rate 78 68 84 Respiratory Rate 20 20 Blood Pressure Pulse Oximetry Oxygen Delivery Oxygen Flow Rate Fraction of Inspired Oxygen 12/20/24 14:00 12/20/24 15:54 12/20/24 16:00 Temperature 97.7 F Pulse Rate 81 78 87 Respiratory Rate 22 H Blood Pressure 140/55 L Pulse Oximetry 96 Oxygen Delivery Oxygen Flow Rate Fraction of Inspired Oxygen 12/20/24 16:00 12/20/24 18:00 12/20/24 20:00 Temperature 98.0 F Pulse Rate 80 78 Respiratory Rate 18 Blood Pressure 134/65 Pulse Oximetry 97 100 Oxygen Delivery Nasal Cannula Oxygen Flow Rate 4 Fraction of Inspired Oxygen 12/20/24 20:00 12/20/24 20:00 12/20/24 20:50 Temperature Pulse Rate 84 87 Respiratory Rate 23 H Blood Pressure Pulse Oximetry 100 95 Oxygen Delivery BiPAP BiPAP Oxygen Flow Rate Fraction of Inspired Oxygen 32 12/20/24 20:50 12/20/24 22:00 12/20/24 23:47 Temperature 97.7 F Pulse Rate 87 81 89 Respiratory Rate 23 H 18 Blood Pressure 138/60 Pulse Oximetry 100 Oxygen Delivery Oxygen Flow Rate Fraction of Inspired Oxygen 12/21/24 00:00 12/21/24 00:00 12/21/24 02:00 Temperature Pulse Rate 80 79 Respiratory Rate Blood Pressure Pulse Oximetry 100 Oxygen Delivery BiPAP Oxygen Flow Rate Fraction of Inspired Oxygen 32 12/21/24 02:11 12/21/24 02:13 12/21/24 04:00 Temperature 98.2 F Pulse Rate 72 75 72 Respiratory Rate 20 23 H 18 Blood Pressure 148/82 H Pulse Oximetry 98 98 Oxygen Delivery BiPAP Oxygen Flow Rate Fraction of Inspired Oxygen 12/21/24 04:00 12/21/24 04:00 12/21/24 06:00 Temperature Pulse Rate 80 76 Respiratory Rate Blood Pressure Pulse Oximetry 100 Oxygen Delivery BiPAP Oxygen Flow Rate Fraction of Inspired Oxygen 32 Intake/Output Intake/Output: Intake & Output 12/18/24 12/19/24 12/20/24 12/21/24 23:59 23:59 23:59 23:59 Intake Total 600 1300 1763 Output Total 882 667 0098 350 Balance 100 425 163 -350 Meds/Results Medications: Active Medications Generic Name Dose Route Start Last Admin Trade Name Freq PRN Reason Stop Dose Admin Acetaminophen 650 mg 12/18/24 20:36 Acetaminophen 325 Mg Tablet PO Q6H PRN Mild Pain (1-3) or Fever Albuterol 2.5 mg 12/18/24 14:00 12/21/24 02:11 Albuterol Sulfate Neb 2.5 Mg/3 Ml Inh INHALATION 2.5 mg Q6HRT ELIAS Administration Dextrose 12.5 gm 12/18/24 20:36 Dextrose 50% 25 Gm/50 Ml Syringe IV PUSH PRN PRN Hypoglycemia Protocol Glucagon 1 mg 12/18/24 20:36 Glucagon For Inj 1 Mg Vial IM PRN PRN Hypoglycemia Protocol Glucose 15 gm 12/18/24 20:36 Glucose Oral Gel 15 Gm Of Glucse In 37.5 Gm Tube PO PRN PRN Hypoglycemia Protocol Guaifenesin 1,200 mg 12/18/24 21:00 12/20/24 20:19 Guaifenesin 12 Hr 600 Mg Tabcr PO 1,200 mg Q12HR ELIAS Administration Ceftriaxone Sodium 1 gm in 50 mls @ 100 mls/hr 12/19/24 12:00 12/20/24 12:44 Rocephin 1 Gm/Ns 50 Ml IVPB 100 mls/hr Q24H ELIAS Administration Azithromycin 500 mg in 250 mls @ 250 mls/hr 12/19/24 17:00 12/20/24 17:13 Zithromax IVPB 250 mls/hr Q24H ELIAS Administration Dextrose 1,000 mls @ 100 mls/hr 12/18/24 20:36 Dextrose 5% 1,000 Ml IVPB PRN PRN Hypoglycemia Protocol Insulin Aspart 3 - 6 units 12/19/24 08:00 12/20/24 16:46 Insulin Aspart (*Bkc) 100 Units/Ml SUB-Q Not Given TIDWM [facility] Protocol Insulin Aspart 1 - 3 units 12/18/24 21:00 12/20/24 20:28 Insulin Aspart (*Bkc) 100 Units/Ml SUB-Q Not Given HS [facility] Protocol Miconazole Nitrate 1 appful 12/21/24 05:40 12/21/24 06:01 Miconazole Nitrate 2% Vaginal Cream 45 Gm Tube VAGINAL 1 appful HS ELIAS Administration Radiology Results: ITS Impressions Chest CTA 12/18/24 23:11 IMPRESSION: No CT evidence of acute pulmonary embolus. Bilateral groundglass opacities, worse in the right lung, may represent asymmetric edema or infection. Thyroid goiter. Chest X-Ray 12/21/24 06:13 Impression: Central venous congestive change and probable minimal pulmonary edema. Significant improvement in right upper lobe airspace disease from prior exam. Labs Labs: Laboratory Results - last 24 hr 12/20/24 12/20/24 12/20/24 07:13 11:10 16:27 WBC RBC Hgb Hct MCV MCH MCHC RDW Plt Count MPV Immature Gran % (Auto) Neut % (Auto) Lymph % (Auto) [place] % (Auto) Eos % (Auto) Baso % (Auto) Lymph # (Auto) [place] # (Auto) Eos # (Auto) Baso # (Auto) Abs Immat Gran (auto) Absolute Neuts (auto) Absolute Nucleated RBC Band Neutrophils % Nucleated RBC % Platelet Estimate Polychromasia Hypochromasia Stomatocytes Schistocytes Sodium Potassium Chloride Carbon Dioxide Anion Gap BUN Creatinine Estim Creat Clear Calc Estimated GFR Glucose POC Capillary Glucose 110 H 105 136 H Lactic Acid Calcium Magnesium Total Bilirubin AST ALT Alkaline Phosphatase Total Protein Albumin 12/20/24 12/21/24 20:26 05:14 WBC 8.0 RBC 3.71 L Hgb 9.9 L Hct 33.9 L MCV 91.4 MCH 26.7 MCHC 29.2 L RDW 17.1 H Plt Count 281 MPV 9.1 Immature Gran % (Auto) 0.5 Neut % (Auto) 60.1 Lymph % (Auto) 26.7 [place] % (Auto) 9.4 H Eos % (Auto) 2.5 Baso % (Auto) 0.8 Lymph # (Auto) 2.13 [place] # (Auto) 0.8 H Eos # (Auto) 0.2 Baso # (Auto) 0.1 Abs Immat Gran (auto) 0.04 H Absolute Neuts (auto) 4.8 Absolute Nucleated RBC 0.030 H Band Neutrophils % Not Reportable Nucleated RBC % 0.4 H Platelet Estimate Adequate Polychromasia 1+ Hypochromasia 1+ Stomatocytes 1+ Schistocytes None seen Sodium 139 Potassium 4.2 Chloride 98 Carbon Dioxide 36 H Anion Gap 5 BUN 9 Creatinine 0.43 L Estim Creat Clear Calc 199 Estimated GFR > 60 Glucose 119 H POC Capillary Glucose 156 H Lactic Acid 0.7 Calcium 9.8 Magnesium 2.1 Total Bilirubin 0.9 AST 23 ALT 42 H Alkaline Phosphatase 109 Total Protein 7.0 Albumin 3.3 L
[2024-12-21 08:40] LABS: Glucose Point of Care 102 mg/dl (65-105)
[2024-12-21] MEDS: guaiFENesin 12 HR 600 MG TABCR 1200 MG PO ×2 (09:52→20:24)
--- NOTE | 2024-12-21 10:03 | PM.PNPUL ---
Progress Note: A&P Assessment and Plan (1) Pneumonia: Code(s): J18.9 - Pneumonia, unspecified organism Status: Acute (2) Acute respiratory failure with hypoxia and hypercapnia: Code(s): J96.01 - Acute respiratory failure with hypoxia; J96.02 - Acute respiratory failure with hypercapnia Status: Acute Assessment and Plan: This 54-year-old female with morbid obesity and obstructive sleep apnea, who uses CPAP at home, presented with a recent upper respiratory infection and melanotic stools. Upon admission, diagnostic testing revealed bilateral pneumonia, and during her hospitalization, she was diagnosed with acute on chronic hypercapnic respiratory failure, for which she has been receiving BiPAP support. Last arterial blood gases showed significant improvement of the respiratory acidosis and over the last 2 days the patient has been on BiPAP support only at night using lower pressures and and just nasal cannula during the day. She was evaluated by Cardiology Services and scheduled for further testing. Today's chest x-ray showed clearing of the right upper lung infiltrates. Plan: Continue with the current antibiotic regimen. Due to a gastrointestinal bleed, the patient has not been receiving DVT prophylaxis with subQ heparin. Given her morbid obesity, she is at high risk for a thromboembolic event. Unclear why she has not been started on SCDs yet. (3) Obstructive sleep apnea on CPAP: Code(s): G47.33 - Obstructive sleep apnea (adult) (pediatric) Status: Acute (4) Chronic obstructive pulmonary disease: Code(s): J44.9 - Chronic obstructive pulmonary disease, unspecified Status: Acute (5) Morbid obesity: Code(s): E66.01 - Morbid (severe) obesity due to excess calories Status: Acute (6) GI bleed: Code(s): K92.2 - Gastrointestinal hemorrhage, unspecified Status: Acute Subjective Date/time seen: 12/21/24 10:03 Interval history: Patient is a doing better. She has had no new respiratory complaints. She has very mild cough but no sputum production or wheezing. No fever chills. She used BiPAP support last night and currently is on just on nasal cannula sitting up in bed fully alert. Patient indicated that because of CPAP malfunction she did not use a home CPAP for couple of days prior to coming to the hospital. She now has a new CPAP machine at home. Review of Systems Review of Systems: All systems reviewed & are unremarkable except as noted in HPI and below (HPI and below) Exam Narrative: GENERAL APPEARANCE: Well developed, morbidly obese alert and cooperative, and appears to be in in mild respiratory distress while on BiPAP support SKIN: Inspection of the skin reveals no rashes, ulcerations or petechiae. HEENT: Sclerae anicteric and conjunctivae pink and moist. Extraocular movements were intact and pupils were equal. NECK: Supple. There was no thyroid enlargement, and no tenderness, or masses were felt. LUNGS: Clear breath sounds anteriorly no wheezing CARDIAC: Distant heart sounds ABDOMEN: Soft and nontender.There was no organomegaly. LYMPH NODES: No lymphadenopathy was appreciated in the neck. EXTREMITIES: No clubbing or edema. NEUROLOGIC: Alert and oriented x 3. Normal affect. Objective Data Vital Signs Vital Signs: Vital Signs - 24 hr 12/20/24 11:29 12/20/24 12:00 12/20/24 12:00 Temperature 36.7 C Pulse Rate 73 78 Respiratory Rate 20 Blood Pressure 140/70 Pulse Oximetry 97 97 Oxygen Delivery Nasal Cannula Oxygen Flow Rate 4 Fraction of Inspired Oxygen 12/20/24 13:38 12/20/24 13:50 12/20/24 14:00 Temperature Pulse Rate 68 84 81 Respiratory Rate 20 20 Blood Pressure Pulse Oximetry Oxygen Delivery Oxygen Flow Rate Fraction of Inspired Oxygen 12/20/24 15:54 12/20/24 16:00 12/20/24 16:00 Temperature 36.5 C Pulse Rate 78 87 Respiratory Rate 22 H Blood Pressure 140/55 L Pulse Oximetry 96 97 Oxygen Delivery Nasal Cannula Oxygen Flow Rate 4 Fraction of Inspired Oxygen 12/20/24 18:00 12/20/24 20:00 12/20/24 20:00 Temperature 36.7 C Pulse Rate 80 78 Respiratory Rate 18 Blood Pressure 134/65 Pulse Oximetry 100 100 Oxygen Delivery BiPAP Oxygen Flow Rate Fraction of Inspired Oxygen 32 12/20/24 20:00 12/20/24 20:50 12/20/24 20:50 Temperature Pulse Rate 84 87 87 Respiratory Rate 23 H 23 H Blood Pressure Pulse Oximetry 95 Oxygen Delivery BiPAP Oxygen Flow Rate Fraction of Inspired Oxygen 12/20/24 22:00 12/20/24 23:47 12/21/24 00:00 Temperature 36.5 C Pulse Rate 81 89 Respiratory Rate 18 Blood Pressure 138/60 Pulse Oximetry 100 100 Oxygen Delivery BiPAP Oxygen Flow Rate Fraction of Inspired Oxygen 32 12/21/24 00:00 12/21/24 02:00 12/21/24 02:11 Temperature Pulse Rate 80 79 72 Respiratory Rate 20 Blood Pressure Pulse Oximetry Oxygen Delivery Oxygen Flow Rate Fraction of Inspired Oxygen 12/21/24 02:13 12/21/24 04:00 12/21/24 04:00 Temperature 36.8 C Pulse Rate 75 72 Respiratory Rate 23 H 18 Blood Pressure 148/82 H Pulse Oximetry 98 98 100 Oxygen Delivery BiPAP BiPAP Oxygen Flow Rate Fraction of Inspired Oxygen 32 12/21/24 04:00 12/21/24 06:00 12/21/24 08:00 Temperature 36.6 C Pulse Rate 80 76 73 Respiratory Rate 16 Blood Pressure 140/67 Pulse Oximetry 100 Oxygen Delivery Oxygen Flow Rate Fraction of Inspired Oxygen 12/21/24 08:22 12/21/24 08:23 12/21/24 08:33 Temperature Pulse Rate 74 79 Respiratory Rate 20 20 Blood Pressure Pulse Oximetry 100 Oxygen Delivery Nasal Cannula Oxygen Flow Rate 4 Fraction of Inspired Oxygen Intake/Output Intake/Output: Intake & Output 12/18/24 12/19/24 12/20/24 12/21/24 23:59 23:59 23:59 23:59 Intake Total 600 1300 1763 Output Total 930 079 8669 350 Balance 100 425 163 -350 Meds/Results Medications: Active Medications Generic Name Dose Route Start Last Admin Trade Name Freq PRN Reason Stop Dose Admin Acetaminophen 650 mg 12/18/24 20:36 Acetaminophen 325 Mg Tablet PO Q6H PRN Mild Pain (1-3) or Fever Albuterol 2.5 mg 12/18/24 14:00 12/21/24 08:22 Albuterol Sulfate Neb 2.5 Mg/3 Ml Inh INHALATION 2.5 mg Q6HRT ELIAS Administration Dextrose 12.5 gm 12/18/24 20:36 Dextrose 50% 25 Gm/50 Ml Syringe IV PUSH PRN PRN Hypoglycemia Protocol Glucagon 1 mg 12/18/24 20:36 Glucagon For Inj 1 Mg Vial IM PRN PRN Hypoglycemia Protocol Glucose 15 gm 12/18/24 20:36 Glucose Oral Gel 15 Gm Of Glucse In 37.5 Gm Tube PO PRN PRN Hypoglycemia Protocol Guaifenesin 1,200 mg 12/18/24 21:00 12/21/24 09:52 Guaifenesin 12 Hr 600 Mg Tabcr PO 1,200 mg Q12HR ELIAS Administration Ceftriaxone Sodium 1 gm in 50 mls @ 100 mls/hr 12/19/24 12:00 12/20/24 12:44 Rocephin 1 Gm/Ns 50 Ml IVPB 100 mls/hr Q24H ELIAS Administration Azithromycin 500 mg in 250 mls @ 250 mls/hr 12/19/24 17:00 12/20/24 17:13 Zithromax IVPB 250 mls/hr Q24H ELIAS Administration Dextrose 1,000 mls @ 100 mls/hr 12/18/24 20:36 Dextrose 5% 1,000 Ml IVPB PRN PRN Hypoglycemia Protocol Insulin Aspart 3 - 6 units 12/19/24 08:00 12/21/24 09:43 Insulin Aspart (*Bkc) 100 Units/Ml SUB-Q Not Given TIDWM [facility] Protocol Insulin Aspart 1 - 3 units 12/18/24 21:00 12/20/24 20:28 Insulin Aspart (*Bkc) 100 Units/Ml SUB-Q Not Given HS [facility] Protocol Miconazole Nitrate 1 appful 12/21/24 05:40 12/21/24 06:01 Miconazole Nitrate 2% Vaginal Cream 45 Gm Tube VAGINAL 1 appful HS ELIAS Administration Radiology Results: ITS Impressions Chest CTA 12/18/24 23:11 IMPRESSION: No CT evidence of acute pulmonary embolus. Bilateral groundglass opacities, worse in the right lung, may represent asymmetric edema or infection. Thyroid goiter. Chest X-Ray 12/21/24 06:13 Impression: Central venous congestive change and probable minimal pulmonary edema. Significant improvement in right upper lobe airspace disease from prior exam. Labs Labs: Laboratory Results - last 24 hr 12/20/24 12/20/24 12/20/24 11:10 16:27 20:26 WBC RBC Hgb Hct MCV MCH MCHC RDW Plt Count MPV Immature Gran % (Auto) Neut % (Auto) Lymph % (Auto) [place] % (Auto) Eos % (Auto) Baso % (Auto) Lymph # (Auto) [place] # (Auto) Eos # (Auto) Baso # (Auto) Abs Immat Gran (auto) Absolute Neuts (auto) Absolute Nucleated RBC Band Neutrophils % Nucleated RBC % Platelet Estimate Polychromasia Hypochromasia Stomatocytes Schistocytes Sodium Potassium Chloride Carbon Dioxide Anion Gap BUN Creatinine Estim Creat Clear Calc Estimated GFR Glucose POC Capillary Glucose 105 136 H 156 H Lactic Acid Calcium Magnesium Total Bilirubin AST ALT Alkaline Phosphatase Total Protein Albumin 12/21/24 12/21/24 05:14 07:43 WBC 8.0 RBC 3.71 L Hgb 9.9 L Hct 33.9 L MCV 91.4 MCH 26.7 MCHC 29.2 L RDW 17.1 H Plt Count 281 MPV 9.1 Immature Gran % (Auto) 0.5 Neut % (Auto) 60.1 Lymph % (Auto) 26.7 [place] % (Auto) 9.4 H Eos % (Auto) 2.5 Baso % (Auto) 0.8 Lymph # (Auto) 2.13 [place] # (Auto) 0.8 H Eos # (Auto) 0.2 Baso # (Auto) 0.1 Abs Immat Gran (auto) 0.04 H Absolute Neuts (auto) 4.8 Absolute Nucleated RBC 0.030 H Band Neutrophils % Not Reportable Nucleated RBC % 0.4 H Platelet Estimate Adequate Polychromasia 1+ Hypochromasia 1+ Stomatocytes 1+ Schistocytes None seen Sodium 139 Potassium 4.2 Chloride 98 Carbon Dioxide 36 H Anion Gap 5 BUN 9 Creatinine 0.43 L Estim Creat Clear Calc 199 Estimated GFR > 60 Glucose 119 H POC Capillary Glucose 102 Lactic Acid 0.7 Calcium 9.8 Magnesium 2.1 Total Bilirubin 0.9 AST 23 ALT 42 H Alkaline Phosphatase 109 Total Protein 7.0 Albumin 3.3 L
--- NOTE | 2024-12-21 11:32 | PCCARD ---
[facility] STRESS TEST CANCELLED DUE TO PATIENTS BODY HABITUS, DID NOT FIT NUCLEAR SCAN
[2024-12-21 12:26] LABS: Glucose Point of Care 99 mg/dl (65-105)
[2024-12-21] MEDS: diphenhydrAMINE HCl CAP 25 MG CAPSULE PO (12:46)
--- NOTE | 2024-12-21 13:52 | PM.PNCARD ---
Progress Note: A&P Assessment and Plan (1) Chest pain: Code(s): R07.9 - Chest pain, unspecified Status: Acute Plan 1. Atypical chest pain 2. Pneumonia 3. Acute on chronic hypercapnic respiratory failure 3. History of cardiomyopathy. LVEF is preserved 4. GI bleed, self-limited and resolved now. 5. Morbid obesity with BMI of 75 6. Obstructive sleep apnea PLAN: -Her chest pain is quite atypical and somewhat reproducible as well. However, EKG 12/19 shows more pronounced T-wave inversions in the anterolateral leads compared to previous ones this hospitalization. An EKG in our system from 2019 read as borderline T-wave abnormality in the anterior leads, however, I am not able to view the EKG itself. Therefore, unclear if these T-wave abnormalities are new or old. Patient reports she was supposed to have a stress test in August (follows with [facility]) but missed her appointment. Lexiscan stress test attempted today but could not be completed because of patient's body habitus/inability to fit in the scanner. Will treat medically with statin but will avoid ASA for now given GI bleeding. Subjective Date/time seen: 12/21/24 13:52 Interval history: Reason for visit: Chest pain HPI: Luis White is a 54 year old female with history of congestive heart failure (follows at [facility]), chronic obstructive pulmonary disease, obstructive sleep apnea, and morbid obesity with a BMI of 75. This is a patient who presented to the hospital with complaints of constipation and melenic stools, nausea, epigastric discomfort. Cardiology is consulted because of chest pain. While the patient was having an echocardiogram performed she developed sharp, substernal chest pain. She rates the pain at a 10/10 in intensity. She was lying down to have echocardiogram performed and when she was sat up the pain resolved. Patient states she is unable to lay flat at home, therefore she has never experienced this pain prior. At the time of my evaluation she is free from any chest discomfort. Date of service 12/20: Reports intermittent chest pain that is positional. Some is reproducible. Tele stable. Date of service 12/21/2024: Review of Systems Review of Systems: All systems reviewed & are unremarkable except as noted in HPI and below (HPI) Exam Const: General: comfortable, no acute distress, alert and awake Orientation/consciousness: patient oriented x3 Other: Morbidly obese HENMT: Head: normal to inspection Mouth: Yes moist mucous membranes Eyes: General: appearance normal, both eyes and all related structures Sclera: sclerae normal Pupils: Equal, round and reactive pupils present Neck: Neck: normal visual inspection and supple Carotids: normal carotid upstroke Resp: Effort & Inspection: normal respiratory effort Auscultation: diminished lung sounds Cardio: Rate: regular rate Rhythm: regular rhythm Heart sounds: S1 normal heart sound present, S2 normal heart sound present and no murmurs GI: Auscultation: normal bowel sounds Skin: General skin exam: normal color Neuro: General: patient oriented x3 Cranial nerves: Yes Equal, round and reactive pupils present Speech: normal speech Extrem: General: normal to inspection Psych: Appearance: grossly normal Mental Status: mental status grossly normal Affect: normal affect Objective Data Vital Signs Vital Signs: Vital Signs - 24 hr 12/20/24 14:00 12/20/24 15:54 12/20/24 16:00 Temperature 36.5 C Pulse Rate 81 78 87 Respiratory Rate 22 H Blood Pressure 140/55 L Pulse Oximetry 96 Oxygen Delivery Oxygen Flow Rate Fraction of Inspired Oxygen 12/20/24 16:00 12/20/24 18:00 12/20/24 20:00 Temperature 36.7 C Pulse Rate 80 78 Respiratory Rate 18 Blood Pressure 134/65 Pulse Oximetry 97 100 Oxygen Delivery Nasal Cannula Oxygen Flow Rate 4 Fraction of Inspired Oxygen 12/20/24 20:00 12/20/24 20:00 12/20/24 20:50 Temperature Pulse Rate 84 87 Respiratory Rate 23 H Blood Pressure Pulse Oximetry 100 95 Oxygen Delivery BiPAP BiPAP Oxygen Flow Rate Fraction of Inspired Oxygen 32 12/20/24 20:50 12/20/24 22:00 12/20/24 23:47 Temperature 36.5 C Pulse Rate 87 81 89 Respiratory Rate 23 H 18 Blood Pressure 138/60 Pulse Oximetry 100 Oxygen Delivery Oxygen Flow Rate Fraction of Inspired Oxygen 12/21/24 00:00 12/21/24 00:00 12/21/24 02:00 Temperature Pulse Rate 80 79 Respiratory Rate Blood Pressure Pulse Oximetry 100 Oxygen Delivery BiPAP Oxygen Flow Rate Fraction of Inspired Oxygen 32 12/21/24 02:11 12/21/24 02:13 12/21/24 04:00 Temperature 36.8 C Pulse Rate 72 75 72 Respiratory Rate 20 23 H 18 Blood Pressure 148/82 H Pulse Oximetry 98 98 Oxygen Delivery BiPAP Oxygen Flow Rate Fraction of Inspired Oxygen 12/21/24 04:00 12/21/24 04:00 12/21/24 06:00 Temperature Pulse Rate 80 76 Respiratory Rate Blood Pressure Pulse Oximetry 100 Oxygen Delivery BiPAP Oxygen Flow Rate Fraction of Inspired Oxygen 32 12/21/24 08:00 12/21/24 08:00 12/21/24 08:22 Temperature 36.6 C Pulse Rate 73 75 Respiratory Rate 16 Blood Pressure 140/67 Pulse Oximetry 100 100 Oxygen Delivery Nasal Cannula Oxygen Flow Rate 4 Fraction of Inspired Oxygen 12/21/24 08:23 12/21/24 08:33 12/21/24 10:00 Temperature Pulse Rate 74 79 77 Respiratory Rate 20 20 Blood Pressure Pulse Oximetry Oxygen Delivery Oxygen Flow Rate Fraction of Inspired Oxygen 12/21/24 12:00 Temperature 36.6 C Pulse Rate 70 Respiratory Rate 20 Blood Pressure 146/69 H Pulse Oximetry 99 Oxygen Delivery Oxygen Flow Rate Fraction of Inspired Oxygen Intake/Output Intake/Output: Intake & Output 12/18/24 12/19/24 12/20/24 12/21/24 23:59 23:59 23:59 23:59 Intake Total 600 1300 1813 Output Total 059 728 7248 350 Balance 100 425 213 -350 Meds/Results Medications: Active Medications Generic Name Dose Route Start Last Admin Trade Name Freq PRN Reason Stop Dose Admin Acetaminophen 650 mg 12/18/24 20:36 Acetaminophen 325 Mg Tablet PO Q6H PRN Mild Pain (1-3) or Fever Albuterol 2.5 mg 12/18/24 14:00 12/21/24 08:22 Albuterol Sulfate Neb 2.5 Mg/3 Ml Inh INHALATION 2.5 mg Q6HRT ELIAS Administration Azithromycin 500 mg 12/21/24 17:00 Azithromycin 250 Mg Tablet PO 12/22/24 17:01 DAILY@1700 [facility] Dextrose 12.5 gm 12/18/24 20:36 Dextrose 50% 25 Gm/50 Ml Syringe IV PUSH PRN PRN Hypoglycemia Protocol Glucagon 1 mg 12/18/24 20:36 Glucagon For Inj 1 Mg Vial IM PRN PRN Hypoglycemia Protocol Glucose 15 gm 12/18/24 20:36 Glucose Oral Gel 15 Gm Of Glucse In 37.5 Gm Tube PO PRN PRN Hypoglycemia Protocol Guaifenesin 1,200 mg 12/18/24 21:00 12/21/24 09:52 Guaifenesin 12 Hr 600 Mg Tabcr PO 1,200 mg Q12HR ELIAS Administration Ceftriaxone Sodium 1 gm in 50 mls @ 100 mls/hr 12/19/24 12:00 12/21/24 12:46 Rocephin 1 Gm/Ns 50 Ml IVPB 12/24/24 23:59 100 mls/hr Q24H ELIAS Administration Dextrose 1,000 mls @ 100 mls/hr 12/18/24 20:36 Dextrose 5% 1,000 Ml IVPB PRN PRN Hypoglycemia Protocol Insulin Aspart 3 - 6 units 12/19/24 08:00 12/21/24 12:29 Insulin Aspart (*Bkc) 100 Units/Ml SUB-Q Not Given TIDWM ELIAS Protocol Insulin Aspart 1 - 3 units 12/18/24 21:00 12/20/24 20:28 Insulin Aspart (*Bkc) 100 Units/Ml SUB-Q Not Given HS ELIAS Protocol Miconazole Nitrate 1 appful 12/21/24 05:40 12/21/24 06:01 Miconazole Nitrate 2% Vaginal Cream 45 Gm Tube VAGINAL 1 appful HS ELIAS Administration Radiology Results: ITS Impressions Chest CTA 12/18/24 23:11 IMPRESSION: No CT evidence of acute pulmonary embolus. Bilateral groundglass opacities, worse in the right lung, may represent asymmetric edema or infection. Thyroid goiter. Chest X-Ray 12/21/24 06:13 Impression: Central venous congestive change and probable minimal pulmonary edema. Significant improvement in right upper lobe airspace disease from prior exam. Labs Labs: Laboratory Results - last 24 hr 12/20/24 12/20/24 12/21/24 16:27 20:26 05:14 WBC 8.0 RBC 3.71 L Hgb 9.9 L Hct 33.9 L MCV 91.4 MCH 26.7 MCHC 29.2 L RDW 17.1 H Plt Count 281 MPV 9.1 Immature Gran % (Auto) 0.5 Neut % (Auto) 60.1 Lymph % (Auto) 26.7 [place] % (Auto) 9.4 H Eos % (Auto) 2.5 Baso % (Auto) 0.8 Lymph # (Auto) 2.13 [place] # (Auto) 0.8 H Eos # (Auto) 0.2 Baso # (Auto) 0.1 Abs Immat Gran (auto) 0.04 H Absolute Neuts (auto) 4.8 Absolute Nucleated RBC 0.030 H Band Neutrophils % Not Reportable Nucleated RBC % 0.4 H Platelet Estimate Adequate Polychromasia 1+ Hypochromasia 1+ Stomatocytes 1+ Schistocytes None seen Sodium 139 Potassium 4.2 Chloride 98 Carbon Dioxide 36 H Anion Gap 5 BUN 9 Creatinine 0.43 L Estim Creat Clear Calc 199 Estimated GFR > 60 Glucose 119 H POC Capillary Glucose 136 H 156 H Lactic Acid 0.7 Calcium 9.8 Magnesium 2.1 Total Bilirubin 0.9 AST 23 ALT 42 H Alkaline Phosphatase 109 Total Protein 7.0 Albumin 3.3 L 12/21/24 12/21/24 07:43 12:00 WBC RBC Hgb Hct MCV MCH MCHC RDW Plt Count MPV Immature Gran % (Auto) Neut % (Auto) Lymph % (Auto) [place] % (Auto) Eos % (Auto) Baso % (Auto) Lymph # (Auto) [place] # (Auto) Eos # (Auto) Baso # (Auto) Abs Immat Gran (auto) Absolute Neuts (auto) Absolute Nucleated RBC Band Neutrophils % Nucleated RBC % Platelet Estimate Polychromasia Hypochromasia Stomatocytes Schistocytes Sodium Potassium Chloride Carbon Dioxide Anion Gap BUN Creatinine Estim Creat Clear Calc Estimated GFR Glucose POC Capillary Glucose 102 99 Lactic Acid Calcium Magnesium Total Bilirubin AST ALT Alkaline Phosphatase Total Protein Albumin
--- NOTE | 2024-12-21 14:38 | PM.IMPN ---
Progress Note: A&P Assessment and Plan (1) Acute respiratory failure with hypoxia and hypercapnia: Code(s): J96.01 - Acute respiratory failure with hypoxia; J96.02 - Acute respiratory failure with hypercapnia Status: Acute (2) Pneumonia: Code(s): J18.9 - Pneumonia, unspecified organism Status: Acute (3) Chest pain: Code(s): R07.9 - Chest pain, unspecified Status: Acute (4) GI bleed: Code(s): K92.2 - Gastrointestinal hemorrhage, unspecified Status: Acute (5) Morbid obesity: Code(s): E66.01 - Morbid (severe) obesity due to excess calories Status: Acute (6) Heart failure of unknown type: Code(s): I50.9 - Heart failure, unspecified Status: Acute (7) Chronic obstructive pulmonary disease: Code(s): J44.9 - Chronic obstructive pulmonary disease, unspecified Status: Acute (8) Obstructive sleep apnea on CPAP: Code(s): G47.33 - Obstructive sleep apnea (adult) (pediatric) Status: Acute (9) Hypertension: Qualifiers: Hypertension type: unspecified Qualified Code(s): I10 - Essential (primary) hypertension Code(s): I10 - Essential (primary) hypertension Status: Inactive Plan Pneumonia CT chest showed bilateral groundglass opacities Blood culture, MRSA negative Rocephin and Azithromycin monitor Acute hypoxemic hypercapnic resp failure OHS, BAL and pneumonia S/p BiPAP, on 4 liters oxygen Pulmonology following Contineu nigghtime BiPAP OHS continue BiPAP nighttime and monitor Chest pain no Acute changes on EKG ECHo showed Grade I diastolic dysfunction For lexiscan stress test today Gi bleed patient presented with blood in stool Gi following and awaiting conclusion cardiac workup for endoscopy Anemia likely from GI bleed Hb 9.9, Iron panel pending monitor H and H CHF continue recs per cardiology HTn titrate home meds with clinical course hx of PE more than [address] negative for PE DVT prophylaxis on SCDs, no Ac due to Gi bleed Subjective Date/time seen: 12/21/24 14:38 Interval history: Patient comfortable at bedside awaiting stress test today as at the time of this encounter Review of Systems Review of Systems: 12 systems were reviewed and are negative except for as per HPI. Exam Narrative: General: Mildly ill-appearing female sitting up in bed in no acute distress. Weight: 179.5 kg. BMI: 74.8. HEENT: PERRL, EOMI. Sclera anicteric. Oral mucosa moist. Crowded oropharynx. Neck: Supple. Exam limited due to neck circumference. No obvious JVD. Respiratory: Currently requiring 4 L nasal cannula to maintain her SpO2 in the mid to upper 90s. Respirations are nonlabored. Lung sounds are a bit coarse at the right base. Cardiovascular: Regular rate and rhythm with S1-S2. Gastrointestinal: Abdomen is soft, morbidly obese, nontender, and nondistended with positive bowel sounds. Skin: Warm and dry. No rash or lesions on limited exam. Extremities: No cyanosis, clubbing, or significant edema. Radial and pedal pulses intact. No palpable knots or cords. Negative Vera sign bilaterally. Neurological: Alert. Cranial nerves 2-12 are grossly intact. No gross focal deficits to casual conversation. Psychiatric: Pleasant and cooperative with normal mood and affect. Judgment and insight intact. She is in good spirits. Objective Data Vital Signs Vital Signs: Vital Signs - 24 hr 12/20/24 15:54 12/20/24 16:00 12/20/24 16:00 Temperature 97.7 F Pulse Rate 78 87 Respiratory Rate 22 H Blood Pressure 140/55 L Pulse Oximetry 96 97 Oxygen Delivery Nasal Cannula Oxygen Flow Rate 4 Fraction of Inspired Oxygen 12/20/24 18:00 12/20/24 20:00 12/20/24 20:00 Temperature 98.0 F Pulse Rate 80 78 Respiratory Rate 18 Blood Pressure 134/65 Pulse Oximetry 100 100 Oxygen Delivery BiPAP Oxygen Flow Rate Fraction of Inspired Oxygen 32 12/20/24 20:00 12/20/24 20:50 12/20/24 20:50 Temperature Pulse Rate 84 87 87 Respiratory Rate 23 H 23 H Blood Pressure Pulse Oximetry 95 Oxygen Delivery BiPAP Oxygen Flow Rate Fraction of Inspired Oxygen 12/20/24 22:00 12/20/24 23:47 12/21/24 00:00 Temperature 97.7 F Pulse Rate 81 89 Respiratory Rate 18 Blood Pressure 138/60 Pulse Oximetry 100 100 Oxygen Delivery BiPAP Oxygen Flow Rate Fraction of Inspired Oxygen 32 12/21/24 00:00 12/21/24 02:00 12/21/24 02:11 Temperature Pulse Rate 80 79 72 Respiratory Rate 20 Blood Pressure Pulse Oximetry Oxygen Delivery Oxygen Flow Rate Fraction of Inspired Oxygen 12/21/24 02:13 12/21/24 04:00 12/21/24 04:00 Temperature 98.2 F Pulse Rate 75 72 Respiratory Rate 23 H 18 Blood Pressure 148/82 H Pulse Oximetry 98 98 100 Oxygen Delivery BiPAP BiPAP Oxygen Flow Rate Fraction of Inspired Oxygen 32 12/21/24 04:00 12/21/24 06:00 12/21/24 08:00 Temperature 97.9 F Pulse Rate 80 76 73 Respiratory Rate 16 Blood Pressure 140/67 Pulse Oximetry 100 Oxygen Delivery Oxygen Flow Rate Fraction of Inspired Oxygen 12/21/24 08:00 12/21/24 08:22 12/21/24 08:23 Temperature Pulse Rate 75 74 Respiratory Rate 20 Blood Pressure Pulse Oximetry 100 Oxygen Delivery Nasal Cannula Oxygen Flow Rate 4 Fraction of Inspired Oxygen 12/21/24 08:33 12/21/24 10:00 12/21/24 12:00 Temperature 97.9 F Pulse Rate 79 77 70 Respiratory Rate 20 20 Blood Pressure 146/69 H Pulse Oximetry 99 Oxygen Delivery Oxygen Flow Rate Fraction of Inspired Oxygen Intake/Output Intake/Output: Intake & Output 12/18/24 12/19/24 12/20/24 12/21/24 23:59 23:59 23:59 23:59 Intake Total 600 1300 1813 Output Total 241 028 9000 350 Balance 100 425 213 -350 Meds/Results Medications: Active Medications Generic Name Dose Route Start Last Admin Trade Name Freq PRN Reason Stop Dose Admin Acetaminophen 650 mg 12/18/24 20:36 Acetaminophen 325 Mg Tablet PO Q6H PRN Mild Pain (1-3) or Fever Albuterol 2.5 mg 12/18/24 14:00 12/21/24 08:22 Albuterol Sulfate Neb 2.5 Mg/3 Ml Inh INHALATION 2.5 mg Q6HRT ELIAS Administration Atorvastatin Calcium 40 mg 12/22/24 09:00 Atorvastatin 40 Mg Tablet PO DAILY [facility] Azithromycin 500 mg 12/21/24 17:00 Azithromycin 250 Mg Tablet PO 12/22/24 17:01 DAILY@1700 [facility] Dextrose 12.5 gm 12/18/24 20:36 Dextrose 50% 25 Gm/50 Ml Syringe IV PUSH PRN PRN Hypoglycemia Protocol Glucagon 1 mg 12/18/24 20:36 Glucagon For Inj 1 Mg Vial IM PRN PRN Hypoglycemia Protocol Glucose 15 gm 12/18/24 20:36 Glucose Oral Gel 15 Gm Of Glucse In 37.5 Gm Tube PO PRN PRN Hypoglycemia Protocol Guaifenesin 1,200 mg 12/18/24 21:00 12/21/24 09:52 Guaifenesin 12 Hr 600 Mg Tabcr PO 1,200 mg Q12HR ELIAS Administration Ceftriaxone Sodium 1 gm in 50 mls @ 100 mls/hr 12/19/24 12:00 12/21/24 12:46 Rocephin 1 Gm/Ns 50 Ml IVPB 12/24/24 23:59 100 mls/hr Q24H ELIAS Administration Dextrose 1,000 mls @ 100 mls/hr 12/18/24 20:36 Dextrose 5% 1,000 Ml IVPB PRN PRN Hypoglycemia Protocol Insulin Aspart 3 - 6 units 12/19/24 08:00 12/21/24 12:29 Insulin Aspart (*Bkc) 100 Units/Ml SUB-Q Not Given TIDWM ELIAS Protocol Insulin Aspart 1 - 3 units 12/18/24 21:00 12/20/24 20:28 Insulin Aspart (*Bkc) 100 Units/Ml SUB-Q Not Given HS [facility] Protocol Miconazole Nitrate 1 appful 12/21/24 05:40 12/21/24 06:01 Miconazole Nitrate 2% Vaginal Cream 45 Gm Tube VAGINAL 1 appful HS ELIAS Administration Radiology Results: ITS Impressions Chest CTA 12/18/24 23:11 IMPRESSION: No CT evidence of acute pulmonary embolus. Bilateral groundglass opacities, worse in the right lung, may represent asymmetric edema or infection. Thyroid goiter. Chest X-Ray 12/21/24 06:13 Impression: Central venous congestive change and probable minimal pulmonary edema. Significant improvement in right upper lobe airspace disease from prior exam. Labs Labs: Laboratory Results - last 24 hr 12/20/24 12/20/24 12/21/24 16:27 20:26 05:14 WBC 8.0 RBC 3.71 L Hgb 9.9 L Hct 33.9 L MCV 91.4 MCH 26.7 MCHC 29.2 L RDW 17.1 H Plt Count 281 MPV 9.1 Immature Gran % (Auto) 0.5 Neut % (Auto) 60.1 Lymph % (Auto) 26.7 [place] % (Auto) 9.4 H Eos % (Auto) 2.5 Baso % (Auto) 0.8 Lymph # (Auto) 2.13 [place] # (Auto) 0.8 H Eos # (Auto) 0.2 Baso # (Auto) 0.1 Abs Immat Gran (auto) 0.04 H Absolute Neuts (auto) 4.8 Absolute Nucleated RBC 0.030 H Band Neutrophils % Not Reportable Nucleated RBC % 0.4 H Platelet Estimate Adequate Polychromasia 1+ Hypochromasia 1+ Stomatocytes 1+ Schistocytes None seen Sodium 139 Potassium 4.2 Chloride 98 Carbon Dioxide 36 H Anion Gap 5 BUN 9 Creatinine 0.43 L Estim Creat Clear Calc 199 Estimated GFR > 60 Glucose 119 H POC Capillary Glucose 136 H 156 H Lactic Acid 0.7 Calcium 9.8 Magnesium 2.1 Total Bilirubin 0.9 AST 23 ALT 42 H Alkaline Phosphatase 109 Total Protein 7.0 Albumin 3.3 L 12/21/24 12/21/24 07:43 12:00 WBC RBC Hgb Hct MCV MCH MCHC RDW Plt Count MPV Immature Gran % (Auto) Neut % (Auto) Lymph % (Auto) [place] % (Auto) Eos % (Auto) Baso % (Auto) Lymph # (Auto) [place] # (Auto) Eos # (Auto) Baso # (Auto) Abs Immat Gran (auto) Absolute Neuts (auto) Absolute Nucleated RBC Band Neutrophils % Nucleated RBC % Platelet Estimate Polychromasia Hypochromasia Stomatocytes Schistocytes Sodium Potassium Chloride Carbon Dioxide Anion Gap BUN Creatinine Estim Creat Clear Calc Estimated GFR Glucose POC Capillary Glucose 102 99 Lactic Acid Calcium Magnesium Total Bilirubin AST ALT Alkaline Phosphatase Total Protein Albumin Quality VTE Prophylaxis VTE prophylaxis: mechanical ordered
[2024-12-21 16:33] LABS: Glucose Point of Care 134 mg/dl (65-105)
[2024-12-21] MEDS: AZITHROMYCIN 250 MG TABLET 500 MG PO (18:17)
[2024-12-21 19:59] LABS: Mycoplasma IgM Antibody Titer 140 U/mL
[2024-12-21 20:06] LABS: Glucose Point of Care 124 mg/dl (65-105)
[2024-12-22] VITALS (17 sets, daily range): BP systolic 147–163; BP diastolic 71–84; PULSE 73–98; RESP 16–23; TEMP 36.6–37.2; O2SAT 93–99
[2024-12-22] MEDS: ALBUTEROL SULFATE NEB 2.5 MG/3 ML INH INHALATION ×4 (02:05→22:45)
[2024-12-22 05:45] LABS: Basophils Absolute Auto 0.1 K/mm3 (0.0-0.1); Basophils Percent Auto 0.8 % (0.2-1.2); Eosinophils Absolute Auto 0.2 K/mm3 (0-0.3); Eosinophils Percent Auto 2.7 % (0-4.4); Hematocrit 35.2 % (37.0-47.0); Hemoglobin 10.2 g/dL (12.0-15.0); Immature Granulocyte Absolute 0.05 K/mm3 (0.00-0.031); Immature Granulocyte Percent A 0.6 % (0-0.5); Lymphocytes Absolute Auto 1.67 K/mm3 (0.9-3.2); Lymphocytes Percent Auto 21.7 % (18.3-44.2); Mean Corpuscular Hemoglobin 26.5 pg (26-34); Mean Corpuscular Volume 91.4 fl (80-100); Mean Platelet Volume 9.3 fl (7.4-10.4); Monocytes Absolute Auto 0.6 K/mm3 (0.1-0.6); Monocytes Percent Auto 8.2 % (2.6-8.5); Neutrophils Absolute Auto 5.1 K/mm3 (1.3-6.7); Nucleated Red Blood Cells Perc 0.3 % (0.0-0.2); Platelet Count Result 296 k/mm3 (150-375); Red Blood Count 3.85 M/mm3 (4.2-5.4); Red Cell Distribution Width 17.1 % (11.5-14.5); White Blood Count 7.7 K/mm3 (4.5-10.0)
[2024-12-22 06:00] LABS: Alanine Aminotransferase 33 U/L (6-35); Albumin Level 3.6 g/dL (3.5-5.1); Alkaline Phosphatase 107 U/L (38-126); Anion Gap 6 mmol/L (4-12); Aspartate Amino Transferase 23 U/L (14-36); Bilirubin,Total 0.5 mg/dL (0.2-1.3); Blood Urea Nitrogen 11 mg/dL (7-17); Calcium 9.9 mg/dL (8.4-10.2); Carbon Dioxide 33 mmol/L (22-30); Chloride 100 mmol/L (98-107); Estimated CRCL calculation 189 ml/min; Estimated Glomerular Filt Rate > 60; Glucose 209 mg/dL (65-110); Magnesium 1.9 mg/dL (1.6-2.3); Potassium 4.2 mmol/L (3.4-5.0); Sodium 139 mmol/L (137-145)
[2024-12-22 06:02] LABS: Iron 36 ug/dL (37-170)
[2024-12-22 06:12] LABS: Percent Iron Saturation 9 % (20-50)
[2024-12-22 07:08] LABS: Anisocytosis 1+; Hypochromasia 1+; Platelet Estimate Adequate (Adequate); Schistocytes None Seen
[2024-12-22 07:44] LABS: Glucose Point of Care 133 mg/dl (65-105)
--- NOTE | 2024-12-22 08:51 | PM.PNCARD ---
Progress Note: A&P Assessment and Plan (1) Chest pain: Code(s): R07.9 - Chest pain, unspecified Status: Acute Plan 1. Atypical chest pain 2. Pneumonia 3. Acute on chronic hypercapnic respiratory failure 3. History of cardiomyopathy. LVEF is preserved 4. GI bleed, self-limited and resolved now. 5. Morbid obesity with BMI of 75 6. Obstructive sleep apnea PLAN: -Her chest pain is quite atypical and somewhat reproducible as well. However, EKG 12/19 shows more pronounced T-wave inversions in the anterolateral leads compared to previous ones this hospitalization. An EKG in our system from 2019 read as borderline T-wave abnormality in the anterior leads, however, unable to view the EKG itself. Therefore, unclear if these T-wave abnormalities are new or old. Patient reports she was supposed to have a stress test in August (follows with [facility]) but missed her appointment. Lexiscan stress test attempted here yesterday but could not be completed because of patient's body habitus/inability to fit in the scanner. Will treat medically with statin but will avoid ASA for now given GI bleeding. Follow up with established inventory management specialist after discharge Cardiology will sign off please call with questions. Subjective Date/time seen: 12/22/24 08:51 Interval history: Reason for visit: Chest pain HPI: Luis White is a 54 year old female with history of congestive heart failure (follows at [facility]), chronic obstructive pulmonary disease, obstructive sleep apnea, and morbid obesity with a BMI of 75. This is a patient who presented to the hospital with complaints of constipation and melenic stools, nausea, epigastric discomfort. Cardiology is consulted because of chest pain. While the patient was having an echocardiogram performed she developed sharp, substernal chest pain. She rates the pain at a 10/10 in intensity. She was lying down to have echocardiogram performed and when she was sat up the pain resolved. Patient states she is unable to lay flat at home, therefore she has never experienced this pain prior. At the time of my evaluation she is free from any chest discomfort. Date of service 12/20: Reports intermittent chest pain that is positional. Some is reproducible. Tele stable. Date of service 12/22/2024: Feels great today. Denies any chest pain, shortness of breath. Review of Systems Review of Systems: All systems reviewed & are unremarkable except as noted in HPI and below (HPI) Exam Const: General: comfortable, no acute distress, alert and awake Orientation/consciousness: patient oriented x3 Other: Morbidly obese HENMT: Head: normal to inspection Mouth: Yes moist mucous membranes Eyes: General: appearance normal, both eyes and all related structures Sclera: sclerae normal Pupils: Equal, round and reactive pupils present Neck: Neck: normal visual inspection and supple Carotids: normal carotid upstroke Resp: Effort & Inspection: normal respiratory effort Auscultation: diminished lung sounds Cardio: Rate: regular rate Rhythm: regular rhythm Heart sounds: S1 normal heart sound present, S2 normal heart sound present and no murmurs GI: Auscultation: normal bowel sounds Skin: General skin exam: normal color Neuro: General: patient oriented x3 Cranial nerves: Yes Equal, round and reactive pupils present Speech: normal speech Extrem: General: normal to inspection Psych: Appearance: grossly normal Mental Status: mental status grossly normal Affect: normal affect Objective Data Vital Signs Vital Signs: Vital Signs - 24 hr 12/21/24 10:00 12/21/24 12:00 12/21/24 12:00 Temperature 36.6 C Pulse Rate 77 70 80 Respiratory Rate 20 Blood Pressure 146/69 H Pulse Oximetry 99 Oxygen Delivery Oxygen Flow Rate Fraction of Inspired Oxygen 12/21/24 12:00 12/21/24 14:00 12/21/24 14:42 Temperature Pulse Rate 90 66 Respiratory Rate 20 Blood Pressure Pulse Oximetry 99 Oxygen Delivery Nasal Cannula Oxygen Flow Rate 4 Fraction of Inspired Oxygen 12/21/24 14:48 12/21/24 16:00 12/21/24 16:00 Temperature Pulse Rate 80 106 H Respiratory Rate 20 Blood Pressure Pulse Oximetry 99 Oxygen Delivery Nasal Cannula Oxygen Flow Rate 4 Fraction of Inspired Oxygen 12/21/24 16:00 12/21/24 18:00 12/21/24 19:36 Temperature 36.4 C L 36.5 C Pulse Rate 94 93 96 Respiratory Rate 18 18 Blood Pressure 170/89 H 135/81 Pulse Oximetry 100 98 Oxygen Delivery Oxygen Flow Rate Fraction of Inspired Oxygen 12/21/24 20:00 12/21/24 20:00 12/21/24 20:43 Temperature Pulse Rate 93 93 79 Respiratory Rate 24 H 20 Blood Pressure Pulse Oximetry 98 Oxygen Delivery BiPAP Oxygen Flow Rate Fraction of Inspired Oxygen 32 12/21/24 20:44 12/21/24 22:00 12/21/24 23:28 Temperature Pulse Rate 77 88 89 Respiratory Rate 24 H 24 H Blood Pressure Pulse Oximetry 98 98 Oxygen Delivery BiPAP BiPAP Oxygen Flow Rate Fraction of Inspired Oxygen 32 12/21/24 23:28 12/21/24 23:28 12/22/24 02:00 Temperature 36.9 C Pulse Rate 89 90 82 Respiratory Rate 18 Blood Pressure 132/58 L Pulse Oximetry 98 Oxygen Delivery Oxygen Flow Rate Fraction of Inspired Oxygen 12/22/24 02:10 12/22/24 02:10 12/22/24 02:20 Temperature Pulse Rate 73 79 77 Respiratory Rate 22 H 23 H 20 Blood Pressure Pulse Oximetry 97 Oxygen Delivery BiPAP Oxygen Flow Rate Fraction of Inspired Oxygen 12/22/24 04:00 12/22/24 04:00 12/22/24 04:00 Temperature 36.7 C Pulse Rate 84 86 86 Respiratory Rate 18 18 Blood Pressure 148/72 H Pulse Oximetry 99 99 Oxygen Delivery Nasal Cannula Oxygen Flow Rate 2 Fraction of Inspired Oxygen 32 12/22/24 05:17 12/22/24 07:28 12/22/24 07:29 Temperature 37.2 C Pulse Rate 84 74 Respiratory Rate 22 H Blood Pressure 147/74 H Pulse Oximetry 99 93 Oxygen Delivery Nasal Cannula Oxygen Flow Rate 3 Fraction of Inspired Oxygen 12/22/24 07:29 Temperature Pulse Rate 76 Respiratory Rate 20 Blood Pressure Pulse Oximetry Oxygen Delivery Oxygen Flow Rate Fraction of Inspired Oxygen Intake/Output Intake/Output: Intake & Output 12/19/24 12/20/24 12/21/24 12/22/24 23:59 23:59 23:59 23:59 Intake Total 1300 1813 220 Output Total 875 1600 350 400 Balance 425 213 130 -400 Meds/Results Medications: Active Medications Generic Name Dose Route Start Last Admin Trade Name Freq PRN Reason Stop Dose Admin Acetaminophen 650 mg 12/18/24 20:36 Acetaminophen 325 Mg Tablet PO Q6H PRN Mild Pain (1-3) or Fever Albuterol 2.5 mg 12/18/24 14:00 12/22/24 07:26 Albuterol Sulfate Neb 2.5 Mg/3 Ml Inh INHALATION 2.5 mg Q6HRT ELIAS Administration Atorvastatin Calcium 40 mg 12/22/24 09:00 Atorvastatin 40 Mg Tablet PO DAILY ELIAS Azithromycin 500 mg 12/21/24 17:00 12/21/24 18:17 Azithromycin 250 Mg Tablet PO 12/22/24 17:01 500 mg DAILY@1700 ELIAS Administration Dextrose 12.5 gm 12/18/24 20:36 Dextrose 50% 25 Gm/50 Ml Syringe IV PUSH PRN PRN Hypoglycemia Protocol Glucagon 1 mg 12/18/24 20:36 Glucagon For Inj 1 Mg Vial IM PRN PRN Hypoglycemia Protocol Glucose 15 gm 12/18/24 20:36 Glucose Oral Gel 15 Gm Of Glucse In 37.5 Gm Tube PO PRN PRN Hypoglycemia Protocol Guaifenesin 1,200 mg 12/18/24 21:00 12/21/24 20:24 Guaifenesin 12 Hr 600 Mg Tabcr PO 1,200 mg Q12HR ELIAS Administration Ceftriaxone Sodium 1 gm in 50 mls @ 100 mls/hr 12/19/24 12:00 12/21/24 12:46 Rocephin 1 Gm/Ns 50 Ml IVPB 12/24/24 23:59 100 mls/hr Q24H ELIAS Administration Dextrose 1,000 mls @ 100 mls/hr 12/18/24 20:36 Dextrose 5% 1,000 Ml IVPB PRN PRN Hypoglycemia Protocol Insulin Aspart 3 - 6 units 12/19/24 08:00 12/21/24 16:39 Insulin Aspart (*Bkc) 100 Units/Ml SUB-Q Not Given [facility] Protocol Insulin Aspart 1 - 3 units 12/18/24 21:00 12/21/24 20:18 Insulin Aspart (*Bkc) 100 Units/Ml SUB-Q Not Given [facility] Protocol Miconazole Nitrate 1 appful 12/21/24 05:40 12/22/24 04:47 Miconazole Nitrate 2% Vaginal Cream 45 Gm Tube VAGINAL Not Given [facility] Radiology Results: ITS Impressions Chest CTA 12/18/24 23:11 IMPRESSION: No CT evidence of acute pulmonary embolus. Bilateral groundglass opacities, worse in the right lung, may represent asymmetric edema or infection. Thyroid goiter. Chest X-Ray 12/21/24 06:13 Impression: Central venous congestive change and probable minimal pulmonary edema. Significant improvement in right upper lobe airspace disease from prior exam. Labs Labs: Laboratory Results - last 24 hr 12/18/24 12/21/24 12/21/24 21:16 12:00 15:54 WBC RBC Hgb Hct MCV MCH MCHC RDW Plt Count MPV Immature Gran % (Auto) Neut % (Auto) Lymph % (Auto) [place] % (Auto) Eos % (Auto) Baso % (Auto) Lymph # (Auto) [place] # (Auto) Eos # (Auto) Baso # (Auto) Abs Immat Gran (auto) Absolute Neuts (auto) Absolute Nucleated RBC Band Neutrophils % Nucleated RBC % Platelet Estimate Hypochromasia Anisocytosis Schistocytes Sodium Potassium Chloride Carbon Dioxide Anion Gap BUN Creatinine Estim Creat Clear Calc Estimated GFR Glucose POC Capillary Glucose 99 134 H Calcium Magnesium Iron TIBC % Saturation Ferritin Total Bilirubin AST ALT Alkaline Phosphatase Total Protein Albumin Mycoplasma pneumon IgM 140 12/21/24 12/22/24 12/22/24 20:01 04:59 07:32 WBC 7.7 RBC 3.85 L Hgb 10.2 L Hct 35.2 L MCV 91.4 MCH 26.5 MCHC 29.0 L RDW 17.1 H Plt Count 296 MPV 9.3 Immature Gran % (Auto) 0.6 H Neut % (Auto) 66.0 Lymph % (Auto) 21.7 [place] % (Auto) 8.2 Eos % (Auto) 2.7 Baso % (Auto) 0.8 Lymph # (Auto) 1.67 [place] # (Auto) 0.6 Eos # (Auto) 0.2 Baso # (Auto) 0.1 Abs Immat Gran (auto) 0.05 H Absolute Neuts (auto) 5.1 Absolute Nucleated RBC 0.020 H Band Neutrophils % Not Reportable Nucleated RBC % 0.3 H Platelet Estimate Adequate Hypochromasia 1+ Anisocytosis 1+ Schistocytes None seen Sodium 139 Potassium 4.2 Chloride 100 Carbon Dioxide 33 H Anion Gap 6 BUN 11 Creatinine 0.46 L Estim Creat Clear Calc 189 Estimated GFR > 60 Glucose 209 H POC Capillary Glucose 124 H 133 H Calcium 9.9 Magnesium 1.9 Iron 36 L TIBC 416 % Saturation 9 L Ferritin 47.60 Total Bilirubin 0.5 AST 23 ALT 33 Alkaline Phosphatase 107 Total Protein 7.0 Albumin 3.6 Mycoplasma pneumon IgM
[2024-12-22] MEDS: guaiFENesin 12 HR 600 MG TABCR 1200 MG PO ×2 (09:28→22:06)
[2024-12-22] MEDS: ATORVASTATIN 40 MG TABLET PO (09:28)
--- NOTE | 2024-12-22 11:07 | PM.PNPUL ---
Progress Note: A&P Assessment and Plan (1) Pneumonia: Code(s): J18.9 - Pneumonia, unspecified organism Status: Acute (2) Acute respiratory failure with hypoxia and hypercapnia: Code(s): J96.01 - Acute respiratory failure with hypoxia; J96.02 - Acute respiratory failure with hypercapnia Status: Acute Assessment and Plan: This 54-year-old female with morbid obesity and obstructive sleep apnea, who uses CPAP at home, presented with a recent upper respiratory infection and melanotic stools. Upon admission, diagnostic testing revealed bilateral pneumonia, and during her hospitalization, she was diagnosed with acute on chronic hypercapnic respiratory failure, for which she has been receiving BiPAP support. Last arterial blood gases showed significant improvement of the respiratory acidosis and over the last 2 days the patient has been on BiPAP support only at night using lower pressures and and just nasal cannula during the day. She was evaluated by Cardiology Services and no further testing is needed for chest pain. last chest x-ray showed clearing of the right upper lung infiltrates. Plan: From a respiratory perspective, the patient is ready for discharge. She will resume using her CPAP at home now that her malfunctioning device has been replaced with a new one. An oxygen evaluation will be conducted prior to her discharge, as she may need to continue with oxygen both during the day and at night. Also recommend doxycycline 100 mg b.i.d. and Augmentin 875 every 12 hours for another 5 days to complete treatment for community-acquired pneumonia. The patient is already under the care of a plate worker for sleep apnea but has the option to return to the [facility]monary [facility] for follow-up if she chooses. I have provided her with a business card to schedule an appointment and have informed our scheduling pathology secretary/transcriptionist. I will be signing off; please feel free to call with any questions. (3) Obstructive sleep apnea on CPAP: Code(s): G47.33 - Obstructive sleep apnea (adult) (pediatric) Status: Acute (4) Chronic obstructive pulmonary disease: Code(s): J44.9 - Chronic obstructive pulmonary disease, unspecified Status: Acute (5) Morbid obesity: Code(s): E66.01 - Morbid (severe) obesity due to excess calories Status: Acute (6) GI bleed: Code(s): K92.2 - Gastrointestinal hemorrhage, unspecified Status: Acute Subjective Date/time seen: 12/22/24 11:07 Interval history: Patient has no new respiratory symptoms. Uses supplemental oxygen via nasal cannula during the day and both oxygen and genetic BiPAP at night for known sleep disordered breathing. As stated patient was not using CPAP at home for few days prior to this hospitalization as the CPAP machine was malfunctioning. As she indicated, she now has a new CPAP machine to use at home. Review of Systems Review of Systems: All systems reviewed & are unremarkable except as noted in HPI and below (HPI) Exam Narrative: GENERAL APPEARANCE: Well developed, morbidly obese alert and cooperative, and appears to be in in mild respiratory distress while on BiPAP support SKIN: Inspection of the skin reveals no rashes, ulcerations or petechiae. HEENT: Sclerae anicteric and conjunctivae pink and moist. Extraocular movements were intact and pupils were equal. NECK: Supple. There was no thyroid enlargement, and no tenderness, or masses were felt. LUNGS: Clear breath sounds anteriorly no wheezing CARDIAC: Distant heart sounds ABDOMEN: Soft and nontender.There was no organomegaly. LYMPH NODES: No lymphadenopathy was appreciated in the neck. EXTREMITIES: No clubbing or edema. NEUROLOGIC: Alert and oriented x 3. Normal affect. Objective Data Vital Signs Vital Signs: Vital Signs - 24 hr 12/21/24 12:00 12/21/24 12:00 12/21/24 12:00 Temperature 36.6 C Pulse Rate 70 80 Respiratory Rate 20 Blood Pressure 146/69 H Pulse Oximetry 99 99 Oxygen Delivery Nasal Cannula Oxygen Flow Rate 4 Fraction of Inspired Oxygen 12/21/24 14:00 12/21/24 14:42 12/21/24 14:48 Temperature Pulse Rate 90 66 80 Respiratory Rate 20 20 Blood Pressure Pulse Oximetry Oxygen Delivery Oxygen Flow Rate Fraction of Inspired Oxygen 12/21/24 16:00 12/21/24 16:00 12/21/24 16:00 Temperature 36.4 C L Pulse Rate 106 H 94 Respiratory Rate 18 Blood Pressure 170/89 H Pulse Oximetry 99 100 Oxygen Delivery Nasal Cannula Oxygen Flow Rate 4 Fraction of Inspired Oxygen 12/21/24 18:00 12/21/24 19:36 12/21/24 20:00 Temperature 36.5 C Pulse Rate 93 96 93 Respiratory Rate 18 24 H Blood Pressure 135/81 Pulse Oximetry 98 98 Oxygen Delivery BiPAP Oxygen Flow Rate Fraction of Inspired Oxygen 32 12/21/24 20:00 12/21/24 20:43 12/21/24 20:44 Temperature Pulse Rate 93 79 77 Respiratory Rate 20 24 H Blood Pressure Pulse Oximetry 98 Oxygen Delivery BiPAP Oxygen Flow Rate Fraction of Inspired Oxygen 12/21/24 22:00 12/21/24 23:28 12/21/24 23:28 Temperature Pulse Rate 88 89 89 Respiratory Rate 24 H Blood Pressure Pulse Oximetry 98 Oxygen Delivery BiPAP Oxygen Flow Rate Fraction of Inspired Oxygen 32 12/21/24 23:28 12/22/24 02:00 12/22/24 02:10 Temperature 36.9 C Pulse Rate 90 82 73 Respiratory Rate 18 22 H Blood Pressure 132/58 L Pulse Oximetry 98 Oxygen Delivery Oxygen Flow Rate Fraction of Inspired Oxygen 12/22/24 02:10 12/22/24 02:20 12/22/24 04:00 Temperature 36.7 C Pulse Rate 79 77 84 Respiratory Rate 23 H 20 18 Blood Pressure 148/72 H Pulse Oximetry 97 99 Oxygen Delivery BiPAP Oxygen Flow Rate Fraction of Inspired Oxygen 12/22/24 04:00 12/22/24 04:00 12/22/24 05:17 Temperature Pulse Rate 86 86 84 Respiratory Rate 18 Blood Pressure Pulse Oximetry 99 Oxygen Delivery Nasal Cannula Oxygen Flow Rate 2 Fraction of Inspired Oxygen 32 12/22/24 07:28 12/22/24 07:29 12/22/24 07:29 Temperature 37.2 C Pulse Rate 74 76 Respiratory Rate 22 H 20 Blood Pressure 147/74 H Pulse Oximetry 99 93 Oxygen Delivery Nasal Cannula Oxygen Flow Rate 3 Fraction of Inspired Oxygen Intake/Output Intake/Output: Intake & Output 12/19/24 12/20/24 12/21/24 12/22/24 23:59 23:59 23:59 23:59 Intake Total 1300 1813 220 120 Output Total 875 1600 350 400 Balance 425 054 -737 -776 Meds/Results Medications: Active Medications Generic Name Dose Route Start Last Admin Trade Name Freq PRN Reason Stop Dose Admin Acetaminophen 650 mg 12/18/24 20:36 Acetaminophen 325 Mg Tablet PO Q6H PRN Mild Pain (1-3) or Fever Albuterol 2.5 mg 12/18/24 14:00 12/22/24 07:26 Albuterol Sulfate Neb 2.5 Mg/3 Ml Inh INHALATION 2.5 mg Q6HRT ELIAS Administration Atorvastatin Calcium 40 mg 12/22/24 09:00 12/22/24 09:28 Atorvastatin 40 Mg Tablet PO 40 mg DAILY ELIAS Administration Azithromycin 500 mg 12/21/24 17:00 12/21/24 18:17 Azithromycin 250 Mg Tablet PO 12/22/24 17:01 500 mg DAILY@1700 ELIAS Administration Dextrose 12.5 gm 12/18/24 20:36 Dextrose 50% 25 Gm/50 Ml Syringe IV PUSH PRN PRN Hypoglycemia Protocol Glucagon 1 mg 12/18/24 20:36 Glucagon For Inj 1 Mg Vial IM PRN PRN Hypoglycemia Protocol Glucose 15 gm 12/18/24 20:36 Glucose Oral Gel 15 Gm Of Glucse In 37.5 Gm Tube PO PRN PRN Hypoglycemia Protocol Guaifenesin 1,200 mg 12/18/24 21:00 12/22/24 09:28 Guaifenesin 12 Hr 600 Mg Tabcr PO 1,200 mg Q12HR ELIAS Administration Ceftriaxone Sodium 1 gm in 50 mls @ 100 mls/hr 12/19/24 12:00 12/21/24 12:46 Rocephin 1 Gm/Ns 50 Ml IVPB 12/24/24 23:59 100 mls/hr Q24H ELIAS Administration Dextrose 1,000 mls @ 100 mls/hr 12/18/24 20:36 Dextrose 5% 1,000 Ml IVPB PRN PRN Hypoglycemia Protocol Insulin Aspart 3 - 6 units 12/19/24 08:00 12/22/24 09:27 Insulin Aspart (*Bkc) 100 Units/Ml SUB-Q Not Given [facility] Protocol Insulin Aspart 1 - 3 units 12/18/24 21:00 12/21/24 20:18 Insulin Aspart (*Bkc) 100 Units/Ml SUB-Q Not Given HS [facility] Protocol Miconazole Nitrate 1 appful 12/21/24 05:40 12/22/24 04:47 Miconazole Nitrate 2% Vaginal Cream 45 Gm Tube VAGINAL Not Given HS [facility] Radiology Results: ITS Impressions Chest CTA 12/18/24 23:11 IMPRESSION: No CT evidence of acute pulmonary embolus. Bilateral groundglass opacities, worse in the right lung, may represent asymmetric edema or infection. Thyroid goiter. Chest X-Ray 12/21/24 06:13 Impression: Central venous congestive change and probable minimal pulmonary edema. Significant improvement in right upper lobe airspace disease from prior exam. Labs Labs: Laboratory Results - last 24 hr 12/18/24 12/21/24 12/21/24 21:16 12:00 15:54 WBC RBC Hgb Hct MCV MCH MCHC RDW Plt Count MPV Immature Gran % (Auto) Neut % (Auto) Lymph % (Auto) [place] % (Auto) Eos % (Auto) Baso % (Auto) Lymph # (Auto) [place] # (Auto) Eos # (Auto) Baso # (Auto) Abs Immat Gran (auto) Absolute Neuts (auto) Absolute Nucleated RBC Band Neutrophils % Nucleated RBC % Platelet Estimate Hypochromasia Anisocytosis Schistocytes Sodium Potassium Chloride Carbon Dioxide Anion Gap BUN Creatinine Estim Creat Clear Calc Estimated GFR Glucose POC Capillary Glucose 99 134 H Calcium Magnesium Iron TIBC % Saturation Ferritin Total Bilirubin AST ALT Alkaline Phosphatase Total Protein Albumin Mycoplasma pneumon IgM 140 12/21/24 12/22/24 12/22/24 20:01 04:59 07:32 WBC 7.7 RBC 3.85 L Hgb 10.2 L Hct 35.2 L MCV 91.4 MCH 26.5 MCHC 29.0 L RDW 17.1 H Plt Count 296 MPV 9.3 Immature Gran % (Auto) 0.6 H Neut % (Auto) 66.0 Lymph % (Auto) 21.7 [place] % (Auto) 8.2 Eos % (Auto) 2.7 Baso % (Auto) 0.8 Lymph # (Auto) 1.67 [place] # (Auto) 0.6 Eos # (Auto) 0.2 Baso # (Auto) 0.1 Abs Immat Gran (auto) 0.05 H Absolute Neuts (auto) 5.1 Absolute Nucleated RBC 0.020 H Band Neutrophils % Not Reportable Nucleated RBC % 0.3 H Platelet Estimate Adequate Hypochromasia 1+ Anisocytosis 1+ Schistocytes None seen Sodium 139 Potassium 4.2 Chloride 100 Carbon Dioxide 33 H Anion Gap 6 BUN 11 Creatinine 0.46 L Estim Creat Clear Calc 189 Estimated GFR > 60 Glucose 209 H POC Capillary Glucose 124 H 133 H Calcium 9.9 Magnesium 1.9 Iron 36 L TIBC 416 % Saturation 9 L Ferritin 47.60 Total Bilirubin 0.5 AST 23 ALT 33 Alkaline Phosphatase 107 Total Protein 7.0 Albumin 3.6 Mycoplasma pneumon IgM
--- NOTE | 2024-12-22 11:53 | P.PNGI_ITS ---
Progress Note: A&P Assessment and Plan (1) GI bleed: Code(s): K92.2 - Gastrointestinal hemorrhage, unspecified Status: Acute Assessment and Plan: The patient, admitted for GI bleeding presumed secondary to diverticulosis, has had no further bleeding for the past four days, indicating resolution. She has been evaluated by Pulmonary and Cardiology and is cleared for discharge. Due to her significant comorbidities, including cardiovascular instability, pulmonary disease, and morbid obesity, elective colonoscopy is not recommended at this time. Colonoscopy will be reserved for emergent evaluation should further acute GI bleeding episodes occur. We will sign off for now, Please contact us if any new issues arise. Time Spent With Patient Time with patient: less than 15 minutes Subjective Date/time seen: 12/22/24 11:53 Interval history: Patient had no further GI bleeding episodes. Colonoscopy report still not available. Objective Data Vital Signs Vital Signs: Vital Signs - 24 hr 12/21/24 12:00 12/21/24 12:00 12/21/24 12:00 Temperature 97.9 F Pulse Rate 70 80 Respiratory Rate 20 Blood Pressure 146/69 H Pulse Oximetry 99 99 Oxygen Delivery Nasal Cannula Oxygen Flow Rate 4 Fraction of Inspired Oxygen 12/21/24 14:00 12/21/24 14:42 12/21/24 14:48 Temperature Pulse Rate 90 66 80 Respiratory Rate 20 20 Blood Pressure Pulse Oximetry Oxygen Delivery Oxygen Flow Rate Fraction of Inspired Oxygen 12/21/24 16:00 12/21/24 16:00 12/21/24 16:00 Temperature 97.5 F L Pulse Rate 106 H 94 Respiratory Rate 18 Blood Pressure 170/89 H Pulse Oximetry 99 100 Oxygen Delivery Nasal Cannula Oxygen Flow Rate 4 Fraction of Inspired Oxygen 12/21/24 18:00 12/21/24 19:36 12/21/24 20:00 Temperature 97.7 F Pulse Rate 93 96 93 Respiratory Rate 18 24 H Blood Pressure 135/81 Pulse Oximetry 98 98 Oxygen Delivery BiPAP Oxygen Flow Rate Fraction of Inspired Oxygen 32 12/21/24 20:00 12/21/24 20:43 12/21/24 20:44 Temperature Pulse Rate 93 79 77 Respiratory Rate 20 24 H Blood Pressure Pulse Oximetry 98 Oxygen Delivery BiPAP Oxygen Flow Rate Fraction of Inspired Oxygen 12/21/24 22:00 12/21/24 23:28 12/21/24 23:28 Temperature Pulse Rate 88 89 89 Respiratory Rate 24 H Blood Pressure Pulse Oximetry 98 Oxygen Delivery BiPAP Oxygen Flow Rate Fraction of Inspired Oxygen 32 12/21/24 23:28 12/22/24 02:00 12/22/24 02:10 Temperature 98.4 F Pulse Rate 90 82 73 Respiratory Rate 18 22 H Blood Pressure 132/58 L Pulse Oximetry 98 Oxygen Delivery Oxygen Flow Rate Fraction of Inspired Oxygen 12/22/24 02:10 12/22/24 02:20 12/22/24 04:00 Temperature 98.0 F Pulse Rate 79 77 84 Respiratory Rate 23 H 20 18 Blood Pressure 148/72 H Pulse Oximetry 97 99 Oxygen Delivery BiPAP Oxygen Flow Rate Fraction of Inspired Oxygen 12/22/24 04:00 12/22/24 04:00 12/22/24 05:17 Temperature Pulse Rate 86 86 84 Respiratory Rate 18 Blood Pressure Pulse Oximetry 99 Oxygen Delivery Nasal Cannula Oxygen Flow Rate 2 Fraction of Inspired Oxygen 32 12/22/24 07:28 12/22/24 07:29 12/22/24 07:29 Temperature 98.9 F Pulse Rate 74 76 Respiratory Rate 22 H 20 Blood Pressure 147/74 H Pulse Oximetry 99 93 Oxygen Delivery Nasal Cannula Oxygen Flow Rate 3 Fraction of Inspired Oxygen 12/22/24 08:00 12/22/24 08:00 12/22/24 10:00 Temperature Pulse Rate 81 83 Respiratory Rate Blood Pressure Pulse Oximetry 93 Oxygen Delivery Nasal Cannula Oxygen Flow Rate 2 Fraction of Inspired Oxygen Intake/Output Intake/Output: Intake & Output 12/19/24 12/20/24 12/21/24 12/22/24 23:59 23:59 23:59 23:59 Intake Total 1300 1813 220 120 Output Total 875 1600 350 400 Balance 425 219 -651 -332 Meds/Results Medications: Active Medications Generic Name Dose Route Start Last Admin Trade Name Freq PRN Reason Stop Dose Admin Acetaminophen 650 mg 12/18/24 20:36 Acetaminophen 325 Mg Tablet PO Q6H PRN Mild Pain (1-3) or Fever Albuterol 2.5 mg 12/18/24 14:00 12/22/24 07:26 Albuterol Sulfate Neb 2.5 Mg/3 Ml Inh INHALATION 2.5 mg Q6HRT ELIAS Administration Atorvastatin Calcium 40 mg 12/22/24 09:00 12/22/24 09:28 Atorvastatin 40 Mg Tablet PO 40 mg DAILY ELIAS Administration Azithromycin 500 mg 12/21/24 17:00 12/21/24 18:17 Azithromycin 250 Mg Tablet PO 12/22/24 17:01 500 mg DAILY@1700 ELIAS Administration Dextrose 12.5 gm 12/18/24 20:36 Dextrose 50% 25 Gm/50 Ml Syringe IV PUSH PRN PRN Hypoglycemia Protocol Glucagon 1 mg 12/18/24 20:36 Glucagon For Inj 1 Mg Vial IM PRN PRN Hypoglycemia Protocol Glucose 15 gm 12/18/24 20:36 Glucose Oral Gel 15 Gm Of Glucse In 37.5 Gm Tube PO PRN PRN Hypoglycemia Protocol Guaifenesin 1,200 mg 12/18/24 21:00 12/22/24 09:28 Guaifenesin 12 Hr 600 Mg Tabcr PO 1,200 mg Q12HR ELIAS Administration Ceftriaxone Sodium 1 gm in 50 mls @ 100 mls/hr 12/19/24 12:00 12/21/24 12:46 Rocephin 1 Gm/Ns 50 Ml IVPB 12/24/24 23:59 100 mls/hr Q24H ELIAS Administration Dextrose 1,000 mls @ 100 mls/hr 12/18/24 20:36 Dextrose 5% 1,000 Ml IVPB PRN PRN Hypoglycemia Protocol Insulin Aspart 3 - 6 units 12/19/24 08:00 12/22/24 09:27 Insulin Aspart (*Bkc) 100 Units/Ml SUB-Q Not Given TIDWM [facility] Protocol Insulin Aspart 1 - 3 units 12/18/24 21:00 12/21/24 20:18 Insulin Aspart (*Bkc) 100 Units/Ml SUB-Q Not Given [facility] Protocol Miconazole Nitrate 1 appful 12/21/24 05:40 12/22/24 04:47 Miconazole Nitrate 2% Vaginal Cream 45 Gm Tube VAGINAL Not Given [facility] Radiology Results: ITS Impressions Chest CTA 12/18/24 23:11 IMPRESSION: No CT evidence of acute pulmonary embolus. Bilateral groundglass opacities, worse in the right lung, may represent asymmetric edema or infection. Thyroid goiter. Chest X-Ray 12/21/24 06:13 Impression: Central venous congestive change and probable minimal pulmonary edema. Significant improvement in right upper lobe airspace disease from prior exam. Labs Labs: Laboratory Results - last 24 hr 12/18/24 12/21/24 12/21/24 21:16 12:00 15:54 WBC RBC Hgb Hct MCV MCH MCHC RDW Plt Count MPV Immature Gran % (Auto) Neut % (Auto) Lymph % (Auto) [place] % (Auto) Eos % (Auto) Baso % (Auto) Lymph # (Auto) [place] # (Auto) Eos # (Auto) Baso # (Auto) Abs Immat Gran (auto) Absolute Neuts (auto) Absolute Nucleated RBC Band Neutrophils % Nucleated RBC % Platelet Estimate Hypochromasia Anisocytosis Schistocytes Sodium Potassium Chloride Carbon Dioxide Anion Gap BUN Creatinine Estim Creat Clear Calc Estimated GFR Glucose POC Capillary Glucose 99 134 H Calcium Magnesium Iron TIBC % Saturation Ferritin Total Bilirubin AST ALT Alkaline Phosphatase Total Protein Albumin Mycoplasma pneumon IgM 140 12/21/24 12/22/24 12/22/24 20:01 04:59 07:32 WBC 7.7 RBC 3.85 L Hgb 10.2 L Hct 35.2 L MCV 91.4 MCH 26.5 MCHC 29.0 L RDW 17.1 H Plt Count 296 MPV 9.3 Immature Gran % (Auto) 0.6 H Neut % (Auto) 66.0 Lymph % (Auto) 21.7 [place] % (Auto) 8.2 Eos % (Auto) 2.7 Baso % (Auto) 0.8 Lymph # (Auto) 1.67 [place] # (Auto) 0.6 Eos # (Auto) 0.2 Baso # (Auto) 0.1 Abs Immat Gran (auto) 0.05 H Absolute Neuts (auto) 5.1 Absolute Nucleated RBC 0.020 H Band Neutrophils % Not Reportable Nucleated RBC % 0.3 H Platelet Estimate Adequate Hypochromasia 1+ Anisocytosis 1+ Schistocytes None seen Sodium 139 Potassium 4.2 Chloride 100 Carbon Dioxide 33 H Anion Gap 6 BUN 11 Creatinine 0.46 L Estim Creat Clear Calc 189 Estimated GFR > 60 Glucose 209 H POC Capillary Glucose 124 H 133 H Calcium 9.9 Magnesium 1.9 Iron 36 L TIBC 416 % Saturation 9 L Ferritin 47.60 Total Bilirubin 0.5 AST 23 ALT 33 Alkaline Phosphatase 107 Total Protein 7.0 Albumin 3.6 Mycoplasma pneumon IgM
[2024-12-22 12:14] LABS: Glucose Point of Care 165 mg/dl (65-105)
--- NOTE | 2024-12-22 15:33 | P.PNIM_ITS ---
Progress Note: A&P Assessment and Plan (1) Acute respiratory failure with hypoxia and hypercapnia: Code(s): J96.01 - Acute respiratory failure with hypoxia; J96.02 - Acute respiratory failure with hypercapnia Status: Acute (2) Pneumonia: Code(s): J18.9 - Pneumonia, unspecified organism Status: Acute (3) Chest pain: Code(s): R07.9 - Chest pain, unspecified Status: Acute (4) GI bleed: Code(s): K92.2 - Gastrointestinal hemorrhage, unspecified Status: Acute (5) Morbid obesity: Code(s): E66.01 - Morbid (severe) obesity due to excess calories Status: Acute (6) Heart failure of unknown type: Code(s): I50.9 - Heart failure, unspecified Status: Acute (7) Chronic obstructive pulmonary disease: Code(s): J44.9 - Chronic obstructive pulmonary disease, unspecified Status: Acute (8) Obstructive sleep apnea on CPAP: Code(s): G47.33 - Obstructive sleep apnea (adult) (pediatric) Status: Acute (9) Hypertension: Qualifiers: Hypertension type: unspecified Qualified Code(s): I10 - Essential (primary) hypertension Code(s): I10 - Essential (primary) hypertension Status: Inactive Plan Pneumonia CT chest showed bilateral groundglass opacities Blood culture, MRSA negative Rocephin and Azithromycin monitor Acute hypoxemic hypercapnic resp failure OHS, BAL and pneumonia S/p BiPAP, on 4 liters oxygen Pulmonology following Contineu nigghtime BiPAP OHS continue BiPAP nighttime and monitor Chest pain no Acute changes on EKG ECHo showed Grade I diastolic dysfunction Unable to finish Lexiscan yesterday due to size Cardiology now recommends medical treatmetn with ASpirin and Lipitor Gi bleed patient presented with blood in stool Gi following and awaiting conclusion cardiac workup for endoscopy Anemia likely from GI bleed Hb 9.9, Isat 9 IV irion 500/1000 monitor H and H CHF continue recs per cardiology HTn titrate home meds with clinical course hx of PE more than [address] negative for PE DVT prophylaxis on SCDs, no Ac due to Gi bleed possible Discharge tomorrow Subjective Date/time seen: 12/22/24 15:33 Interval history: Patient comfortable at bedside Oxygen markedly improved on 4 liters, awaiting GI plan for endoscopy Review of Systems Review of Systems: 12 systems were reviewed and are negativ e except for as per HPI. Exam Narrative: General: Mildly ill-appearing female sitting up in bed in no acute distress. Weight: 179.5 kg. BMI: 74.8. HEENT: PERRL, EOMI. Sclera anicteric. Oral mucosa moist. Crowded oropharynx. Neck: Supple. Exam limited due to neck circumference. No obvious JVD. Respiratory: Currently requiring 4 L nasal cannula to maintain her SpO2 in the mid to upper 90s. Respirations are nonlabored. Lung sounds are a bit coarse at the right base. Cardiovascular: Regular rate and rhythm with S1-S2. Gastrointestinal: Abdomen is soft, morbidly obese, nontender, and nondistended with positive bowel sounds. Skin: Warm and dry. No rash or lesions on limited exam. Extremities: No cyanosis, clubbing, or significant edema. Radial and pedal pulses intact. No palpable knots or cords. Negative Vera sign bilaterally. Neurological: Alert. Cranial nerves 2-12 are grossly intact. No gross focal deficits to casual conversation. Psychiatric: Pleasant and cooperative with normal mood and affect. Judgment and insight intact. She is in good spirits. Objective Data Vital Signs Vital Signs: Vital Signs - 24 hr 12/21/24 16:00 12/21/24 16:00 12/21/24 16:00 Temperature 97.5 F L Pulse Rate 106 H 94 Respiratory Rate 18 Blood Pressure 170/89 H Pulse Oximetry 99 100 Oxygen Delivery Nasal Cannula Oxygen Flow Rate 4 Fraction of Inspired Oxygen 12/21/24 18:00 12/21/24 19:36 12/21/24 20:00 Temperature 97.7 F Pulse Rate 93 96 93 Respiratory Rate 18 24 H Blood Pressure 135/81 Pulse Oximetry 98 98 Oxygen Delivery BiPAP Oxygen Flow Rate Fraction of Inspired Oxygen 32 12/21/24 20:00 12/21/24 20:43 12/21/24 20:44 Temperature Pulse Rate 93 79 77 Respiratory Rate 20 24 H Blood Pressure Pulse Oximetry 98 Oxygen Delivery BiPAP Oxygen Flow Rate Fraction of Inspired Oxygen 12/21/24 22:00 12/21/24 23:28 12/21/24 23:28 Temperature Pulse Rate 88 89 89 Respiratory Rate 24 H Blood Pressure Pulse Oximetry 98 Oxygen Delivery BiPAP Oxygen Flow Rate Fraction of Inspired Oxygen 32 12/21/24 23:28 12/22/24 02:00 12/22/24 02:10 Temperature 98.4 F Pulse Rate 90 82 73 Respiratory Rate 18 22 H Blood Pressure 132/58 L Pulse Oximetry 98 Oxygen Delivery Oxygen Flow Rate Fraction of Inspired Oxygen 12/22/24 02:10 12/22/24 02:20 12/22/24 04:00 Temperature 98.0 F Pulse Rate 79 77 84 Respiratory Rate 23 H 20 18 Blood Pressure 148/72 H Pulse Oximetry 97 99 Oxygen Delivery BiPAP Oxygen Flow Rate Fraction of Inspired Oxygen 12/22/24 04:00 12/22/24 04:00 12/22/24 05:17 Temperature Pulse Rate 86 86 84 Respiratory Rate 18 Blood Pressure Pulse Oximetry 99 Oxygen Delivery Nasal Cannula Oxygen Flow Rate 2 Fraction of Inspired Oxygen 32 12/22/24 07:28 12/22/24 07:29 12/22/24 07:29 Temperature 98.9 F Pulse Rate 74 76 Respiratory Rate 22 H 20 Blood Pressure 147/74 H Pulse Oximetry 99 93 Oxygen Delivery Nasal Cannula Oxygen Flow Rate 3 Fraction of Inspired Oxygen 12/22/24 08:00 12/22/24 08:00 12/22/24 10:00 Temperature Pulse Rate 81 83 Respiratory Rate Blood Pressure Pulse Oximetry 93 Oxygen Delivery Nasal Cannula Oxygen Flow Rate 2 Fraction of Inspired Oxygen 12/22/24 14:45 12/22/24 14:59 Temperature Pulse Rate 83 98 Respiratory Rate 20 20 Blood Pressure Pulse Oximetry Oxygen Delivery Oxygen Flow Rate Fraction of Inspired Oxygen Intake/Output Intake/Output: Intake & Output 12/19/24 12/20/24 12/21/24 12/22/24 23:59 23:59 23:59 23:59 Intake Total 1300 1813 270 360 Output Total 875 1600 350 400 Balance 425 213 -80 -40 Meds/Results Medications: Active Medications Generic Name Dose Route Start Last Admin Trade Name Freq PRN Reason Stop Dose Admin Acetaminophen 650 mg 12/18/24 20:36 Acetaminophen 325 Mg Tablet PO Q6H PRN Mild Pain (1-3) or Fever Albuterol 2.5 mg 12/18/24 14:00 12/22/24 14:45 Albuterol Sulfate Neb 2.5 Mg/3 Ml Inh INHALATION 2.5 mg Q6HRT ELIAS Administration Atorvastatin Calcium 40 mg 12/22/24 09:00 12/22/24 09:28 Atorvastatin 40 Mg Tablet PO 40 mg DAILY ELIAS Administration Azithromycin 500 mg 12/21/24 17:00 12/21/24 18:17 Azithromycin 250 Mg Tablet PO 12/22/24 17:01 500 mg DAILY@1700 ELIAS Administration Dextrose 12.5 gm 12/18/24 20:36 Dextrose 50% 25 Gm/50 Ml Syringe IV PUSH PRN PRN Hypoglycemia Protocol Glucagon 1 mg 12/18/24 20:36 Glucagon For Inj 1 Mg Vial IM PRN PRN Hypoglycemia Protocol Glucose 15 gm 12/18/24 20:36 Glucose Oral Gel 15 Gm Of Glucse In 37.5 Gm Tube PO PRN PRN Hypoglycemia Protocol Guaifenesin 1,200 mg 12/18/24 21:00 12/22/24 09:28 Guaifenesin 12 Hr 600 Mg Tabcr PO 1,200 mg Q12HR ELIAS Administration Ceftriaxone Sodium 1 gm in 50 mls @ 100 mls/hr 12/19/24 12:00 12/22/24 12:43 Rocephin 1 Gm/Ns 50 Ml IVPB 12/24/24 23:59 100 mls/hr Q24H ELIAS Administration Dextrose 1,000 mls @ 100 mls/hr 12/18/24 20:36 Dextrose 5% 1,000 Ml IVPB PRN PRN Hypoglycemia Protocol Insulin Aspart 3 - 6 units 12/19/24 08:00 12/22/24 12:42 Insulin Aspart (*Bkc) 100 Units/Ml SUB-Q Not Given TIDWM [facility] Protocol Insulin Aspart 1 - 3 units 12/18/24 21:00 12/21/24 20:18 Insulin Aspart (*Bkc) 100 Units/Ml SUB-Q Not Given HS [facility] Protocol Miconazole Nitrate 1 appful 12/21/24 05:40 12/22/24 04:47 Miconazole Nitrate 2% Vaginal Cream 45 Gm Tube VAGINAL Not Given HS [facility] Radiology Results: ITS Impressions Chest CTA 12/18/24 23:11 IMPRESSION: No CT evidence of acute pulmonary embolus. Bilateral groundglass opacities, worse in the right lung, may represent asymmetric edema or infection. Thyroid goiter. Chest X-Ray 12/21/24 06:13 Impression: Central venous congestive change and probable minimal pulmonary edema. Significant improvement in right upper lobe airspace disease from prior exam. Labs Labs: Laboratory Results - last 24 hr 12/18/24 12/21/24 12/21/24 21:16 15:54 20:01 WBC RBC Hgb Hct MCV MCH MCHC RDW Plt Count MPV Immature Gran % (Auto) Neut % (Auto) Lymph % (Auto) [place] % (Auto) Eos % (Auto) Baso % (Auto) Lymph # (Auto) [place] # (Auto) Eos # (Auto) Baso # (Auto) Abs Immat Gran (auto) Absolute Neuts (auto) Absolute Nucleated RBC Band Neutrophils % Nucleated RBC % Platelet Estimate Hypochromasia Anisocytosis Schistocytes Sodium Potassium Chloride Carbon Dioxide Anion Gap BUN Creatinine Estim Creat Clear Calc Estimated GFR Glucose POC Capillary Glucose 134 H 124 H Calcium Magnesium Iron TIBC % Saturation Ferritin Total Bilirubin AST ALT Alkaline Phosphatase Total Protein Albumin Mycoplasma pneumon IgM 140 12/22/24 12/22/24 12/22/24 04:59 07:32 11:47 WBC 7.7 RBC 3.85 L Hgb 10.2 L Hct 35.2 L MCV 91.4 MCH 26.5 MCHC 29.0 L RDW 17.1 H Plt Count 296 MPV 9.3 Immature Gran % (Auto) 0.6 H Neut % (Auto) 66.0 Lymph % (Auto) 21.7 [place] % (Auto) 8.2 Eos % (Auto) 2.7 Baso % (Auto) 0.8 Lymph # (Auto) 1.67 [place] # (Auto) 0.6 Eos # (Auto) 0.2 Baso # (Auto) 0.1 Abs Immat Gran (auto) 0.05 H Absolute Neuts (auto) 5.1 Absolute Nucleated RBC 0.020 H Band Neutrophils % Not Reportable Nucleated RBC % 0.3 H Platelet Estimate Adequate Hypochromasia 1+ Anisocytosis 1+ Schistocytes None seen Sodium 139 Potassium 4.2 Chloride 100 Carbon Dioxide 33 H Anion Gap 6 BUN 11 Creatinine 0.46 L Estim Creat Clear Calc 189 Estimated GFR > 60 Glucose 209 H POC Capillary Glucose 133 H 165 H Calcium 9.9 Magnesium 1.9 Iron 36 L TIBC 416 % Saturation 9 L Ferritin 47.60 Total Bilirubin 0.5 AST 23 ALT 33 Alkaline Phosphatase 107 Total Protein 7.0 Albumin 3.6 Mycoplasma pneumon IgM Quality VTE Prophylaxis VTE prophylaxis: mechanical ordered
[2024-12-22 16:01] LABS: Glucose Point of Care 138 mg/dl (65-105)
[2024-12-22] MEDS: AZITHROMYCIN 250 MG TABLET 500 MG PO (17:17)
[2024-12-22] MEDS: IRON SUCROSE COMPLEX 400 MG, IRON SUCROSE COMPLEX 100 MG in SODIUM CHLORIDE 0.9% IV 250 ML 78.57 MG IVPB (18:18)
--- NOTE | 2024-12-22 20:27 | PC.NURSE ---
This patient, Luis White, was transferred to [[id number]] on 12/22/24 at 2026. Personal belongings sent with patient. Report given to [ Naun cheung]. Appropriate documentation sent with patient.
[2024-12-22 21:50] LABS: Glucose Point of Care 160 mg/dl (65-105)
[2024-12-22] MEDS: MICONAZOLE NITRATE 2% VAGINAL CREAM 45 GM TUBE 1 APPFUL VAGINAL (22:51)
[2024-12-23] VITALS (10 sets, daily range): BP systolic 153–166; BP diastolic 70–90; PULSE 73–88; RESP 18–20; TEMP 36.4; O2SAT 85–97
[2024-12-23] MEDS: ALBUTEROL SULFATE NEB 2.5 MG/3 ML INH INHALATION ×2 (07:10→13:10)
[2024-12-23 07:48] LABS: Basophils Absolute Auto 0.1 K/mm3 (0.0-0.1); Eosinophils Absolute Auto 0.3 K/mm3 (0-0.3); Eosinophils Percent Auto 3.2 % (0-4.4); Hematocrit 37.9 % (37.0-47.0); Immature Granulocyte Absolute 0.04 K/mm3 (0.00-0.031); Immature Granulocyte Percent A 0.5 % (0-0.5); Lymphocytes Absolute Auto 2.13 K/mm3 (0.9-3.2); Lymphocytes Percent Auto 26.3 % (18.3-44.2); Mean Corpuscular Hemoglobin 26.6 pg (26-34); Mean Corpuscular Volume 91.8 fl (80-100); Mean Platelet Volume 9.2 fl (7.4-10.4); Monocytes Absolute Auto 0.7 K/mm3 (0.1-0.6); Monocytes Percent Auto 8.3 % (2.6-8.5); Neutrophils Absolute Auto 4.9 K/mm3 (1.3-6.7); Neutrophils Percent Auto 60.7 % (45.5-73.1); Nucleated Red Blood Cells Perc 0.2 % (0.0-0.2); Platelet Count Result 284 k/mm3 (150-375); Red Blood Count 4.13 M/mm3 (4.2-5.4); Red Cell Distribution Width 16.9 % (11.5-14.5); White Blood Count 8.1 K/mm3 (4.5-10.0)
[2024-12-23 07:57] LABS: Alanine Aminotransferase 28 U/L (6-35); Albumin Level 3.8 g/dL (3.5-5.1); Alkaline Phosphatase 110 U/L (38-126); Anion Gap 6 mmol/L (4-12); Aspartate Amino Transferase 20 U/L (14-36); Bilirubin,Total 0.6 mg/dL (0.2-1.3); Blood Urea Nitrogen 11 mg/dL (7-17); Calcium 10.2 mg/dL (8.4-10.2); Carbon Dioxide 31 mmol/L (22-30); Chloride 101 mmol/L (98-107); Estimated CRCL calculation 196 ml/min; Estimated Glomerular Filt Rate > 60; Glucose 128 mg/dL (65-110); Potassium 4.5 mmol/L (3.4-5.0); Sodium 138 mmol/L (137-145)
[2024-12-23 08:01] LABS: Glucose Point of Care 129 mg/dl (65-105)
[2024-12-23 08:27] LABS: Platelet Estimate Adequate (Adequate)
[2024-12-23 08:28] LABS: Anisocytosis 1+; Hypochromasia 1+; Polychromasia 1+
[2024-12-23 08:29] LABS: Schistocytes None Seen
[2024-12-23] MEDS: guaiFENesin 12 HR 600 MG TABCR 1200 MG PO (09:24)
[2024-12-23] MEDS: ATORVASTATIN 40 MG TABLET PO (09:24)
[2024-12-23] MEDS: IRON SUCROSE COMPLEX 400 MG, IRON SUCROSE COMPLEX 100 MG in SODIUM CHLORIDE 0.9% IV 250 ML 78.57 MG IVPB (12:05)
[2024-12-23 12:07] LABS: Glucose Point of Care 127 mg/dl (65-105)
--- NOTE | 2024-12-23 12:07 | PCRCNOTE ---
The patient qualifies for Home oxygen. Requires 2L of oxygen with activity.
--- NOTE | 2024-12-23 14:17 | P.DS_ITS ---
DS: Admitting Diagnosis Discharge Date 12/23/24 Admitting Diagnosis Multiple complaints DS: Discharge Diagnosis Discharge Diagnosis (1) Chest pain: Code(s): R07.9 - Chest pain, unspecified Status: Acute (2) GI bleed: Code(s): K92.2 - Gastrointestinal hemorrhage, unspecified Status: Acute (3) Pneumonia: Code(s): J18.9 - Pneumonia, unspecified organism Status: Acute (4) Acute respiratory failure with hypoxia and hypercapnia: Code(s): J96.01 - Acute respiratory failure with hypoxia; J96.02 - Acute respiratory failure with hypercapnia Status: Acute (5) Obstructive sleep apnea on CPAP: Code(s): G47.33 - Obstructive sleep apnea (adult) (pediatric) Status: Acute DS: Summary Hospital Course Hospital Course: This is a very pleasant 54-year-old female with morbid obesity, chronic obstructive pulmonary disease, congestive heart failure, hypertension, obstructive sleep apnea, pulmonary embolism greater than 10 years ago, colon polyps, and H pylori infection who presented to the emergency department via EMS with multiple complaints. She has only been seen at this facility once or twice in the past and gets most of her care at [place]. She has ongoing problems with constipation and on she felt the urge to have a bowel movement and when she went to the bathroom she had passed a pretty big amount of dark red/maroon blood admixed with clots. She had another similar bowel movement on Wednesday, yesterday, and today but Wednesday she did not have a bowel movement and did not passed any blood per rectum. She also reports nausea, mild epigastric discomfort, sinus congestion, sneezing, shortness of breath, and anterior, substernal chest discomfort which she has difficulties describing. She denies fever, sore throat, exertional chest pain, pleuritic pain, productive cough, vomiting, diarrhea, and dysuria. In the ED: Vital signs on arrival include an SpO2 of 70% on room air, temperature 97.8? F, blood pressure 169/114, pulse 93. Labs were significant for WBC count of 10.5, hemoglobin 11.6, carbon dioxide 39, BUN 18, creatinine 0.51, glucose 134, AST 45, ALT 53, troponin 0.032. She tested negative for influenza, RSV, and COVID. Chest x-ray shows patchy airspace opacities throughout the right lung suspicious for pneumonia and cardiomegaly. EKG showed sinus rhythm with borderline R-wave progression anterior leads and moderate T-wave abnormalities. She received azithromycin 500 mg, ceftriaxone 1 g, and pantoprazole 80 mg. She is being admitted in this setting for further treatment of suspected pneumonia and GI consultation as her stool was Hemoccult positive. Patient was managed for pneumonia as CT Chest showed bilateral groundglass opacities. Managed on antibiotics and discharged on 2 more days on Augmentin. Acute hypoxemic hypercapnic resp failure From OHS, BAL and pneumonia s/p BiPAP, now on nighttime BiPAP requiring NC oxygen and follow up with PCP in 3-5 days Chest pain and unable complete Lexiscan and ECHO showed grade I diastolic dysfunction. cardiology recommended medical treatment with Aspirin and Lipitor, however Aspirin held due to possible Aspirin. Iron deficiency anemia hb 11.0, Isat 9 Iron IV 1000/1000. F/u with PCP in 3-5 days, F/u with GI, cardiology and Pulmonology as instructed Time Spent with Patient Time attestation: Total time spent providing and/or coordinating discharge services: DS: Data Data Completed and Pending Labs on day of discharge: Labs from last 24 hours 12/23/24 12/23/24 12/23/24 11:51 07:52 07:41 WBC 8.1 RBC 4.13 L Hgb 11.0 L Hct 37.9 MCV 91.8 MCH 26.6 MCHC 29.0 L RDW 16.9 H Plt Count 284 MPV 9.2 Immature Gran % (Auto) 0.5 Neut % (Auto) 60.7 Lymph % (Auto) 26.3 [place] % (Auto) 8.3 Eos % (Auto) 3.2 Baso % (Auto) 1.0 Lymph # (Auto) 2.13 [place] # (Auto) 0.7 H Eos # (Auto) 0.3 Baso # (Auto) 0.1 Abs Immat Gran (auto) 0.04 H Absolute Neuts (auto) 4.9 Absolute Nucleated RBC 0.020 H Band Neutrophils % Not Reportable Nucleated RBC % 0.2 Platelet Estimate Adequate Polychromasia 1+ Hypochromasia 1+ Anisocytosis 1+ Schistocytes None seen Sodium 138 Potassium 4.5 Chloride 101 Carbon Dioxide 31 H Anion Gap 6 BUN 11 Creatinine 0.45 L Estim Creat Clear Calc 196 Estimated GFR > 60 Glucose 128 H POC Capillary Glucose 127 H 129 H Calcium 10.2 Total Bilirubin 0.6 AST 20 ALT 28 Alkaline Phosphatase 110 Total Protein 8.0 Albumin 3.8 12/22/24 12/22/24 21:46 15:53 WBC RBC Hgb Hct MCV MCH MCHC RDW Plt Count MPV Immature Gran % (Auto) Neut % (Auto) Lymph % (Auto) [place] % (Auto) Eos % (Auto) Baso % (Auto) Lymph # (Auto) [place] # (Auto) Eos # (Auto) Baso # (Auto) Abs Immat Gran (auto) Absolute Neuts (auto) Absolute Nucleated RBC Band Neutrophils % Nucleated RBC % Platelet Estimate Polychromasia Hypochromasia Anisocytosis Schistocytes Sodium Potassium Chloride Carbon Dioxide Anion Gap BUN Creatinine Estim Creat Clear Calc Estimated GFR Glucose POC Capillary Glucose 160 H 138 H Calcium Total Bilirubin AST ALT Alkaline Phosphatase Total Protein Albumin Preliminary micro results at discharge 12/18/24 15:20 Blood Culture - Preliminary Blood 12/18/24 14:37 Blood Culture - Preliminary Blood Discharge Plan Discharge Attending physician on discharge: Noemi Rogers Consulting providers: Nick Montoya; Elsa Rushing Discharging Clinician: Noemi Rogers Anticipated Discharge Date/Time: 12/23/24 14:07 Patient Disposition: Home, Self-Care Activity: as tolerated Diet: heart healthy Patient Instructions: Antibiotic Form, Heart Failure (DC) Patient Language: Vietnamese Stand Alone Forms: General Discharge Information Follow-up/Referrals: Fracisco,Sophia Dobbs [Primary Care Provider] - (F/u PCP in 3-5 days ) Elsa Rushing APN-C [Advanced Practice Nurse] - (F/u with cardiology as instructed ) Mulugeta Rivers MD [Physician] - (F/u with GI as instructed ) Nick Montoya MD [Physician] - (F/u with Pulmonolgy as instructed ) Discharge Medications: New atorvastatin 40 mg Tablet 40 mg PO DAILY 30 Days Qty: 30 1RF amoxicillin-pot clavulanate 875-125 mg tablet 1 tablet PO Q12H 2 Days Qty: 4 0RF Continued albuterol sulfate 90 mcg/actuation HFA aerosol inhaler 3 inh INHALATION Q8H PRN (Reason: shortness of breath or wheezing) Date of admission: 12/19/24 10:27 Primary Care Provider: FraciscoDilia Admitting Provider: David Encinas Attending physician on admission: David Encinas Condition: Serious
== END 2024-12-23 17:25 | disposition home or self-care (01) | DRG 133 ==
LOC: ANHED 13:42 → ANHIMU 18:47 → ANH3MEDSUR 12-23 14:10 → ANHIMU 12-25 10:46
PROVIDERS: Internal Medicine; Physician Assistant; Admitting Provider General Practice; Emergency Provider Emergency Medicine; PCP Internal Medicine Infectious Disease; Visit Provider Internal Medicine
DX: J96.01 Acute respiratory failure with hypoxia (principal); J18.9 Pneumonia, unspecified organism; J96.02 Acute respiratory failure with hypercapnia; J44.0 Chronic obstructive pulmonary disease with (acute) lower respiratory infection; K92.2 Gastrointestinal hemorrhage, unspecified; I11.0 Hypertensive heart disease with heart failure; I50.9 Heart failure, unspecified; D50.0 Iron deficiency anemia secondary to blood loss (chronic); E66.2 Morbid (severe) obesity with alveolar hypoventilation; R07.9 Chest pain, unspecified; Z68.45 Body mass index [BMI] 70 or greater, adult; Z86.711 Personal history of pulmonary embolism; Z87.891 Personal history of nicotine dependence; Z86.0101 Personal history of adenomatous and serrated colon polyps
CPT/HCPCS: 36415; 36600; 71045; 71046; 71275; 80053; 80061; 82375; 82728; 82803; 82805; 82948; 83036; 83050; 83540; 83550; 83605; 83690; 83735; 83880; 84484; 85014; 85018; 85025; 85380; 85610; 85730; 86738; 86850; 86900; 86901; 87040; 87070; 87205; 87449; 87637; 87641; 87899; 93005; 94002; 94003; 94618; 94640; 96365; 96367; 96368; 96375; 99285; A9270; C8929; G0378; J0456; J0696; J1756; J2470; J7050; Q9957; Q9967

== ENCOUNTER 2025-04-30 15:01 | Inpatient (IN) | payer OTHER, SELFPAY ==
--- NOTE | ~2025-04-30 | US_ITS ---
EXAMINATION: US abdomen limited DATE: 04/30/2025 19:32 INDICATION: epigastric pain; hx gallstones TECHNIQUE: Multiple grayscale and Doppler ultrasound images of limited portions of the abdomen were o btained. COMPARISON: None available. FINDINGS: Pancreas poorly visualized. Diffusely increased liver parenchymal echogenicity. No surface nodularity. Normal hepatopetal flow in the main portal vein. Gallbladder poorly visualized. Nonmobile bile 1 cm echogenicity within the gallbladder lumen. The common bile duct measures 2 mm. IMPRESSION: Exam is limited by body habitus. Echogenic liver, most commonly due to steatosis but also can be seen with hepatitis and fibrosis. Possible gallstone versus polyp in a poorly visualized gallbladder. Reviewed, dictated and finalized at [facility]. IMPRESSION: Exam is limited by body habitus. Echogenic liver, most commonly due to steatosi s but also can be seen with hepatitis and fibrosis. Possible gallstone versus p olyp in a poorly visualized gallbladder.
--- NOTE | ~2025-04-30 | NM_ITS ---
EXAMINATION: NM hepatobiliary wo pharm DATE: 05/02/2025 15:31 INDICATION: Possible acute cholecystitis. Assess for common bile duct occlusion. COMPARISON: CT dated 04/30/2025 TECHNIQUE: 5 mCi Tc-99m mebrofenin (Choletec) was administered intravenously. Scintigraphic images o f the abdomen were obtained for one hour. At the 1 hour time point 2 mg of morphine was administered IV. FINDINGS: There is normal clearance of radiotracer from the blood pool. There is homogeneous tracer u ptake by the liver. Activity progresses to the common bile duct by 20 minutes subsequent emptying in to the duodenum by 25 minutes. There is progressive hepatic activity clearance and accumulation of petra wel activity over the remainder of the exam. No gallbladder activity is identified which could be see n with acute cholecystitis. The gallbladder however did not appear dilated either on the prior CT or ultrasound and differential would also include chronic cholecystitis, recent meal, and prolonged fast ing. IMPRESSION: 1. Patent common bile duct but no evident gallbladder activity. Differential would include acute or chronic cholecystitis although the absence of gallbladder dilation on the recent prior imaging would argue against the former. This could also be seen with either recent peroneal within 4 hours of imagi ng or chronic fasting. Reviewed, dictated and finalized at location A. IMPRESSION: 1. Patent common bile duct but no evident gallbladder activity. Differential w ould include acute or chronic cholecystitis although the absence of gallbladder dilation on the recent prior imaging would argue against the former. This coul d also be seen with either recent peroneal within 4 hours of imaging or chronic fasting.
--- NOTE | ~2025-04-30 | CT_ITS ---
EXAMINATION: CT abdomen pelvis w con DATE: 04/30/2025 20:08 INDICATION: abdominal pain TECHNIQUE: Computed tomography (CT) of the abdomen and pelvis was performed with 100 mL Omnipaque-350 intravenous contrast. Automated exposure control and iterative reconstruction technique were employe d. The dose-length product was 1513.64 mGy-cm. COMPARISON: None. FINDINGS: Lower thorax: Cardiomegaly. Small pericardial fluid collection. Liver: Enlarged. Diffusely low density parenchyma. Biliary/Gallbladder: Gallbladder is partially contracted which limits evaluation. Mild pericholecysti c inflammatory stranding. 1 cm hyperdensity at the gallbladder neck. Common duct dilation, measuring up to 12 mm. Pancreas: No mass or duct dilation. Spleen: Normal. Adrenals: 1.5 cm indeterminate density left adrenal nodule. Kidneys: No suspicious mass, obstructing stone, or hydronephrosis. GI tract: No small or large bowel dilation. Normal appendix. Mesentery/Peritoneum: No ascites, mass, or free air. Retroperitoneum: No mass. Pelvis: Nearly empty urinary bladder. Absent uterus. Normal right ovary. Left ovary not confidently i dentified. Soft Tissues: Soft tissues and body wall unremarkable. Bones: No acute osseous finding. IMPRESSION: Cardiomegaly. Small pericardial effusion. Hepatomegaly with steatosis. Gallbladder inflammation and bile duct dilation. No definite stone or mass detected. Consider MRCP. 1.5 cm indeterminate left adrenal nodule, probably benign. Enhancement cancer history, consider 12 mo nth follow-up adrenal CT. Reviewed, dictated and finalized at location [facility]. IMPRESSION: Cardiomegaly. Small pericardial effusion. Hepatomegaly with steatosis. Gallbladder inflammation and bile duct dilation. No definite stone or mass dete cted. Consider MRCP. 1.5 cm indeterminate left adrenal nodule, probably benign. Enhancement cancer h istory, consider 12 month follow-up adrenal CT.
--- OUTSIDE RECORDS SUMMARY | 2025-04-30 15:04 | XMS_ITS | Data Portability ---
Author Organization [place] [facility], Main Office Address [address] [place] [address] Care Team Providers Care Patient Resource Coordinator Name Role Phone DILIA LEMUS Primary Care Provider DILIA LEMUS Referring Provider [phone] Assessment Encounter Date Assessment Date Assessment LastModified by Organization Details LastModified Time 10/13/2023 10/13/2023 53-year-old jennifer suárez presents for evaluation of her right [...] X-rays of the knee were reviewed, demonstrating ymzq-ij-lkhp arthritis with large osteophytes, all 3 compartments [...] 1.98 L (128%), DLCO 44%, DLCO/VA 91% [facility] split night sleep study 05/20/14 AHI = 134, ResMed medium AirFit N10 nasal mask @ 16 cmH2O [facility] titration sleep study 05/03/18 sleep onset = [...] carrier. Patient will [facility] an appointment with [facility] supplies and pressure adjustments. A major [...] Not available 11/30/2023 12:49:48 01/12/2024 01/12/2024 53-year-old femshanna suárez presents for follow-up of her right knee. She has flkl-xu-ijqy osteoarthritis, with a BMI of 74. 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 Keep humidifier level at Keep tube temperature at Patient is benefiting from PAP therapy. Encouraged patient to maintain PAP use more than 70% of the time. Statement of PAP use and benefits will be sent to the home care store. New ResMed Air Sense 11 auto set unit with heated humidifier, supplies and qxgs-kuz-eonw full face mask @ 14-18 cmH2O ordered. [...] further management. Follow-up: 3 months, March 2025 [facility] Not available 12/11/2024 12:37:01 Plan of Treatment Reminders Order Date Submit Date Provider Last Modified By Organization Details Last Modified Time Details Appointments None recorded. Lab None recorded. Referral physical therapist referral - [facility] [address] Physical Therapy [address], [address], 4 16:24:42 physical therapist referral - [facility] [address] Physical [facility], [address] [place] [address], [address], 3 21:03:12 Procedures injection/a spiration joint/bursa (PROC) - in office procedure, administere d by provider 2023 024 [email or web address] 3 In-Office Order, Internal Use Only DO Not Attach Compendium DO Not Attach Compendium, Do Not Delete/merge, [id number] 4 12:05:58 Surgeries None recorded. Imaging None recorded. Medication Orders Celebrex 200 mg capsule 2023 024 [facility], [address] [place], [address], 5 12:22:21 Kenalog 10 mg/mL suspension for injection 2023 024 [email or web address] [facility], [address] [place], [address], 5 16:27:46 Marcaine (PF) 0.5 % (5 mg/mL) injection solution [address] [facility], [address] [place] [address], [address], 5 16:27:49 Mobic 15 mg tablet [address] [facility], [address] [place] [address], [address], 5 16:28:03 Patient TargetsNo targets recorded. Patient InstructionsNo [...] study * No observ ation record ed. [id number] Not Available 12/30/2022 02:46:47 02/13/20 22 09/12/2020 compl ete PFT w/ post [facility] hodil ator leanna metry * No observ ation record ed. 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 039083239 Active 2019 Not Available [facility] 3 02:39:48 Body mass index 40+ - severely obese 434039463 Active 2017 Not Available [facility] 3 02:39:48 Chronic heart failure 41862657 Active 2017 Not Available [facility] 3 02:39:48 Pulmonary embolism 38412526 Active 2017 Not Available [facility] 3 02:39:49 Obstructive sleep apnea syndrome 95523779 Active 2017 Not Available [facility] 3 02:39:49 Notes:Medical History: Early REM onset Obesity with very severe OSAHS, AHI = 134, 05/20/14, on autoCPAP c/o [employer] T2DM Hypertension EF 60% CHF Left P.E. 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 Procedures Surgical History Date Name Laterality Status Provider Name and Address Organization Details Recorded Time 01/12/20 24 Ortho - Cortisone Injection completed Jorge Nolasco MD [address] [place] [address], [place], [address], [facility] 01/12/2024 12:19:48 Hysterectomy completed Keily Chisholm Shanna [employer] 10/13/2023 11:56:18 Carpal tunnel completed GUNJAN Stevens [employer] 10/13/2023 11:56:32 strabismus surgery completed Koki Garcia MA [facility] 11/30/2023 12:06:29 Imaging Results None recorded. Procedure Notes None recorded. Medical Equipment None [...] Available Not Available Not Available atorvastati n 40 mg tablet TAKE 1 TABLET BY MOUTH ONCE DAILY active Not Available Not Available No t Available terbinafine HCl 1 % topical cream [...] completed Not Available Not Available Not Available [facility] [employer] Ultra Test strips USE 1 STRIP TO CHECK GLUCOSE ONCE DAILY 11/07 completed Not Available Not Available Not Available Kenalog 10 mg/mL suspension for injection IN OFFICE 11/07 completed [facility]: 0003- 0494- 20 Not Available Not Available [...] 875 mg-potassiu m clavulanate 125 mg tablet TAKE 1 TABLET BY MOUTH EVERY 12 HOURS FOR 2 DAYS active Not Available Not Available No t Available erythromyci n with ethanol 2 % [...] Not Available Not Available No t Available OneTouch Ultra Blue Test Strip 09/06 completed Not Available Not Available Not Available OneTouch Ultra2 Meter 09/06 completed Not Available Not Available Not Available OneTouch Delica Plus Lancet 33 gauge USE 1 TO CHECK GLUCOSE ONCE DAILY 09/06 completed Not Available Not Available Not Available Vitals Date Recorded Oxygen saturation Oxygen saturation in Arterial blood by Pulse oximetry Heart rate Respiratory rate Provider Name and Address Organization Details Last Updated DateTime 11/30/2023 95 % 95 % 73 /min 15 /min Sharath Alegre MD [address], [place], [address], [employer] 4 12:13:10 Date Recorded Body height Body mass index (BMI) Body weight Body temperature Heart rate Systolic blood pressure Diastolic blood pressure Provider Name and Address Organization Details Last Updated DateTime 154.94 cm 74.6 kg/m2 137740. 99 g 97.6 [degF] 73 /min 138 mm[Hg] 86 mm[Hg] Koki Garcia MA [employer] 4 12:10:35 Date Recorded Oxygen saturation Oxygen saturation in Arterial blood by Pulse oximetry Heart rate Respiratory rate Provider Name and Address Organization Details Last Updated DateTime 12/11/2024 96 % 96 % 81 /min 15 /min Sharath Alegre MD [address], [place], [address], [employer] 5 12:25:27 Date Recorded Body height Body mass index (BMI) Body weight Body temperature Heart rate Systolic blood pressure Diastolic blood pressure Provider Name and Address Organization Details Last Updated DateTime 5 154.94 cm 73.7 kg/m2 429308. 02 g 98.1 [degF] 81 /min 136 mm[Hg] 88 mm[Hg] Koki Garcia MA [employer] 5 12:26:26 Date Recorded Body height Body mass index (BMI) Body weight Provider Name and Address Organization Details Last Updated DateTime 01/12/2024 154.94 cm 74.1 kg/m2 805746.21 g GUNJAN Stevens [employer] [facility] 01/12/2024 11:03:45 Date Recorded Body height Body mass index (BMI) Body weight Provider Name and Address Organization Details Last Updated DateTime 10/13/2023 154.94 cm 71.2 kg/m2 180953.32 g GUNJAN Stevens [place] [facility] 10/13/2023 11:54:09 Social History Question Answer Notes LastModified by Organizat ion Details LastModified Time Tobacco Smoking Status Former Smoker quit 2019 Not Available [facility] 12/30/2022 02:33:48 What Is Your Level Of Caffeine Consumption? Moderate Information not available 12/11/2024 How Much Tobacco Do You Chew? None [id number] Information not available 12/30/2022 In The 14 Days Before Symptom Onset, Have You Had Close Contact With A Laboratory-confir med COVID-19 While That Case Was Ill? No [id number] Information not available 12/30/2022 In The 14 Days Before Symptom Onset, Have You Had Close Contact With A Person Who Is Under Investigation For COVID-19 While That Person Was Ill? No [id number] Information not available 12/30/2022 What Type Of Diet Are You Following? REGULAR Information not available 11/30/2023 Which Illicit Or Recreational Drugs Have You Used? None [id number] Information not available 12/30/2022 Do You Have An Electrostatic Air Filter? No Information not available 11/30/2023 Do You [...] Age Did You Start Smoking Tobacco? 21 [id number] Information not available 12/30/2022 Are You Passively Exposed To Smoke? No Information no t available 11/30/2023 How Much Tobacco Do You Smoke? No Information not available 12/11/2024 Do You Use Sunscreen Routinely? No Information not available 11/30/2023 How Many Years Have You Smoked Tobacco? 30 [id number] Information not available 12/30/2022 Have You Recently Traveled Abroad? No Information not available 11/30/2023 Do You Have Any Dietary Restrictions? No Information not available 11/30/2023 Sex: Unknown Functional Status Question Answer Note LastModified by Organizat ion Details LastModified Time Do you use any illicit or recreational drugs? No Information not available 12/11/2024 What is your level of alcohol consumption? Occasional [id number] Information not available 12/30/2022 Do you or have you ever used smokeless tobacco? Never used smokeless tobacco [id number].[id number] Information not available 12/30/2022 Are you currently employed? Yes Information not available 11/30/2023 Have you been exposed to chemicals or toxins? 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 Never used electronic cigarettes [id number].[id number] Information not available 12/30/2022 What is your exercise level? None Information not available 11/30/2023 Mental Status Question Answer Note LastModified by Organization D etails LastModified Time Do you feel stressed (tense, restless, nervous, or anxious, or unable to sleep at night)? [id number] Information not available 11/30/2023 Family History Relationship Description Onset Age of this Age Resolved Age Notes LastModified by Organization Details LastModified Time Mother Family history of stroke [email or web address] Not available 2022 11:55:05 Sister Hypertensive disorder [email or web address] Not available 2022 11:55:20 Notes:plastic anemia Medical History Condition Response SLEEP APNEA Y MRSA N ALLERGIES/HAYFEVER N LUNG DISEASE/DISORDER N INSOMNIA N RADIATION / CHEMOTHERAPY N COPD Y HIGH CHOLESTEROL / HYPERLIPIDEMIA Y HYPERTHYROIDISM N BLOOD DISEASES N EAR OR HEARING PROBLEMS N HYPOTHYROIDISM N DEPRESSION (INCLUDING POST ) N HAVE YOU BEEN HOSPITALIZED OR SEEN IN [facility] IN THE PAST YEAR ? Y STROKE/TIA N ULCERS N OBESITY Y HISTORY WITH COMPLICATIONS WITH ANESTHES IA ? N ANEURYSM N ARTHRITIS Y USE OF BLOOD THINNERS N NO SIGNIFICANT PAST MEDICAL HISTORY N DIABETES, TYPE Y PARATHYROID DISEASE N ENT N SEASONAL ALLERGIES N HEARTBURN / REFLUX N BLOOD CLOTS Y HEPATITIS / LIVER DISEASE N SLEEP DISORDER N SEIZURES/EPILEPSY N HEADACHES/MIGRAINES N CHF N PACEMAKER N DIZZINESS Y [...] SNOMED-CT Code Diagnosis ICD10 Code Diagnosis Note [id number] [facility] Pulmonolo [facility] [place] [address] [place] [address] 2021 00:00:00 2021 16:17:07 [id number] Juan Espana MD [facility] ENT [place] [address] [place] [address] 03/11/2021 00:00:00 03/11/2021 15:00:00 [id number] [facility] Pulmonolo [facility] [place] [address] [place] [address] 03/19/2021 00:00:00 03/19/2021 12:26:15 [id number] [facility] Podiatry [place] [address] [place] [address] 04/23/2021 00:00:00 04/28/2021 07:14:43 [id number] [facility] Pulmonolo gy [place] [address] [place] [address] 05/22/2021 00:00:00 05/22/2021 15:47:21 [id number] [facility] Podiat[facility] [place] [address] [place] [address] 07/21/2021 00:00:00 07/22/2021 10:36:13 [id number] Jorge Nolasco MD [facility] Ortho [place] [address] [facility] [address] [address] 10/13/2023 11:37:34 10/13/2023 12:10:52 Pain of left knee joint 8524239828 39043 M25.812 [id number] Sharath Alegre MD [facility] [address] [address] 11/30/2023 10:52:13 12/02/2023 15:23:19 Obstructive sleep apnea syndrome 33970214 G47.33 [id number] Jorge Nolasco MD [facility] Ortho [place] [address] [facility] [address] [place] [address] 01/12/2024 11:01:20 01/12/2024 12:31:56 Pain of right knee joint 6459827375 27192 M25.906 [id number] Sharath Alegre MD [facility] [address] [address] 12/11/2024 11:54:48 12/11/2024 13:54:43 Obstructive sleep apnea syndrome 38870995 G47.33 Health Concerns Section Related Observation LastModified by Organization Detai ls LastModified Time None Recorded Concern Status LastModified by Organization Details LastModified Time None Recorded Advance Directives Directive None Recorded Payers Insurance Date Sequence Insurance Name Policy Number Policy Steele Covered Member ID Steele Member ID Guarantor Name 03/06/2025 1 [facility] (MEDICAID HMO) [id number] Luis L Christopher [id number] Luis L Christopher Notes Date Note Type Note Provider Name and Address Organization Details Recorded Time 11/30/2023 text/html Primary care/Ref erring provider: Dilia Lemsu MD At home since 05/22/21, the patient uses a ResMed AirSense 10 autoset unit with heated humidification. The patient does not need the ramp to start low and go up slowly on the pressure anymore. There is some xerostomia in a.m. There is no hose/mask condensation with water. The patient wears a ResMed lueg-mtm-repp full face mask without chin strap. There [...] slight chance of dozing. Sharath Alegre MD [address] [facility] [address], [place], [address], [place] [facility] 11/30/2023 12:49:57 12/11/2024 text/html Primary care/Ref erring [...] condensation with water.The patient wears a ResMed vrey-yie-famd full face mask without chin strap. There [...] high chance of dozing. Sharath Alegre MD [address] [address], [place], [address], [facility] 12/11/2024 12:37:07 OBGyn Episode No OBEpisode recorded.
--- OUTSIDE RECORDS SUMMARY | 2025-04-30 15:04 | XMS_ITS | Clinical Summary ---
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 This disclosure is being madepursuant to the Care Everywhere program and may not contain all information available regarding this patient. Last updated 18.[facility] [employer] Allergies No known active allergies Medications * Be aware that medications may not be up to date on this document. Alwaysverify current medications with the patient. albuterol HFA (PROVENTIL;VENTOLIN;PRO AIR) 108 (90 BASE) MCG/ACT inhaler Inhale 2 Puffs by mouth every 6 hours as needed Active beclomethasone dipropionate (QVAR) 40 MCG/ACT inhaler Inhale by mouth once daily Active buPROPion (WELLBUTRIN) 75 MG tablet Take 1 tablet twice a day by oral route for 30 days. Active fluconazole (DIFLUCAN) 150 MG tablet 05/09/20 Active losartan - hydroCHLOROthiazide (HYZAAR) 50-12.5 MG tablet Take 1 tablet by mouth once daily Active erythromycin (ROMYCIN) 5 MG/GM ophthalmic ointment Instill into both eyes 4 times daily 3.5 g 2 07/25/20 19 Active Active Problems Patient Care Coordination No te Formatting of this note migh t be different from the original. 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 Gender Identity Not on file Sexual Orientation [...] 6:27 AM CDT Height 154.9 cm (5' 1) 07/25/2019 6:27 AM CDT Body Mass Index [...] 50+ (1 of 2 - PCV) 02/11/1991 SCREENING FOR DIABETES 06/21/2021 8, 01/26/2018, 11/19/2017 ZOSTER VACCINE (1 of 2) 02/11/2022 COVID-19 VACCINE (1 - 2023-2 5 season) 2024 DEPRESSION SCREENING 11/01/2024 INFLUENZA VACCINE (Season Ended) 2025 COLON MONITORING 03/26/2026 03/26/2016, 03/26/2016, 03/26/2016 COLONOSCOPY - COLON CA SCREENING 03/26/2026 03/26/2016, 03/26/2016, 03/26/2016 Colorectal Cancer Screening 03/26/2026 HIB VACCINE Aged Out No longer eligi ble based on patient's age to complete this topic HPV VACCINE Aged Out No longer eligi ble based on patient's age to complete this topic MENINGOCOCCAL (Group B) VACCINE SHARED DECISION-MAKING Aged Out No longer eligible based on patient's age to complete this topic MENINGOCOCCAL GROUPS A/C/Y/W VACCINE Aged Out No longer eligible b [...] PANEL (CALCIUM TOTAL) (06/21/2018 1:21 PM CDT) [facility] Glucose 91 74 - 106 mg/dL 06/21/2018 2:03 PM CDT [facility] Sodium 138 136 - 145 mmol/L 06/21/2018 2:03 PM CDT [facility] Potassium 3.8 3.5 - 5.1 mmol/L 06/21/2018 2:03 PM CDT [facility] Chloride 104 98 - 107 mmol/L 06/21/2018 2:03 PM CDT [facility] CO2 29 22 - 31 mmol/L 06/21/2018 2:03 PM CDT [facility] Calcium 9.8 8.5 - 10.1 mg/dL 06/21/2018 2:03 PM CDT [facility] Anion Gap 5(L) 8 - 16 mmol/L 06/21/2018 2:03 PM CDT [facility] BUN 9 7 - 21 mg/dL 06/21/2018 2:03 PM CDT [facility] Creatinine 0.64 0.50 - 1.30 mg/dL 06/21/2018 2:03 PM CDT [facility] eGFR by MDRD >60 >60 mL/min/1.7 3m2 06/21/2018 2:03 PM CDT [facility] eGFR by MDRD >60 >60 mL/min/1.7 3m2 06/21/2018 2:03 PM CDT [facility] Blood BLOOD SPECIMEN / Unknown Venipuncture / Unknown 06/21/2018 1:21 PM CDT 06/21/2018 1:27 PM CDT Nick Amezcua MD LAB - CHEMISTRY ORDERABLES Final Result [facility] [address] [id number] * ENDOSCOPY, COLON, DIAGNOSTIC (03/26/2016 6:39 AM CDT) Report Endoscopy POC _ Patient Name: Amanuel Christopher Procedure Date: 03/26/2016 6:39 AM Date of : 1970 Admit Type: Outpatient Age: 46 Gender: Female Attending MD: Dar Timmons MD _ Procedure: Colonoscopy Indications: Generalized abdominal pain, Iron deficiency anemia secondary to chronic blood loss Providers: Dar Timmons MD (Doctor), Sara Breaux, RN, Tyrone Lopez, Senior Clinical Study Manager Referring MD: Dilia Hawthorne MD (Referring MD) [...] states she got anemia labs at [facility] a week ago but we don't have these results. We will get them. - Discharge patient to home (ambulatory). - Resume previous diet. - Continue present medications. - Return to my office in 2 weeks. Procedure Code(s): --- Professional --- 84286, Colonoscopy, flexible; with biopsy, single or multiple --- Technical --- 80712, Colonoscopy, flexible; with biopsy, single or multiple [...] or abscess without bleeding CPT copyright 2015 [employer] [place] [employer]. All rights reserved. The codes documented in this report are preliminary and upon commercial lines manager review may be revised to meet current compliance requirements. ___ Dar Timmons MD 03/26/2016 7:24:09 AM Number of Addenda: 0 Note Initiated On: 03/26/2016 6:39 AM [facility] 03/26/2016 6:39 AM CDT us Dar Timmons MD GI PROCEDURE ORDERABLES Ronan jose Result - Final [facility] from Last 3 Months or Most Recently Relevant to Health Maintenance Insurance [facility] Advance Directives * Full Code (Latest Code Status on File) Date Activated Date Inactivated Comments 07/01/2018 1:11 PM 07/03/2018 6:53 PM * Full Code Date Activated Date Inactivated Comments 06/23/2018 6:34 PM 06/26/2018 5:04 PM Care Teams 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
--- OUTSIDE RECORDS SUMMARY | 2025-04-30 15:05 | XMS_ITS | Data Portability ---
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 Name Role Phone HILLARY BUSH Family Coach Assessment Encounter Date Assessment Date Assessment LastModified [...] Organization Details Last Modified Time Details Appointments ANY 15 2024 11:45A Jane Yap MD Not available Not available Not available Lab measles + mumps + rubella virus IgG panel, QN, serum or plasma 2023 024 [facility], [address] [facility], [address], [place], [address], 02/01/2024 11:15:03 drug screen, urine 2023 024 [facility], [address] [facility], [address], [place], [address], 12/31/2023 17:09:53 aspartate aminotran sferase/a lanine aminotran sferase, ratio, serum or plasma (OBS) 2022 023 [facility], [address], [address], [place], [address], 10/14/2023 11:13:52 potassium , serum or plasma 2022 023 [facility] DIANA, [address], [address], [place], [address], 10/14/2023 07:13:51 creatinin e, serum or plasma 2022 023 [facility] DIANA, [address], [address], [place], [address], 10/14/2023 11:13:51 TSH + free T4, serum 2022 023 [facility] DIANA, [address], [address], [place], [address], 08/21/2023 15:09:31 uric acid, serum or plasma 2022 023 [address], [address], [place], [address], 08/21/2023 15:09:34 CBC w/ auto diff 2022 023 [facility] DIANA, [address], [address], [place], [address], 08/21/2023 15:09:36 urinalysi s, dipstick 2022 023 [facility] DIANA [address], [address], [place], [address], 08/21/2023 15:09:35 lipid panel, serum 2022 023 [facility], [address] [facility] [address], [address], [place], [address], 08/21/2023 15:09:32 CMP, serum or plasma 2022 023 [facility], [address] [facility] [address], [address], [place], [address], 08/21/2023 15:09:33 HbA1c (hemoglob in A1c), blood 2022 023 [facility], [address] [facility] [address], [address], [place], [address], 08/21/2023 15:09:34 Referral orthopedi c surgeon referral - OA of the R. knee 2022 023 [facility], [address] [facility], [place], [address], 10/14/2023 00:35:43 sleep medicine referral - BAL on CPAP 2022 023 leonard Alegre MD, [address] [place], [address], 01/31/2024 13:58:31 cardiolog ist referral - HTN, pulmonary HTN? 2022 023 [facility], [address], [place], [address], 08/20/2023 12:53:49 diabetic ophthalmo logy referral 2022 023 [facility], [address] , [place], [address], 02/29/2024 21:55:14 Procedures None recorded. Surgeries None recorded. Imaging XR, knee - R. knee pain 2022 023 [facility] ([facility]), [address] [place], [address], 08/20/2023 12:47:30 MAMMO, screening , bilateral [address] ([facility]), [address] [facility], [place], [address], 03/06/2024 11:43:32 Medication Orders Trulicity 1.5 mg/0.5 mL subcutane ous pen injector 2023 024 [facility], [address] [place] [address], [address], 01/31/2024 11:09:21 Trulicity 0.75 mg/0.5 mL subcutane ous pen injector 2023 024 [facility], [address] [place] [address], [address], 01/31/2024 11:09:40 Ozempic 0.25 mg or 0.5 mg (2 mg/1.5 mL) subcutane ous pen injector 2022 023 [facility], [address] [place] [address], [address], 12/30/2023 15:30:21 atorvasta tin 20 mg tablet [address] [facility], [address] [place] [address], [address], 08/27/2023 11:13:16 metformin ER 500 mg tablet,ex tended release 24 hr 2022 023 [facility], [address] [place] [address], [address], 08/27/2023 11:24:14 terbinafi ne HCl 1 % topical cream [address] [facility], [address] [place], [address], 08/06/2023 12:26:29 Tylenol Arthritis Pain 650 mg tablet,ex tended release [address] [facility], [address] [place] [address], [address], 08/06/2023 12:26:57 losartan 50 mg-hydroc hlorothia zide 12.5 mg tablet 2022 [facility], [address] [place] [address], [address], 08/06/2023 13:56:27 albuterol sulfate HFA 90 mcg/actua tion aerosol inhaler 2022 [facility], [address] [place] [address], [address], 08/06/2023 12:19:00 albuterol sulfate 2.5 mg/3 mL (0.083 %) solution for nebulizat ion [address] [facility], [address] [place] [address], [address], 08/06/2023 12:18:59 Patient TargetsNo targets recorded. Patient Instructions Encounter Date Encounter Id Patient Instructions Last Modified By Organization Details Last Modified Time 08/06/2023 [id number] athlete's foot: care instructions oajao Not available [...] visit oajao Not available 1 14:02:02 08/27/2023 [id number] knee arthritis: care instructions oajao Not available 08/27/2023 11:21:02 type 2 diabetes: care instructions oajao Not available 08/27/2023 11:11:19 Start Metformin Orthopedics Restart Atorvastatin Labs in 4 weeks Ophthalmology as referred Follow up in 5 -6 weeks oajao Not available 08/27/2023 11:19:01 10/19/2023 [id number] Correction Hold Meloxicam Continue Metformin Start Ozempic Follow up in 5 weeks oajao Not available 10/19/2023 13:53:53 12/30/2023 [id number] type 2 diabetes: care instructions oajao Not available 12/30/2023 16:04:50 Start Trulicity Follow up in 4 weeks oajao Not available 12/30/2023 19:09:06 01/31/2024 [id number] learning about tuberculosis (TB) oajao Not available 01/31/2024 11:03:27 Trulicity 1.5 mg weekly Labs Ophthalmology (Scheduled) Follow up in 4 weeks oajao Not available 01/31/2024 11:03:03 Reason for Referral Diabetic Ophthalmology Refer ral for Type 2 diabetes mellitus without complication Referring Physician: Dilia Yap, Internal Medicine, Encounter Date: 08/06/2023 Sleep Medicine Referral for Sleep apnea BAL on CPAP Referring Physician: Dilia Yap, Internal Medicine, Encounter Date: 08/06/2023 Family Coach Referral for Be nign hypertension HTN, pulmonary HTN? HTN, pulmonary HTN? Referring Physician: Dilia Yap Internal Medicine, Encounter Date: 08/06/2023 Orthopedic Surgeon Referral for Osteoarthritis of knee OA of the R. knee OA of the R. knee Referring Physician: Dilia Yap, Internal Medicine, Encounter Date: 08/27/2023 Results Created Date Observation Date Name Description Value Unit Range Abnormal Flag Note LastModifiedBy Organization Detail LastModifiedTime 08/20/2008/21/2023 LIPID PANEL cholesterol, total 177 mg/dL 100-19 9 Not Available [address], [address], 08/21/2023 15:09:32 08/20/20 23 08/21/2023 LIPID PANEL triglyceride s 129 mg/dL 0-149 Not Available [address], [address], 08/21/2023 15:09:32 08/20/20 23 08/21/2023 LIPID PANEL HDL cholesterol 67 mg/dL >39 Not Available [address], [address], 08/21/2023 15:09:32 08/20/20 23 08/21/2023 LIPID PANEL VLDL cholesterol diane 22 mg/dL 5-40 Not Available [address], [address], 08/21/2023 15:09:32 08/20/20 23 08/21/2023 LIPID PANEL LDL chol [facility] 88 mg/dL 0-99 Not Available [address], [address], 08/21/2023 15:09:32 08/20/20 23 08/21/2023 COMP. METAB OLIC PANEL (14) glucose 112 mg/dL 70-99 above high normal Not Available [address], [address], 08/21/2023 15:09:33 08/20/20 23 08/21/2023 COMP. METAB OLIC PANEL (14) BUN 9 mg/dL 6-24 Not Available [address], [address], 08/21/2023 15:09:33 08/20/20 23 08/21/2023 COMP. METAB OLIC PANEL (14) creatinine 0.61 mg/dL 0.57-1 .00 Not Available [address], [address], 08/21/2023 15:09:33 08/20/20 23 08/21/2023 COMP. METAB OLIC PANEL (14) eGFR 108 mL/mi n/1.7 3 >59 Not Available [address], [address], 08/21/2023 15:09:33 08/20/20 23 08/21/2023 COMP. METAB OLIC PANEL (14) BUN/creatini ne ratio 15 9-23 Not Available [address], [address], 08/21/2023 15:09:33 08/20/20 23 08/21/2023 COMP. METAB OLIC PANEL (14) sodium 140 mmol/ L 134-14 4 Not Available [address], [address], 08/21/2023 15:09:33 08/20/20 23 08/21/2023 COMP. METAB OLIC PANEL (14) potassium 4.5 mmol/ L 3.5-5. 2 Not Available [address], [address], 08/21/2023 15:09:33 08/20/20 23 08/21/2023 COMP. METAB OLIC PANEL (14) chloride 100 mmol/ L 96-106 Not Available [address], [address], 08/21/2023 15:09:33 08/20/20 23 08/21/2023 COMP. METAB OLIC PANEL (14) carbon dioxide, total 15 mmol/ L 20-29 below low normal Not Available [address], [address], 08/21/2023 15:09:33 08/20/20 23 08/21/2023 COMP. METAB OLIC PANEL (14) calcium 10.6 mg/dL 8.7-10 .2 above high normal Not Available [address], [address], 08/21/2023 15:09:33 08/20/20 23 08/21/2023 COMP. METAB OLIC PANEL (14) protein, total 8.2 g/dL 6.0-8. 5 Not Available [address], [address], 08/21/2023 15:09:33 08/20/20 23 08/21/2023 COMP. METAB OLIC PANEL (14) albumin 4.5 g/dL 3.8-4. 9 Not Available [address], [address], 08/21/2023 15:09:33 08/20/20 23 08/21/2023 COMP. METAB OLIC PANEL (14) globulin, total 3.7 g/dL 1.5-4. 5 Not Available [address], [address], 08/21/2023 15:09:33 08/20/20 23 08/21/2023 COMP. METAB OLIC PANEL (14) A/G ratio 1.2 1.2-2. 2 Not Available [address], [address], 08/21/2023 15:09:33 08/20/20 23 08/21/2023 COMP. METAB OLIC PANEL (14) bilirubin, total 0.3 mg/dL 0.0-1. 2 Not Available [address], [address], 08/21/2023 15:09:33 08/20/20 23 08/21/2023 COMP. METAB OLIC PANEL (14) alkaline phosphatase 108 IU/L 44-121 Not Available [address], [address], 08/21/2023 15:09:33 08/20/20 23 08/21/2023 COMP. METAB OLIC PANEL (14) AST (SGOT) 22 IU/L 0-40 Not Available [address], [address], 08/21/2023 15:09:33 08/20/20 23 08/21/2023 COMP. METAB OLIC PANEL (14) ALT (SGPT) 24 IU/L 0-32 Not Available [address], [address], 08/21/2023 15:09:33 08/20/20 23 08/21/2023 URINA LYSIS , ROUTI NE specific gravity 1.023 1.005- 1.030 Not Available [address], [address], 08/21/2023 15:09:35 08/20/20 23 08/21/2023 URINA LYSIS , ROUTI NE pH 6.0 5.0-7. 5 Not Available [address], [address], 08/21/2023 15:09:35 08/20/20 23 08/21/2023 URINA LYSIS , ROUTI NE urine-color YELLOW yellow Not Available [address] [place], [address], 08/21/2023 15:09:35 08/20/2008/21/2023 URINA LYSIS , ROUTI NE appearance CLEAR clear Not Available [facility] & [address], [address], 08/21/2023 15:09:35 08/20/2008/21/2023 URINA LYSIS , ROUTI NE WBC esterase NEGATI VE negati ve Not Available [address], [address], 08/21/2023 15:09:35 08/20/2008/21/2023 URINA LYSIS , ROUTI NE protein TRACE negati ve/tra ce Not Available [address], [address], 08/21/2023 15:09:35 08/20/2008/21/2023 URINA LYSIS , ROUTI NE glucose NEGATI VE negati ve Not Available [address], [address], 08/21/2023 15:09:35 08/20/20 23 08/21/2023 URINA LYSIS , ROUTI NE ketones NEGATI VE negati ve Not Available [address], [address], 08/21/2023 15:09:35 08/20/20 23 08/21/2023 URINA LYSIS , ROUTI NE occult blood NEGATI VE negati ve Not Available [address], [address], 08/21/2023 15:09:35 08/20/20 23 08/21/2023 URINA LYSIS , ROUTI NE bilirubin NEGATI VE negati ve Not Available [address], [address], 08/21/2023 15:09:35 08/20/2008/21/2023 URINA LYSIS , ROUTI NE urobilinogen ,semi-qn 0.2 mg/dL 0.2-1. 0 Not Available [address], [address], 08/21/2023 15:09:35 08/20/2008/21/2023 URINA LYSIS , ROUTI NE nitrite, urine NEGATI VE negati ve Not Available [address], [address], 08/21/2023 15:09:35 08/20/2008/21/2023 URINA LYSIS , ROUTI NE microscopic examination COMMEN T Micro scopi c not indic ated and not perfo rmed. Not Available [address], [address], 08/21/2023 15:09:35 08/20/2008/21/2023 CBC WITH DIFFE RENTI AL/PL ATELE T WBC - x10e3 /uL [facility] was unabl e to colle ct suffi cient speci men to perfo rm the follo wing test( s), and is provi ding the patie nt with re-co llect ion instr uctio ns. Not Available [address], [address], 08/21/2023 15:09:36 08/20/20 23 08/21/2023 CBC WITH DIFFE RENTI AL/PL ATELE T RBC - Test not perfo rmed Not Available [address], [address], 08/21/2023 15:09:36 08/20/20 23 08/21/2023 CBC WITH DIFFE RENTI AL/PL ATELE T hemoglobin - Test not perfo rmed Not Available [address], [address], 08/21/2023 15:09:36 08/20/2008/21/2023 CBC WITH DIFFE RENTI AL/PL ATELE T hematocrit - Test not perfo rmed Not Available [address], [address], 08/21/2023 15:09:36 08/20/20 23 08/21/2023 CBC WITH DIFFE RENTI AL/PL ATELE T platelets - Test not perfo rmed Not Available [address], [address], 08/21/2023 15:09:36 08/20/20 23 08/21/2023 CBC WITH DIFFE RENTI AL/PL ATELE T neutrophils - Test not perfo rmed Not Available [address], [address], 08/21/2023 15:09:36 08/20/20 23 08/21/2023 CBC WITH DIFFE RENTI AL/PL ATELE T lymphs - Test not perfo rmed Not Available [address], [address], 08/21/2023 15:09:36 08/20/20 23 08/21/2023 CBC WITH DIFFE RENTI AL/PL ATELE T monocytes - Test not perfo rmed Not Available [address], [address], 08/21/2023 15:09:36 08/20/20 23 08/21/2023 CBC WITH DIFFE RENTI AL/PL ATELE T eos - Test not perfo rmed Not Available [address], [address], 08/21/2023 15:09:36 08/20/20 23 08/21/2023 CBC WITH DIFFE RENTI AL/PL ATELE T lymphs (absolute) - Test not perfo rmed Not Available [facility] & [address], [address], 08/21/2023 15:09:36 08/20/20 23 08/21/2023 CBC WITH DIFFE RENTI AL/PL ATELE T eos (absolute) - Test not perfo rmed Not Available [facility] & [address], [address], 08/21/2023 15:09:36 08/20/2008/21/2023 CBC WITH DIFFE RENTI AL/PL ATELE T baso (absolute) - Test not perfo rmed Not Available [address], [address], 08/21/2023 15:09:36 08/20/2008/21/2023 HEMOG LOBIN A1C hemoglobin A1C 6.7 % 4.8-5. 6 above high normal Predi abete s: 5.7 - 6.4 Diabe ralph: >6.4 Glyce khai contr ol for adult s with diabe ralph: <7.0 Not Available [facility] & [address], [address], 08/21/2023 15:09:34 08/20/2008/21/2023 URIC ACID uric acid 5.2 mg/dL 3.0-7. 2 Thera peuti c targe t for gout patie nts: <6.0 Not Available [facility] & [address], [address], 08/21/2023 15:09:34 08/20/2008/21/2023 DIABE RALPH PATIE NT EDUCA TION pdf . Not Available [facility] & [address], [address], 08/21/2023 15:09:33 08/20/20 23 08/21/2023 TSH+F REE T4 TSH 1.890 uIU/m L 0.450- 4.500 Not Available [address], [address], 08/21/2023 15:09:31 08/20/20 23 08/21/2023 TSH+F REE T4 T4,free(dire ct) 1.15 NG/dL 0.82-1 .77 Not Available [address], [address], 08/21/2023 15:09:31 08/20/20 23 08/21/2023 SPECI MEN STATU S REPOR T specimen status report TNP [facility] was unabl e to colle ct suffi cient speci men to perfo rm the follo wing test( s), and is provi ding the patie nt with re-co llect ion instr uctio ns. TEST: [id number] CBC With Diffe renti al/Pl atele t Not Available [address], [address], 08/21/2023 15:09:31 10/13/20 23 10/14/2023 POTAS SIUM potassium 4.8 mmol/ L 3.5-5. 2 Not Available [facility] ([facility]) [address] [place], [address], 10/14/2023 07:13:51 10/13/20 23 10/14/2023 CREAT ININE creatinine 0.69 mg/dL 0.57-1 .00 Not Available [facility] ([facility]) [address] [facility], [place], [address], 10/14/2023 11:13:51 10/13/20 23 10/14/2023 CREAT ININE eGFR 105 mL/mi n/1.7 3 >59 Not Available [facility] ([facility]) [address] [facility], [place], [address], 10/14/2023 11:13:51 10/13/20 23 10/14/2023 ALT+A ST AST (SGOT) 21 IU/L 0-40 Not Available [facility] ([facility]) [address] [facility], [place], [address], 10/14/2023 11:13:52 10/13/20 23 10/14/2023 ALT+A ST ALT (SGPT) 19 IU/L 0-32 Not Available [facility] ([facility]) [address] [facility], [place], [address], 10/14/2023 11:13:52 12/30/19 24 12/31/2023 DRUG PROFI LE,UR ,9 DRUGS ,BUND amphetamines , urine NEGATI VE NG/mL cutoff =1000 Amphe tamin e test inclu jessenia Amphe tamin e and Metha mphet amine . Not Available [facility] ([facility]) [address] [place], [address], 12/31/2023 17:09:53 12/30/19 24 12/31/2023 DRUG PROFI LE,UR ,9 DRUGS ,BUND barbiturate NEGATI VE NG/mL cutoff =300 Not Available [facility] ([facility]) [address] [place], [address], 12/31/2023 17:09:53 12/30/19 24 12/31/2023 DRUG PROFI LE,UR ,9 DRUGS ,BUND benzodiazepi mendez NEGATI VE NG/mL cutoff =300 Not Available [facility] ([facility]) [address] [place], [address], 12/31/2023 17:09:53 12/30/19 24 12/31/2023 DRUG PROFI LE,UR ,9 DRUGS ,BUND cannabinoid NEGATI VE NG/mL cutoff =50 Not Available [facility] ([facility]) [address] [place], [address], 12/31/2023 17:09:53 12/30/19 24 12/31/2023 DRUG PROFI LE,UR ,9 DRUGS ,BUND cocaine (metab.) NEGATI VE NG/mL cutoff =300 Not Available [facility] ([facility]) [address] [place], [address], 12/31/2023 17:09:53 12/30/19 24 12/31/2023 DRUG PROFI LE,UR ,9 DRUGS ,BUND opiates NEGATI VE NG/mL cutoff =300 Opiat e test inclu jessenia Codei ne and Morph ine only. Not Available [facility] ([facility]) [address] [facility], [place], [address], 12/31/2023 17:09:53 12/30/19 24 12/31/2023 DRUG PROFI LE,UR ,9 DRUGS ,BUND phencyclidin e NEGATI VE NG/mL cutoff =25 Not Available [facility] ([facility]) [address] [place], [address], 12/31/2023 17:09:53 12/30/19 24 12/31/2023 DRUG PROFI LE,UR ,9 DRUGS ,BUND methadone screen, urine NEGATI VE NG/mL cutoff =300 Not Available [facility] ([facility]) [address] [place], [address], 12/31/2023 17:09:53 12/30/19 24 12/31/2023 DRUG PROFI LE,UR ,9 DRUGS ,BUND propoxyphene , urine NEGATI VE NG/mL cutoff =300 Not Available [facility] ([facility]) [address] [place], [address], 12/31/2023 17:09:53 01/31/20 24 02/01/2024 MEASL ES/MU MPS/R UBELL A IMMUN ITY rubella antibodies, IgG 1.97 index immune >0.99 Non-i mmune <0.90 Equiv ocal 0.90 - 0.99 Immun e >0.99 Not Available [facility] ([facility]) [address] [facility], [place], [address], 02/01/2024 11:15:03 01/31/20 24 02/01/2024 MEASL ES/MU MPS/R UBELL A IMMUN ITY measles antibodies, IgG >300.0 AU/mL immune >16.4 Negat harleen <13.5 Equiv ocal 13.5 - 16.4 Posit harleen >16.4 Prese nce of antib odies to Rubeo la is presu mptiv e evide nce of immun ity excep t when acute infec tion is suspe cted. Not Available [facility] ([facility]) [address] [facility], [place], [address], 02/01/2024 11:15:03 01/31/20 24 02/01/2024 MEASL ES/MU MPS/R UBELL A IMMUN ITY mumps abs, IgG 32.2 AU/mL immune >10.9 Negat harleen <9.0 Equiv ocal 9.0 - 10.9 Posit harleen >10.9 A posit harleen resul t gener ally indic ates past expos ure to Mumps virus or previ ous vacci natio n. Not Available [facility] ([facility]) [address] [facility], [place], [address], 02/01/2024 11:15:03 08/20/20 23 08/20/2023 XR, knee No observ ation record ed. [facility] [address], [place], [address], 09/09/2023 12:45:22 12/18/19 25 12/18/2024 XR, chest No observ ation record ed. [facility] [address], [place], [address], 01/08/2025 14:06:57 02/18/12/18/2024 CT, angio gram, chest , w/ contr ast No observ ation record ed. [place] [id number], [place], [address], 12/26/2024 14:30:02 12/19/1912/19/2024 trans -thor acic echoc ardio gram (TTE) (PROC ) No observ ation record ed. [place] [id number], [place], [address], 12/20/2024 07:24:41 12/21/19 25 12/21/2024 XR, chest No observ ation record ed. [place] [id number] [facility] [address], [place], [address], 12/21/2024 08:44:29 Result Notes None recorded. 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 Not Available [facility] 3 05:25:42 Primary hyperparathy roidism 61612299 Active 2019 Not Available [facility] 3 05:25:42 Type 2 diabetes mellitus without complication 755956896 Active 2020 Not Available [facility] 3 05:25:42 Immunization advised 132597717 Active 2020 Not Available [facility] 3 05:25:42 SARS-CoV-2 mRNA vaccine declined 5401213319 Active 2022 Not Available [facility] 3 05:25:41 Impaired fasting glycemia 681817158 Active Not Available [facility] 3 05:25:42 Pulmonary hypertension 74677227 Active Not Available [facility] 3 05:25:42 Congestive heart failure 08014577 Active Not Available [facility] 3 05:25:42 Morbid obesity 645247678 Active Not Available [facility] 3 05:25:41 Infective gastritis 389510362 Active Not Available [facility] 3 05:25:41 Chalazion 8410596 Active Not Available [facility] 3 05:25:41 Pulmonary embolism 17573183 Active Not Available [facility] 3 05:25:42 Ankle pain 527172977 Active Not Available [facility] 3 05:25:41 Neuropathy 935410282 Active Not Available [facility] 3 05:25:42 97646494 Active 2024 Gwendolyn Steven MA null, [place] - [facility] 5 16:03:56 Uterine leiomyoma 44997431 Active Not Available [facility] 3 05:25:42 Grief finding 345575333 Active Not Available [facility] 3 05:25:41 Dyspnea 358177764 Active Not Available [facility] 3 05:25:41 Anemia 305299472 Active Not Available [facility] 3 05:25:42 Influenza 1844321 Active Not Available [facility] 3 05:25:42 Carpal tunnel syndrome 96085703 Active Not Available [facility] 3 05:25:42 Obesity 388330738 Active Not Available [facility] 3 05:25:42 Abdominal pain 91887464 Active Not Available [facility] 3 05:25:41 Benign hypertension 12806324 Active Not Available [facility] 3 05:25:41 Helicobacter -associated gastritis 05901283 Active Not Available [facility] 3 05:25:42 Asthma 632823686 Active Not Available [facility] 3 05:25:41 Sleep apnea 15166501 Active Not Available [facility] 3 05:25:42 Menorrhagia 155713478 Active Not Available [facility] 3 05:25:42 Bacterial vaginosis 432318984 Active Not Available [facility] 3 05:25:42 Problem Notes None recorded. Procedures Surgical History Date Name Laterality Status Provider Name and Address Organization Details Recorded Time 2022 Diabetic Foot Exam completed Dilia Yap MD Attn: Goran hallman,[address] [facility], [place], [address], [facility] 3 12:25:01 2017 Total hysterectomy completed Susanna Giraldo MA [place] - [place] 9 14:03:47 2015 esophagogastroduodenoscopy completed Dolores Wade MD Attn: Goran hallman,[address] [facility], [place], [address], [facility] - SIF 1 12:15:51 2015 colonoscopy completed Dilia Yap MD Attn: Goran hallman,[address] [facility], [place], [address], [facility] - SIF 1 12:16:27 2013 Endometrial Biopsy completed Alec Murray [facility] 4 11:27:25 2013 Date of Last Pap Smear completed Bianca Bustamante [place] - SI 6 11:48:23 Carpal tunnel surgery completed Eduardo Yap MD Attn: Goran hallman,[address] [facility], [place], [place], [address], [facility] 0 09:48:00 repair of eyelid completed Dilia Yap MD Attn: Goran hallman,[address] [facility], [place], [address], [facility] 0 09:48:28 Imaging Results None recorded. Procedure Notes None recorded. Medical Equipment None Reported. Allergies Allergen ID Allergen Name Allergen Category Reaction Reaction Severity Criticality Documentation Date Start Date Code Code System Note Provider Name and Address Organization Details Recorded Time 627865 No known allergy (situatio n) Not available Not available Not available Not available 08/27/2023 11525 6003 SNOMED Dilia Yap MD Attn: Goran hallman,[address] [facility], [place], [address], [facility] 3 10:34:13 No known drug allergies Medications Name Sig Start Date Stop Date Status Note LastModified by Organization Details LastModified Time 8hr arthritis 650mg er tab TAKE 2 TABLETS BY MOUTH EVERY 8 HOURS NEEDED FOR 14 DAYS active Not Available Not Available No t Available Prescript ion - New 08/20 completed Prescrip tion for treatmen t of H-pylori called to Charissa (pharmac ist) at [facility]. Not Available Not Available Not Available losartan [...] Available Not Available Not Available atorvasta tin 40 mg tablet TAKE 1 TABLET BY MOUTH ONCE DAILY active Not Available Not Available No t Available terbinafi ne HCl 1 % topical [...] mg-potass ium clavulana te 125 mg tablet TAKE 1 TABLET BY MOUTH EVERY 12 HOURS FOR 2 DAYS active Not Available Not Available No t Available amoxicill in 500 mg-potass ium clavulana [...] Updated DateTime 4 154.94 cm 74.1 kg/m2 582415. 21 g 80 /min 97 % 97 % 18 /min 98.3 [degF] 140 mm[Hg] 80 mm[Hg] Gwendolyn Steven [place] - [facility] 4 15:33:41 Date Recorded Body height Body mass index (BMI) Body weight Heart rate Oxygen saturation Oxygen saturation in Arterial blood by Pulse oximetry Respiratory rate Systolic blood pressure Diastolic blood pressure Provider Name and Address Organization Details Last Updated DateTime 4 154.94 cm 73.7 kg/m2 639009. 46 g 88 /min 97 % 97 % 2 /min 134 mm[Hg] 80 mm[Hg] Gwendolyn Steven MA [facility] 4 09:59:34 Date Recorded Body weight Body mass index (BMI) Body height Oxygen saturation Oxygen saturation in Arterial blood by Pulse oximetry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 Administra tion of influenza vaccine 09328819 Z23 General ex amination of patient 143488087 Z00.01 Screening for malignant neoplasm of breast 934831830 Z12.31 Z12.39 Type 2 maureen betes mellitus without complication 014690087 E11.9 Benign hypertension 1072 5009 I10 Noncomplia nce with medication regimen 168396934 Z91.148 SARS-CoV-2 mRNA vaccine declined 9465986221 Z28.21 Asthma 826429458 J45.90 9 Her PFTS done in 2015 were relatively normal Sleep apnea 42593142 G47 .30 Pain of ri ght knee joint 8443692193 79051 M25.561 Tinea pedis 5850702 B35. 3 Body mass index 40+ - severely obese 379269050 Z68.44 Z68.45 Ozempic? OV 07/12/2019S he has failed NaloxoneIL TUBE INSPECTOR 07/25/2019P hentermine /Topiramat e, side effects were discussed in great detail.CDA on fileUDS reviewedSh ort term use onlyNutrit ionist to see, she missed her appointmen t yesterday, she should reschedule it. [id number] MD Grey Bell (Adult Med) [address] [place] [address] [phone] 08/27/2023 10:23:47 08/31/2023 12:53:56 Type 2 diabetes mellitus without complication 691136214 E11.9 Start Metformin, the GI side effects were discussed. Her insurance requires the use of Metformin in the last 180 days before they will consider Ozempic. Disorder o f lipid metabolism 572980287 E78.9 Medication monitoring 39 7491354 Z51.81 Osteoarthr itis of knee 551237092 M17.9 [id number] MD Grey Bell (Adult Med) [address] [place] [address] [phone] 10/19/2023 12:15:23 10/20/2023 15:20:44 Unintentional weight gain 9821916968 55230 R63.5 Meloxicam? , although she has only been on it for 6 days Increased appetite 49132 004 R63.2 I personally do not think that Metformin is the cause of her weight gain. Type 2 maureen betes mellitus without complication 780459722 E11.9 Start Ozempic, she has no personal or FHX of Thyroid cancer or MEN syndromeCo ntinue Metformin OV 08/27/2023 Start Metformin, the GI side effects were discussed. Her insurance requires the use of Metformin in the last 180 days before they will consider Ozempic. [id number] MD Grey Bell (Adult Med) [address] [place] [address] [phone] 12/30/2023 15:14:15 01/03/2024 10:19:38 Type 2 diabetes mellitus without complication 394022639 E11.9 Start Trulicity, GI side effects were [...] they will consider Ozempic. Medication monitoring 39 7921746 Z51.81 [id number] Dilia Yap MD [facility] (Adult Med) [address] [place] [address] [phone] 01/31/2024 09:31:12 02/01/2024 20:31:48 Type 2 diabetes mellitus without complication 853991823 E11.9 Increase Trulicity to 1.5 mg weekly, [...] and mumps and rubella determined by serology 2009720275 09902 Z78.9 Tuberculos is screening 722396120 Z11.7 10-11 mm induration , R. forearm, she has no RF and this is considered negative Health Concerns Section Related Observation LastModified by Organization Detai ls LastModified Time None Recorded Concern Status LastModified by Organization Details LastModified Time None Recorded Advance Directives Directive Y: Payers Insurance Date Sequence Insurance Name Policy Number Policy Steele Covered Member ID Steele Member ID Guarantor Name 03/17/2025 1 [facility] (MEDICAID HMO) [id number] [facility] Christopher [id number] [facility] Christopher 11/29/2023 1 [facility] (MEDICAID HMO) [id number] [facility] [id number] [facility] 11/29/2023 1 [employer] [facility] ON OR AFTER 10/01/2020 (MEDICAID REPLACEMENT - HMO) Sarsherie Christopher [id number] Luis White 11/29/2023 1 [facility] - DOS PRIOR TO 2021 (MEDICAID REPLACEMENT - HMO) Luis White [id number] Luis White Notes Date Note Type Note Provider Name and Address Organization Details Recorded Time 08/06/2023 text/html [facility]neeRep[facility] Quality:aching Severity:moderate Duration:months Timing:chronic Context:cannot identify Alleviating [...] PT:none Work Related:no Working:no I don't have anyOverall check upI don't know what is going on with my kneeAm I eligible to get the Ozempic? Ms White was out of state and she has been off her medications for some time. She is here complaining of right knee pain. Dilia Yap MD Attn: [address] [place], [address], [facility] 08/06/2023 14:02:22 08/27/2023 text/html My arthritisC an you put me on Ozempic? Dilia Yap MD Attn: [address] [place], [address], [place] [facility] 08/27/2023 13:41:32 08/27/2023 text/html Diabetes [...] medication Dilia Yap MD Attn: [address] [place], [address], [facility] 08/27/2023 13:41:32 10/19/2023 text/html Diabetes F/URepo rted [...] lbs) That Metformin, it made me gain weightMy mammogram and my loan workout officer is scheduled for next month Ms White [...] poor surgical candidate. 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 Dilia Yap MD Attn: [address] [place], [address], [facility] 12/30/2023 19:10:12 01/31/2024 text/html For a follow up and a physical for those papers Despite her medical condition, she is currently is providing care for kids in her home and able to cope. Dilia Yap MD Attn: [address] [place], [address], [facility] 01/31/2024 11:10:02 OBGyn Episode Ob Episode Information Episode Created Date Number of Fetuses Patient Bloodtype Patient rh Status Prepregnancy Weight lbs Domestic Partner Domestic Partner Phone Father Name Paint Booth Operator Status 12/29/19 25 1 OPEN Fetus Data First Name Last Name Admitted to NICU Weight (g) Sex Living Outcome Pediatric Complications Fetus ID Race Codes Race Delivery Type 85469 Walker Calculation Initial Walker Date Initial Exam Date Initial Exam Provider Initial Ultrasound Date Last Menstrual Period Date Ultra Sound Weeks Gestation 12/29/2024 0 Eighteen To Twenty Week Walker Update [...] Post Complications Tubal Sterilization Discharge Date Comments Discharge Information Feeding Method Contraceptive Method Maternal HG B and HCT Levels Ob Episode Information Episode Created Date Number of Fetuses Patient Bloodtype Patient rh Status Prepregnancy Weight lbs Domestic Partner Domestic Partner Phone Father Name Paint Booth Operator Status 08/20/20 17 1 CLOSED Fetus Data First Name Last Name Admitted to NICU Weight (g) Sex Living Outcome Pediatric Complications Fetus ID Race Codes Race Delivery Type 3401.94 F Full Term 00783 Vaginal Walker Calculation Initial Walker Date Initial [...] Domestic Partner Domestic Partner Phone Father Name Paint Booth Operator Status 08/20/20 17 1 CLOSED Fetus Data First Name Last Name Admitted to NICU Weight (g) Sex Living Outcome Pediatric Complications Fetus ID Race Codes Race Delivery Type 3231.84 3 M Full Term [id number] Vaginal Walker Calculation Initial Walker Date Initial [...]
[2025-04-30 15:18] VITALS: BP 155/82; PULSE 84; RESP 20; TEMP 36.7; O2SAT 95
--- NOTE | 2025-04-30 15:25 | ECG_ITS ---
Test Date: 2025-04-30 19:26:30 Measurements Intervals Firth Rate: 96 P: 68 MN: 162 QRS: 15 QRSD: 118 T: 49 QT: 374 QTc: 474 Interpretive Statements SINUS RHYTHM INCOMPLETE RIGHT BUNDLE BRANCH BLOCK BORDERLINE ST-T WAVE ABNORMALITY- ANTERIOR LEADS BORDERLINE ECG Compared to ECG 12/19/2024 23:34:47 POSSIBLE ISCHEMIA NO LONGER PRESENT Electronically Signed On 04-30-2025 20:30:29 CDT by Scar Palacios D.O.
--- NOTE | 2025-04-30 15:50 | ED.ABDPAIN ---
HPI - Abdominal Pain General Chief Complaint: Abdominal Pain <Laverneshanna Jama APRN - Last Filed: 05/01/25 15:12> Stated Complaint: Abd pain x 2 weeks with nausea <Laverneshanna Jama APRN - Last Filed: 05/01/25 15:12> Time Seen by Provider: 04/30/25 15:15 <Laverneshanna Jama APRN - Last Filed: 05/01/25 15:12> Focused HPI: Patient is a 55-year-old [place] female who presents to the ER with complaints of upper abdominal pain. She reports her pain started approximately 2 weeks ago and has gradually gotten worse. Patient dorsal history of diabetes, hypertension, anemia, pulmonary embolism, and hysterectomy. She denies any recent fevers, urinary symptoms, or acute back pain. Patient reports she still has her gallbladder and appendix. GENERAL: Ill-appearing, obese, and in mild distress d/t pain. HEAD: Normocephalic, atraumatic. CHEST: Clear to auscultation. ?No respiratory distress. Tachypnea HEART: Regular rate and rhythm.?+ bilateral lower extremity edema NEURO: ?Alert and oriented x3. ABD: + tenderness RUQ and LUQ with palpation, + BS Patient screened in triage and initial orders placed.? ?Additional care and disposition to be based upon?diagnostic testing and treatment. <Laverne Jama APRN - Last Filed: 05/01/25 15:12> Source: patient, family and RN notes reviewed <Chanelle Farias MD - Last Filed: 05/01/25 17:58> Mode of arrival: EMS <Chanelle Farias MD - Last Filed: 05/01/25 17:58> Limitations: no limitations <Chanelle Farias MD - Last Filed: 05/01/25 17:58> History of Present Illness HPI narrative: Agree with the above following additions/corrections: Patient presents with report of epigastric abdominal pain for the past 2 weeks. She states it is constant. She says 2 weeks ago she was having diarrhea. No bloody stool. She was nauseated and currently is on had 1 episode of emesis yesterday. Her last bowel movement was this morning. She denies any blood. No dysuria or hematuria although she has been having urinary frequency and urgency, having to go multiple times throughout the night. It is otherwise nonradiating but constant. She is postmenopausal. No vaginal bleeding or discharge. She states this has never happened before. She has had to see Gastroenterology before for H pylori. Has not had anything to eat today. Did not have an appetite. Has not identified any relationship to food (either the type of food or timing of food.) She does have a history of pulmonary embolism years ago and at that time was on anticoagulation however this has since been discontinued. She notes a history of gallstones but her only abdominal surgery is a hysterectomy, no appendectomy or cholecystectomy. No fevers but she is having chills. She states she feels weak like she wants to pass out. <Chanelle Farias MD - Last Filed: 05/01/25 17:58> Related Data Home Medications: Home Medications ?Medication ?Instructions ?Recorded ?Confirmed ?Last Taken ?Type No Home Medications 05/01/25 05/01/25 Unknown History <Laverne Jama APRN - Last Filed: 05/01/25 15:12> Allergies/Adverse Reactions: Allergies Allergy/AdvReac Type Severity Reaction Status Date / Time No Known Allergies Allergy Verified 04/30/25 15:02 <Laverne Jama APRN - Last Filed: 05/01/25 15:12> FOR[facility]LY [facility] Past Medical History Medical History: Medical History Hepatic steatosis Type 2 diabetes mellitus Pulmonary embolism years ago; anticoagulation since discontinued H. pylori infection Chronic obstructive pulmonary disease Prediabetes Obstructive sleep apnea on CPAP Heart failure of unknown type Morbid obesity <Laverne Jama APRN - Last Filed: 05/01/25 15:12> Surgical History Surgical History: Surgical History History of eye surgery History of carpal tunnel release History of hysterectomy <Laverne Jama APRN - Last Filed: 05/01/25 15:12> Social History Social History: Social History Social History: Surrogate medical decision maker: Paulina Moulton (sibling) or her 2 children. Code status: Full code. Smoking packs per day: 0.25 Smoking cigarettes per day: 5.0 Years smoked: 25 Smoking pack-years: 6.25 Smoking status: Former smoker Tobacco type: cigarettes Alcohol intake: never Substance use: never Substance use type: does not use Do You Feel Safe in your Home?: Yes Lack of Transportation: No Lack of Food: Never True Current Housing: I Have Housing Concerned About Future Housing: No Difficulty Paying Gas/Electric Bills: No Difficulty Paying for Meds: No Currently Unemployed: No Education: High School Diploma/GED Difficulty w/ Childcare or Family Care: No Spiritual care concerns: No <Laverne Jama APRN - Last Filed: 05/01/25 15:12> Exam Narrative: GENERAL: well-nourished, in moderate acute distress. Groaning frequently. HEAD: Normocephalic, atraumatic. EYES: Non injected, non icteric ENT: Nares clear, no rhinorrhea or epistaxis. Gross auditory acuity intact. NECK: Supple. No meningismus. CHEST: Speaking in full sentences. No respiratory distress. HEART: Regular rate and rhythm. ABDOMEN: Morbidly obese but Soft, nondistended. No rigidity or guarding. Not peritoneal. Tender to palpation at the epigastrium. Some tenderness to palpation of the right upper quadrant. EXTREMITIES: Normal range of motion. SKIN: Warm, dry, no rash. NEURO: No focal deficits. Alert and oriented. Answering questions. Following commands. Normal speech without aphasia or dysarthria. PSYCH: Congruent mood and affect. <Chanelle Farias MD - Last Filed: 05/01/25 17:58> Course Vital Signs Vital signs: Vital Signs Temperature 98.0 F 04/30/25 15:18 Pulse Rate 84 04/30/25 15:18 Respiratory Rate 20 04/30/25 15:18 Blood Pressure 155/82 H 04/30/25 15:18 Pulse Oximetry 95 04/30/25 15:18 Temperature 97.8 F 05/01/25 14:00 Pulse Rate 73 05/01/25 14:00 Respiratory Rate 16 05/01/25 14:00 Blood Pressure 134/73 05/01/25 14:00 Pulse Oximetry 97 07/01/25 14:00 Oxygen Delivery Room Air 05/01/25 08:00 Oxygen Flow Rate 2 05/01/25 01:08 <Laverne Jama APRN - Last Filed: 05/01/25 15:12> Vital Signs Temperature 98.0 F 04/30/25 15:18 Pulse Rate 84 04/30/25 15:18 Respiratory Rate 20 04/30/25 15:18 Blood Pressure 155/82 H 04/30/25 15:18 Pulse Oximetry 95 04/30/25 15:18 Temperature 97.8 F 05/01/25 14:00 Pulse Rate 73 05/01/25 14:00 Respiratory Rate 16 05/01/25 14:00 Blood Pressure 134/73 05/01/25 14:00 Pulse Oximetry 97 05/01/25 14:00 Oxygen Delivery Room Air 05/01/25 08:00 Oxygen Flow Rate 2 05/01/25 01:08 <Chanelle Farias MD - Last Filed: 05/01/25 17:58> MDM - Abdominal Pain MDM Narrative Medical decision making narrative: Patient presents with epigastric abdominal pain of 2 weeks duration. Associated with nausea and reported as constant. She does state that she has a history of gallstones. In the emergency department she is afebrile with acceptable vital signs, hypertensive. Dilaudid and ondansetron are ordered in addition to a right upper quadrant ultrasound and CT abdomen pelvis. Urinalysis was with trace bacteria but without other markers of infection and it did contain moderate squamous cells thus I suspect this to be contaminant. I am notified that patient desaturates when back from CT scan, possibly due to oxygen administration however she also has sleep apnea listed on PMH. O2 applied. Ultrasound and CT are equivocal, secondary to body habitus. Patient is reassessed at 8:50 p.m. she reports the pain had been improving but is coming back and she is still having nausea. Medications ordered again. Recommendation for MRCP. Lipase, bili/LFTs, and WBC are all WNL. Attempted to call MRI but no answer. CT says MR limits are 500 lb with table docked, 350lbs undocked. CT diameter is 27inches? MRI is smaller, estimated 24 inches. Nuc med slightly larger. Patient's circumference is measured by RN and tech at widest part. 64 inches which makes her diameter approx 20.4 inches. fountain supervisor told charge nurse could admit and MR will be attempted. Discussed again with JULIENNE [facility] hospitalist. Admission orders placed including for study and pain/nausea meds PRN. <Chanelle Farias MD - Last Filed: 05/01/25 17:58> Differential Diagnosis Differential diagnosis: Likely abdominal pain, acute appendicitis, constipation, diverticulitis, pancreatitis and other (Spectrum of biliary etiology; gastritis; gastric/peptic ulcer disease) <Chanelle Farias MD - Last Filed: 05/01/25 17:58> Lab Data Attestation: I reviewed the patient's lab results. <Chanelle Farias MD - Last Filed: 05/01/25 17:58> Lab results narrative: CBC and CMP largely unremarkable for marked abnormalities. <Chanelle Farias MD - Last Filed: 05/01/25 17:58> Result diagrams: 05/01/25 06:07 05/01/25 06:07 <Laverne Jama APRN - Last Filed: 05/01/25 15:12> Labs: Lab Results 04/30/25 04/30/25 04/30/25 Range/Units 16:40 19:14 19:34 WBC 9.1 (4.5-10.0) K/mm3 RBC 4.58 (4.2-5.4) M/mm3 Hgb 12.1 (12.0-15.0) g/dL Hct 40.9 (37.0-47.0) % MCV 89.3 (80-100) fl MCH 26.4 (26-34) pg MCHC 29.6 L (32-36) g/dl RDW 15.9 H (11.5-14.5) % Plt Count 350 (150-375) k/mm3 MPV 8.6 (7.4-10.4) fl Immature Gran % (Auto) 0.5 (0-0.5) % Neut % (Auto) 64.0 (45.5-73.1) % Lymph % (Auto) 25.3 (18.3-44.2) % [place] % (Auto) 7.6 (2.6-8.5) % Eos % (Auto) 1.8 (0-4.4) % Baso % (Auto) 0.8 (0.2-1.2) % Lymph # (Auto) 2.30 (0.9-3.2) K/mm3 [place] # (Auto) 0.7 H (0.1-0.6) K/mm3 Eos # (Auto) 0.2 (0-0.3) K/mm3 Baso # (Auto) 0.1 (0.0-0.1) K/mm3 Abs Immat Gran (auto) 0.05 H (0.00-0.031) K/mm3 Absolute Neuts (auto) 5.8 (1.3-6.7) K/mm3 Absolute Nucleated RBC 0.000 (0.0-0.012) K/mm3 Band Neutrophils % 0 (0-6) % Nucleated RBC % 0.0 (0.0-0.2) % Platelet Estimate Adequate (Adequate) Hypochromasia 1+ Anisocytosis 2+ Schistocytes None seen PT 13.7 (11.1-14.7) Seconds INR 1.0 APTT 27.2 (22.3-36.8) Seconds Sodium 139 (137-145) mmol/L Potassium 3.8 (3.4-5.0) mmol/L Chloride 103 (98-107) mmol/L Carbon Dioxide 28 (22-30) mmol/L Anion Gap 8 (4-12) mmol/L BUN 7 (7-17) mg/dL Creatinine 0.38 L (0.7-1.0) mg/dL Estim Creat Clear Calc 220 ml/min Estimated GFR > 60 (59 - ) Glucose 118 H (65-110) mg/dL POC Capillary Glucose 134 H (65-105) mg/dl Calcium 10.5 H (8.4-10.2) mg/dL Total Bilirubin 0.7 (0.2-1.3) mg/dL AST 28 (14-36) U/L ALT 26 (6-35) U/L Alkaline Phosphatase 91 (38-126) U/L Troponin I < 0.012 (0.000-0.034) ng/mL Total Protein 8.5 H (6.3-8.2) g/dL Albumin 4.3 (3.5-5.1) g/dL Lipase 29 (23-300) U/L Urine Color Yellow (Yellow) Urine Appearance Clear (Clear) Urine pH 6.0 (5.0-9.0) Ur Specific Lindsey 1.026 (1.001-1.035) Urine Protein Trace (Negative) mg/dL Urine Glucose (UA) Negative (Negative) mg/dL Urine Ketones Trace H (Negative) mg/dL Ur Blood (Man) Negative (Negative) Urine Nitrate Negative (Negative) Urine Bilirubin Negative (Negative) Urine Urobilinogen 1.0 (<2.0) mg/dL Leukocyte Esterase Rfl Negative (Negative) DAVEY/UL Urine RBC 0-2 (0-2) /hpf Urine WBC 0-5 (0-3) /hpf Ur Squamous Epith Cells Moderate (Few) /hpf Urine Bacteria 1+ H /hpf Urine Casts 0-2 <Laverne Jama, STRETCHING PRESS OPERATOR - Last Filed: 05/01/25 15:12> Lab Results 04/30/25 04/30/25 04/30/25 Range/Units 16:40 19:14 19:34 WBC 9.1 (4.5-10.0) K/mm3 RBC 4.58 (4.2-5.4) M/mm3 Hgb 12.1 (12.0-15.0) g/dL Hct 40.9 (37.0-47.0) % MCV 89.3 (80-100) fl MCH 26.4 (26-34) pg MCHC 29.6 L (32-36) g/dl RDW 15.9 H (11.5-14.5) % Plt Count 350 (150-375) k/mm3 MPV 8.6 (7.4-10.4) fl Immature Gran % (Auto) 0.5 (0-0.5) % Neut % (Auto) 64.0 (45.5-73.1) % Lymph % (Auto) 25.3 (18.3-44.2) % [place] % (Auto) 7.6 (2.6-8.5) % Eos % (Auto) 1.8 (0-4.4) % Baso % (Auto) 0.8 (0.2-1.2) % Lymph # (Auto) 2.30 (0.9-3.2) K/mm3 [place] # (Auto) 0.7 H (0.1-0.6) K/mm3 Eos # (Auto) 0.2 (0-0.3) K/mm3 Baso # (Auto) 0.1 (0.0-0.1) K/mm3 Abs Immat Gran (auto) 0.05 H (0.00-0.031) K/mm3 Absolute Neuts (auto) 5.8 (1.3-6.7) K/mm3 Absolute Nucleated RBC 0.000 (0.0-0.012) K/mm3 Band Neutrophils % 0 (0-6) % Nucleated RBC % 0.0 (0.0-0.2) % Platelet Estimate Adequate (Adequate) Hypochromasia 1+ Anisocytosis 2+ Schistocytes None seen PT 13.7 (11.1-14.7) Seconds INR 1.0 APTT 27.2 (22.3-36.8) Seconds Sodium 139 (137-145) mmol/L Potassium 3.8 (3.4-5.0) mmol/L Chloride 103 (98-107) mmol/L Carbon Dioxide 28 (22-30) mmol/L Anion Gap 8 (4-12) mmol/L BUN 7 (7-17) mg/dL Creatinine 0.38 L (0.7-1.0) mg/dL Estim Creat Clear Calc 220 ml/min Estimated GFR > 60 (59 - ) Glucose 118 H (65-110) mg/dL POC Capillary Glucose 134 H (65-105) mg/dl Calcium 10.5 H (8.4-10.2) mg/dL Total Bilirubin 0.7 (0.2-1.3) mg/dL AST 28 (14-36) U/L ALT 26 (6-35) U/L Alkaline Phosphatase 91 (38-126) U/L Troponin I < 0.012 (0.000-0.034) ng/mL Total Protein 8.5 H (6.3-8.2) g/dL Albumin 4.3 (3.5-5.1) g/dL Lipase 29 (23-300) U/L Urine Color Yellow (Yellow) Urine Appearance Clear (Clear) Urine pH 6.0 (5.0-9.0) Ur Specific Lindsey 1.026 (1.001-1.035) Urine Protein Trace (Negative) mg/dL Urine Glucose (UA) Negative (Negative) mg/dL Urine Ketones Trace H (Negative) mg/dL Ur Blood (Man) Negative (Negative) Urine Nitrate Negative (Negative) Urine Bilirubin Negative (Negative) Urine Urobilinogen 1.0 (<2.0) mg/dL Leukocyte Esterase Rfl Negative (Negative) DAVEY/UL Urine RBC 0-2 (0-2) /hpf Urine WBC 0-5 (0-3) /hpf Ur Squamous Epith Cells Moderate (Few) /hpf Urine Bacteria 1+ H /hpf Urine Casts 0-2 <Chanelle Farias MD - Last Filed: 05/01/25 17:58> Imaging Data Radiologist's impression: ITS Impressions Abdomen Ultrasound 04/30/25 19:44 IMPRESSION: Exam is limited by body habitus. Echogenic liver, most commonly due to steatosis but also can be seen with hepatitis and fibrosis. Possible gallstone versus polyp in a poorly visualized gallbladder. Abdomen/Pelvis CT 04/30/25 20:20 IMPRESSION: Cardiomegaly. Small pericardial effusion. Hepatomegaly with steatosis. Gallbladder inflammation and bile duct dilation. No definite stone or mass detected. Consider MRCP. 1.5 cm indeterminate left adrenal nodule, probably benign. Enhancement cancer history, consider 12 month follow-up adrenal CT. <Laverne Jama APRN - Last Filed: 05/01/25 15:12> ITS Impressions Abdomen Ultrasound 04/30/25 19:44 IMPRESSION: Exam is limited by body habitus. Echogenic liver, most commonly due to steatosis but also can be seen with hepatitis and fibrosis. Possible gallstone versus polyp in a poorly visualized gallbladder. Abdomen/Pelvis CT 04/30/25 20:20 IMPRESSION: Cardiomegaly. Small pericardial effusion. Hepatomegaly with steatosis. Gallbladder inflammation and bile duct dilation. No definite stone or mass detected. Consider MRCP. 1.5 cm indeterminate left adrenal nodule, probably benign. Enhancement cancer history, consider 12 month follow-up adrenal CT. <Chanelle Farias MD - Last Filed: 05/01/25 17:58> ECG Data EKG #1: Attestation: I personally reviewed and interpreted this ECG as follows: <Chanelle Farias MD - Last Filed: 05/01/25 17:58> ECG completion date: 04/30/25 <Chanelle Farias MD - Last Filed: 05/01/25 17:58> ECG completion time: 19:26 <Chanelle Farias MD - Last Filed: 05/01/25 17:58> Prior ECG tracings: available for review (EKG dated 12/19/2024 with T-wave inversions throughout V3 V4 V5 V6) <Chanelle Farias MD - Last Filed: 05/01/25 17:58> Interpretation: Sinus rhythm at a rate of 96 beats per minute. UT interval 162. QRS 118. QT/QTC 374/474. Incomplete RBBB given QRS less [id number]; RSR' M-shaped pattern in V1-V3; less appreciable are wide, slurred S wave in lateral leads (I, aVL, V5-6). T-wave inversion in V3, possibly due to lead placement. Good R-wave progression across the precordial leads. <Chanelle Farias MD - Last Filed: 05/01/25 17:58> Discharge Plan Discharge Clinical Impression: Epigastric abdominal pain, Urinary frequency, Nausea, Cardiomegaly, Hepatomegaly, Hepatic steatosis, Dilated bile duct, Adrenal nodule <Laverne Jama APRN - Last Filed: 05/01/25 15:12> Patient Disposition: Still a Patient <Laverne Jama APRN - Last Filed: 05/01/25 15:12> Condition: Stable <Laverne Jama APRN - Last Filed: 05/01/25 15:12>
[2025-04-30 16:48] LABS: Hematocrit 40.9 % (37.0-47.0); Hemoglobin 12.1 g/dL (12.0-15.0); Immature Granulocyte Percent A 0.5 % (0-0.5); Lymphocytes Absolute Auto 2.30 K/mm3 (0.9-3.2); Mean Corpuscular HGB Conc 29.6 g/dl (32-36); Mean Corpuscular Hemoglobin 26.4 pg (26-34); Mean Corpuscular Volume 89.3 fl (80-100); Nucleated Red Blood Cells Absolute Auto 0.000 K/mm3 (0.0-0.012); Nucleated Red Blood Cells Perc 0.0 % (0.0-0.2); Platelet Count Result 350 k/mm3 (150-375); Red Blood Count 4.58 M/mm3 (4.2-5.4); White Blood Count 9.1 K/mm3 (4.5-10.0)
[2025-04-30 16:59] LABS: INR 1.0; Partial Thromboplastin Time 27.2 Seconds (22.3-36.8); Prothrombin Time 13.7 Seconds (11.1-14.7)
[2025-04-30 17:04] LABS: Alanine Aminotransferase 26 U/L (6-35); Albumin Level 4.3 g/dL (3.5-5.1); Alkaline Phosphatase 91 U/L (38-126); Anion Gap 8 mmol/L (4-12); Aspartate Amino Transferase 28 U/L (14-36); Bilirubin,Total 0.7 mg/dL (0.2-1.3); Blood Urea Nitrogen 7 mg/dL (7-17); Calcium 10.5 mg/dL (8.4-10.2); Carbon Dioxide 28 mmol/L (22-30); Chloride 103 mmol/L (98-107); Estimated CRCL calculation 220 ml/min; Estimated Glomerular Filt Rate > 60; Glucose 118 mg/dL (65-110); Lipase 29 U/L (23-300); Potassium 3.8 mmol/L (3.4-5.0); Sodium 139 mmol/L (137-145); Total Protein 8.5 g/dL (6.3-8.2)
[2025-04-30 17:09] LABS: Hypochromasia 1+
[2025-04-30 17:10] LABS: Anisocytosis 2+; Band Neutrophils Percent 0 % (0-6); Schistocytes None Seen
[2025-04-30 17:15] LABS: Troponin I < 0.012 ng/mL (0.000-0.034)
[2025-04-30] MEDS: ONDANSETRON INJ 4 MG/2 ML VIAL IV PUSH (19:32)
[2025-04-30] MEDS: HYDROmorphone HCL INJ (*CRX) 2 MG/ML VIAL 1 MG IV PUSH ×2 (19:33→21:27)
[2025-04-30 19:35] VITALS: BP 191/112; PULSE 93; RESP 19; O2SAT 91
--- OUTSIDE RECORDS SUMMARY | 2025-04-30 19:41 | XMS_ITS | Clinical Summary ---
Author Organization [facility] Address [address] [place] [address] Care Team Providers Care Hot Kettle Tender Name Role Phone Dilia Yap MD Primary Care Provider Arnulfo Garcia MD Unavailable [phone] Source Comments [facility],non-owned Affiliates and Associated Physician Practices is amultiple site organization consisting of ambulatory clinics and hospital sitesin [place], [place], [place] and [place]. This disclosure is being madepursuant to the Care Everywhere program and may not contain all information available regarding this patient. Last updated 18.[facility] [employer] Allergies No known active allergies Medications * [...] migh t be different from the original. 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 Gender Identity Not on file Sexual Orientation [...] PANEL (CALCIUM TOTAL) (06/21/2018 1:21 PM CDT) [facility] Glucose 91 74 - 106 mg/dL 06/21/2018 2:03 PM CDT [facility] Sodium 138 136 - 145 mmol/L 06/21/2018 2:03 PM CDT [facility] Potassium 3.8 3.5 - 5.1 mmol/L 06/21/2018 2:03 PM CDT [facility] Chloride 104 98 - 107 mmol/L 06/21/2018 2:03 PM CDT [facility] CO2 29 22 - 31 mmol/L 06/21/2018 2:03 PM CDT [facility] Calcium 9.8 8.5 - 10.1 mg/dL 06/21/2018 2:03 PM CDT [facility] Anion Gap 5(L) 8 - 16 mmol/L 06/21/2018 2:03 PM CDT [facility] BUN 9 7 - 21 mg/dL 06/21/2018 2:03 PM CDT [facility] Creatinine 0.64 0.50 - 1.30 mg/dL 06/21/2018 2:03 PM CDT [facility] eGFR by MDRD >60 >60 mL/min/1.7 3m2 06/21/2018 2:03 PM CDT [facility] eGFR by MDRD >60 >60 mL/min/1.7 3m2 06/21/2018 2:03 PM CDT [facility] Blood BLOOD SPECIMEN / Unknown Venipuncture / Unknown 06/21/2018 1:21 PM CDT 06/21/2018 1:27 PM CDT Nick Amezcua MD LAB - CHEMISTRY ORDERABLES Final Result [facility] [id number] [id number] * ENDOSCOPY, COLON, DIAGNOSTIC (03/26/2016 6:39 AM CDT) Report Endoscopy POC _ Patient Name: Amanuel Christopher Procedure Date: 03/26/2016 6:39 AM Date of : 1970 Admit Type: Outpatient Age: 46 Gender: Female Attending MD: Dar Timmons MD _ Procedure: Colonoscopy Indications: Generalized abdominal pain, Iron deficiency anemia secondary to chronic blood loss Providers: Dar Timmons MD (Doctor), Sara Breaux, RN, Tyrone Lopez, Jailor Referring MD: Dilia Hawthorne MD (Referring MD) [...] pt states she got anemia labs at [facility] a week ago but we don't have these results. We will get them. - Discharge patient to home (ambulatory). - Resume previous diet. - Continue present medications. - Return to my office in 2 weeks. Procedure Code(s): --- Professional --- 40081, Colonoscopy, flexible; with biopsy, single or multiple --- Technical --- 25826, Colonoscopy, flexible; with biopsy, single or multiple [...] or abscess without bleeding CPT copyright 2015 [employer]. All rights reserved. The codes documented in this report are preliminary and upon pulverizer operator review may be revised to meet current compliance requirements. ___ Dar Timmons MD 03/26/2016 7:24:09 AM Number of Addenda: 0 Note Initiated On: 03/26/2016 6:39 AM [facility] 03/26/2016 6:39 AM CDT us Dar Timmons MD GI PROCEDURE ORDERABLES Ronan jose Result - Final [facility] from Last 3 Months or Most Recently Relevant to Health Maintenance Insurance [facility] Advance Directives * Full Code (Latest Code Status on File) Date Activated Date Inactivated Comments 07/01/2018 1:11 PM 07/03/2018 6:53 PM * Full Code Date Activated Date Inactivated Comments 06/23/2018 6:34 PM 06/26/2018 5:04 PM Care Teams Hot Kettle Tender Relationship Specialty Start Date End Date Dilia Yap MD PCP - General Internal Medicine 06/12/15 Arnulfo Garcia MD [address] [place] [id number] Plastic and Reconstructive Surgery 06/20/19
[2025-04-30 19:46] LABS: Add Urine Microscopic? YES; Appearance Urine Clear (Clear); Glucose Urine UA Negative (Negative); Leukocyte Esterase Ur Negative LEU/UL (Negative); Nitrate Urine Negative (Negative); Non Pathogenic Casts 0-2; Specific Grav Ur 1.026 (1.001-1.035)
[2025-04-30 20:15] VITALS: O2SAT 75; O2SAT 95
[2025-04-30 21:23] VITALS: BP 156/84; PULSE 85; RESP 17; O2SAT 98
[2025-04-30 22:35] VITALS: BMI 75.2
[2025-04-30 22:47] VITALS: BP 156/84; PULSE 85; RESP 17; O2SAT 98
[2025-04-30 23:43] VITALS: BP 161/97; PULSE 87; RESP 20; TEMP 36.6; O2SAT 98
[2025-05-01] VITALS (8 sets, daily range): BP systolic 113–134; BP diastolic 54–73; PULSE 68–88; RESP 16–18; TEMP 36.1–36.6; O2SAT 92–99
[2025-05-01] MEDS: KETOROLAC 30 MG/ML VIAL (*BKC) IV PUSH ×3 (00:38→17:14)
[2025-05-01] MEDS: WATER FOR IRRIGATION, STERILE 1,000 ML BOTTLE 1000 ML (00:38)
[2025-05-01] MEDS: ONDANSETRON INJ 4 MG/2 ML VIAL IV PUSH ×4 (00:39→21:09)
--- NOTE | 2025-05-01 02:46 | PM.IMHP ---
H&P: HPI History of Present Illness Date/Time: 05/01/25 03:00 Chief Complaint: Upper abdominal pain. Narrative: This is a very pleasant 55-year-old female with history of gallbladder attacks, chronic obstructive pulmonary disease, congestive heart failure, obstructive sleep apnea, hypertension, type 2 diabetes mellitus, pulmonary embolism greater 10 years ago, H pylori infection, hysterectomy, and morbid obesity who presented to the emergency department via EMS from home for evaluation of upper abdominal pain. She gives a 2 week history of intermittent upper abdominal pain. It sounds to be colicky in nature and is situated more so in the right upper quadrant. The pain seems to be worse with food. Her symptoms have been worse the last day or so and last night she developed nausea and had several episodes of nonbloody and nonbilious emesis. The symptoms are similar to prior gallbladder attacks. She denies fever, chills, sweats, hematemesis, melena, hematochezia, diarrhea, and dysuria. No bloating or belching. She had a normal bowel movement early yesterday morning. In the ED: She was afebrile on arrival with blood pressure of 155/82. Labs were significant for WBC count of 9.1, random glucose 118, calcium 10.5, and normal LFTs. Urinalysis was positive for trace ketones 1+ bacteria. CT of the abdomen and pelvis showed cardiomegaly with small pericardial effusion, hepatomegaly with steatosis, gallbladder inflammation bile duct dilatation, 1.5 cm indeterminate left adrenal nodule, probably benign. She received ondansetron and hydromorphone with improvement her symptoms. She is being admitted in this setting for further workup and surgery consultation. Review of Systems Review of Systems: 12 systems were reviewed and are negative except for as per HPI. [facility] Past Medical History Medical History (Updated 05/01/25 @ 05:52 by Yuko Michel PA-C) Hepatic steatosis Type 2 diabetes mellitus Pulmonary embolism years ago; anticoagulation since discontinued H. pylori infection Chronic obstructive pulmonary disease Prediabetes Obstructive sleep apnea on CPAP Heart failure of unknown type Morbid obesity Surgical History Surgical History History of eye surgery History of carpal tunnel release History of hysterectomy Social History Social History Social History: Surrogate medical decision maker: Paulina Moulton (sibling) or her 2 children. Code status: Full code. Smoking packs per day: 0.25 Smoking cigarettes per day: 5.0 Years smoked: 25 Smoking pack-years: 6.25 Smoking status: Former smoker Tobacco type: cigarettes Alcohol intake: never Substance use: never Substance use type: does not use Do You Feel Safe in your Home?: Yes Lack of Transportation: No Lack of Food: Never True Current Housing: I Have Housing Concerned About Future Housing: No Difficulty Paying Gas/Electric Bills: No Difficulty Paying for Meds: No Currently Unemployed: No Education: High School Diploma/GED Difficulty w/ Childcare or Family Care: No Spiritual care concerns: No Meds Home Medications and Allergies Home Medications ?Medication ?Instructions ?Recorded ?Confirmed ?Type No Home Medications 05/01/25 05/01/25 History Allergies Allergy/AdvReac Type Severity Reaction Status Date / Time No Known Allergies Allergy Verified 04/30/25 15:02 Vital Signs Vital Signs - 24 hr 04/30/25 15:18 04/30/25 19:35 04/30/25 20:15 Temperature 98.0 F Pulse Rate 84 93 Respiratory Rate 20 19 Blood Pressure 155/82 H 191/112 H Pulse Oximetry 95 91 75 L Oxygen Delivery Room Air Oxygen Flow Rate 04/30/25 20:15 04/30/25 21:23 04/30/25 22:47 Temperature Pulse Rate 85 85 Respiratory Rate 17 17 Blood Pressure 156/84 H 156/84 H Pulse Oximetry 95 98 98 Oxygen Delivery Nasal Cannula Oxygen Flow Rate 4 04/30/25 23:43 05/01/25 01:08 05/01/25 01:30 Temperature 97.8 F Pulse Rate 87 88 Respiratory Rate 20 Blood Pressure 161/97 H Pulse Oximetry 98 92 93 Oxygen Delivery Nasal Cannula Autopap Oxygen Flow Rate 2 Exam Narrative: General: Nontoxic-appearing female lying on her right side in bed in no distress. Weight: 180.5 kg. BMI: 75.2. HEENT: PERRL, EOMI. Sclera anicteric. Wearing CPAP. Oral mucosa appears moist with mask. Neck: Supple. Exam limited due to neck circumference. Respiratory: Respirations are nonlabored she is speaking in full sentences. Lung sounds diminished due to body habitus. Cardiovascular: Regular rate and rhythm with S1-S2. Gastrointestinal: Abdomen is soft and morbidly obese. She is a bit tender to palpation in the epigastric region and somewhat in the right upper quadrant as well. No guarding or rebound tenderness. Negative Wick sign. Skin: Warm and dry. Extremities: No cyanosis or clubbing. Legs are large with out obvious pitting edema. Neurological: Alert. Cranial nerves grossly intact. No gross focal deficits to casual conversation. Psychiatric: Pleasant and cooperative with normal mood and affect. Judgment and insight intact. She is in good spirits. H&P: Results Labs Labs: Short CBC 04/30/25 Range/Units 16:40 WBC 9.1 (4.5-10.0) K/mm3 Hgb 12.1 (12.0-15.0) g/dL Hct 40.9 (37.0-47.0) % Plt Count 350 (150-375) k/mm3 BMP 04/30/25 16:40 Sodium 139 Potassium 3.8 Chloride 103 Carbon Dioxide 28 BUN 7 Creatinine 0.38 L Glucose 118 H Calcium 10.5 H Cardiac Enzymes 04/30/25 Range/Units 16:40 Troponin I < 0.012 (0.000-0.034) ng/mL Liver Function 04/30/25 Range/Units 16:40 Total Bilirubin 0.7 (0.2-1.3) mg/dL AST 28 (14-36) U/L ALT 26 (6-35) U/L Alkaline Phosphatase 91 (38-126) U/L Albumin 4.3 (3.5-5.1) g/dL Urine 04/30/25 Range/Units 19:14 Urine Color Yellow (Yellow) Urine Appearance Clear (Clear) Urine pH 6.0 (5.0-9.0) Ur Specific [place] 1.026 (1.001-1.035) Urine Protein Trace (Negative) mg/dL Urine Glucose (UA) Negative (Negative) mg/dL Impressions Abdomen Ultrasound 04/30/25 19:44 IMPRESSION: Exam is limited by body habitus. Echogenic liver, most commonly due to steatosis but also can be seen with hepatitis and fibrosis. Possible gallstone versus polyp in a poorly visualized gallbladder. Abdomen/Pelvis CT 04/30/25 20:20 IMPRESSION: Cardiomegaly. Small pericardial effusion. Hepatomegaly with steatosis. Gallbladder inflammation and bile duct dilation. No definite stone or mass detected. Consider MRCP. 1.5 cm indeterminate left adrenal nodule, probably benign. Enhancement cancer history, consider 12 month follow-up adrenal CT. Assessment and Plan Assessment and plan (1) Cholecystitis: Code(s): K81.9 - Cholecystitis, unspecified Status: Acute (2) Cardiomegaly: Code(s): I51.7 - Cardiomegaly Status: Acute (3) Pericardial effusion: Code(s): I31.39 - Other pericardial effusion (noninflammatory) Status: Acute (4) Type 2 diabetes mellitus: Code(s): E11.9 - Type 2 diabetes mellitus without complications Status: Acute Plan The patient presented to the emergency department for evaluation of upper abdominal pain for last couple of weeks as detailed in HPI. Labs, imaging, EKG, and all reports were personally reviewed. History as described to me he is concerning for biliary colic and CT of the abdomen pelvis showed gallbladder inflammation and bile duct dilatation without definitive stone or mass detected. Her LFTs are within normal limits however. An MRCP has been ordered for further evaluation. I will ask surgery to see her in consultation. Incidental 1.5 cm indeterminate left adrenal nodule was also noted, and radiology recommends 12 month follow-up adrenal CT if concerns for cancer. Imaging also shows cardiomegaly which is a chronic finding for this patient and a small pericardial effusion not noted on echocardiogram in December. Diastolic dysfunction and mildly increased left ventricular wall thickness was noted at that time. She is not currently taking any medications for her diabetes, or anything really. Random glucose today was only 118 however. Initiate sliding scale insulin, Accu-Cheks, and hypoglycemic protocol. Check hemoglobin A1c. Findings and treatment plan were discussed with the patient. Questions were solicited and answered to satisfaction. The patient's medical management will be taken over by the hospitalist team in a.m. Quality VTE Prophylaxis VTE prophylaxis: pharmacologic ordered The patient has been admitted under observation status. Hospitalist MIPS Advance Care Plan I have confirmed that the patient's Advanced Care Plan is present, code status is documented, or surrogate decision maker is listed in patient medical record.: Yes Medication Reconciliation I have utilized all available resources to obtain, update and review the patients current medications (includes all prescriptions, OTC, herbals, cannabis, and nutritional supplements).: Yes
[2025-05-01 06:18] LABS: Hematocrit 41.5 % (37.0-47.0); Hemoglobin 11.9 g/dL (12.0-15.0); Mean Corpuscular HGB Conc 28.7 g/dl (32-36); Mean Corpuscular Hemoglobin 26.4 pg (26-34); Mean Corpuscular Volume 92.0 fl (80-100); Platelet Count Result 303 k/mm3 (150-375); Red Blood Count 4.51 M/mm3 (4.2-5.4); White Blood Count 7.9 K/mm3 (4.5-10.0)
[2025-05-01 06:38] LABS: Alanine Aminotransferase 25 U/L (6-35); Albumin Level 4.1 g/dL (3.5-5.1); Alkaline Phosphatase 79 U/L (38-126); Anion Gap 6 mmol/L (4-12); Aspartate Amino Transferase 28 U/L (14-36); Bilirubin,Total 0.5 mg/dL (0.2-1.3); Blood Urea Nitrogen 9 mg/dL (7-17); Calcium 10.3 mg/dL (8.4-10.2); Carbon Dioxide 30 mmol/L (22-30); Chloride 103 mmol/L (98-107); Estimated CRCL calculation 156 ml/min; Estimated Glomerular Filt Rate > 60; Glucose 119 mg/dL (65-110); Potassium 4.3 mmol/L (3.4-5.0); Sodium 139 mmol/L (137-145); Total Protein 7.9 g/dL (6.3-8.2)
[2025-05-01 06:39] LABS: Hemoglobin A1C 7.0 % (<5.7)
--- NOTE | 2025-05-01 07:56 | PM.IMPN ---
Progress Note: A&P Assessment and Plan (1) Cholecystitis: Code(s): K81.9 - Cholecystitis, unspecified Status: Acute Assessment and Plan: biliary colic and CT of the abdomen pelvis showed gallbladder inflammation and bile duct dilatation without definitive stone or mass detected. LFTs are within normal limits MRCP has been ordered for further evaluation - will await results surgery consulted NPO pending MRCP and consultation (2) Cardiomegaly: Code(s): I51.7 - Cardiomegaly Status: Acute Assessment and Plan: chronic - (3) Pericardial effusion: Code(s): I31.39 - Other pericardial effusion (noninflammatory) Status: Acute Assessment and Plan: Imaging also shows cardiomegaly- chronic -small pericardial effusion not noted on echocardiogram in December. - Diastolic dysfunction and mildly increased left ventricular wall thickness was noted at that time (4) Type 2 diabetes mellitus: Code(s): E11.9 - Type 2 diabetes mellitus without complications Status: Acute Assessment and Plan: - patient does not take oral medications at this time - Initiate sliding scale insulin once taking PO, - Accu-Cheks per order, - hypoglycemic protocol. - hemoglobin A1c - 7.0 (5) Adrenal nodule: Code(s): E27.9 - Disorder of adrenal gland, unspecified Status: Acute Assessment and Plan: Incidental 1.5 cm indeterminate left adrenal nodule was also noted, radiology recommends 12 month follow-up adrenal CT if concerns for cancer Plan DVT - Lovenox PPI - Protonix CODE status: Full Code Disposition - once stable and cleard by surgery, patient can be discharged home. Time Spent With Patient Time with patient: Greater than 35 minutes Subjective Date/time seen: 05/01/25 07:56 Interval history: Patient sitting up in bed same comments denies any distress or concerns. States her upper abdomen is yeast distiller, she is nauseous but she thinks it is because she is NPO. She denies any headache or dizziness she denies any fever chills. She is awaiting her MRI today. Review of Systems Review of Systems: 12 systems were reviewed and are negative except for as per HPI. Exam Narrative: General: Nontoxic-appearing female lying on her right side in bed in no distress. Weight: 180.5 kg. BMI: 75.2. HEENT: PERRL, EOMI. Sclera anicteric. Wearing CPAP. Oral mucosa appears moist with mask. Neck: Supple. Exam limited due to neck circumference. Respiratory: Respirations are nonlabored she is speaking in full sentences. Lung sounds diminished due to body habitus. Cardiovascular: Regular rate and rhythm with S1-S2. Gastrointestinal: Abdomen is soft and morbidly obese. She is a bit tender to palpation in the epigastric region and somewhat in the right upper quadrant as well. No guarding or rebound tenderness. Negative Wick sign. Skin: Warm and dry. Extremities: No cyanosis or clubbing. Legs are large with out obvious pitting edema. Neurological: Alert. Cranial nerves grossly intact. No gross focal deficits to casual conversation. Psychiatric: Pleasant and cooperative with normal mood and affect. Judgment and insight intact. She is in good spirits. Objective Data Vital Signs Vital Signs: Vital Signs - 24 hr 04/30/25 15:18 04/30/25 19:35 04/30/25 20:15 Temperature 98.0 F Pulse Rate 84 93 Respiratory Rate 20 19 Blood Pressure 155/82 H 191/112 H Pulse Oximetry 95 91 75 L Oxygen Delivery Room Air Oxygen Flow Rate 04/30/25 20:15 04/30/25 21:23 04/30/25 22:47 Temperature Pulse Rate 85 85 Respiratory Rate 17 17 Blood Pressure 156/84 H 156/84 H Pulse Oximetry 95 98 98 Oxygen Delivery Nasal Cannula Oxygen Flow Rate 4 04/30/25 23:43 05/01/25 01:08 05/01/25 01:30 Temperature 97.8 F Pulse Rate 87 88 Respiratory Rate 20 Blood Pressure 161/97 H Pulse Oximetry 98 92 93 Oxygen Delivery Nasal Cannula Autopap Oxygen Flow Rate 2 05/01/25 05:27 Temperature 97.2 F L Pulse Rate 68 Respiratory Rate 18 Blood Pressure 133/66 Pulse Oximetry 97 Oxygen Delivery Oxygen Flow Rate Intake/Output Intake/Output: Intake & Output 04/28/25 04/29/25 04/30/25 05/01/25 23:59 23:59 23:59 23:59 Output Total 0 Balance 0 Meds/Results Medications: Active Medications Generic Name Dose Route Start Last Admin Trade Name Freq PRN Reason Stop Dose Admin Acetaminophen 650 mg 04/30/25 21:38 Acetaminophen 325 Mg Tablet PO Q4H PRN Mild Pain (1-3) or Fever Dextrose 12.5 gm 05/01/25 05:56 Dextrose 50% 25 Gm/50 Ml Syringe IV PUSH PRN PRN Hypoglycemia Protocol Dicyclomine HCl 20 mg 04/30/25 21:38 Dicyclomine Hcl Inj 20 Mg/2 Ml Vial IM Q6H PRN Abdominal Cramping Enoxaparin Sodium 40 mg 05/01/25 09:00 Enoxaparin 40 Mg/0.4 Ml Syringe SUB-Q DAILY ELIAS Glucagon 1 mg 05/01/25 05:56 Glucagon For Inj 1 Mg Vial IM PRN PRN Hypoglycemia Protocol Glucose 15 gm 05/01/25 05:56 Glucose Oral Gel 15 Gm Of Glucse In 37.5 Gm Tube PO PRN PRN Hypoglycemia Protocol Hydromorphone HCl 1 mg 04/30/25 21:38 Hydromorphone Hcl Inj (*Crx) 2 Mg/Ml Vial IV PUSH Q4H PRN Pain Rated 7-10 Dextrose 1,000 mls @ 100 mls/hr 05/01/25 05:56 Dextrose 5% 1,000 Ml IVPB PRN PRN Hypoglycemia Protocol Insulin Aspart 3 - 6 units 05/01/25 08:00 Insulin Aspart (*Bkc) 100 Units/Ml SUB-Q TIDWM [facility] Protocol Insulin Aspart 1 - 3 units 05/01/25 21:00 Insulin Aspart (*Bkc) 100 Units/Ml SUB-Q HS [facility] Protocol Ketorolac Tromethamine 30 mg 04/30/25 21:38 05/01/25 00:38 Ketorolac 30 Mg/Ml Vial (*Bkc) IV PUSH 05/05/25 21:37 30 mg Q6H PRN Administration Pain Rated 4-6 Ondansetron HCl 4 mg 04/30/25 21:38 05/01/25 00:39 Ondansetron Inj 4 Mg/2 Ml Vial IV PUSH 4 mg Q4H PRN Administration Nausea Pantoprazole Sodium 40 mg 05/01/25 09:00 Pantoprazole Sodium Iv 40 Mg Vial IV PUSH QAM [facility] Radiology Results: ITS Impressions Abdomen Ultrasound 04/30/25 19:44 IMPRESSION: Exam is limited by body habitus. Echogenic liver, most commonly due to steatosis but also can be seen with hepatitis and fibrosis. Possible gallstone versus polyp in a poorly visualized gallbladder. Abdomen/Pelvis CT 04/30/25 20:20 IMPRESSION: Cardiomegaly. Small pericardial effusion. Hepatomegaly with steatosis. Gallbladder inflammation and bile duct dilation. No definite stone or mass detected. Consider MRCP. 1.5 cm indeterminate left adrenal nodule, probably benign. Enhancement cancer history, consider 12 month follow-up adrenal CT. Labs Labs: Laboratory Results - last 24 hr 04/30/25 04/30/25 04/30/25 16:40 19:14 19:34 WBC 9.1 RBC 4.58 Hgb 12.1 Hct 40.9 MCV 89.3 MCH 26.4 MCHC 29.6 L RDW 15.9 H Plt Count 350 MPV 8.6 Immature Gran % (Auto) 0.5 Neut % (Auto) 64.0 Lymph % (Auto) 25.3 Harris % (Auto) 7.6 Eos % (Auto) 1.8 Baso % (Auto) 0.8 Lymph # (Auto) 2.30 Harris # (Auto) 0.7 H Eos # (Auto) 0.2 Baso # (Auto) 0.1 Abs Immat Gran (auto) 0.05 H Absolute Neuts (auto) 5.8 Absolute Nucleated RBC 0.000 Band Neutrophils % 0 Nucleated RBC % 0.0 Platelet Estimate Adequate Hypochromasia 1+ Anisocytosis 2+ Schistocytes None seen PT 13.7 INR 1.0 APTT 27.2 Sodium 139 Potassium 3.8 Chloride 103 Carbon Dioxide 28 Anion Gap 8 BUN 7 Creatinine 0.38 L Estim Creat Clear Calc 220 Estimated GFR > 60 Glucose 118 H POC Capillary Glucose 134 H Hemoglobin A1c Calcium 10.5 H Total Bilirubin 0.7 AST 28 ALT 26 Alkaline Phosphatase 91 Troponin I < 0.012 Total Protein 8.5 H Albumin 4.3 Lipase 29 Urine Color Yellow Urine Appearance Clear Urine pH 6.0 Ur Specific [place] 1.026 Urine Protein Trace Urine Glucose (UA) Negative Urine Ketones Trace H Ur Blood (Man) Negative Urine Nitrate Negative Urine Bilirubin Negative Urine Urobilinogen 1.0 Leukocyte Esterase Rfl Negative Urine RBC 0-2 Urine WBC 0-5 Ur Squamous Epith Cells Moderate Urine Bacteria 1+ H Urine Casts 0-2 04/30/25 05/01/25 05/01/25 22:37 06:07 07:44 WBC 7.9 RBC 4.51 Hgb 11.9 L Hct 41.5 MCV 92.0 MCH 26.4 MCHC 28.7 L RDW 15.8 H Plt Count 303 MPV 8.8 Immature Gran % (Auto) Neut % (Auto) Lymph % (Auto) Harris % (Auto) Eos % (Auto) Baso % (Auto) Lymph # (Auto) Harris # (Auto) Eos # (Auto) Baso # (Auto) Abs Immat Gran (auto) Absolute Neuts (auto) Absolute Nucleated RBC Band Neutrophils % Nucleated RBC % Platelet Estimate Hypochromasia Anisocytosis Schistocytes PT INR APTT Sodium 139 Potassium 4.3 Chloride 103 Carbon Dioxide 30 Anion Gap 6 BUN 9 Creatinine 0.56 L Estim Creat Clear Calc 156 Estimated GFR > 60 Glucose 119 H POC Capillary Glucose 130 H 110 H Hemoglobin A1c 7.0 H Calcium 10.3 H Total Bilirubin 0.5 AST 28 ALT 25 Alkaline Phosphatase 79 Troponin I Total Protein 7.9 Albumin 4.1 Lipase Urine Color Urine Appearance Urine pH Ur Specific [place] Urine Protein Urine Glucose (UA) Urine Ketones Ur Blood (Man) Urine Nitrate Urine Bilirubin Urine Urobilinogen Leukocyte Esterase Rfl Urine RBC Urine WBC Ur Squamous Epith Cells Urine Bacteria Urine Casts Quality VTE Prophylaxis VTE prophylaxis: pharmacologic ordered Hospitalist [facility] Advance Care Plan I have confirmed that the patient's Advanced Care Plan is present, code status is documented, or surrogate decision maker is listed in patient medical record.: Yes Medication Reconciliation I have utilized all available resources to obtain, update and review the patients current medications (includes all prescriptions, OTC, herbals, cannabis, and nutritional supplements).: Yes
[2025-05-01] MEDS: ENOXAPARIN 40 MG/0.4 ML SYRINGE SUB-Q (08:44)
[2025-05-01] MEDS: PANTOPRAZOLE SODIUM IV 40 MG VIAL IV PUSH (08:45)
--- NOTE | 2025-05-01 12:02 | P.CONGS_ITS ---
Assessment and Plan Assessment and plan (1) Cholecystitis: Code(s): K81.9 - Cholecystitis, unspecified Status: Acute Assessment and Plan: Patient presented to the ED with 2 weeks of epigastric pain that recently worsened in severity in the past 2 days. She notes associated nausea, vomiting, diarrhea. CT demonstrated gallbladder inflammation bile duct dilation with no definite stone or mass. WBC normal. Afebrile. Liver enzymes normal. Lipase normal. Physical exam positive for diffuse epigastric pain. MRCP ordered for this afternoon. If unable to obtain this due to body habitus, consider HIDA scan. Keep patient NPO for now. Will follow up with results. Patient is not a great surgical candidate due to BMI and other comorbidities, so may need to consider nonoperative management with low-fat diet versus transfer to tertiary care facility. (2) Heart failure of unknown type: Code(s): I50.9 - Heart failure, unspecified Status: Acute (3) Type 2 diabetes mellitus: Code(s): E11.9 - Type 2 diabetes mellitus without complications Status: Acute (4) Morbid obesity: Code(s): E66.01 - Morbid (severe) obesity due to excess calories Status: Acute (5) Acute respiratory failure with hypoxia and hypercapnia: Code(s): J96.01 - Acute respiratory failure with hypoxia; J96.02 - Acute respiratory failure with hypercapnia Status: Acute (6) Chronic obstructive pulmonary disease: Code(s): J44.9 - Chronic obstructive pulmonary disease, unspecified Status: Acute Plan Discussed patient's case and plan of care with Dr. Alejandre. History of Present Illness Consult details Consult date: 05/01/25 Reason for consult: other (cholecystitis) Requesting physician: Yuko Michel PA-C Narrative: Patient is a 55-year-old female with past medical history of diabetes mellitus, hypertension, anemia, obstructive sleep apnea on CPAP, pulmonary embolism (12 years ago. Patient not on anticoagulation), and morbid obesity (BMI 75.2) who we have been asked to see in surgical consultation for cholecystitis. Patient presented to the ED yesterday with complaints of upper abdominal pain x 2 weeks. She states that when this pain first started it was milder and she had some diarrhea. She states that this past Wednesday she started having nausea and vomiting and by Wednesday the pain had increased significantly in severity. Past abdominal surgery includes hysterectomy. No urinary symptoms. Upon ED admission patient's WBC count has been normal. Liver enzymes normal. CT of the abdomen and pelvis demonstrated gallbladder inflammation and bile duct dilation. Radiology recommended MRCP. Of no patient desaturated when back from the CT scan and O2 was applied. She was still on continuous oxygen upon visit today. MRCP is ordered for this afternoon. Unsure if they will be able to obtain this due to her BMI. [facility] Past Medical History Medical History Hepatic steatosis Type 2 diabetes mellitus Pulmonary embolism years ago; anticoagulation since discontinued H. pylori infection Chronic obstructive pulmonary disease Prediabetes Obstructive sleep apnea on CPAP Heart failure of unknown type Morbid obesity Surgical History Surgical History History of eye surgery History of carpal tunnel release History of hysterectomy Social History Social History Social History: Surrogate medical decision maker: Paulina Moulton (sibling) or her 2 children. Code status: Full code. Smoking packs per day: 0.25 Smoking cigarettes per day: 5.0 Years smoked: 25 Smoking pack-years: 6.25 Smoking status: Former smoker Tobacco type: cigarettes Alcohol intake: never Substance use: never Substance use type: does not use Do You Feel Safe in your Home?: Yes Lack of Transportation: No Lack of Food: Never True Current Housing: I Have Housing Concerned About Future Housing: No Difficulty Paying Gas/Electric Bills: No Difficulty Paying for Meds: No Currently Unemployed: No Education: High School Diploma/GED Difficulty w/ Childcare or Family Care: No Spiritual care concerns: No Meds Home Medications and Allergies Home Medications ?Medication ?Instructions ?Recorded ?Confirmed ?Type No Home Medications 05/01/25 05/01/25 History Allergies Allergy/AdvReac Type Severity Reaction Status Date / Time No Known Allergies Allergy Verified 04/30/25 15:02 Vital Signs Vital Signs - 24 hr 04/30/25 15:18 04/30/25 19:35 04/30/25 20:15 Temperature 98.0 F Pulse Rate 84 93 Respiratory Rate 20 19 Blood Pressure 155/82 H 191/112 H Pulse Oximetry 95 91 75 L Oxygen Delivery Room Air Oxygen Flow Rate 04/30/25 20:15 04/30/25 21:23 04/30/25 22:47 Temperature Pulse Rate 85 85 Respiratory Rate 17 17 Blood Pressure 156/84 H 156/84 H Pulse Oximetry 95 98 98 Oxygen Delivery Nasal Cannula Oxygen Flow Rate 4 04/30/25 23:43 05/01/25 01:08 05/01/25 01:30 Temperature 97.8 F Pulse Rate 87 88 Respiratory Rate 20 Blood Pressure 161/97 H Pulse Oximetry 98 92 93 Oxygen Delivery Nasal Cannula Autopap Oxygen Flow Rate 2 05/01/25 05:27 Temperature 97.2 F L Pulse Rate 68 Respiratory Rate 18 Blood Pressure 133/66 Pulse Oximetry 97 Oxygen Delivery Oxygen Flow Rate Exam 2 Const: General: comfortable and no acute distress Eyes: General: appearance normal, both eyes and all related structures Neck: Neck: supple Resp: Effort & Inspection: normal respiratory effort Cardio: Rate: regular rate GI: Inspection: non-distended, Pannus present and obesity GI Palp: Yes Soft to palpation, Yes Tenderness to palpation present (GI) (Diffuse epigastric tenderness) and No Guarding due to palpation present (GI) Skin: General skin exam: normal color and no rashes or lesions noted Neuro: Speech: normal speech Sensory Exam: normal sensation Extrem: General: normal to inspection Psych: Mental Status: mental status grossly normal Results Labs 05/01/25 06:07 05/01/25 06:07 Labs: Abnormal lab results 04/30/25 04/30/25 04/30/25 Range/Units 16:40 19:14 19:34 Hgb (12.0-15.0) g/dL MCHC 29.6 L (32-36) g/dl RDW 15.9 H (11.5-14.5) % [place] # (Auto) 0.7 H (0.1-0.6) K/mm3 Abs Immat Gran (auto) 0.05 H (0.00-0.031) K/mm3 Creatinine 0.38 L (0.7-1.0) mg/dL Glucose 118 H (65-110) mg/dL POC Capillary Glucose 134 H (65-105) mg/dl Hemoglobin A1c (<5.7) % Calcium 10.5 H (8.4-10.2) mg/dL Total Protein 8.5 H (6.3-8.2) g/dL Urine Ketones Trace H (Negative) mg/dL Urine Bacteria 1+ H /hpf 04/30/25 05/01/25 05/01/25 Range/Units 22:37 06:07 07:44 Hgb 11.9 L (12.0-15.0) g/dL MCHC 28.7 L (32-36) g/dl RDW 15.8 H (11.5-14.5) % [place] # (Auto) (0.1-0.6) K/mm3 Abs Immat Gran (auto) (0.00-0.031) K/mm3 Creatinine 0.56 L (0.7-1.0) mg/dL Glucose 119 H (65-110) mg/dL POC Capillary Glucose 130 H 110 H (65-105) mg/dl Hemoglobin A1c 7.0 H (<5.7) % Calcium 10.3 H (8.4-10.2) mg/dL Total Protein (6.3-8.2) g/dL Urine Ketones (Negative) mg/dL Urine Bacteria /hpf 05/01/25 Range/Units 11:33 Hgb (12.0-15.0) g/dL MCHC (32-36) g/dl RDW (11.5-14.5) % [place] # (Auto) (0.1-0.6) K/mm3 Abs Immat Gran (auto) (0.00-0.031) K/mm3 Creatinine (0.7-1.0) mg/dL Glucose (65-110) mg/dL POC Capillary Glucose 108 H (65-105) mg/dl Hemoglobin A1c (<5.7) % Calcium (8.4-10.2) mg/dL Total Protein (6.3-8.2) g/dL Urine Ketones (Negative) mg/dL Urine Bacteria /hpf Diabetes panel 04/30/25 05/01/25 Range/Units 16:40 06:07 Sodium 139 139 (137-145) mmol/L Potassium 3.8 4.3 (3.4-5.0) mmol/L Chloride 103 103 (98-107) mmol/L Carbon Dioxide 28 30 (22-30) mmol/L BUN 7 9 (7-17) mg/dL Creatinine 0.38 L 0.56 L (0.7-1.0) mg/dL Glucose 118 H 119 H (65-110) mg/dL Hemoglobin A1c 7.0 H (<5.7) % Calcium 10.5 H 10.3 H (8.4-10.2) mg/dL AST 28 28 (14-36) U/L ALT 26 25 (6-35) U/L Alkaline Phosphatase 91 79 (38-126) U/L Total Protein 8.5 H 7.9 (6.3-8.2) g/dL Albumin 4.3 4.1 (3.5-5.1) g/dL Calcium panel 04/30/25 05/01/25 Range/Units 16:40 06:07 Calcium 10.5 H 10.3 H (8.4-10.2) mg/dL Albumin 4.3 4.1 (3.5-5.1) g/dL Pituitary panel 04/30/25 05/01/25 Range/Units 16:40 06:07 Sodium 139 139 (137-145) mmol/L Potassium 3.8 4.3 (3.4-5.0) mmol/L Chloride 103 103 (98-107) mmol/L Carbon Dioxide 28 30 (22-30) mmol/L BUN 7 9 (7-17) mg/dL Creatinine 0.38 L 0.56 L (0.7-1.0) mg/dL Glucose 118 H 119 H (65-110) mg/dL Calcium 10.5 H 10.3 H (8.4-10.2) mg/dL Adrenal panel 04/30/25 05/01/25 Range/Units 16:40 06:07 Sodium 139 139 (137-145) mmol/L Potassium 3.8 4.3 (3.4-5.0) mmol/L Chloride 103 103 (98-107) mmol/L Carbon Dioxide 28 30 (22-30) mmol/L BUN 7 9 (7-17) mg/dL Creatinine 0.38 L 0.56 L (0.7-1.0) mg/dL Glucose 118 H 119 H (65-110) mg/dL Calcium 10.5 H 10.3 H (8.4-10.2) mg/dL Total Bilirubin 0.7 0.5 (0.2-1.3) mg/dL AST 28 28 (14-36) U/L ALT 26 25 (6-35) U/L Alkaline Phosphatase 91 79 (38-126) U/L Total Protein 8.5 H 7.9 (6.3-8.2) g/dL Albumin 4.3 4.1 (3.5-5.1) g/dL All other labs normal.
[2025-05-01] MEDS: HYDROmorphone HCL INJ (*CRX) 2 MG/ML VIAL 1 MG IV PUSH ×2 (13:05→21:09)
[2025-05-02 00:30] VITALS: O2SAT 91
[2025-05-02] MEDS: HYDROmorphone HCL INJ (*CRX) 2 MG/ML VIAL 1 MG IV PUSH (01:15)
[2025-05-02] MEDS: ONDANSETRON INJ 4 MG/2 ML VIAL IV PUSH ×2 (01:16→08:08)
[2025-05-02 02:09] VITALS: PULSE 75; O2SAT 94
[2025-05-02 05:07] VITALS: BP 134/67; PULSE 109; RESP 18; TEMP 36.3; O2SAT 90
[2025-05-02 06:45] LABS: Hematocrit 44.0 % (37.0-47.0); Hemoglobin 12.6 g/dL (12.0-15.0); Immature Granulocyte Percent A 0.7 % (0-0.5); Lymphocytes Absolute Auto 1.22 K/mm3 (0.9-3.2); Mean Corpuscular HGB Conc 28.6 g/dl (32-36); Mean Corpuscular Hemoglobin 26.8 pg (26-34); Mean Corpuscular Volume 93.6 fl (80-100); Nucleated Red Blood Cells Absolute Auto 0.000 K/mm3 (0.0-0.012); Nucleated Red Blood Cells Perc 0.0 % (0.0-0.2); Platelet Count Result 323 k/mm3 (150-375); Red Blood Count 4.70 M/mm3 (4.2-5.4); White Blood Count 7.4 K/mm3 (4.5-10.0)
[2025-05-02 07:08] LABS: Alanine Aminotransferase 32 U/L (6-35); Albumin Level 4.1 g/dL (3.5-5.1); Alkaline Phosphatase 98 U/L (38-126); Anion Gap 7 mmol/L (4-12); Aspartate Amino Transferase 32 U/L (14-36); Bilirubin,Total 0.5 mg/dL (0.2-1.3); Blood Urea Nitrogen 13 mg/dL (7-17); Calcium 10.1 mg/dL (8.4-10.2); Carbon Dioxide 30 mmol/L (22-30); Chloride 101 mmol/L (98-107); Estimated CRCL calculation 158 ml/min; Estimated Glomerular Filt Rate > 60; Glucose 141 mg/dL (65-110); Potassium 4.4 mmol/L (3.4-5.0); Sodium 138 mmol/L (137-145); Total Protein 8.3 g/dL (6.3-8.2)
[2025-05-02 07:32] LABS: Anisocytosis 1+; Hypochromasia 2+; Schistocytes None Seen; Stomatocytes 1+
--- NOTE | 2025-05-02 07:40 | P.PNIM_ITS ---
Progress Note: A&P Assessment and Plan (1) Cholecystitis: Code(s): K81.9 - Cholecystitis, unspecified Status: Acute Assessment and Plan: * Biliary colic and CT of the abdomen pelvis showed gallbladder inflammation and bile duct dilatation without definitive stone or mass detected. * LFTs are within normal limits * General Surgery consult * Unable to do MRCP due to body habitus * HIDA scan planned for today * If evidence of occluded cystic/common bile duct, will likely need transfer to tertiary care facility for bariatric surgery * NPO pending HIDA scan and consultation (2) Cardiomegaly: Code(s): I51.7 - Cardiomegaly Status: Acute Assessment and Plan: chronic - (3) Pericardial effusion: Code(s): I31.39 - Other pericardial effusion (noninflammatory) Status: Acute Assessment and Plan: * Imaging also shows cardiomegaly- chronic * Small pericardial effusion not noted on echocardiogram in December. * Diastolic dysfunction and mildly increased left ventricular wall thickness was noted at that time (4) Type 2 diabetes mellitus: Code(s): E11.9 - Type 2 diabetes mellitus without complications Status: Acute Assessment and Plan: - patient does not take oral medications at this time - Initiate sliding scale insulin once taking PO, - Accu-Cheks per order, - hypoglycemic protocol. - hemoglobin A1c - 7.0 (5) Adrenal nodule: Code(s): E27.9 - Disorder of adrenal gland, unspecified Status: Acute Assessment and Plan: * Incidental 1.5 cm indeterminate left adrenal nodule was also noted, * radiology recommends 12 month follow-up adrenal CT if concerns for cancer Plan DVT - Lovenox PPI - Protonix CODE status: Full Code Disposition - once stable and cleard by surgery, patient can be discharged home. Subjective Date/time seen: 05/02/25 07:40 Interval history: 55-year-old female with history of gallbladder attacks, COPD, CHD, BAL, HTN, type 2 diabetes mellitus, pulmonary embolism greater 10 years ago, H pylori infection, hysterectomy, and morbid obesity who presents for upper abdominal pain. 05/02/2025 Patient sitting comfortably in bed at time of exam. Denies any chest pain, shortness of breath, n/v at this time. Still has some upper abdominal discomfort, but improved since yesterday. General surgery following, unable to MRCP at this time, will order HIDA scan for today. If evidence of occluded cystic/common bile duct, patient will likely need transfer to tertiary care facility that has bariatric surgery. Review of Systems Review of Systems: 12 systems were reviewed and are negativ e except for as per HPI. Exam Narrative: General: Nontoxic-appearing female lying on her right side in bed in no distress. Weight: 180.5 kg. BMI: 75.2. HEENT: PERRL, EOMI. Sclera anicteric. Wearing CPAP. Oral mucosa appears moist with mask. Neck: Supple. Exam limited due to neck circumference. Respiratory: Respirations are nonlabored she is speaking in full sentences. Lung sounds diminished due to body habitus. Cardiovascular: Regular rate and rhythm with S1-S2. Gastrointestinal: Abdomen is soft and morbidly obese. She is a bit tender to palpation in the epigastric region and somewhat in the right upper quadrant as well. No guarding or rebound tenderness. Negative Wick sign. Skin: Warm and dry. Extremities: No cyanosis or clubbing. Legs are large with out obvious pitting edema. Neurological: Alert. Cranial nerves grossly intact. No gross focal deficits to casual conversation. Psychiatric: Pleasant and cooperative with normal mood and affect. Judgment and insight intact. She is in good spirits. Objective Data Vital Signs Vital Signs: Vital Signs - 24 hr 05/01/25 08:00 05/01/25 14:00 05/01/25 20:00 Temperature 97.8 F Pulse Rate 73 80 Respiratory Rate 16 18 Blood Pressure 134/73 Pulse Oximetry 97 97 94 Oxygen Delivery Room Air Autopap 05/01/25 20:08 05/01/25 21:52 05/02/25 02:09 Temperature 96.9 F L Pulse Rate 71 80 75 Respiratory Rate 18 Blood Pressure 113/54 L Pulse Oximetry 99 94 94 Oxygen Delivery Autopap Autopap 05/02/25 05:07 Temperature 97.3 F L Pulse Rate 109 H Respiratory Rate 18 Blood Pressure 134/67 Pulse Oximetry 90 Oxygen Delivery Intake/Output Intake/Output: Intake & Output 04/29/25 04/30/25 05/01/25 05/02/25 23:59 23:59 23:59 23:59 Output Total 0 100 Balance 0 -100 Meds/Results Medications: Active Medications Generic Name Dose Route Start Last Admin Trade Name Freq PRN Reason Stop Dose Admin Acetaminophen 650 mg 04/30/25 21:38 Acetaminophen 325 Mg Tablet PO Q4H PRN Mild Pain (1-3) or Fever Dextrose 12.5 gm 05/01/25 05:56 Dextrose 50% 25 Gm/50 Ml Syringe IV PUSH PRN PRN Hypoglycemia Protocol Dicyclomine HCl 20 mg 04/30/25 21:38 Dicyclomine Hcl Inj 20 Mg/2 Ml Vial IM Q6H PRN Abdominal Cramping Enoxaparin Sodium 40 mg 05/01/25 09:00 05/01/25 08:44 Enoxaparin 40 Mg/0.4 Ml Syringe SUB-Q 40 mg DAILY ELIAS Administration Glucagon 1 mg 05/01/25 05:56 Glucagon For Inj 1 Mg Vial IM PRN PRN Hypoglycemia Protocol Glucose 15 gm 05/01/25 05:56 Glucose Oral Gel 15 Gm Of Glucse In 37.5 Gm Tube PO PRN PRN Hypoglycemia Protocol Hydromorphone HCl 1 mg 04/30/25 21:38 05/02/25 01:15 Hydromorphone Hcl Inj (*Crx) 2 Mg/Ml Vial IV PUSH 1 mg Q4H PRN Administration Pain Rated 7-10 Dextrose 1,000 mls @ 100 mls/hr 05/01/25 05:56 Dextrose 5% 1,000 Ml IVPB PRN PRN Hypoglycemia Protocol Insulin Aspart 3 - 6 units 05/01/25 08:00 05/01/25 17:13 Insulin Aspart (*Bkc) 100 Units/Ml SUB-Q Not Given [facility] Protocol Insulin Aspart 1 - 3 units 05/01/25 21:00 05/01/25 21:00 Insulin Aspart (*Bkc) 100 Units/Ml SUB-Q Not Given [facility] Protocol Ketorolac Tromethamine 30 mg 04/30/25 21:38 05/01/25 17:14 Ketorolac 30 Mg/Ml Vial (*Bkc) IV PUSH 05/05/25 21:37 30 mg Q6H PRN Administration Pain Rated 4-6 Ondansetron HCl 4 mg 04/30/25 21:38 05/02/25 01:16 Ondansetron Inj 4 Mg/2 Ml Vial IV PUSH 4 mg Q4H PRN Administration Nausea Pantoprazole Sodium 40 mg 05/01/25 09:00 05/01/25 08:45 Pantoprazole Sodium Iv 40 Mg Vial IV PUSH 40 mg QAM ELIAS Administration Radiology Results: ITS Impressions Abdomen Ultrasound 04/30/25 19:44 IMPRESSION: Exam is limited by body habitus. Echogenic liver, most commonly due to steatosis but also can be seen with hepatitis and fibrosis. Possible gallstone versus polyp in a poorly visualized gallbladder. Abdomen/Pelvis CT 04/30/25 20:20 IMPRESSION: Cardiomegaly. Small pericardial effusion. Hepatomegaly with steatosis. Gallbladder inflammation and bile duct dilation. No definite stone or mass detected. Consider MRCP. 1.5 cm indeterminate left adrenal nodule, probably benign. Enhancement cancer history, consider 12 month follow-up adrenal CT. Labs Labs: Laboratory Results - last 24 hr 05/01/25 05/01/25 05/01/25 07:44 11:33 16:28 WBC RBC Hgb Hct MCV MCH MCHC RDW Plt Count MPV Immature Gran % (Auto) Neut % (Auto) Lymph % (Auto) [place] % (Auto) Eos % (Auto) Baso % (Auto) Lymph # (Auto) [place] # (Auto) Eos # (Auto) Baso # (Auto) Abs Immat Gran (auto) Absolute Neuts (auto) Absolute Nucleated RBC Band Neutrophils % Nucleated RBC % Platelet Estimate Hypochromasia Anisocytosis Stomatocytes Schistocytes Sodium Potassium Chloride Carbon Dioxide Anion Gap BUN Creatinine Estim Creat Clear Calc Estimated GFR Glucose POC Capillary Glucose 110 H 108 H 100 Calcium Total Bilirubin AST ALT Alkaline Phosphatase Total Protein Albumin 05/01/25 05/02/25 19:38 06:15 WBC 7.4 RBC 4.70 Hgb 12.6 Hct 44.0 MCV 93.6 MCH 26.8 MCHC 28.6 L RDW 15.7 H Plt Count 323 MPV 8.9 Immature Gran % (Auto) 0.7 H Neut % (Auto) 71.8 Lymph % (Auto) 16.4 L [place] % (Auto) 9.0 H Eos % (Auto) 1.3 Baso % (Auto) 0.8 Lymph # (Auto) 1.22 [place] # (Auto) 0.7 H Eos # (Auto) 0.1 Baso # (Auto) 0.1 Abs Immat Gran (auto) 0.05 H Absolute Neuts (auto) 5.3 Absolute Nucleated RBC 0.000 Band Neutrophils % Not Reportable Nucleated RBC % 0.0 Platelet Estimate Adequate Hypochromasia 2+ Anisocytosis 1+ Stomatocytes 1+ Schistocytes None seen Sodium 138 Potassium 4.4 Chloride 101 Carbon Dioxide 30 Anion Gap 7 BUN 13 Creatinine 0.56 L Estim Creat Clear Calc 158 Estimated GFR > 60 Glucose 141 H POC Capillary Glucose 98 Calcium 10.1 Total Bilirubin 0.5 AST 32 ALT 32 Alkaline Phosphatase 98 Total Protein 8.3 H Albumin 4.1 Quality VTE Prophylaxis VTE prophylaxis: pharmacologic ordered
[2025-05-02 08:00] VITALS: O2SAT 93
[2025-05-02] MEDS: KETOROLAC 30 MG/ML VIAL (*BKC) IV PUSH ×2 (08:08→13:12)
[2025-05-02] MEDS: ENOXAPARIN 40 MG/0.4 ML SYRINGE SUB-Q (08:08)
[2025-05-02] MEDS: PANTOPRAZOLE SODIUM IV 40 MG VIAL IV PUSH (08:08)
--- NOTE | 2025-05-02 09:45 | P.PNGS_ITS ---
Progress Note: A&P Assessment and Plan (1) Cholecystitis: Code(s): K81.9 - Cholecystitis, unspecified Status: Acute Assessment and Plan: * Continues to have RUQ pain and nausea. WBC and LFTs remains normal. * Unable to have MRCP at this facility due to her body habitus. * Will order a HIDA scan today. If this shows an occluded cystic duct or common bile duct, then she will need transfer to a tertiary care facility that has bariatric surgery as she is too high risk for surgery at this facility. If HIDA is negative, then would recommend trying to improve pain control and monitoring. (2) Heart failure of unknown type: Code(s): I50.9 - Heart failure, unspecified Status: Acute (3) Type 2 diabetes mellitus: Code(s): E11.9 - Type 2 diabetes mellitus without complications Status: Acute (4) Morbid obesity: Code(s): E66.01 - Morbid (severe) obesity due to excess calories Status: Acute Assessment and Plan: * BMI 76. Unable to have MRI at this facility. * Would be too high risk for surgery at this facility and would need transfer to tertiary care facility if she requires any surgical intervention (5) Acute respiratory failure with hypoxia and hypercapnia: Code(s): J96.01 - Acute respiratory failure with hypoxia; J96.02 - Acute respiratory failure with hypercapnia Status: Acute Assessment and Plan: * Titrated off O2 (6) Chronic obstructive pulmonary disease: Code(s): J44.9 - Chronic obstructive pulmonary disease, unspecified Status: Acute Plan Discussed patient's case and plan of care with Dr. Alejandre. Subjective Subjective Date/Time Seen: 05/02/25 09:45 Patient reports: still having pain and nausea Interval history: Patient without much improvement in symptoms. She reports she did sleep better last night than she has in days, but feels she is remaining more comfortable with the IV Toradol. She feels the pain coming back as the pain medication is wearing off. Still having RUQ Pain. She is more uncomfortable due to the persistent nausea. No vomiting. Exam Const: General: no acute distress Nutritional Appearance: obese morbidly obese Orientation/consciousness: patient oriented x3 GI: Inspection: Pannus present and obesity GI Palp: Yes Soft to palpation, Yes Tenderness to palpation present (GI) (epigastric and RUQ, mild tenderness RLQ tenderness), Yes Guarding due to palpation present (GI) (RUQ) and No Rebound tenderness present Auscultation: normal bowel sounds Objective Data Vital Signs Vital Signs: Vital Signs - 24 hr 05/01/25 14:00 05/01/25 20:00 05/01/25 20:08 Temperature 97.8 F 96.9 F L Pulse Rate 73 80 71 Respiratory Rate 16 18 18 Blood Pressure 134/73 113/54 L Pulse Oximetry 97 94 99 Oxygen Delivery Autopap 05/01/25 21:52 05/02/25 02:09 05/02/25 05:07 Temperature 97.3 F L Pulse Rate 80 75 109 H Respiratory Rate 18 Blood Pressure 134/67 Pulse Oximetry 94 94 90 Oxygen Delivery Autopap Autopap Intake/Output Intake/Output: Intake & Output 04/29/25 04/30/25 05/01/25 05/02/25 23:59 23:59 23:59 23:59 Output Total 0 100 Balance 0 -100 Meds/Results Medications: Active Medications Generic Name Dose Route Start Last Admin Trade Name Freq PRN Reason Stop Dose Admin Acetaminophen 650 mg 04/30/25 21:38 Acetaminophen 325 Mg Tablet PO Q4H PRN Mild Pain (1-3) or Fever Dextrose 12.5 gm 05/01/25 05:56 Dextrose 50% 25 Gm/50 Ml Syringe IV PUSH PRN PRN Hypoglycemia Protocol Dicyclomine HCl 20 mg 04/30/25 21:38 Dicyclomine Hcl Inj 20 Mg/2 Ml Vial IM Q6H PRN Abdominal Cramping Enoxaparin Sodium 40 mg 05/01/25 09:00 05/02/25 08:08 Enoxaparin 40 Mg/0.4 Ml Syringe SUB-Q 40 mg DAILY ELIAS Administration Glucagon 1 mg 05/01/25 05:56 Glucagon For Inj 1 Mg Vial IM PRN PRN Hypoglycemia Protocol Glucose 15 gm 05/01/25 05:56 Glucose Oral Gel 15 Gm Of Glucse In 37.5 Gm Tube PO PRN PRN Hypoglycemia Protocol Hydromorphone HCl 1 mg 04/30/25 21:38 05/02/25 01:15 Hydromorphone Hcl Inj (*Crx) 2 Mg/Ml Vial IV PUSH 1 mg Q4H PRN Administration Pain Rated 7-10 Dextrose 1,000 mls @ 100 mls/hr 05/01/25 05:56 Dextrose 5% 1,000 Ml IVPB PRN PRN Hypoglycemia Protocol Insulin Aspart 3 - 6 units 05/01/25 08:00 05/02/25 08:07 Insulin Aspart (*Bkc) 100 Units/Ml SUB-Q Not Given TIDWM ELIAS Protocol Insulin Aspart 1 - 3 units 05/01/25 21:00 05/01/25 21:00 Insulin Aspart (*Bkc) 100 Units/Ml SUB-Q Not Given HS ELIAS Protocol Ketorolac Tromethamine 30 mg 04/30/25 21:38 05/02/25 08:08 Ketorolac 30 Mg/Ml Vial (*Bkc) IV PUSH 05/05/25 21:37 30 mg Q6H PRN Administration Pain Rated 4-6 Ondansetron HCl 4 mg 04/30/25 21:38 05/02/25 08:08 Ondansetron Inj 4 Mg/2 Ml Vial IV PUSH 4 mg Q4H PRN Administration Nausea Pantoprazole Sodium 40 mg 05/01/25 09:00 05/02/25 08:08 Pantoprazole Sodium Iv 40 Mg Vial IV PUSH 40 mg QAM ELIAS Administration Radiology Results: ITS Impressions Abdomen Ultrasound 04/30/25 19:44 IMPRESSION: Exam is limited by body habitus. Echogenic liver, most commonly due to steatosis but also can be seen with hepatitis and fibrosis. Possible gallstone versus polyp in a poorly visualized gallbladder. Abdomen/Pelvis CT 04/30/25 20:20 IMPRESSION: Cardiomegaly. Small pericardial effusion. Hepatomegaly with steatosis. Gallbladder inflammation and bile duct dilation. No definite stone or mass detected. Consider MRCP. 1.5 cm indeterminate left adrenal nodule, probably benign. Enhancement cancer history, consider 12 month follow-up adrenal CT. Labs Labs: Laboratory Results - last 24 hr 05/01/25 05/01/25 05/01/25 11:33 16:28 19:38 WBC RBC Hgb Hct MCV MCH MCHC RDW Plt Count MPV Immature Gran % (Auto) Neut % (Auto) Lymph % (Auto) [place] % (Auto) Eos % (Auto) Baso % (Auto) Lymph # (Auto) [place] # (Auto) Eos # (Auto) Baso # (Auto) Abs Immat Gran (auto) Absolute Neuts (auto) Absolute Nucleated RBC Band Neutrophils % Nucleated RBC % Platelet Estimate Hypochromasia Anisocytosis Stomatocytes Schistocytes Sodium Potassium Chloride Carbon Dioxide Anion Gap BUN Creatinine Estim Creat Clear Calc Estimated GFR Glucose POC Capillary Glucose 108 H 100 98 Calcium Total Bilirubin AST ALT Alkaline Phosphatase Total Protein Albumin 05/02/25 05/02/25 06:15 07:53 WBC 7.4 RBC 4.70 Hgb 12.6 Hct 44.0 MCV 93.6 MCH 26.8 MCHC 28.6 L RDW 15.7 H Plt Count 323 MPV 8.9 Immature Gran % (Auto) 0.7 H Neut % (Auto) 71.8 Lymph % (Auto) 16.4 L [place] % (Auto) 9.0 H Eos % (Auto) 1.3 Baso % (Auto) 0.8 Lymph # (Auto) 1.22 [place] # (Auto) 0.7 H Eos # (Auto) 0.1 Baso # (Auto) 0.1 Abs Immat Gran (auto) 0.05 H Absolute Neuts (auto) 5.3 Absolute Nucleated RBC 0.000 Band Neutrophils % Not Reportable Nucleated RBC % 0.0 Platelet Estimate Adequate Hypochromasia 2+ Anisocytosis 1+ Stomatocytes 1+ Schistocytes None seen Sodium 138 Potassium 4.4 Chloride 101 Carbon Dioxide 30 Anion Gap 7 BUN 13 Creatinine 0.56 L Estim Creat Clear Calc 158 Estimated GFR > 60 Glucose 141 H POC Capillary Glucose 127 H Calcium 10.1 Total Bilirubin 0.5 AST 32 ALT 32 Alkaline Phosphatase 98 Total Protein 8.3 H Albumin 4.1
[2025-05-02] MEDS: SODIUM CHLORIDE 0.9% IV 1,000 ML 100 ML IV CONT (11:00)
[2025-05-02] MEDS: MORPHINE SULFATE (*CRX) 2 MG/ML INJ IV PUSH ×2 (14:54→20:53)
[2025-05-02 20:21] VITALS: BP 151/92; PULSE 83; RESP 16; TEMP 36.4; O2SAT 90
[2025-05-02 22:30] VITALS: PULSE 83; O2SAT 91
[2025-05-03] MEDS: ACETAMINOPHEN 325 MG TABLET 650 MG PO
[2025-05-03 04:20] VITALS: PULSE 79; O2SAT 91
[2025-05-03 05:41] VITALS: BP 125/57; PULSE 78; RESP 20; TEMP 36.3; O2SAT 94
[2025-05-03 06:58] LABS: Hematocrit 40.3 % (37.0-47.0); Hemoglobin 11.7 g/dL (12.0-15.0); Immature Granulocyte Percent A 0.3 % (0-0.5); Lymphocytes Absolute Auto 2.10 K/mm3 (0.9-3.2); Mean Corpuscular HGB Conc 29.0 g/dl (32-36); Mean Corpuscular Hemoglobin 26.8 pg (26-34); Mean Corpuscular Volume 92.4 fl (80-100); Nucleated Red Blood Cells Absolute Auto 0.000 K/mm3 (0.0-0.012); Nucleated Red Blood Cells Perc 0.0 % (0.0-0.2); Platelet Count Result 288 k/mm3 (150-375); Red Blood Count 4.36 M/mm3 (4.2-5.4); White Blood Count 6.9 K/mm3 (4.5-10.0)
[2025-05-03 07:38] LABS: Hypochromasia 2+; Schistocytes None Seen
[2025-05-03] MEDS: MORPHINE SULFATE (*CRX) 2 MG/ML INJ IV PUSH (08:53)
[2025-05-03] MEDS: PANTOPRAZOLE SODIUM IV 40 MG VIAL IV PUSH (08:53)
[2025-05-03] MEDS: ENOXAPARIN 40 MG/0.4 ML SYRINGE SUB-Q (08:53)
[2025-05-03] MEDS: ONDANSETRON INJ 4 MG/2 ML VIAL IV PUSH (08:55)
--- NOTE | 2025-05-03 09:09 | P.PNGS_ITS ---
Progress Note: A&P Assessment and Plan (1) Cholecystitis: Code(s): K81.9 - Cholecystitis, unspecified Status: Acute Assessment and Plan: * Continues to have RUQ pain that spreads throughout epigastric region. * Unable to have MRCP at this facility due to her body habitus. HIDA scan yesterday showed patent CBD, but no evident gallbladder activity. Acute vs chronic cholecystitis. * Plan for transfer to tertiary care facility today where bariatric surgery is available. She is too high risk for surgery at this facility. (2) Heart failure of unknown type: Code(s): I50.9 - Heart failure, unspecified Status: Acute (3) Type 2 diabetes mellitus: Code(s): E11.9 - Type 2 diabetes mellitus without complications Status: Acute (4) Morbid obesity: Code(s): E66.01 - Morbid (severe) obesity due to excess calories Status: Acute Assessment and Plan: * BMI 76. Unable to have MRI at this facility. * Would be too high risk for surgery at this facility and would need transfer to tertiary care facility if she requires any surgical intervention (5) Acute respiratory failure with hypoxia and hypercapnia: Code(s): J96.01 - Acute respiratory failure with hypoxia; J96.02 - Acute respiratory failure with hypercapnia Status: Acute Assessment and Plan: * Titrated off O2 (6) Chronic obstructive pulmonary disease: Code(s): J44.9 - Chronic obstructive pulmonary disease, unspecified Status: Acute Plan Discussed patient's case and plan of care with Dr. Alejandre. Subjective Subjective Date/Time Seen: 05/03/25 09:09 Patient reports: still having pain, tolerating liquids well and bowel movement Interval history: Patient is still complaining of epigastric pain today. She is tolerating clear liquids without nausea or vomiting. She notes new complaint of migraine. Could be due to narcotic administration. Passing regular bowel movements. No urinary symptoms. Exam GI: Inspection: non-distended, Pannus present and obesity Auscultation: normal bowel sounds Objective Data Vital Signs Vital Signs: Vital Signs - 24 hr 05/02/25 20:21 05/02/25 22:30 05/02/25 22:30 Temperature 97.6 F Pulse Rate 83 83 Respiratory Rate 16 Blood Pressure 151/92 H Pulse Oximetry 90 91 91 Oxygen Delivery Autopap Nasal Cannula Oxygen Flow Rate 2 05/03/25 04:20 05/03/25 05:41 Temperature 97.4 F L Pulse Rate 79 78 Respiratory Rate 20 Blood Pressure 125/57 L Pulse Oximetry 91 94 Oxygen Delivery Autopap Oxygen Flow Rate Intake/Output Intake/Output: Intake & Output 04/30/25 05/01/25 05/02/25 05/03/25 23:59 23:59 23:59 23:59 Intake Total 240 476 Output Total 0 100 Balance 0 140 476 Meds/Results Medications: Active Medications Generic Name Dose Route Start Last Admin Trade Name Freq PRN Reason Stop Dose Admin Acetaminophen 650 mg 04/30/25 21:38 05/03/25 00:00 Acetaminophen 325 Mg Tablet PO 650 mg Q4H PRN Administration Mild Pain (1-3) or Fever Dextrose 12.5 gm 05/01/25 05:56 Dextrose 50% 25 Gm/50 Ml Syringe IV PUSH PRN PRN Hypoglycemia Protocol Dicyclomine HCl 20 mg 04/30/25 21:38 Dicyclomine Hcl Inj 20 Mg/2 Ml Vial IM Q6H PRN Abdominal Cramping Enoxaparin Sodium 40 mg 05/01/25 09:00 05/03/25 08:53 Enoxaparin 40 Mg/0.4 Ml Syringe SUB-Q 40 mg DAILY ELIAS Administration Glucagon 1 mg 05/01/25 05:56 Glucagon For Inj 1 Mg Vial IM PRN PRN Hypoglycemia Protocol Glucose 15 gm 05/01/25 05:56 Glucose Oral Gel 15 Gm Of Glucse In 37.5 Gm Tube PO PRN PRN Hypoglycemia Protocol Dextrose 1,000 mls @ 100 mls/hr 05/01/25 05:56 Dextrose 5% 1,000 Ml IVPB PRN PRN Hypoglycemia Protocol Sodium Chloride 1,000 mls @ 100 mls/hr 05/02/25 10:00 05/02/25 11:00 Normal Saline Iv IV CONT 100 mls/hr .Q10H ELIAS Administration Insulin Aspart 3 - 6 units 05/01/25 08:00 05/02/25 16:53 Insulin Aspart (*Bkc) 100 Units/Ml SUB-Q Not Given TIDWM ELIAS Protocol Insulin Aspart 1 - 3 units 05/01/25 21:00 05/02/25 20:48 Insulin Aspart (*Bkc) 100 Units/Ml SUB-Q Not Given HS ELIAS Protocol Ketorolac Tromethamine 30 mg 04/30/25 21:38 05/02/25 13:12 Ketorolac 30 Mg/Ml Vial (*Bkc) IV PUSH 05/05/25 21:37 30 mg Q6H PRN Administration Pain Rated 4-6 Morphine Sulfate 2 mg 05/02/25 17:28 05/03/25 08:53 Morphine Sulfate (*Crx) 2 Mg/Ml Inj IV PUSH 2 mg Q4H PRN Administration Pain Rated 7-10 Ondansetron HCl 4 mg 04/30/25 21:38 05/03/25 08:55 Ondansetron Inj 4 Mg/2 Ml Vial IV PUSH 4 mg Q4H PRN Administration Nausea Pantoprazole Sodium 40 mg 05/01/25 09:00 05/03/25 08:53 Pantoprazole Sodium Iv 40 Mg Vial IV PUSH 40 mg QAM ELIAS Administration Radiology Results: ITS Impressions Abdomen Ultrasound 04/30/25 19:44 IMPRESSION: Exam is limited by body habitus. Echogenic liver, most commonly due to steatosis but also can be seen with hepatitis and fibrosis. Possible gallstone versus polyp in a poorly visualized gallbladder. Abdomen/Pelvis CT 04/30/25 20:20 IMPRESSION: Cardiomegaly. Small pericardial effusion. Hepatomegaly with steatosis. Gallbladder inflammation and bile duct dilation. No definite stone or mass detected. Consider MRCP. 1.5 cm indeterminate left adrenal nodule, probably benign. Enhancement cancer history, consider 12 month follow-up adrenal CT. Hepatobiliary Scan Nuclear Medicine 05/02/25 15:35 IMPRESSION: 1. Patent common bile duct but no evident gallbladder activity. Differential would include acute or chronic cholecystitis although the absence of gallbladder dilation on the recent prior imaging would argue against the former. This could also be seen with either recent peroneal within 4 hours of imaging or chronic fasting. Labs Labs: Laboratory Results - last 24 hr 05/02/25 05/02/25 05/02/25 12:20 16:51 20:23 WBC RBC Hgb Hct MCV MCH MCHC RDW Plt Count MPV Immature Gran % (Auto) Neut % (Auto) Lymph % (Auto) [place] % (Auto) Eos % (Auto) Baso % (Auto) Lymph # (Auto) [place] # (Auto) Eos # (Auto) Baso # (Auto) Abs Immat Gran (auto) Absolute Neuts (auto) Absolute Nucleated RBC Band Neutrophils % Nucleated RBC % Platelet Estimate Hypochromasia Schistocytes POC Capillary Glucose 88 96 98 05/03/25 05/03/25 05:50 08:12 WBC 6.9 RBC 4.36 Hgb 11.7 L Hct 40.3 MCV 92.4 MCH 26.8 MCHC 29.0 L RDW 15.4 H Plt Count 288 MPV 8.9 Immature Gran % (Auto) 0.3 Neut % (Auto) 55.1 Lymph % (Auto) 30.5 [place] % (Auto) 10.6 H Eos % (Auto) 2.8 Baso % (Auto) 0.7 Lymph # (Auto) 2.10 [place] # (Auto) 0.7 H Eos # (Auto) 0.2 Baso # (Auto) 0.1 Abs Immat Gran (auto) 0.02 Absolute Neuts (auto) 3.8 Absolute Nucleated RBC 0.000 Band Neutrophils % Not Reportable Nucleated RBC % 0.0 Platelet Estimate Adequate Hypochromasia 2+ Schistocytes None seen POC Capillary Glucose 104
[2025-05-03 10:12] LABS: Alanine Aminotransferase 25 U/L (6-35); Albumin Level 3.7 g/dL (3.5-5.1); Alkaline Phosphatase 86 U/L (38-126); Anion Gap 6 mmol/L (4-12); Aspartate Amino Transferase 27 U/L (14-36); Bilirubin,Total 0.6 mg/dL (0.2-1.3); Blood Urea Nitrogen 10 mg/dL (7-17); Calcium 10.0 mg/dL (8.4-10.2); Carbon Dioxide 31 mmol/L (22-30); Chloride 102 mmol/L (98-107); Estimated CRCL calculation 167 ml/min; Estimated Glomerular Filt Rate > 60; Glucose 101 mg/dL (65-110); Potassium 3.9 mmol/L (3.4-5.0); Sodium 139 mmol/L (137-145); Total Protein 7.4 g/dL (6.3-8.2)
[2025-05-03] MEDS: HYDROmorphone HCL INJ (*CRX) 2 MG/ML VIAL 1 MG IV PUSH ×2 (13:03→20:28)
--- NOTE | 2025-05-03 13:46 | P.PNIM_ITS ---
Progress Note: A&P Assessment and Plan (1) Cholecystitis: Code(s): K81.9 - Cholecystitis, unspecified Status: Acute Assessment and Plan: * Biliary colic and CT of the abdomen pelvis showed gallbladder inflammation and bile duct dilatation without definitive stone or mass detected. * LFTs are within normal limits * General Surgery consult * Unable to do MRCP due to body habitus * If evidence of occluded cystic/common bile duct, will likely need transfer to tertiary care facility for bariatric surgery * HIDA scan: Patent common bile duct but no evident gallbladder activity. Differential would include acute or chronic cholecystitis although the absence of gallbladder dilation on the recent prior imaging would argue against the former. This could also be seen with either recent peroneal within 4 hours of imaging or chronic fasting. * General surgery recommends transfer to tertiary center for bariatric surgery for cholecystectomy * [facility] called, waiting occasional caregiver back at this time (2) Cardiomegaly: Code(s): I51.7 - Cardiomegaly Status: Acute Assessment and Plan: * chronic (3) Pericardial effusion: Code(s): I31.39 - Other pericardial effusion (noninflammatory) Status: Acute Assessment and Plan: * Imaging also shows cardiomegaly- chronic * Small pericardial effusion not noted on echocardiogram in December. * Diastolic dysfunction and mildly increased left ventricular wall thickness was noted at that time (4) Type 2 diabetes mellitus: Code(s): E11.9 - Type 2 diabetes mellitus without complications Status: Acute Assessment and Plan: - patient does not take oral medications at this time - Initiate sliding scale insulin once taking PO, - Accu-Cheks per order, - hypoglycemic protocol. - hemoglobin A1c - 7.0 (5) Adrenal nodule: Code(s): E27.9 - Disorder of adrenal gland, unspecified Status: Acute Assessment and Plan: * Incidental 1.5 cm indeterminate left adrenal nodule was also noted, * radiology recommends 12 month follow-up adrenal CT if concerns for cancer Plan DVT - Lovenox PPI - Protonix CODE status: Full Code Disposition - once stable and cleard by surgery, patient can be discharged home. Subjective Date/time seen: 05/03/25 13:46 Interval history: 55-year-old female with history of gallbladder attacks, COPD, CHD, BAL, HTN, type 2 diabetes mellitus, pulmonary embolism greater 10 years ago, H pylori infection, hysterectomy, and morbid obesity who presents for upper abdominal pain. 05/03/2025 Patient sitting comfortably in bed at time of exam. Denies any chest pain, shortness of breath, n/v at this time. Still has some upper abdominal discomfort. HIDA showed Patent common bile duct but no evident gallbladder activity, will benefit from cholecystectomy - which would require transfer. Placed call to [facility], waiting occasional caregiver back. Review of Systems Review of Systems: 12 systems were reviewed and are negativ e except for as per HPI. Exam Narrative: General: Nontoxic-appearing female lying on her right side in bed in no distress. Weight: 180.5 kg. BMI: 75.2. HEENT: PERRL, EOMI. Sclera anicteric. Wearing CPAP. Oral mucosa appears moist with mask. Neck: Supple. Exam limited due to neck circumference. Respiratory: Respirations are nonlabored she is speaking in full sentences. Lung sounds diminished due to body habitus. Cardiovascular: Regular rate and rhythm with S1-S2. Gastrointestinal: Abdomen is soft and morbidly obese. She is a bit tender to palpation in the epigastric region and somewhat in the right upper quadrant as well. No guarding or rebound tenderness. Negative Wick sign. Skin: Warm and dry. Extremities: No cyanosis or clubbing. Legs are large with out obvious pitting edema. Neurological: Alert. Cranial nerves grossly intact. No gross focal deficits to casual conversation. Psychiatric: Pleasant and cooperative with normal mood and affect. Judgment and insight intact. She is in good spirits. Objective Data Vital Signs Vital Signs: Vital Signs - 24 hr 05/02/25 20:21 05/02/25 22:30 05/02/25 22:30 Temperature 97.6 F Pulse Rate 83 83 Respiratory Rate 16 Blood Pressure 151/92 H Pulse Oximetry 90 91 91 Oxygen Delivery Autopap Nasal Cannula Oxygen Flow Rate 2 05/03/25 04:20 05/03/25 05:41 Temperature 97.4 F L Pulse Rate 79 78 Respiratory Rate 20 Blood Pressure 125/57 L Pulse Oximetry 91 94 Oxygen Delivery Autopap Oxygen Flow Rate Intake/Output Intake/Output: Intake & Output 04/30/25 05/01/25 05/02/25 05/03/25 23:59 23:59 23:59 23:59 Intake Total 240 594 Output Total 0 100 Balance 0 140 594 Meds/Results Medications: Active Medications Generic Name Dose Route Start Last Admin Trade Name Freq PRN Reason Stop Dose Admin Acetaminophen 650 mg 04/30/25 21:38 05/03/25 00:00 Acetaminophen 325 Mg Tablet PO 650 mg Q4H PRN Administration Mild Pain (1-3) or Fever Dextrose 12.5 gm 05/01/25 05:56 Dextrose 50% 25 Gm/50 Ml Syringe IV PUSH PRN PRN Hypoglycemia Protocol Dicyclomine HCl 20 mg 04/30/25 21:38 Dicyclomine Hcl Inj 20 Mg/2 Ml Vial IM Q6H PRN Abdominal Cramping Enoxaparin Sodium 40 mg 05/01/25 09:00 05/03/25 08:53 Enoxaparin 40 Mg/0.4 Ml Syringe SUB-Q 40 mg DAILY ELIAS Administration Glucagon 1 mg 05/01/25 05:56 Glucagon For Inj 1 Mg Vial IM PRN PRN Hypoglycemia Protocol Glucose 15 gm 05/01/25 05:56 Glucose Oral Gel 15 Gm Of Glucse In 37.5 Gm Tube PO PRN PRN Hypoglycemia Protocol Hydromorphone HCl 0.5 mg 05/03/25 12:11 Hydromorphone Hcl Inj (*Crx) 2 Mg/Ml Vial IV PUSH Q2H PRN Pain Rated 4-6 Hydromorphone HCl 1 mg 05/03/25 12:11 05/03/25 13:03 Hydromorphone Hcl Inj (*Crx) 2 Mg/Ml Vial IV PUSH 1 mg Q2H PRN Administration Pain Rated 7-10 Dextrose 1,000 mls @ 100 mls/hr 05/01/25 05:56 Dextrose 5% 1,000 Ml IVPB PRN PRN Hypoglycemia Protocol Sodium Chloride 1,000 mls @ 100 mls/hr 05/02/25 10:00 05/02/25 11:00 Normal Saline Iv IV CONT 100 mls/hr .Q10H ELIAS Administration Insulin Aspart 3 - 6 units 05/01/25 08:00 05/02/25 16:53 Insulin Aspart (*Bkc) 100 Units/Ml SUB-Q Not Given TIDWM ELIAS Protocol Insulin Aspart 1 - 3 units 05/01/25 21:00 05/02/25 20:48 Insulin Aspart (*Bkc) 100 Units/Ml SUB-Q Not Given HS ELIAS Protocol Ketorolac Tromethamine 30 mg 04/30/25 21:38 05/02/25 13:12 Ketorolac 30 Mg/Ml Vial (*Bkc) IV PUSH 05/05/25 21:37 30 mg Q6H PRN Administration Pain Rated 4-6 Ondansetron HCl 4 mg 04/30/25 21:38 05/03/25 08:55 Ondansetron Inj 4 Mg/2 Ml Vial IV PUSH 4 mg Q4H PRN Administration Nausea Pantoprazole Sodium 40 mg 05/01/25 09:00 05/03/25 08:53 Pantoprazole Sodium Iv 40 Mg Vial IV PUSH 40 mg QAM ELIAS Administration Radiology Results: ITS Impressions Abdomen Ultrasound 04/30/25 19:44 IMPRESSION: Exam is limited by body habitus. Echogenic liver, most commonly due to steatosis but also can be seen with hepatitis and fibrosis. Possible gallstone versus polyp in a poorly visualized gallbladder. Abdomen/Pelvis CT 04/30/25 20:20 IMPRESSION: Cardiomegaly. Small pericardial effusion. Hepatomegaly with steatosis. Gallbladder inflammation and bile duct dilation. No definite stone or mass detected. Consider MRCP. 1.5 cm indeterminate left adrenal nodule, probably benign. Enhancement cancer history, consider 12 month follow-up adrenal CT. Hepatobiliary Scan Nuclear Medicine 05/02/25 15:35 IMPRESSION: 1. Patent common bile duct but no evident gallbladder activity. Differential would include acute or chronic cholecystitis although the absence of gallbladder dilation on the recent prior imaging would argue against the former. This could also be seen with either recent peroneal within 4 hours of imaging or chronic fasting. Labs Labs: Laboratory Results - last 24 hr 05/02/25 05/02/25 05/03/25 16:51 20:23 05:50 WBC 6.9 RBC 4.36 Hgb 11.7 L Hct 40.3 MCV 92.4 MCH 26.8 MCHC 29.0 L RDW 15.4 H Plt Count 288 MPV 8.9 Immature Gran % (Auto) 0.3 Neut % (Auto) 55.1 Lymph % (Auto) 30.5 [place] % (Auto) 10.6 H Eos % (Auto) 2.8 Baso % (Auto) 0.7 Lymph # (Auto) 2.10 [place] # (Auto) 0.7 H Eos # (Auto) 0.2 Baso # (Auto) 0.1 Abs Immat Gran (auto) 0.02 Absolute Neuts (auto) 3.8 Absolute Nucleated RBC 0.000 Band Neutrophils % Not Reportable Nucleated RBC % 0.0 Platelet Estimate Adequate Hypochromasia 2+ Schistocytes None seen Sodium 139 Potassium 3.9 Chloride 102 Carbon Dioxide 31 H Anion Gap 6 BUN 10 Creatinine 0.52 L Estim Creat Clear Calc 167 Estimated GFR > 60 Glucose 101 POC Capillary Glucose 96 98 Calcium 10.0 Total Bilirubin 0.6 AST 27 ALT 25 Alkaline Phosphatase 86 Total Protein 7.4 Albumin 3.7 05/03/25 05/03/25 08:12 11:57 WBC RBC Hgb Hct MCV MCH MCHC RDW Plt Count MPV Immature Gran % (Auto) Neut % (Auto) Lymph % (Auto) [place] % (Auto) Eos % (Auto) Baso % (Auto) Lymph # (Auto) [place] # (Auto) Eos # (Auto) Baso # (Auto) Abs Immat Gran (auto) Absolute Neuts (auto) Absolute Nucleated RBC Band Neutrophils % Nucleated RBC % Platelet Estimate Hypochromasia Schistocytes Sodium Potassium Chloride Carbon Dioxide Anion Gap BUN Creatinine Estim Creat Clear Calc Estimated GFR Glucose POC Capillary Glucose 104 93 Calcium Total Bilirubin AST ALT Alkaline Phosphatase Total Protein Albumin Quality VTE Prophylaxis VTE prophylaxis: pharmacologic ordered
[2025-05-03 14:00] VITALS: BP 148/75; PULSE 91; RESP 16; TEMP 36.2; O2SAT 93
[2025-05-03 20:59] VITALS: BP 129/70; PULSE 85; RESP 14; TEMP 36.4; O2SAT 92
[2025-05-03 23:15] VITALS: PULSE 82; O2SAT 96
[2025-05-04] VITALS (9 sets, daily range): BP systolic 136–158; BP diastolic 56–76; PULSE 77–95; RESP 18–19; TEMP 36.2–36.8; O2SAT 90–96; BMI 74.9
[2025-05-04] MEDS: HYDROmorphone HCL INJ (*CRX) 2 MG/ML VIAL 1 MG IV PUSH ×4 (04:47→20:41)
[2025-05-04 06:15] LABS: Hematocrit 40.8 % (37.0-47.0); Hemoglobin 11.8 g/dL (12.0-15.0); Immature Granulocyte Percent A 0.7 % (0-0.5); Lymphocytes Absolute Auto 1.98 K/mm3 (0.9-3.2); Mean Corpuscular HGB Conc 28.9 g/dl (32-36); Mean Corpuscular Hemoglobin 26.9 pg (26-34); Mean Corpuscular Volume 93.2 fl (80-100); Nucleated Red Blood Cells Absolute Auto 0.000 K/mm3 (0.0-0.012); Nucleated Red Blood Cells Perc 0.0 % (0.0-0.2); Platelet Count Result 312 k/mm3 (150-375); Red Blood Count 4.38 M/mm3 (4.2-5.4); White Blood Count 7.3 K/mm3 (4.5-10.0)
[2025-05-04 06:25] LABS: Alanine Aminotransferase 27 U/L (6-35); Albumin Level 3.9 g/dL (3.5-5.1); Alkaline Phosphatase 94 U/L (38-126); Anion Gap 3 mmol/L (4-12); Aspartate Amino Transferase 26 U/L (14-36); Bilirubin,Total 0.6 mg/dL (0.2-1.3); Blood Urea Nitrogen 5 mg/dL (7-17); Calcium 10.1 mg/dL (8.4-10.2); Carbon Dioxide 33 mmol/L (22-30); Chloride 102 mmol/L (98-107); Estimated CRCL calculation 172 ml/min; Estimated Glomerular Filt Rate > 60; Glucose 126 mg/dL (65-110); Potassium 3.8 mmol/L (3.4-5.0); Sodium 138 mmol/L (137-145); Total Protein 7.7 g/dL (6.3-8.2)
[2025-05-04 06:59] LABS: Hypochromasia 1+; Schistocytes None Seen
--- NOTE | 2025-05-04 07:25 | P.PNIM_ITS ---
Progress Note: A&P Assessment and Plan (1) Cholecystitis: Code(s): K81.9 - Cholecystitis, unspecified Status: Acute Assessment and Plan: * Biliary colic and CT of the abdomen pelvis showed gallbladder inflammation and bile duct dilatation without definitive stone or mass detected. * LFTs are within normal limits * General Surgery consult * Unable to do MRCP due to body habitus * If evidence of occluded cystic/common bile duct, will likely need transfer to tertiary care facility for bariatric surgery * HIDA scan: Patent common bile duct but no evident gallbladder activity. Differential would include acute or chronic cholecystitis although the absence of gallbladder dilation on the recent prior imaging would argue against the former. This could also be seen with either recent peroneal within 4 hours of imaging or chronic fasting. * General surgery recommends transfer to tertiary center for bariatric surgery for cholecystectomy * [facility] unable to accept patient until Wednesday, will attempt other facilities at this time. * Pt prefers [facility], and would be willing to wait until Wednesday * Will discuss with surgery regarding the possibility of waiting to transfer to [facility]. (2) Cardiomegaly: Code(s): I51.7 - Cardiomegaly Status: Acute Assessment and Plan: * Chronic (3) Pericardial effusion: Code(s): I31.39 - Other pericardial effusion (noninflammatory) Status: Acute Assessment and Plan: * Imaging also shows cardiomegaly- chronic * Small pericardial effusion not noted on echocardiogram in December. * Diastolic dysfunction and mildly increased left ventricular wall thickness was noted at that time (4) Type 2 diabetes mellitus: Code(s): E11.9 - Type 2 diabetes mellitus without complications Status: Acute Assessment and Plan: - patient does not take oral medications at this time - Initiate sliding scale insulin once taking PO, - Accu-Cheks per order, - hypoglycemic protocol. - hemoglobin A1c - 7.0 (5) Adrenal nodule: Code(s): E27.9 - Disorder of adrenal gland, unspecified Status: Acute Assessment and Plan: * Incidental 1.5 cm indeterminate left adrenal nodule was also noted, * radiology recommends 12 month follow-up adrenal CT if concerns for cancer Plan DVT - Lovenox PPI - Protonix CODE status: Full Code Disposition - once stable and cleard by surgery, patient can be discharged home. Subjective Date/time seen: 07/04/25 07:25 Interval history: 55-year-old female with history of gallbladder attacks, COPD, CHD, BAL, HTN, type 2 diabetes mellitus, pulmonary embolism greater 10 years ago, H pylori infection, hysterectomy, and morbid obesity who presents for upper abdominal pain. 05/04/2025 Patient sitting comfortably in bed at time of exam. Denies any chest pain, shortness of breath, n/v at this time. [facility] unable to accept patient until Wednesday, offered to find other placement but pt prefers [facility]. Will discuss with surgery regarding possible placement, will likely be difficult to find placement at this time given Holiday weekend. Review of Systems Review of Systems: 12 systems were reviewed and are negativ e except for as per HPI. Exam Narrative: General: Nontoxic-appearing female lying on her right side in bed in no distress. Weight: 180.5 kg. BMI: 75.2. HEENT: PERRL, EOMI. Sclera anicteric. Wearing CPAP. Oral mucosa appears moist with mask. Neck: Supple. Exam limited due to neck circumference. Respiratory: Respirations are nonlabored she is speaking in full sentences. Lung sounds diminished due to body habitus. Cardiovascular: Regular rate and rhythm with S1-S2. Gastrointestinal: Abdomen is soft and morbidly obese. She is a bit tender to palpation in the epigastric region and somewhat in the right upper quadrant as well. No guarding or rebound tenderness. Negative Wick sign. Skin: Warm and dry. Extremities: No cyanosis or clubbing. Legs are large with out obvious pitting edema. Neurological: Alert. Cranial nerves grossly intact. No gross focal deficits to casual conversation. Psychiatric: Pleasant and cooperative with normal mood and affect. Judgment and insight intact. She is in good spirits. Objective Data Vital Signs Vital Signs: Vital Signs - 24 hr 05/03/25 14:00 05/03/25 20:59 05/03/25 23:15 Temperature 97.1 F L 97.5 F L Pulse Rate 91 85 Respiratory Rate 16 14 Blood Pressure 148/75 H 129/70 Pulse Oximetry 93 92 96 Oxygen Delivery CPAP Oxygen Flow Rate 3 05/03/25 23:15 05/04/25 03:10 05/04/25 05:21 Temperature 97.8 F Pulse Rate 82 77 95 Respiratory Rate 19 Blood Pressure 158/70 H Pulse Oximetry 96 96 96 Oxygen Delivery Autopap Autopap Oxygen Flow Rate Intake/Output Intake/Output: Intake & Output 05/01/25 05/02/25 05/03/25 05/04/25 23:59 23:59 23:59 23:59 Intake Total 240 952 300 Output Total 0 100 Balance 0 140 952 300 Meds/Results Medications: Active Medications Generic Name Dose Route Start Last Admin Trade Name Freq PRN Reason Stop Dose Admin Acetaminophen 650 mg 04/30/25 21:38 05/03/25 00:00 Acetaminophen 325 Mg Tablet PO 650 mg Q4H PRN Administration Mild Pain (1-3) or Fever Dextrose 12.5 gm 05/01/25 05:56 Dextrose 50% 25 Gm/50 Ml Syringe IV PUSH PRN PRN Hypoglycemia Protocol Dicyclomine HCl 20 mg 04/30/25 21:38 Dicyclomine Hcl Inj 20 Mg/2 Ml Vial IM Q6H PRN Abdominal Cramping Enoxaparin Sodium 40 mg 05/01/25 09:00 05/03/25 08:53 Enoxaparin 40 Mg/0.4 Ml Syringe SUB-Q 40 mg DAILY ELIAS Administration Glucagon 1 mg 05/01/25 05:56 Glucagon For Inj 1 Mg Vial IM PRN PRN Hypoglycemia Protocol Glucose 15 gm 05/01/25 05:56 Glucose Oral Gel 15 Gm Of Glucse In 37.5 Gm Tube PO PRN PRN Hypoglycemia Protocol Hydromorphone HCl 0.5 mg 05/03/25 12:11 Hydromorphone Hcl Inj (*Crx) 2 Mg/Ml Vial IV PUSH Q2H PRN Pain Rated 4-6 Hydromorphone HCl 1 mg 05/03/25 12:11 05/04/25 04:47 Hydromorphone Hcl Inj (*Crx) 2 Mg/Ml Vial IV PUSH 1 mg Q2H PRN Administration Pain Rated 7-10 Dextrose 1,000 mls @ 100 mls/hr 05/01/25 05:56 Dextrose 5% 1,000 Ml IVPB PRN PRN Hypoglycemia Protocol Sodium Chloride 1,000 mls @ 100 mls/hr 05/02/25 10:00 05/02/25 11:00 Normal Saline Iv IV CONT 100 mls/hr .Q10H ELIAS Administration Insulin Aspart 3 - 6 units 05/01/25 08:00 05/03/25 19:39 Insulin Aspart (*Bkc) 100 Units/Ml SUB-Q Not Given TIDWM [facility] Protocol Insulin Aspart 1 - 3 units 05/01/25 21:00 05/03/25 20:18 Insulin Aspart (*Bkc) 100 Units/Ml SUB-Q Not Given HS [facility] Protocol Ketorolac Tromethamine 30 mg 04/30/25 21:38 05/02/25 13:12 Ketorolac 30 Mg/Ml Vial (*Bkc) IV PUSH 05/05/25 21:37 30 mg Q6H PRN Administration Pain Rated 4-6 Ondansetron HCl 4 mg 04/30/25 21:38 05/03/25 08:55 Ondansetron Inj 4 Mg/2 Ml Vial IV PUSH 4 mg Q4H PRN Administration Nausea Pantoprazole Sodium 40 mg 05/01/25 09:00 05/03/25 08:53 Pantoprazole Sodium Iv 40 Mg Vial IV PUSH 40 mg QAM ELIAS Administration Radiology Results: ITS Impressions Abdomen Ultrasound 04/30/25 19:44 IMPRESSION: Exam is limited by body habitus. Echogenic liver, most commonly due to steatosis but also can be seen with hepatitis and fibrosis. Possible gallstone versus polyp in a poorly visualized gallbladder. Abdomen/Pelvis CT 04/30/25 20:20 IMPRESSION: Cardiomegaly. Small pericardial effusion. Hepatomegaly with steatosis. Gallbladder inflammation and bile duct dilation. No definite stone or mass detected. Consider MRCP. 1.5 cm indeterminate left adrenal nodule, probably benign. Enhancement cancer history, consider 12 month follow-up adrenal CT. Hepatobiliary Scan Nuclear Medicine 05/02/25 15:35 IMPRESSION: 1. Patent common bile duct but no evident gallbladder activity. Differential would include acute or chronic cholecystitis although the absence of gallbladder dilation on the recent prior imaging would argue against the former. This could also be seen with either recent peroneal within 4 hours of imaging or chronic fasting. Labs Labs: Laboratory Results - last 24 hr 05/03/25 05/03/25 05/03/25 05:50 08:12 11:57 WBC 6.9 RBC 4.36 Hgb 11.7 L Hct 40.3 MCV 92.4 MCH 26.8 MCHC 29.0 L RDW 15.4 H Plt Count 288 MPV 8.9 Immature Gran % (Auto) 0.3 Neut % (Auto) 55.1 Lymph % (Auto) 30.5 [place] % (Auto) 10.6 H Eos % (Auto) 2.8 Baso % (Auto) 0.7 Lymph # (Auto) 2.10 [place] # (Auto) 0.7 H Eos # (Auto) 0.2 Baso # (Auto) 0.1 Abs Immat Gran (auto) 0.02 Absolute Neuts (auto) 3.8 Absolute Nucleated RBC 0.000 Band Neutrophils % Not Reportable Nucleated RBC % 0.0 Platelet Estimate Adequate Hypochromasia 2+ Schistocytes None seen Sodium 139 Potassium 3.9 Chloride 102 Carbon Dioxide 31 H Anion Gap 6 BUN 10 Creatinine 0.52 L Estim Creat Clear Calc 167 Estimated GFR > 60 Glucose 101 POC Capillary Glucose 104 93 Calcium 10.0 Total Bilirubin 0.6 AST 27 ALT 25 Alkaline Phosphatase 86 Total Protein 7.4 Albumin 3.7 05/03/25 05/04/25 19:17 05:45 WBC 7.3 RBC 4.38 Hgb 11.8 L Hct 40.8 MCV 93.2 MCH 26.9 MCHC 28.9 L RDW 15.2 H Plt Count 312 MPV 9.0 Immature Gran % (Auto) 0.7 H Neut % (Auto) 59.0 Lymph % (Auto) 27.3 [place] % (Auto) 9.2 H Eos % (Auto) 3.0 Baso % (Auto) 0.8 Lymph # (Auto) 1.98 [place] # (Auto) 0.7 H Eos # (Auto) 0.2 Baso # (Auto) 0.1 Abs Immat Gran (auto) 0.05 H Absolute Neuts (auto) 4.3 Absolute Nucleated RBC 0.000 Band Neutrophils % Not Reportable Nucleated RBC % 0.0 Platelet Estimate Adequate Hypochromasia 1+ Schistocytes None seen Sodium 138 Potassium 3.8 Chloride 102 Carbon Dioxide 33 H Anion Gap 3 L BUN 5 L D Creatinine 0.50 L Estim Creat Clear Calc 172 Estimated GFR > 60 Glucose 126 H POC Capillary Glucose 110 H Calcium 10.1 Total Bilirubin 0.6 AST 26 ALT 27 Alkaline Phosphatase 94 Total Protein 7.7 Albumin 3.9 Quality VTE Prophylaxis VTE prophylaxis: pharmacologic ordered
[2025-05-04] MEDS: ENOXAPARIN 40 MG/0.4 ML SYRINGE SUB-Q (09:17)
[2025-05-04] MEDS: PANTOPRAZOLE SODIUM IV 40 MG VIAL IV PUSH (09:18)
--- NOTE | 2025-05-04 14:46 | PC.NURSE ---
On 05/04/25, the EGYPTOLOGIST, [Nadine Kasper ], provided care and completed [facility] documentation on this patient. I have reviewed the EGYPTOLOGIST's documentation and agree with the findings.
[2025-05-04] MEDS: LOPERAMIDE HCL 2 MG CAPSULE PO (17:45)
[2025-05-05] MEDS: HYDROmorphone HCL INJ (*CRX) 2 MG/ML VIAL 1 MG IV PUSH ×4 (01:42→18:33)
[2025-05-05 06:00] VITALS: BP 129/59; PULSE 88; RESP 18; TEMP 36.3; O2SAT 97
[2025-05-05 08:00] VITALS: O2SAT 99
[2025-05-05 09:05] LABS: Hematocrit 43.0 % (37.0-47.0); Hemoglobin 12.3 g/dL (12.0-15.0); Immature Granulocyte Percent A 0.6 % (0-0.5); Lymphocytes Absolute Auto 2.26 K/mm3 (0.9-3.2); Mean Corpuscular HGB Conc 28.6 g/dl (32-36); Mean Corpuscular Hemoglobin 26.5 pg (26-34); Mean Corpuscular Volume 92.5 fl (80-100); Nucleated Red Blood Cells Absolute Auto 0.000 K/mm3 (0.0-0.012); Nucleated Red Blood Cells Perc 0.0 % (0.0-0.2); Platelet Count Result 309 k/mm3 (150-375); Red Blood Count 4.65 M/mm3 (4.2-5.4); White Blood Count 6.8 K/mm3 (4.5-10.0)
[2025-05-05 09:20] LABS: Alanine Aminotransferase 28 U/L (6-35); Albumin Level 3.8 g/dL (3.5-5.1); Alkaline Phosphatase 90 U/L (38-126); Anion Gap 5 mmol/L (4-12); Aspartate Amino Transferase 29 U/L (14-36); Bilirubin,Total 0.3 mg/dL (0.2-1.3); Blood Urea Nitrogen 3 mg/dL (7-17); Calcium 10.2 mg/dL (8.4-10.2); Carbon Dioxide 33 mmol/L (22-30); Chloride 102 mmol/L (98-107); Estimated CRCL calculation 171 ml/min; Estimated Glomerular Filt Rate > 60; Glucose 137 mg/dL (65-110); Potassium 4.1 mmol/L (3.4-5.0); Sodium 140 mmol/L (137-145); Total Protein 7.7 g/dL (6.3-8.2)
[2025-05-05 09:32] VITALS: O2SAT 99
[2025-05-05] MEDS: PANTOPRAZOLE SODIUM IV 40 MG VIAL IV PUSH (10:09)
[2025-05-05] MEDS: ENOXAPARIN 40 MG/0.4 ML SYRINGE SUB-Q (10:09)
[2025-05-05] MEDS: LOPERAMIDE HCL 2 MG CAPSULE PO (10:16)
--- NOTE | 2025-05-05 11:40 | PM.IMPN ---
Progress Note: A&P Assessment and Plan (1) Cholecystitis: Code(s): K81.9 - Cholecystitis, unspecified Status: Acute Assessment and Plan: Biliary colic and CT of the abdomen pelvis showed gallbladder inflammation and bile duct dilatation without definitive stone or mass detected. LFTs are within normal limits General Surgery consult Unable to do MRCP due to body habitus If evidence of occluded cystic/common bile duct, will likely need transfer to tertiary care facility for bariatric surgery HIDA scan: Patent common bile duct but no evident gallbladder activity. Differential would include acute or chronic cholecystitis although the absence of gallbladder dilation on the recent prior imaging would argue against the former. This could also be seen with either recent peroneal within 4 hours of imaging or chronic fasting. General surgery recommends transfer to tertiary center for bariatric surgery for cholecystectomy [facility] unable to accept patient until Wednesday, will attempt other facilities at this time. Pt prefers [facility], and would be willing to wait until Wednesday Will discuss with surgery regarding the possibility of waiting to transfer to [facility]. 05/05: [facility] accepted patient, waiting on bed placement at this time Pain/nausea improving today, more manageable than it has been all week, according to pt (2) Cardiomegaly: Code(s): I51.7 - Cardiomegaly Status: Acute Assessment and Plan: Chronic (3) Pericardial effusion: Code(s): I31.39 - Other pericardial effusion (noninflammatory) Status: Acute Assessment and Plan: Imaging also shows cardiomegaly- chronic Small pericardial effusion not noted on echocardiogram in December. Diastolic dysfunction and mildly increased left ventricular wall thickness was noted at that time (4) Type 2 diabetes mellitus: Code(s): E11.9 - Type 2 diabetes mellitus without complications Status: Acute Assessment and Plan: - patient does not take oral medications at this time - Initiate sliding scale insulin once taking PO, - Accu-Cheks per order, - hypoglycemic protocol. - hemoglobin A1c - 7.0 (5) Adrenal nodule: Code(s): E27.9 - Disorder of adrenal gland, unspecified Status: Acute Assessment and Plan: Incidental 1.5 cm indeterminate left adrenal nodule was also noted, radiology recommends 12 month follow-up adrenal CT if concerns for cancer Plan DVT - Lovenox PPI - Protonix CODE status: Full Code Disposition - once stable and cleard by surgery, patient can be discharged home. Subjective Date/time seen: 05/05/25 11:40 Interval history: 55-year-old female with history of gallbladder attacks, COPD, CHD, BAL, HTN, type 2 diabetes mellitus, pulmonary embolism greater 10 years ago, H pylori infection, hysterectomy, and morbid obesity who presents for upper abdominal pain. 05/05/2025 Patient sitting comfortably in bed at time of exam. Denies any chest pain, shortness of breath, n/v at this time. She actually reports pain has improved and does not feel nauseous at all this morning. Was able to advance diet yesterday to full and did not have any complications. [facility] has accepted the pt and we are waiting for bed placement at this time. No other complaints or concerns. Review of Systems Review of Systems: 12 systems were reviewed and are negative except for as per HPI. Exam Narrative: General: Nontoxic-appearing female lying on her right side in bed in no distress. Weight: 180.5 kg. BMI: 75.2. HEENT: PERRL, EOMI. Sclera anicteric. Wearing CPAP. Oral mucosa appears moist with mask. Neck: Supple. Exam limited due to neck circumference. Respiratory: Respirations are nonlabored she is speaking in full sentences. Lung sounds diminished due to body habitus. Cardiovascular: Regular rate and rhythm with S1-S2. Gastrointestinal: Abdomen is soft and morbidly obese. She is a bit tender to palpation in the epigastric region and somewhat in the right upper quadrant as well. No guarding or rebound tenderness. Negative Wick sign. Skin: Warm and dry. Extremities: No cyanosis or clubbing. Legs are large with out obvious pitting edema. Neurological: Alert. Cranial nerves grossly intact. No gross focal deficits to casual conversation. Psychiatric: Pleasant and cooperative with normal mood and affect. Judgment and insight intact. She is in good spirits. Objective Data Vital Signs Vital Signs: Vital Signs - 24 hr 05/04/25 14:00 05/04/25 20:35 05/04/25 21:40 Temperature 98.3 F Pulse Rate 88 83 Respiratory Rate 18 Blood Pressure 151/76 H Pulse Oximetry 94 94 95 Oxygen Delivery Nasal Cannula Autopap Oxygen Flow Rate 2 05/04/25 22:00 05/05/25 02:25 05/05/25 06:00 Temperature 97.2 F L 97.4 F L Pulse Rate 92 88 Respiratory Rate 18 18 Blood Pressure 136/56 L 129/59 L Pulse Oximetry 96 97 Oxygen Delivery Autopap Oxygen Flow Rate 05/05/25 08:00 05/05/25 09:32 Temperature Pulse Rate Respiratory Rate Blood Pressure Pulse Oximetry 99 99 Oxygen Delivery Nasal Cannula Oxygen Flow Rate 2 Intake/Output Intake/Output: Intake & Output 05/02/25 05/03/25 05/04/25 05/05/25 23:59 23:59 23:59 23:59 Intake Total 055 003 7819 1480 Output Total 100 Balance 488 929 8640 1480 Meds/Results Medications: Active Medications Generic Name Dose Route Start Last Admin Trade Name Freq PRN Reason Stop Dose Admin Acetaminophen 650 mg 04/30/25 21:38 05/03/25 00:00 Acetaminophen 325 Mg Tablet PO 650 mg Q4H PRN Administration Mild Pain (1-3) or Fever Dextrose 12.5 gm 05/01/25 05:56 Dextrose 50% 25 Gm/50 Ml Syringe IV PUSH PRN PRN Hypoglycemia Protocol Dicyclomine HCl 20 mg 04/30/25 21:38 Dicyclomine Hcl Inj 20 Mg/2 Ml Vial IM Q6H PRN Abdominal Cramping Enoxaparin Sodium 40 mg 05/01/25 09:00 05/05/25 10:09 Enoxaparin 40 Mg/0.4 Ml Syringe SUB-Q 40 mg DAILY ELIAS Administration Glucagon 1 mg 05/01/25 05:56 Glucagon For Inj 1 Mg Vial IM PRN PRN Hypoglycemia Protocol Glucose 15 gm 05/01/25 05:56 Glucose Oral Gel 15 Gm Of Glucse In 37.5 Gm Tube PO PRN PRN Hypoglycemia Protocol Hydromorphone HCl 0.5 mg 05/03/25 12:11 Hydromorphone Hcl Inj (*Crx) 2 Mg/Ml Vial IV PUSH Q2H PRN Pain Rated 4-6 Hydromorphone HCl 1 mg 05/03/25 12:11 05/05/25 06:39 Hydromorphone Hcl Inj (*Crx) 2 Mg/Ml Vial IV PUSH 1 mg Q2H PRN Administration Pain Rated 7-10 Dextrose 1,000 mls @ 100 mls/hr 05/01/25 05:56 Dextrose 5% 1,000 Ml IVPB PRN PRN Hypoglycemia Protocol Sodium Chloride 1,000 mls @ 100 mls/hr 05/02/25 10:00 05/02/25 11:00 Normal Saline Iv IV CONT 100 mls/hr .Q10H ELIAS Administration Insulin Aspart 3 - 6 units 05/01/25 08:00 05/05/25 08:00 Insulin Aspart (*Bkc) 100 Units/Ml SUB-Q Not Given TIDWM [facility] Protocol Insulin Aspart 1 - 3 units 05/01/25 21:00 05/04/25 20:35 Insulin Aspart (*Bkc) 100 Units/Ml SUB-Q Not Given HS [facility] Protocol Ketorolac Tromethamine 30 mg 04/30/25 21:38 05/02/25 13:12 Ketorolac 30 Mg/Ml Vial (*Bkc) IV PUSH 05/05/25 21:37 30 mg Q6H PRN Administration Pain Rated 4-6 Loperamide HCl 2 mg 05/04/25 15:02 05/05/25 10:16 Loperamide Hcl 2 Mg Capsule PO 2 mg PRN PRN Administration Diarrhea Ondansetron HCl 4 mg 04/30/25 21:38 05/03/25 08:55 Ondansetron Inj 4 Mg/2 Ml Vial IV PUSH 4 mg Q4H PRN Administration Nausea Pantoprazole Sodium 40 mg 05/01/25 09:00 05/05/25 10:09 Pantoprazole Sodium Iv 40 Mg Vial IV PUSH 40 mg QAM ELIAS Administration Radiology Results: ITS Impressions Abdomen Ultrasound 04/30/25 19:44 IMPRESSION: Exam is limited by body habitus. Echogenic liver, most commonly due to steatosis but also can be seen with hepatitis and fibrosis. Possible gallstone versus polyp in a poorly visualized gallbladder. Abdomen/Pelvis CT 04/30/25 20:20 IMPRESSION: Cardiomegaly. Small pericardial effusion. Hepatomegaly with steatosis. Gallbladder inflammation and bile duct dilation. No definite stone or mass detected. Consider MRCP. 1.5 cm indeterminate left adrenal nodule, probably benign. Enhancement cancer history, consider 12 month follow-up adrenal CT. Hepatobiliary Scan Nuclear Medicine 05/02/25 15:35 IMPRESSION: 1. Patent common bile duct but no evident gallbladder activity. Differential would include acute or chronic cholecystitis although the absence of gallbladder dilation on the recent prior imaging would argue against the former. This could also be seen with either recent peroneal within 4 hours of imaging or chronic fasting. Labs Labs: Laboratory Results - last 24 hr 05/04/25 05/04/25 05/04/25 12:00 16:54 19:58 WBC RBC Hgb Hct MCV MCH MCHC RDW Plt Count MPV Immature Gran % (Auto) Neut % (Auto) Lymph % (Auto) [place] % (Auto) Eos % (Auto) Baso % (Auto) Lymph # (Auto) [place] # (Auto) Eos # (Auto) Baso # (Auto) Abs Immat Gran (auto) Absolute Neuts (auto) Absolute Nucleated RBC Nucleated RBC % Sodium Potassium Chloride Carbon Dioxide Anion Gap BUN Creatinine Estim Creat Clear Calc Estimated GFR Glucose POC Capillary Glucose 151 H 93 126 H Calcium Total Bilirubin AST ALT Alkaline Phosphatase Total Protein Albumin 05/05/25 05/05/25 07:43 08:56 WBC 6.8 RBC 4.65 Hgb 12.3 Hct 43.0 MCV 92.5 MCH 26.5 MCHC 28.6 L RDW 15.4 H Plt Count 309 MPV 8.4 Immature Gran % (Auto) 0.6 H Neut % (Auto) 52.5 Lymph % (Auto) 33.1 [place] % (Auto) 8.9 H Eos % (Auto) 4.3 Baso % (Auto) 0.6 Lymph # (Auto) 2.26 [place] # (Auto) 0.6 Eos # (Auto) 0.3 Baso # (Auto) 0.0 Abs Immat Gran (auto) 0.04 H Absolute Neuts (auto) 3.6 Absolute Nucleated RBC 0.000 Nucleated RBC % 0.0 Sodium 140 Potassium 4.1 Chloride 102 Carbon Dioxide 33 H Anion Gap 5 BUN 3 L Creatinine 0.50 L Estim Creat Clear Calc 171 Estimated GFR > 60 Glucose 137 H POC Capillary Glucose 107 H Calcium 10.2 Total Bilirubin 0.3 AST 29 ALT 28 Alkaline Phosphatase 90 Total Protein 7.7 Albumin 3.8 Quality VTE Prophylaxis VTE prophylaxis: pharmacologic ordered
[2025-05-05 13:26] VITALS: TEMP 36.3
[2025-05-05 14:00] VITALS: BP 148/66; PULSE 78; RESP 20; TEMP 36.6; O2SAT 98
--- NOTE | 2025-05-05 16:56 | PC.NURSE ---
On 05/05/25, the ACETYLENE BURNER, Nadine Kasper, provided care and completed [facility] documentation on this patient. I have reviewed the ACETYLENE BURNER's documentation and agree with the findings.
--- NOTE | 2025-05-06 09:45 | P.TS_ITS ---
Transfer Discharge Sum: Prov Provider Date of admission: 05/02/25 10:13 Primary care physician: Dilia Yap, Sophia Admitting clinician: Edd Lee MD Consults: 05/01/25 Consult to Physician Routine Comment: Spoke to Tabatha in office @9220 05/01 [facility] Consulting Provider: Fabio Alejandre marine cargo surveyor/MD group to consult: surgery Reason for consultation: cholecystitis Has provider been notified: Yes Receiving physician/facility: [facility] Surgery - accepting facility DS: Admitting Diagnosis Discharge Date 05/05/25 Admitting Diagnosis Cholecystitis DS: Discharge Diagnosis Discharge Diagnosis (1) Cholecystitis: Code(s): K81.9 - Cholecystitis, unspecified Status: Acute Assessment and Plan: * Biliary colic and CT of the abdomen pelvis showed gallbladder inflammation and bile duct dilatation without definitive stone or mass detected. * LFTs are within normal limits * General Surgery consult * Unable to do MRCP due to body habitus * If evidence of occluded cystic/common bile duct, will likely need transfer to tertiary care facility for bariatric surgery * HIDA scan: Patent common bile duct but no evident gallbladder activity. Differential would include acute or chronic cholecystitis although the absence of gallbladder dilation on the recent prior imaging would argue against the former. This could also be seen with either recent peroneal within 4 hours of imaging or chronic fasting. * General surgery recommends transfer to tertiary center for bariatric surgery for cholecystectomy * [facility] unable to accept patient until Wednesday, will attempt other facilities at this time. * Pt prefers [facility], and would be willing to wait until Wednesday * Will discuss with surgery regarding the possibility of waiting to transfer to [facility]. * 05/05: [facility] accepted patient, waiting on bed placement at this time * Pain/nausea improving today, more manageable than it has been all week, according to pt (2) Cardiomegaly: Code(s): I51.7 - Cardiomegaly Status: Acute Assessment and Plan: * Chronic (3) Pericardial effusion: Code(s): I31.39 - Other pericardial effusion (noninflammatory) Status: Acute Assessment and Plan: * Imaging also shows cardiomegaly- chronic * Small pericardial effusion not noted on echocardiogram in December. * Diastolic dysfunction and mildly increased left ventricular wall thickness was noted at that time (4) Type 2 diabetes mellitus: Code(s): E11.9 - Type 2 diabetes mellitus without complications Status: Acute Assessment and Plan: - patient does not take oral medications at this time - Initiate sliding scale insulin once taking PO, - Accu-Cheks per order, - hypoglycemic protocol. - hemoglobin A1c - 7.0 (5) Adrenal nodule: Code(s): E27.9 - Disorder of adrenal gland, unspecified Status: Acute Assessment and Plan: * Incidental 1.5 cm indeterminate left adrenal nodule was also noted, * radiology recommends 12 month follow-up adrenal CT if concerns for cancer Plan DVT - Lovenox PPI - Protonix CODE status: Full Code Disposition - once stable and cleard by surgery, patient can be discharged home. Transfer Discharge Sum: Med Medications Active and Home Medications: Home Medications No Home Medications 05/01/25 [History Confirmed 05/01/25] Transfer Discharge Sum: Hosp Hospital Course Hospital course: Luis White is a 55 year old female with history of gallbladder attacks, chronic obstructive pulmonary disease, congestive heart failure, obstructive sleep apnea, hypertension, type 2 diabetes mellitus, pulmonary embolism greater 10 years ago, H pylori infection, hysterectomy, and morbid obesity who presented to the emergency department via EMS from home for evaluation of upper abdominal pain. She gives a 2 week history of intermittent upper abdominal pain. It sounds to be colicky in nature and is situated more so in the right upper quadrant. The pain seems to be worse with food. Her symptoms have been worse the last day or so and last night she developed nausea and had several episodes of nonbloody and nonbilious emesis. The symptoms are similar to prior gallbladder attacks. She denies fever, chills, sweats, hematemesis, melena, hematochezia, diarrhea, and dysuria. No bloating or belching. She had a normal bowel movement early yesterday morning. In the ED: She was afebrile on arrival with blood pressure of 155/82. Labs were significant for WBC count of 9.1, random glucose 118, calcium 10.5, and normal LFTs. Urinalysis was positive for trace ketones 1+ bacteria. CT of the abdomen and pelvis showed cardiomegaly with small pericardial effusion, hepatomegaly with steatosis, gallbladder inflammation bile duct dilatation, 1.5 cm indeterminate left adrenal nodule, probably benign. She received ondansetron and hydromorphone with improvement her symptoms. She is being admitted in this setting for further workup and surgery consultation. Patient was seen by General surgery regarding possible cholecystitis. Initially recommended an MRCP but given patient's U morbid obesity, this procedure and possible cholecystectomy would not be able to be performed at this hospital and would need transfer to a tertiary care facility. General surgery to order HIDA scan as alternative for MRCP to assess cholecystitis. HIDA scan indicative of patent CBD but no evident gallbladder activity. Likely differential acute versus chronic cholecystitis. At this time surgery recommends transfer to a tertiary care facility for cholecystectomy. Next hospitalization, patient's pain and nausea did subside incrementally. Blood work had remained stable, with no leukocytosis or fevers. [facility] was contacted and accepted the patient for transfer. Patient is amenable to transfer to [facility]. Patient was then subsequently transferred on 05/05. Patient Condition: Stable Time Spent with Patient Time attestation: Total time spent providing and/or coordinating transfer services: Exam Narrative: General: Nontoxic-appearing female lying on her right side in bed in no distress. Weight: 180.5 kg. BMI: 75.2. HEENT: PERRL, EOMI. Sclera anicteric. Wearing CPAP. Oral mucosa appears moist with mask. Neck: Supple. Exam limited due to neck circumference. Respiratory: Respirations are nonlabored she is speaking in full sentences. Lung sounds diminished due to body habitus. Cardiovascular: Regular rate and rhythm with S1-S2. Gastrointestinal: Abdomen is soft and morbidly obese. She is a bit tender to palpation in the epigastric region and somewhat in the right upper quadrant as well. No guarding or rebound tenderness. Negative Wick sign. Skin: Warm and dry. Extremities: No cyanosis or clubbing. Legs are large with out obvious pitting edema. Neurological: Alert. Cranial nerves grossly intact. No gross focal deficits to casual conversation. Psychiatric: Pleasant and cooperative with normal mood and affect. Judgment and insight intact. She is in good spirits. DS: Data Data Completed and Pending Labs on day of discharge: Labs from last 24 hours 05/05/25 05/05/25 16:51 12:01 POC Capillary Glucose 86 106 H
== END 2025-05-05 19:30 | disposition short-term general hospital (02) | DRG 445 ==
LOC: ANHED 20:54 → ANH3MEDSUR 22:27
PROVIDERS: Nurse Practitioner Family; Physician Assistant; Registered Nurse; Admitting Provider Internal Medicine; Emergency Provider Student in an Organized Health Care Education/Training Program; PCP Internal Medicine Infectious Disease; Visit Provider Physician Assistant
DX: K81.0 Acute cholecystitis (principal); I31.39 Other pericardial effusion (noninflammatory); Z68.45 Body mass index [BMI] 70 or greater, adult; K81.1 Chronic cholecystitis; I51.7 Cardiomegaly; E11.9 Type 2 diabetes mellitus without complications; E27.9 Disorder of adrenal gland, unspecified; J44.9 Chronic obstructive pulmonary disease, unspecified; I10 Essential (primary) hypertension; D64.9 Anemia, unspecified; G47.33 Obstructive sleep apnea (adult) (pediatric); E66.01 Morbid (severe) obesity due to excess calories; Z86.711 Personal history of pulmonary embolism; Z90.710 Acquired absence of both cervix and uterus; Z87.891 Personal history of nicotine dependence
CPT/HCPCS: 36415; 74177; 76705; 78226; 80053; 81001; 82948; 83036; 83690; 84484; 85025; 85027; 85610; 85730; 93005; 94002; 96372; 96374; 96375; 96376; 99285; A9270; A9537; G0378; G0379; J1171; J1650; J1885; J2270; J2405; J2470; J7030; Q9967

== ENCOUNTER 2025-10-16 12:27 | Emergency (ER) | payer OTHER, SELFPAY ==
[2025-10-16] VITALS (7 sets, daily range): BP systolic 176–188; BP diastolic 89–170; PULSE 75–79; RESP 17–25; TEMP 36.6; O2SAT 90–100
--- NOTE | ~2025-10-16 | XR_ITS ---
EXAMINATION: XR chest 1V portable COMPARISON: No comparisons available. HISTORY: shortness of breath FINDINGS: Moderate to severe pulmonary venous congestion. Within the left upper lobe there is a nodular density measuring 1.5 x 1.6 cm which appears new compared to the previous study. No pneumothorax. Moderate cardiomegaly. Mediastinal and hilar contours are within normal limits. Bony thorax no acute abnormality. Miscellaneous: None Impression: CHF. Left upper lobe lung nodule is not excluded. CT chest is suggested to assess Reviewed, dictated and finalized at location P. TRY OFFAL WORKER Impression: CHF. Left upper lobe lung nodule is not excluded. CT chest is suggested to asse ss
--- NOTE | 2025-10-16 12:45 | ED_ITS ---
HPI - SOB/Dyspnea General Chief Complaint: Shortness of Breath/Dyspnea Stated Complaint: SOB Time Seen by Provider: 10/16/25 12:35 Source: patient and EMS Mode of arrival: EMS Limitations: no limitations History of Present Illness HPI Narrative: This is a 55-year-old female history of COPD, diabetes, CHF who presents to the ED for shortness of breath. Patient states that over the past couple weeks, she has had worsening shortness of breath that began significantly worse last night. She has had a cough productive of yellow sputum which is a change for her. Denies chest pain, nausea vomiting abdominal pain. She did not take a breathing treatment this morning. Per EMS, they did start her on CPAP and route. She was not given any medications. Patient does note that she has been exposed to her daughter who recently tested positive for flu Related Data Allergies Allergy/AdvReac Type Severity Reaction Status Date / Time No Known Allergies Allergy Verified 05/02/25 17:40 Review of Systems 2 Review of Systems: Gen.: Denies fevers or chills Eyes: Denies eye pain or visual change ENT: Denies congestion Respiratory: As per HPI CV: Denies chest pain or palpitations GI: Denies abdominal pain nausea, emesis or diarrhea denies burning, urgency, frequency or hematuria Musculoskeletal: Denies back pain or muscle pain Neuro: Denies numbness, tingling, weakness or focal weakness Skin: Denies rash Except as documented, all other systems reviewed and negative [facility] Past Medical History Medical History Hepatic steatosis Type 2 diabetes mellitus Pulmonary embolism years ago; anticoagulation since discontinued H. pylori infection Chronic obstructive pulmonary disease Prediabetes Obstructive sleep apnea on CPAP Heart failure of unknown type Morbid obesity Surgical History Surgical History History of eye surgery History of carpal tunnel release History of hysterectomy Social History Social History Social History: Surrogate medical decision maker: Paulina Moulton (sibling) or her 2 children. Code status: Full code. Smoking packs per day: 0.25 Smoking cigarettes per day: 5.0 Years smoked: 25 Smoking pack-years: 6.25 Smoking status: Former smoker Tobacco type: cigarettes Alcohol intake: never Substance use: never Substance use type: does not use Lack of Transportation: No Lack of Food: Never True Current Housing: I Have Housing Concerned About Future Housing: No Difficulty Paying Gas/Electric Bills: No Difficulty Paying for Meds: No Currently Unemployed: No Education: High School Diploma/GED Difficulty w/ Childcare or Family Care: No Spiritual care concerns: No Exam 2 Narrative: APPEARANCE: No acute distress, nontoxic, resting in bed EYES: EOMI HEENT: Normocephalic, atraumatic, OMM RESPIRATORY: Diminished breath sounds throughout with end-expiratory wheezes CARDIOVASCULAR: Regular rate and rhythm without murmurs rubs or gallops. ABDOMINAL: Morbidly obese. Soft, nontender, nondistended, no rebound or guarding MUSCULOSKELETAl: Moves all extremities. No clubbing, cyanosis or edema. NEURO: Awake and alert. Following commands, speech normal, no focal deficits SKIN:: Warm, dry. No rashes lesions or abrasions PSYCHIATRIC: Normal affect/mood, Course Vital Signs Vital signs: Vital Signs Pulse Rate 79 10/16/25 12:31 Respiratory Rate 20 10/16/25 12:31 Blood Pressure 183/170 H 10/16/25 12:31 Pulse Oximetry 99 10/16/25 12:31 Oxygen Delivery Nasal Cannula 10/16/25 12:31 Oxygen Flow Rate 3 10/16/25 12:31 Temperature 97.8 F 10/16/25 15:21 Pulse Rate 79 10/16/25 15:21 Respiratory Rate 25 H 10/16/25 15:21 Blood Pressure 176/101 H 10/16/25 15:21 Pulse Oximetry 94 10/16/25 15:21 Oxygen Delivery Nasal Cannula 10/16/25 12:47 Oxygen Flow Rate 3 10/16/25 12:47 [facility] MDM Narrative Medical decision making narrative: 55-year-old female Presenting for shortness of breath. On initial evaluation patient was in mild distress distress afebrile, hemodynamic stable. She was on CPAP satting 99%, quickly weaned to 4 L nasal cannula. Differentials include but are not limited to: ACS, CHF Exacerbation, COPD exacerbation, PE, PNA, PTX, bronchitis, viral syndrome Notable exam findings: Diminished breath sounds throughout with end-expiratory wheezes I personally reviewed the patient's lab result. Notable lab findings: CBC without significant abnormalities. Metabolic alkalosis with bicarb at 37, mildly elevated LFTs. BNP elevated at 2000. Positive for influenza A. Chest x-ray consistent with CHF but appeared to be at her baseline Patient was given Solu-Medrol, DuoNeb. She was weaned to her home 2 L nasal cannula. She was given Rocephin and doxycycline. As she did test positive for influenza a and she does have pretty significant comorbidities, she was started Tamiflu. Patient did express concerns with going home so I did discuss the case with hospitalist who did speak with the patient. Patient was apparently concerned influenza at home in the did reassure her and she was comfortable with going home at this time. Patient was deemed appropriate for discharge at this time. Patient was given a prescription for Augmentin, doxycycline, prednisone, Tamiflu. Patient was advised follow-up with their PCP in the next week for re- evaluation. Patient was agreeable to this plan. Given strict return precautions. Contrary to documentation, patient was satting 95% on her 2 L nasal cannula prior to discharge Differential Diagnosis Differential Diagnosis: ACS, CHF Exacerbation, COPD exacerbation, PE, PNA, PTX, bronchitis, viral syndrome Lab Data 10/16/25 14:20 10/16/25 12:53 Labs: Lab Results 10/16/25 10/16/25 10/16/25 Range/Units 12:52 12:53 14:20 WBC 6.5 (4.5-10.0) K/mm3 RBC 4.68 (4.2-5.4) M/mm3 Hgb 12.1 (12.0-15.0) g/dL Hct 42.2 (37.0-47.0) % MCV 90.2 (80-100) fl MCH 25.9 L (26-34) pg MCHC 28.7 L (32-36) g/dl RDW 16.2 H (11.5-14.5) % Plt Count 334 (150-375) k/mm3 MPV 9.0 (7.4-10.4) fl Immature Gran % (Auto) 2.9 H (0-0.5) % Neut % (Auto) 58.8 (45.5-73.1) % Lymph % (Auto) 28.4 (18.3-44.2) % [place] % (Auto) 7.9 (2.6-8.5) % Eos % (Auto) 0.9 (0-4.4) % Baso % (Auto) 1.1 (0.2-1.2) % Lymph # (Auto) 1.84 (0.9-3.2) K/mm3 [place] # (Auto) 0.5 (0.1-0.6) K/mm3 Eos # (Auto) 0.1 (0-0.3) K/mm3 Baso # (Auto) 0.1 (0.0-0.1) K/mm3 Abs Immat Gran (auto) 0.19 H (0.00-0.031) K/mm3 Absolute Neuts (auto) 3.8 (1.3-6.7) K/mm3 Absolute Nucleated RBC 0.210 H (0.0-0.012) K/mm3 Band Neutrophils % Not Reportable Nucleated RBC % 3.2 H (0.0-0.2) % Platelet Estimate Adequate (Adequate) Hypochromasia 1+ Anisocytosis 1+ Target Cells Occasional Stomatocytes Occasional Schistocytes None seen Sodium 140 (137-145) mmol/L Potassium 4.5 (3.4-5.0) mmol/L Chloride 100 (98-107) mmol/L Carbon Dioxide 37 H (22-30) mmol/L Anion Gap 3 L (4-12) mmol/L BUN 13 D (7-17) mg/dL Creatinine 0.51 L (0.7-1.0) mg/dL Estim Creat Clear Calc 160 ml/min Estimated GFR > 60 (59 - ) Glucose 121 H (65-110) mg/dL Calcium 10.1 (8.4-10.2) mg/dL Total Bilirubin 0.6 (0.2-1.3) mg/dL AST 61 H (14-36) U/L ALT 85 H (6-35) U/L Alkaline Phosphatase 116 (38-126) U/L NT-Pro-B Natriuret Pep 2030 H (19.9-100) pg/mL Total Protein 8.5 H (6.3-8.2) g/dL Albumin 4.2 (3.5-5.1) g/dL Influenza A (RT-PCR) Positive A (Negative) Influenza B (RT-PCR) Negative (Negative) RSV (RT-PCR) Negative (Negative) SARS-CoV-2 RNA (RT-PCR) Negative (Negative) Imaging Data Radiologist's impression: ITS Impressions Chest X-Ray 10/16/25 13:07 Impression: CHF. Left upper lobe lung nodule is not excluded. CT chest is suggested to assess Discharge Plan Discharge Clinical Impression: Influenza A Chronic obstructive pulmonary disease Qualifiers: COPD type: COPD with acute exacerbation Qualified Code(s): J44.1 - Chronic obstructive pulmonary disease with (acute) exacerbation CHF (congestive heart failure) Qualifiers: Heart failure type: unspecified Heart failure chronicity: acute Qualified Code(s): I50.9 - Heart failure, unspecified Hypertension Qualifiers: Hypertension type: unspecified Qualified Code(s): I10 - Essential (primary) hypertension Patient Disposition: Home Condition: Stable Instructions: Antibiotic Form, Influenza (ED), COPD (Chronic Obstructive Pulmonary Disease) (ED) Additional Instructions: You were found to have influenza as well as a COPD exacerbation. You were given prescriptions for augmentin, doxycycline, prednisone, and tamiflu, take these as prescribed. Follow up with your PCP in the next week for reevaluation. Discuss your high blood pressure Patient Language: Martiniquais Prescriptions: New prednisone 20 mg tablet 40 mg PO DAILY Qty: 10 0RF doxycycline hyclate 100 mg capsule 100 mg PO BID Qty: 10 0RF oseltamivir [Tamiflu] 75 mg capsule 75 mg PO Q12H 5 Days Qty: 10 0RF amoxicillin-pot clavulanate 875-125 mg tablet 1 tablet PO Q12H Qty: 10 0RF fluconazole 100 mg tablet 100 mg PO DAILY Qty: 1 0RF Follow-up/Referrals: Fracisco,Sophia Dobbs [Primary Care Provider]
[2025-10-16 13:16] LABS: Alanine Aminotransferase 85 U/L (6-35); Albumin Level 4.2 g/dL (3.5-5.1); Alkaline Phosphatase 116 U/L (38-126); Anion Gap 3 mmol/L (4-12); Aspartate Amino Transferase 61 U/L (14-36); Bilirubin,Total 0.6 mg/dL (0.2-1.3); Blood Urea Nitrogen 13 mg/dL (7-17); Calcium 10.1 mg/dL (8.4-10.2); Carbon Dioxide 37 mmol/L (22-30); Chloride 100 mmol/L (98-107); Estimated CRCL calculation 160 ml/min; Estimated Glomerular Filt Rate > 60; Glucose 121 mg/dL (65-110); Potassium 4.5 mmol/L (3.4-5.0); Sodium 140 mmol/L (137-145); Total Protein 8.5 g/dL (6.3-8.2)
[2025-10-16 13:20] LABS: NT Pro B Type Natriuretic Pept 2030 pg/mL (19.9-100)
[2025-10-16] MEDS: cefTRIAXone 2 GM in SODIUM CHLORIDE 0.9% IV 100 ML 200 ML IVPB (13:28)
[2025-10-16 13:41] LABS: Influenza A QL RT-PCR Positive (Negative); Influenza B QL RT-PCR Negative (Negative); RSV RNA, RT-PCR Negative (Negative); SARS-CoV-2 RNA PCR Negative (Negative)
[2025-10-16] MEDS: OSELTAMIVIR PHOSPHATE 75 MG CAPSULE PO (14:10)
[2025-10-16] MEDS: DOXYCYCLINE IV 100 MG in SODIUM CHLORIDE 0.9% IV 100 ML IVPB (14:10)
[2025-10-16 14:33] LABS: Hematocrit 42.2 % (37.0-47.0); Hemoglobin 12.1 g/dL (12.0-15.0); Immature Granulocyte Percent A 2.9 % (0-0.5); Lymphocytes Absolute Auto 1.84 K/mm3 (0.9-3.2); Mean Corpuscular HGB Conc 28.7 g/dl (32-36); Mean Corpuscular Hemoglobin 25.9 pg (26-34); Mean Corpuscular Volume 90.2 fl (80-100); Nucleated Red Blood Cells Absolute Auto 0.210 K/mm3 (0.0-0.012); Nucleated Red Blood Cells Perc 3.2 % (0.0-0.2); Platelet Count Result 334 k/mm3 (150-375); Red Blood Count 4.68 M/mm3 (4.2-5.4); White Blood Count 6.5 K/mm3 (4.5-10.0)
[2025-10-16 14:56] LABS: Hypochromasia 1+
[2025-10-16 14:57] LABS: Anisocytosis 1+
[2025-10-16 14:58] LABS: Schistocytes None Seen; Stomatocytes Occasional; Target Cells Occasional
--- OUTSIDE RECORDS SUMMARY | 2025-10-16 15:21 | XMS_ITS | Clinical Summary ---
Author Organization [facility] Address [address] [place] [address] Care Team Providers Care Millinery Designer Name Role Phone Dilia Yap MD Primary Care Provider Arnulfo Garcia MD Unavailable [phone] Source Comments [facility],non-owned Affiliates and Associated Physician Practices is amultiple site organization consisting of ambulatory clinics and hospital sitesin [place], [place], [place] and [place]. This disclosure is being madepursuant to the Care Everywhere program and may not contain all information available regarding this patient. Last updated 18.[facility] Gather Allergies No known active allergies Medications * [...] migh t be different from the original. 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 Gender Identity Not on file Sexual Orientation [...] 11/19/2017 ZOSTER VACCINE (1 of 2) 02/11/2022 DEPRESSION SCREENING 11/01/2024 COVID-19 VACCINE (1 - 2024-2 6 season) 2025 INFLUENZA VACCINE (#1) 2025 COLON MONITORING 03/26/2026 03/26/2016, 03/26/2016, 03/26/2016 [...] PANEL (CALCIUM TOTAL) (06/21/2018 1:21 PM CDT) [facility] Glucose 91 74 - 106 mg/dL 06/21/2018 2:03 PM CDT [facility] Sodium 138 136 - 145 mmol/L 06/21/2018 2:03 PM CDT [facility] Potassium 3.8 3.5 - 5.1 mmol/L 06/21/2018 2:03 PM CDT [facility] Chloride 104 98 - 107 mmol/L 06/21/2018 2:03 PM CDT [facility] CO2 29 22 - 31 mmol/L 06/21/2018 2:03 PM CDT [facility] Calcium 9.8 8.5 - 10.1 mg/dL 06/21/2018 2:03 PM CDT [facility] Anion Gap 5(L) 8 - 16 mmol/L 06/21/2018 2:03 PM CDT [facility] BUN 9 7 - 21 mg/dL 06/21/2018 2:03 PM CDT [facility] Creatinine 0.64 0.50 - 1.30 mg/dL 06/21/2018 2:03 PM CDT [facility] eGFR by MDRD >60 >60 mL/min/1.7 3m2 06/21/2018 2:03 PM CDT [facility] eGFR by MDRD >60 >60 mL/min/1.7 3m2 06/21/2018 2:03 PM CDT [facility] Blood BLOOD SPECIMEN / Unknown Venipuncture / Unknown 06/21/2018 1:21 PM CDT 06/21/2018 1:27 PM CDT Nick Amezcua MD LAB - CHEMISTRY ORDERABLES Final Result Performing Organization Address City/State/[facility] Co de Phone Number [facility] [address] [phone] * ENDOSCOPY, COLON, DIAGNOSTIC (03/26/2016 6:39 AM CDT) Report Endoscopy POC _ Patient Name: Amanuel Christopher Procedure Date: 03/26/2016 6:39 AM Date of : 1970 Admit Type: Outpatient Age: 46 Gender: Female Attending MD: Dar Timmons MD _ Procedure: Colonoscopy Indications: Generalized abdominal pain, Iron deficiency anemia secondary to chronic blood loss Providers: Dar Timmons MD (Doctor), Sara Breaux, RN, Tyrone Lopez, Print Graphic Designer Referring MD: Dilia Hawthorne MD (Referring MD) [...] pt states she got anemia labs at [facility] a week ago but we don't have these results. We will get them. - Discharge patient to home (ambulatory). - Resume previous diet. - Continue present medications. - Return to my office in 2 weeks. Procedure Code(s): --- Professional --- 50298, Colonoscopy, flexible; with biopsy, single or multiple --- Technical --- 33540, Colonoscopy, flexible; with biopsy, single or multiple [...] or abscess without bleeding CPT copyright 2015 [employer]. All rights reserved. The codes documented in this report are preliminary and upon skip tracer review may be revised to meet current compliance requirements. ___ Dar Timmons MD 03/26/2016 7:24:09 AM Number of Addenda: 0 Note Initiated On: 03/26/2016 6:39 AM [facility] 03/26/2016 6:39 AM CDT us Dar Timmons MD GI PROCEDURE ORDERABLES Ronan jose Result - Final [facility] from Last 3 Months or Most Recently Relevant to Health Maintenance Insurance [facility] Address: [address] [address] [facility] Advance Directives * Full Code (Latest Code Status on File) Date Activated Date Inactivated Comments 07/01/2018 1:11 PM 07/03/2018 6:53 PM * Full Code Date Activated Date Inactivated Comments 06/23/2018 6:34 PM 06/26/2018 5:04 PM Care Teams Millinery Designer Relationship Specialty Start Date End Date Dilia Yap MD PCP - General Internal Medicine 06/12/15 Arnulfo Garcia MD [address] [place] [id number] Plastic and Reconstructive Surgery 06/20/19
== END 2025-10-16 15:50 | disposition home or self-care (01) ==
PROVIDERS: Emergency Provider Student in an Organized Health Care Education/Training Program; PCP Internal Medicine Infectious Disease
DX: J10.1 Influenza due to other identified influenza virus with other respiratory manifestations (principal); Z20.822 Contact with and (suspected) exposure to COVID-19; J44.1 Chronic obstructive pulmonary disease with (acute) exacerbation; I11.0 Hypertensive heart disease with heart failure; I50.9 Heart failure, unspecified; E11.9 Type 2 diabetes mellitus without complications; E66.01 Morbid (severe) obesity due to excess calories; Z68.44 Body mass index [BMI] 60.0-69.9, adult; G47.33 Obstructive sleep apnea (adult) (pediatric); Z86.711 Personal history of pulmonary embolism; Z87.891 Personal history of nicotine dependence; Z90.710 Acquired absence of both cervix and uterus
CPT/HCPCS: 36415; 71045; 80053; 83880; 85025; 87040; 87637; 94640; 96365; 96367; 96375; 99284; A9270; J0360; J0696; J2919